=== PATIENT | male | born 1945 | race Caucasian/White ===

== ENCOUNTER 2019-09-17 12:18 | Inpatient (IN) | payer OTHER ==
--- NOTE | 2019-09-19 10:18 | R.PREADM ---
SCREENING DATE AND TIME 09/19/2019 08:37 (CDT) ANTICIPATED REHAB ADMISSION DATE 09/21/2019 REFERRING FACILITY [facility] [place] REFERRAL DATE AND TIME 09/19/2019 08:37 (CDT) REFERRAL ROOM# [id number].0222 ACUTE ADMIT DATE 09/06/2019 Previous Rehabilitation(s): No. 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 John Summers M.D. MR# [id number] [facility] [id number] NAME ALISON RON ADDRESS [address] [place] [address] [place]IP [phone] DATE OF 1945 AGE 74 SSN# [id number] GENDER male MARITAL STATUS RACE white PREF. LANGUAGE (IF NON-SOUTH KOREAN) Amharic ADMIT FROM 02 - [facility] PRE-HOSPITAL LIVING SETTING 01 - Home (private home/apt. board/care, assisted living, jail, transitional living) HOME TYPE AND DETAILS Type of home: single family house # of levels in the residence: 1 # of steps to enter the residence: 0 # of steps within the residence: 1 Patient lives at home with mother and sister and is independent with ADL's and uses cane for walking. PRE-HOSPITAL LIVING WITH Family/Relatives FAMILY SUPPORT Yes PRIMARY FAMILY CONTACT NAME Yanet Ron PRIMARY FAMILY CONTACT PHONE [phone] PRIMARY FAMILY CONTACT RELATIONSHIP Mother PHONE PRIMARY FAMILY CONTACT ON ADM.? no IS PRIMARY FAMILY CONTACT AUTH. REP.? no 1ST EMERGENCY CONTACT Yanet Ron 1ST CONTACT PHONE [phone] 1ST CONTACT RELATIONSHIP Mother PHONE 1ST CONTACT ON ADM. no IS 1ST CONTACT AUTH. REP.? no PHONE 2ND CONTACT ON ADM.? no PATIENT EMPLOYMENT STATUS Retired (for age) PATIENT EMPLOYER No Employer PAYOR INFORMATION: 1ST PAYOR NAME Marina Medicare 1ST PAYOR PHONE 1ST PAYOR AUTHORIZATION# [id number] 1ST PAYOR INJURY/ILLNESS DUE TO ACCIDENT? No ANOTHER REPUBLICAN RESPONSIBLE? No PRIMARY REHAB/ACUTE DIAGNOSIS: NSTEMI, CABG ONSET DATE 09/06/2019 REHAB IMPAIRMENT CATEGORY (STELLA): 14 Cardiac does NOT meet 60% rule PRIMARY DIAGNOSIS-RELATED SURGERIES: Emergency CAGG - performed by Dr Peace on 09/10/2019 RISK FOR COMPLICATIONS: - N/A AFIB with rapid ventricular response Post NSTEMI S/P CABG SUMMARY OF ACUTE HOSPITALIZATION: Pt. is a 74 yo Right-handed white male. On 09/06/2019 he was admitted to [facility] and underwent emergency surgery for NSTEMI, CABG (CAGG ) by Dr Peace. Pre-morbidly, Pt. was independent/mod-I in Transfers Control, Locomotion, and Self-Care; and he had g ood Balance, Safety Awareness, Social Cognition, Sphincter Control, and Communication. Currently, he has deficits of Transfers Control, Balance, Locomotion, Safety Awareness, and Self-Care . Pt. is now referred to [facility] for acute in-patient rehabilitation in order to maximize patient's functional independence in activities of daily living, strength, ROM, and mobi lity. Patient has realistic goal of being discharged at assistance level 6-Cruz to reside at Home with Fam cruzito/Relatives. PAST MEDICAL HISTORY HLD CABG DIABETES HX of IN with PCI CAD Osteoarthritis PAST SURGICAL HISTORY: CARDIAC STENTS KNEE SX MEDICATION ALLERGIES: CEPHALEXIN Penicillins ENVIRONMENTAL ALLERGIES: None Known - Substance Allergies None Known - Other Allergies None Known CODE STATUS: Full code WEIGHT/HEIGHT/BMI: WEIGHT 262 lbs HEIGHT 5' 10" BMI 37.6 DIET: - Diet Type Regular - Diet - Solid Texture Regular - Diet - Liquid Texture Regular - Tube Feed N/A SKIN DIAGRAM: Incision on Chest; extent - average; stage - NS(Not Stageable). Treatment - Per Physician's Orders. REVIEW OF SYSTEMS: - Gen Alert and awake Lying in bed No apparent distress Oriented to: person, time, and place - Vital Signs Vital signs stable, afebrile - CVS RRR VITAL SIGNS Temperature: 98.1 F SBP/DBP: 109/57 Pulse: 103 Resp: 20 Vital signs stable, afebrile MEDICATIONS/TREATMENT: Other- See attached MAR (Medication Administration Record). CURRENT SPHINCTER CONTROL: Pre-hospital bladder status: continent Pre-hospital bowel status: continent CURRENT LOCOMOTION STATUS: distance walked 210 feet DETAILED CURRENT FUNCTIONAL STATUS: - Walking score based on distance walked: 3(>=150ft) QI SCORES: - Self-Care A. Eating 04-Supervision or touching assistance B. Oral hygiene 04-Supervision or touching assistance C. Toileting hygiene 02-Substantial/maximal assistance E. Shower/bathe self 02-Substantial/maximal assistance F. Upper body dressing G. Lower body dressing 01-Dependent H. Putting on/taking off footwear - Mobility A. Roll left and right 04-Supervision or touching assistance B. Sit to lying 03-Partial/moderate assistance C. Lying to sitting on side of bed 03-Partial/moderate assistance D. Sit to stand 02-Substantial/maximal assistance E. Chair/bca-nm-hlyxj transfer 03-Partial/moderate assistance F. Toilet transfer 03-Partial/moderate assistance G. Car transfer 10-Not attempted due to environmental limitations I. Walk 10 feet 03-Partial/moderate assistance J. Walk 50 feet with two turns 03-Partial/moderate assistance K. Walk 150 feet 88-Not attempted due to medical condition or safety concerns L. Walking 10 feet on uneven surfaces 88-Not attempted due to medical condition or safety concerns M. 1 step (curb) 88-Not attempted due to medical condition or safety concerns N. 4 steps 88-Not attempted due to medical condition or safety concerns O. 12 steps 88-Not attempted due to medical condition or safety concerns P. Picking up object 88-Not attempted due to medical condition or safety concerns - Bladder and Bowel Bladder continence 0-Always continent Bowel continence 0-Always continent - Endurance Fair - Balance Poor - Safety Awareness Poor CURRENT FUNC. DEFICITS: Self-Care, Mobility, Endurance, Balance, and Safety Awareness CURRENT / PREVIOUS ASSISTIVE DEVICES: Straight Cane HISTORY OF FALLS. HAS THE PATIENT HAD TWO OR MORE FALLS IN THE PAST YEAR OR ANY FALL WITH INJURY IN T HE PAST YEAR?: No PRIOR SURGERY. DID THE PATIENT HAVE MAJOR SURGERY DURING THE 100 DAYS PRIOR TO ADMISSION?: Yes THERAPY NOTES FROM ACUTE CARE: Attached. SPECIAL NEEDS: - Safety Concerns Skin breakdown precautions needed due to skin breakdown risk PRECAUTIONS: - Sternal Precaution Hold pillow to sternum while caughing No overhead lifting No weight lifting more than 5 lbs No wheel chair propulsion - Cardiac Precaution Monitor blood pressure, heart rate, lower extremity edema, notify MD for shortness of breath or chest pain Monitor patient for excessive elevation of heart rate and blood pressure during therapy Nursing and Therapy to monitor pt before and after therapy sessions for signs of Chest pain PATIENT NEEDS ACTIVE AND ONGOING THERAPEUTIC INTERVENTION OF MULTIPLE THERAPY DISCIPLINES, INCLUDING: - Dietary and Nutrition Adequate Nutrition. Nutritional Education. Nutritional Supplements. PATIENT NEEDS CLOSE MEDICAL SUPERVISION BY A REHABILITATION PHYSICIAN FOR: Coordination of Treatment Team Post-Op Complications Wound Care PATIENT REQUIRES 24X7 REHAB NURSING FOR MEDICAL AND FUNCTIONAL MGT. OF THE FOLLOWING DEFICITS: Disease Management Medication Management Patient/Family Education Providing Safe Environment Skin Integrity PATIENT REQUIRES INTENSIVE, COORDINATED INTERDISCIPLINARY APPROACH TO REHAB: Arranging Home Equipment/Services Discharge Planning Family Intervention/Training Instructor Trainer Canine Service/Case Management PATIENT REHAB POTENTIAL: Jens VELAZQUEZ is able and expected to receive 3 hours of individualized therapy daily on at least 5 o f every 7 days Jens VELAZQUEZ's prognosis for significant practical improvement within a reasonable period of time ap pears Good Expected level of measurable improvement will be of a practical value to Jens VELAZQUEZ's functional c apacity or adaptations to impairments Has a viable Discharge Plan Medically appropriate; condition is sufficiently stable to participate in intensive rehab program DISCHARGE PLAN: - Estimated Length of Stay (days) 10. - Consensus on plan Discharge plan has been discussed with primary caregiver. Patient/Family is in agreement with the brooke n. - Patient/Family Goals Return home with assistance. RECOMMENDED CARE LEVEL: IRF RECOMMENDATION DETAILS: Recommended Admission to Comprehensive Rehabilitation Program to Increase Functional [place] SCREENER'S COMPLETENESS CONFIRMATION: - Screening Confirmation The patient data collection on this preadmission screening form is finished PHYSICIANS REVIEW AND ADMISSION DETERMINATION Admit - Based on my review of the Pre-Admission Screening results, in my medical judgment and experie nce, I concur with the findings and recommend admission to [facility], as this patient requires an IRF level of care. SIGNATURE PANEL: Clinical Liaison - [electronically] signed by Steffanie Fox RN on 09/19/2019 at 08:53 (CDT) Physician Reviewer - [electronically] signed by Dr. John Summers M.D. on 09/19/2019 at 10:18 (CDT )
--- OUTSIDE RECORDS SUMMARY | 2019-09-19 19:45 | XMS REPORT | Continuity of Care Document ---
:1945 Author Organization [facility] t Address [address] [place] [address] Care Team Providers Name Role Phone Unavailable Unavailable Unavailable Payers Payer Name Policy Type Policy Number Effective Date Expiration Date S ource Problems This patient has no known problems. Allergies, Adverse Reactions, Alerts Allergy Allergy Status Severity Reaction(s) Onset Inactive Treating Comm ents Source Name Type Date Date Clinician [facility] DA Active U 2020-0 [facility] [place] [facility] [place] [facility] DA [facility] U 2020-0 [facility] 09[facility]05 [place] 00:[facility]: [facility] 00 are [facility] cephalex DA Active U 2020-0 [facility] 09-05 [place] 00:[facility]: [facility] 00 are [facility] Pen[place]ill DA Active [place] 2020-0 [facility] ins 09-03 [place] 00:00: Fong [address] [place] [address] cephalex DA Active [place] 2020-0 [facility] 09-03 [place] 00:00: [address] Medications This patient has no known medications. Procedures This patient has no known procedures. Results Test Description Test Time Test Comments Results Result Comments Source GLUBED 2019-09-19 11:50:00 Test Item Value Reference Range Interpretation Comme nts GLUBED (test code = GLUBED) 115 MG/DL 70-105 H BASIC METABOLIC [id number] 10:38:00 Test Item Value Reference Range Interpretation Comments SODIUM (test code = 132 MMOL/L 136-143 L NA) POTASSIUM (test code 3.9 MMOL/L 3.5-5.1 N = K) CHLORIDE (test code = 94 MMOL/L 98-107 L CL) CARBON DIOXIDE (test 30 mmol/L 24-31 N code = CO2) GLUCOSE (test code = 146 mg/dL 70-104 H GLU) BLOOD UREA NITROGEN 19.6 MG/DL 7.0-21.0 N (test code = BUN) GLOMERULAR FILTRATION 45 >60 L The es timated RATE (test code = glomerular filtration GFR) rate is compute d usingpatient ra ce, age (>18), sex, and serum creatinine. If anyof the needed data elements are mi ssing the Laboratory cannot compute an aleks mation of the glomerul ar filtration rate . CREATININE (test code 1.6 mg/dL 0.8-1.5 H = CREAT) CALCIUM (test code = 9.1 mg/dL 8.8-10.2 N CA) - XR CHEST 1 [id number] 09:17:00Patient Name: ALISON LOUIE Unit No: [id number] EXAMS: CPT CODE: [id number] XR CHEST 1 V [id number] EXAM: XR Chest 1 View INDICATION: Acute resp insufficiency LOCATION CODE: A 1 COMPARISON: Chest radiograph dated 09/18/2019 TECHNIQUE: Frontal view of the chest was obtained. FINDINGS: Left basilar airspace opacities are relatively unchanged from prior with suspected left pleural effusion. Right lung is clear. There is no pneumothorax. The cardiomediastinal silhouette is unchanged. No acute osseous abnormality is identified. IMPRESSION: No significant change from prior radiograph at 0917 Reported and signed by: MELVINA SCHMITZ M.D. CC: Blayne Hernandes MD;Curtis Peace MD Technologist: Yogi Mai Time: DAP (Gy m2): Air Kerma (mGy): Trscr Dt/Tm: 09/19/2019 (916) by:[email or web address] Printed Date/Time: 09/19/2019 (920) Name: ALISON LOUIE [facility] Phys: Blayne Miranda MD [address] : 1945 Age: 74 Sex: [place] [address] Loc: P.0222 1 Exam Date: 09/19/2019 Status:ADM IN PH: FAX: PAGE 1 Signed ReportCBC W/AUTO DIFF 2019-09-19 09:15:00 Test Item Value Reference Range Interpretation Comments WHITE BLOOD CELL (test code = 7.8 x10 3/uL 4.8-10.8 N WBC) RED BLOOD CELL (test code = 2.78 x10 6/uL 4.70-6.10 L RBC) HEMOGLOBIN (test code = HGB) 8.1 g/dL 14.5-20 L HEMATOCRIT (test code = HCT) 25.2 % 42.0-52.0 L MEAN CELL VOLUME (test code = 90.6 fL 80.0-94.0 N MCV) MEAN CELL HGB (test code = MCH) 29.1 pg 27-31 N MEAN CELL HGB CONCENTRATION 32.1 G/DL 33-36.5 L (test code = MCHC) RED CELL DISTRIBUTION WIDTH 14.9 % 12.9-16.9 N (test code = RDW) PLATELET COUNT (test code = 291 150-440 N PLT) MEAN PLATELET VOLUME (test code 11.9 fL 8.9-12.4 N = MPV) NEUTROPHIL % (test code = NT%) 70.4 % 42.2-75.2 N LYMPHOCYTE % (test code = LY%) 14.9 % 20.5-51.1 L MONOCYTE % (test code = MO%) 8.0 % 1.7-9.3 N EOSINOPHIL % (test code = EO%) 5.5 % 0.0-7.0 N BASOPHIL % (test code = BA%) 0.6 % 0-2.5 N NEUTROPHIL # (test code = NT#) 5.50 x10 3/uL 1.80-7.70 N LYMPHOCYTE # (test code = LY#) 1.17 x10 3/uL 1.00-4.80 N MONOCYTE # (test code = MO#) 0.63 x10 3/uL 0.00-0.80 N EOSINOPHIL # (test code = EO#) 0.43 x10 3/uL 0.00-0.45 N BASOPHIL # (test code = BA#) 0.05 x10 3/uL 0.0-0.20 N PROTHROMBIN [id number] 07:41:00 Test Item Value Reference Range Interpretation Comments PROTHROMBIN TIME 23.4 SECONDS 10.3-12.9 H PATIENT (test code = PTP) INTERNATIONAL 2.03 INR UNIT 0.9-1.11 H The INR is us eful only NORMAL RATIO (test for monit oring code = INR) anticoagulant therapy.It may be unreliable in t he initial phase o f antigoagulation and in unstable patien ts. Indication for Anticoagulation Recommend ed INR 1. Prevention o f venous thomboembolism 2.0-3.0in high -risk patients; treat ment of venousthrombosi s and pulmonary embol ism aftera course o f heparin; preven tion of systemicembolis m in a variety of cond itions, including atria l fibrillation an d prothetic tissu e heart valves, 2. Pros thetic mechanical hear t valves; 2.5-3.5recurren t systemic emboli sm. [id number] 20:49:00 Test Item Value Reference Range Interpretation Comments GLUBED (test code = GLUBED) 155 MG/DL 70-105 H [id number] 16:59:00 Test Item Value Reference Range Interpretation Comments GLUBED (test code = GLUBED) 117 MG/DL 70-105 H [id number] 11:32:00 Test Item Value Reference Range Interpretation Comments GLUBED (test code = GLUBED) 133 MG/DL 70-105 H - XR CHEST 1 [id number] 09:59:00Patient Name: ALISON LOUIE Unit No: [id number] EXAMS: CPT CODE: [id number] XR CHEST 1 V [id number] EXAM: Chest one view. Location: A1 HISTORY: New chestpain COMPARISON: 09/18/2019 at 07 58 FINDINGS: Patchy airspace opacities are present at the lung bases, slightly worsened since earlier study. Cardiac silhouette is moderately enlarged. There is prominence of central pulmonary vessels and in terstitial markings. Left pleural effusion appears sightly worsened. Sternotomy wires and mediastinal surgical clips are present. There is no pneumothorax. Visualized skeletal structures are within normal limits. IMPRESSION: 1. Interval worsening atelectasis/consolidation of the lung bases and small left pleural effusion. 2. Stable cardiomegaly and pulmonary vascular congestion at 0959 Reported and signed by: CAROLEE DAN CC: Collins CRAWFORD; Curtis Peace MD Technologist: Darian Mai Time: DAP (Gy m2): Air Kerma (mGy): Trscr Dt/Tm: 09/18/2019 (0959) by:[email or web address] Printed Date/Time: 09/18/2019 (1002) Name: ALISON LOUIE [facility] Phys: AMANDO.Kris - Collins Boss [address] : 1945 Age: 74 Sex: [place] [address] Loc: P.0222 1 Exam Date: 09/18/2019 Status: ADM IN PH: FAX: PAGE 1 Signed ReportPROTHROMBIN [id number] 08:19:00 Test Item Value Reference Range Interpretation Comments PROTHROMBIN TIME 15.9 SECONDS 10.3-12.9 H PATIENT (test code = PTP) INTERNATIONAL 1.39 INR UNIT 0.9-1.11 H The INR is us eful only NORMAL RATIO (test for monit oring code = INR) anticoagulant therapy.It may be unreliable in t he initial phase o f antigoagulation and in unstable patien ts. Indication for Anticoagulation Recommend ed INR 1. Prevention o f venous thomboembolism 2.0-3.0in high -risk patients; treat ment of venousthrombosi s and pulmonary embol ism aftera course o f heparin; preven tion of systemicembolis m in a variety of cond itions, including atria l fibrillation an d prothetic tissu e heart valves, 2. Pros thetic mechanical hear t valves; 2.5-3.5recurren t systemic emboli sm. - XR CHEST 1 [id number] 08:03:00Patient Name: ALISON LOUIE Unit No: [id number] EXAMS: CPT CODE: [id number] XR CHEST 1 V [id number] EXAM: XR Chest 1 View INDICATION: Acute resp insufficiency LOCATION CODE: A 1 COMPARISON: Chest radiograph dated 09/17/2019 TECHNIQUE: Frontal view of the chest was obtained. FINDINGS: Small left pleural effusion with left basilar airspace opacities are unchanged from prior. There is no pneumothorax. The cardiomediastinal silhouette is unchanged. No acute osseous abnormality isidentified. IMPRESSION: No significant change from prior radiograph. at 0803 Reported and signed by: MELVINA SCHMITZ M.D. CC: Blayne Hernandes MD; Curtis Peace MD Technologist: Darian Bone Fluoro Time: DAP (Gy m2): Air Kerma (mGy): Trscr Dt/Tm: 09/18/2019 (0803) by:[email or web address] Printed Date/Time: 09/18/2019 (0807) Name: ALISON LOUIE [facility] Phys: Blayne Miranda MD [address] : [birth year] Age: 74 Sex: [place] [address] Loc: P.0222 1 Exam Date: 09/18/2019 Status: ADM IN PH: FAX: PAGE 1 Signed [id number] 07:44:00 Test Item Value Reference Range Interpretation Comments GLUBED (test code = GLUBED) 115 MG/DL 70-105 H CBC W/AUTO [id number] 07:20:00 Test Item Value Reference Range Interpretation Comments WHITE BLOOD CELL (test code = 8.5 x10 3/uL 4.8-10.8 N WBC) RED BLOOD CELL (test code = 2.84 x10 6/uL 4.70-6.10 L RBC) HEMOGLOBIN (test code = HGB) 8.2 g/dL 14.5-20 L HEMATOCRIT (test code = HCT) 25.7 % 42.0-52.0 L MEAN CELL VOLUME (test code = 90.5 fL 80.0-94.0 N MCV) MEAN CELL HGB (test code = MCH) 28.9 pg 27-31 N MEAN CELL HGB CONCENTRATION 31.9 G/DL 33-36.5 L (test code = MCHC) RED CELL DISTRIBUTION WIDTH 15.0 % 12.9-16.9 N (test code = RDW) PLATELET COUNT (test code = 274 150-440 N PLT) MEAN PLATELET VOLUME (test code 12.3 fL 8.9-12.4 N = MPV) NEUTROPHIL % (test code = NT%) 62.9 % 42.2-75.2 N LYMPHOCYTE % (test code = LY%) 20.2 % 20.5-51.1 L MONOCYTE % (test code = MO%) 10.3 % 1.7-9.3 H EOSINOPHIL % (test code = EO%) 5.1 % 0.0-7.0 N BASOPHIL % (test code = BA%) 0.7 % 0-2.5 N NEUTROPHIL # (test code = NT#) 5.33 x10 3/uL 1.80-7.70 N LYMPHOCYTE # (test code = LY#) 1.71 x10 3/uL 1.00-4.80 N MONOCYTE # (test code = MO#) 0.87 x10 3/uL 0.00-0.80 H EOSINOPHIL # (test code = EO#) 0.43 x10 3/uL 0.00-0.45 N BASOPHIL # (test code = BA#) 0.06 x10 3/uL 0.0-0.20 N BASIC METABOLIC [id number] 07:11:00 Test Item Value Reference Range Interpretation Comments SODIUM (test code = 138 MMOL/L 136-143 N NA) POTASSIUM (test code 4.0 MMOL/L 3.5-5.1 N = K) CHLORIDE (test code = 99 MMOL/L 98-107 N CL) CARBON DIOXIDE (test 30 mmol/L 24-31 N code = CO2) GLUCOSE (test code = 113 mg/dL 70-104 H GLU) BLOOD UREA NITROGEN 18.0 MG/DL 7.0-21.0 N (test code = BUN) GLOMERULAR FILTRATION 45 >60 L The es timated RATE (test code = glomerular filtration GFR) rate is compute d usingpatient ra ce, age (>18), sex, and serum creatinine. If anyof the needed data elements are mi ssing the Laboratory cannot compute an aleks mation of the glomerul ar filtration rate . CREATININE (test code 1.6 mg/dL 0.8-1.5 H = CREAT) CALCIUM (test code = 9.2 mg/dL 8.8-10.2 N CA) [id number] 19:48:00 Test Item Value Reference Range Interpretation Comments GLUBED (test code = GLUBED) 158 MG/DL 70-105 H [id number] 17:58:00 Test Item Value Reference Range Interpretation Comments GLUBED (test code = GLUBED) 135 MG/DL 70-105 H [id number] 13:58:00 Test Item Value Reference Range Interpretation Comments GLUBED (test code = GLUBED) 107 MG/DL 70-105 H BASIC METABOLIC [id number] 10:22:00 Test Item Value Reference Range Interpretation Comments SODIUM (test code = 131 MMOL/L 136-143 L NA) POTASSIUM (test code 4.5 MMOL/L 3.5-5.1 N = K) CHLORIDE (test code = 96 MMOL/L 98-107 L CL) CARBON DIOXIDE (test 29 mmol/L 24-31 N code = CO2) GLUCOSE (test code = 111 mg/dL 70-104 H GLU) BLOOD UREA NITROGEN 18.9 MG/DL 7.0-21.0 N (test code = BUN) GLOMERULAR FILTRATION 58 >60 L The es timated RATE (test code = glomerular filtration GFR) rate is compute d usingpatient ra ce, age (>18), sex, and serum creatinine. If anyof the needed data elements are mi ssing the Laboratory cannot compute an aleks mation of the glomerul ar filtration rate . CREATININE (test code 1.3 mg/dL 0.8-1.5 N = CREAT) CALCIUM (test code = 9.3 mg/dL 8.8-10.2 N CA) LIVER FUNCTION [id number] 10:22:00 Test Item Value Reference Range Interpretation Comments TOTAL PROTEIN (test code = PROT) 5.9 g/dL 6.3-8.3 L ALBUMIN (test code = ALB) 3.5 G/DL 3.5-5.0 N BILIRUBIN TOTAL (test code = BILT) 0.4 mg/dL 0.2-1.0 N BILIRUBIN DIRECT (test code = <0.2 mg/dL 0.0-0.2 N BILD) SGOT/AST (test code = AST) 17 IU/L 10-34 N SGPT/ALT (test code = ALT) 12 U/L 10-44 N ALKALINE PHOSPHATASE (test code = 62 U/L 45-120 N ALKP) - XR CHEST 1 [id number] 07:54:00Patient Name: ALISON LOUIE Unit No: [id number] EXAMS: CPT CODE: [id number] XR CHEST 1 V [id number] Chest one view AP 09/17/2019 7:54 AM CLINICAL INDICATION: Postop COMPARISON: 09/16/2019 LOCATION: W1 IMPRESSION: Cardiomediastinal contours are stable. The central pulmonary vasculature is not engorged. There is bibasilar atelectasis, with a trace left pleural effusion. No pneumothorax is evident. Sternotomy wires remain midline. at 0754 Reported and signed by: MARCELO SANTOS M.D. CC: Curtis Peace MD Technologist: Yogi Mai Time: DAP (Gy m2): Air Kerma (mGy): Trscr Dt/Tm: 09/17/2019 (0754) by:[email or web address] Printed Date/Time: 09/17/2019 (0758) Name: ALISON LOUIE [facility] Phys: Curtis uBrgess MD [address] : 1945 Age: 74 Sex: [place] [address] Loc: P.0222 1 Exam Date: 09/17/2019 Status: ADMIN PH: FAX: PAGE 1 Signed [id number] 07:42:00 Test Item Value Reference Range Interpretation Comments GLUBED (test code = GLUBED) 145 MG/DL 70-105 H BASIC METABOLIC [id number] 07:10:00 Test Item Value Reference Range Interpretation Comments SODIUM (test code = 131 MMOL/L 136-143 L NA) POTASSIUM (test code 4.5 MMOL/L 3.5-5.1 N = K) CHLORIDE (test code = 96 MMOL/L 98-107 L CL) CARBON DIOXIDE (test 29 mmol/L 24-31 N code = CO2) GLUCOSE (test code = 111 mg/dL 70-104 H GLU) BLOOD UREA NITROGEN 18.9 MG/DL 7.0-21.0 N (test code = BUN) GLOMERULAR FILTRATION 58 >60 L The es timated RATE (test code = glomerular filtration GFR) rate is compute d usingpatient ra ce, age (>18), sex, and serum creatinine. If anyof the needed data elements are mi ssing the Laboratory cannot compute an aleks mation of the glomerul ar filtration rate . CREATININE (test code 1.3 mg/dL 0.8-1.5 N = CREAT) CALCIUM (test code = 9.3 mg/dL 8.8-10.2 N CA) PROTHROMBIN [id number] 06:58:00 Test Item Value Reference Range Interpretation Comments PROTHROMBIN TIME 12.9 SECONDS 10.3-12.9 N PATIENT (test code = PTP) INTERNATIONAL 1.14 INR UNIT 0.9-1.11 H The INR is us eful only NORMAL RATIO (test for monit oring code = INR) anticoagulant therapy.It may be unreliable in t he initial phase o f antigoagulation and in unstable patien ts. Indication for Anticoagulation Recommend ed INR 1. Prevention o f venous thomboembolism 2.0-3.0in high -risk patients; treat ment of venousthrombosi s and pulmonary embol ism aftera course o f heparin; preven tion of systemicembolis m in a variety of cond itions, including atria l fibrillation an d prothetic tissu e heart valves, 2. Pros thetic mechanical hear t valves; 2.5-3.5recurren t systemic emboli sm. THROMBOPLASTIN TIME [id number] 06:58:00 Test Item Value Reference Range Interpretation Comments THROMBOPLASTIN TIME 35.5 SECONDS 26.0-35.9 VIVIENNE PARTIAL (test code = [place]. INTERPRETATIV PTT) E DATA:Therapeu tic range: Unfractionated heparin:47 - 71 seconds Argatroban:1.5 to 3 times the basel ine PTT CBC W/AUTO [id number] 06:18:00 Test Item Value Reference Range Interpretation Comments WHITE BLOOD CELL (test code = 8.6 x10 3/uL 4.8-10.8 N WBC) RED BLOOD CELL (test code = 2.83 x10 6/uL 4.70-6.10 L RBC) HEMOGLOBIN (test code = HGB) 8.2 g/dL 14.5-20 L HEMATOCRIT (test code = HCT) 25.6 % 42.0-52.0 L MEAN CELL VOLUME (test code = 90.5 fL 80.0-94.0 N MCV) MEAN CELL HGB (test code = MCH) 29.0 pg 27-31 N MEAN CELL HGB CONCENTRATION 32.0 G/DL 33-36.5 L (test code = MCHC) RED CELL DISTRIBUTION WIDTH 14.7 % 12.9-16.9 N (test code = RDW) PLATELET COUNT (test code = 236 150-440 N PLT) MEAN PLATELET VOLUME (test code 12.4 fL 8.9-12.4 N = MPV) NEUTROPHIL % (test code = NT%) 65.2 % 42.2-75.2 N LYMPHOCYTE % (test code = LY%) 15.8 % 20.5-51.1 L MONOCYTE % (test code = MO%) 11.6 % 1.7-9.3 H EOSINOPHIL % (test code = EO%) 5.8 % 0.0-7.0 N BASOPHIL % (test code = BA%) 0.6 % 0-2.5 N NEUTROPHIL # (test code = NT#) 5.63 x10 3/uL 1.80-7.70 N LYMPHOCYTE # (test code = LY#) 1.36 x10 3/uL 1.00-4.80 N MONOCYTE # (test code = MO#) 1.00 x10 3/uL 0.00-0.80 H EOSINOPHIL # (test code = EO#) 0.50 x10 3/uL 0.00-0.45 H BASOPHIL # (test code = BA#) 0.05 x10 3/uL 0.0-0.20 N [id number] 21:03:00 Test Item Value Reference Range Interpretation Comments GLUBED (test code = GLUBED) 138 MG/DL 70-105 H [id number] 17:27:00 Test Item Value Reference Range Interpretation Comments GLUBED (test code = GLUBED) 133 MG/DL 70-105 H [id number] 11:22:00 Test Item Value Reference Range Interpretation Comments GLUBED (test code = GLUBED) 157 MG/DL 70-105 H [id number] 08:13:00 Test Item Value Reference Range Interpretation Comments GLUBED (test code = GLUBED) 120 MG/DL 70-105 H - XR CHEST 1 [id number] 07:05:00Patient Name: ALISON LOUIE Unit No: [id number] EXAMS: CPT CODE: [id number] XR CHEST 1 V [id number] Chest one view AP 09/16/2019 7:04 AM CLINICAL INDICATION: CABG COMPARISON: 09/14/2019 LOCATION: W1 IMPRESSION: A right IJ CVC sheath has been removed. Sternotomy wires remain midline. Cardiomediastinal contours are stable. The central pulmonary vasculature is not engorged.The lungs are hypoinflated, with bibasilar atelectasis. No pneumothorax is evident. at 0705 Reported and signed by: MARCELO SANTOS M.D. CC: Curtis Peace MD; Kenn Antony MD Technologist: Chanel Mai Time: DAP (Gy m2): Air Kerma (mGy): Trscr Dt/Tm: 09/16/2019 (704) by:[email or web address] Printed Date/Time: 09/16/2019 (707) Name: JACYALISON [facility] Phys: - Kenn Antony MD [address] : 1945 Age: 74 Sex: [place] [address] Loc: P.0222 1 Exam Date: 09/16/2019 Status: ADM IN PH: FAX: PAGE 1 Signed ReportBASIC METABOLIC PANEL 2019-09-16 05:51:00 Test Item Value Reference Range Interpretation Comments SODIUM (test code = 138 MMOL/L 136-143 N NA) POTASSIUM (test code 4.0 MMOL/L 3.5-5.1 N = K) CHLORIDE (test code = 101 MMOL/L 98-107 N CL) CARBON DIOXIDE (test 27 mmol/L 24-31 N code = CO2) GLUCOSE (test code = 129 mg/dL 70-104 H GLU) BLOOD UREA NITROGEN 18.9 MG/DL 7.0-21.0 N (test code = BUN) GLOMERULAR FILTRATION 58 >60 L The es timated RATE (test code = glomerular filtration GFR) rate is compute d usingpatient ra ce, age (>18), sex, and serum creatinine. If anyof the needed data elements are mi ssing the Laboratory cannot compute an aleks mation of the glomerul ar filtration rate . CREATININE (test code 1.3 mg/dL 0.8-1.5 N = CREAT) CALCIUM (test code = 8.7 mg/dL 8.8-10.2 L CA) PROTHROMBIN [id number] 04:53:00 Test Item Value Reference Range Interpretation Comments PROTHROMBIN TIME 13.3 SECONDS 10.3-12.9 H PATIENT (test code = PTP) INTERNATIONAL 1.17 INR UNIT 0.9-1.11 H The INR is us eful only NORMAL RATIO (test for monit oring code = INR) anticoagulant therapy.It may be unreliable in t he initial phase o f antigoagulation and in unstable patien ts. Indication for Anticoagulation Recommend ed INR 1. Prevention o f venous thomboembolism 2.0-3.0in high -risk patients; treat ment of venousthrombosi s and pulmonary embol ism aftera course o f heparin; preven tion of systemicembolis m in a variety of cond itions, including atria l fibrillation an d prothetic tissu e heart valves, 2. Pros thetic mechanical hear t valves; 2.5-3.5recurren t systemic emboli sm. THROMBOPLASTIN TIME [id number] 04:53:00 Test Item Value Reference Range Interpretation Comments THROMBOPLASTIN TIME 48.7 SECONDS 26.0-35.9 H INTERPRE TATIVE PARTIAL (test code = DATA: erapeutic PTT) range: Unfractionated heparin:47 - 71 seconds Argatroban:1.5 to 3 times the basel ine PTT CBC W/AUTO [id number] 04:35:00 Test Item Value Reference Range Interpretation Comments WHITE BLOOD CELL (test code = 7.8 x10 3/uL 4.8-10.8 N WBC) RED BLOOD CELL (test code = 2.81 x10 6/uL 4.70-6.10 L RBC) HEMOGLOBIN (test code = HGB) 8.1 g/dL 14.5-20 L HEMATOCRIT (test code = HCT) 25.5 % 42.0-52.0 L MEAN CELL VOLUME (test code = 90.7 fL 80.0-94.0 N MCV) MEAN CELL HGB (test code = MCH) 28.8 pg 27-31 N MEAN CELL HGB CONCENTRATION 31.8 G/DL 33-36.5 L (test code = MCHC) RED CELL DISTRIBUTION WIDTH 14.6 % 12.9-16.9 N (test code = RDW) PLATELET COUNT (test code = 219 150-440 N PLT) MEAN PLATELET VOLUME (test code 12.2 fL 8.9-12.4 N = MPV) NEUTROPHIL % (test code = NT%) 63.9 % 42.2-75.2 N LYMPHOCYTE % (test code = LY%) 18.2 % 20.5-51.1 L MONOCYTE % (test code = MO%) 11.4 % 1.7-9.3 H EOSINOPHIL % (test code = EO%) 5.4 % 0.0-7.0 N BASOPHIL % (test code = BA%) 0.6 % 0-2.5 N NEUTROPHIL # (test code = NT#) 5.00 x10 3/uL 1.80-7.70 N LYMPHOCYTE # (test code = LY#) 1.42 x10 3/uL 1.00-4.80 N MONOCYTE # (test code = MO#) 0.89 x10 3/uL 0.00-0.80 H EOSINOPHIL # (test code = EO#) 0.42 x10 3/uL 0.00-0.45 N BASOPHIL # (test code = BA#) 0.05 x10 3/uL 0.0-0.20 N [id number] 20:51:00 Test Item Value Reference Range Interpretation Comments GLUBED (test code = GLUBED) 128 MG/DL 70-105 H [id number] 16:43:00 Test Item Value Reference Range Interpretation Comments GLUBED (test code = GLUBED) 129 MG/DL 70-105 H [id number] 11:18:00 Test Item Value Reference Range Interpretation Comments GLUBED (test code = GLUBED) 107 MG/DL 70-105 H [id number] 11:18:00 Test Item Value Reference Range Interpretation Comments GLUBED (test code = GLUBED) 136 MG/DL 70-105 H [id number] 10:55:00 Test Item Value Reference Range Interpretation Comments GLUBED (test code = GLUBED) 137 MG/DL 70-105 H [id number] 10:55:00 Test Item Value Reference Range Interpretation Comments GLUBED (test code = GLUBED) 131 MG/DL 70-105 H [id number] 10:54:00 Test Item Value Reference Range Interpretation Comments GLUBED (test code = GLUBED) 141 MG/DL 70-105 H [id number] 10:54:00 Test Item Value Reference Range Interpretation Comments GLUBED (test code = GLUBED) 139 MG/DL 70-105 H [id number] 07:36:00 Test Item Value Reference Range Interpretation Comments GLUBED (test code = GLUBED) 147 MG/DL 70-105 H BASIC METABOLIC [id number] 07:24:00 Test Item Value Reference Range Interpretation Comments SODIUM (test code 139 MMOL/L 136-143 N = NA) POTASSIUM (test 3.8 MMOL/L 3.5-5.1 N code = K) CHLORIDE (test 105 MMOL/L 98-107 N code = CL) CARBON DIOXIDE 27 mmol/L 24-31 N (test code = CO2) GLUCOSE (test code 123 mg/dL 70-104 H = GLU) BLOOD UREA 20.1 MG/DL 7.0-21.0 N NITROGEN (test code = BUN) GLOMERULAR >=60 max >60 The estimated FILTRATION RATE estimate glomerular (test code = GFR) filtration rate is computed usingpatient ra ce, age (>18), sex, and serum creatinin e. If anyof the neede d data elements a re missing the Laboratory guy ot compute an estimation of t he glomerular filtration rate . CREATININE (test 1.2 mg/dL 0.8-1.5 N code = CREAT) CALCIUM (test code 8.5 mg/dL 8.8-10.2 L = CA) BASIC METABOLIC [id number] 07:10:00 Test Item Value Reference Range Interpretation Comments SODIUM (test code 139 MMOL/L 136-143 N = NA) POTASSIUM (test 3.8 MMOL/L 3.5-5.1 N code = K) CHLORIDE (test 105 MMOL/L 98-107 N code = CL) CARBON DIOXIDE 27 mmol/L 24-31 N (test code = CO2) GLUCOSE (test code 123 mg/dL 70-104 H = GLU) BLOOD UREA MG/DL 7.0-21.0 NITROGEN (test code = BUN) GLOMERULAR >=60 max >60 The estimated FILTRATION RATE estimate glomerular (test code = GFR) filtration rate is computed usingpatient ra ce, age (>18), sex, and serum creatinin e. If anyof the neede d data elements a re missing the Laboratory guy ot compute an estimation of t he glomerular filtration rate . CREATININE (test 1.2 mg/dL 0.8-1.5 N code = CREAT) CALCIUM (test code 8.5 mg/dL 8.8-10.2 L = CA) THROMBOPLASTIN TIME [id number] 07:09:00 Test Item Value Reference Range Interpretation Comments THROMBOPLASTIN TIME 37.8 SECONDS 26.0-35.9 H INTERPRE TATIVE PARTIAL (test code = DATA: erapeutic PTT) range: Unfractionated heparin:47 - 71 seconds Argatroban:1.5 to 3 times the basel ine PTT CBC W/AUTO [id number] 06:15:00 Test Item Value Reference Range Interpretation Comments WHITE BLOOD CELL (test code = 7.8 x10 3/uL 4.8-10.8 N WBC) RED BLOOD CELL (test code = 2.77 x10 6/uL 4.70-6.10 L RBC) HEMOGLOBIN (test code = HGB) 8.1 g/dL 14.5-20 L HEMATOCRIT (test code = HCT) 25.2 % 42.0-52.0 L MEAN CELL VOLUME (test code = 91.0 fL 80.0-94.0 N MCV) MEAN CELL HGB (test code = MCH) 29.2 pg 27-31 N MEAN CELL HGB CONCENTRATION 32.1 G/DL 33-36.5 L (test code = MCHC) RED CELL DISTRIBUTION WIDTH 14.6 % 12.9-16.9 N (test code = RDW) PLATELET COUNT (test code = 189 150-440 N PLT) MEAN PLATELET VOLUME (test code 12.7 fL 8.9-12.4 H = MPV) NEUTROPHIL % (test code = NT%) 71.0 % 42.2-75.2 N LYMPHOCYTE % (test code = LY%) 13.0 % 20.5-51.1 L MONOCYTE % (test code = MO%) 10.6 % 1.7-9.3 H EOSINOPHIL % (test code = EO%) 4.3 % 0.0-7.0 N BASOPHIL % (test code = BA%) 0.5 % 0-2.5 N NEUTROPHIL # (test code = NT#) 5.55 x10 3/uL 1.80-7.70 N LYMPHOCYTE # (test code = LY#) 1.02 x10 3/uL 1.00-4.80 N MONOCYTE # (test code = MO#) 0.83 x10 3/uL 0.00-0.80 H EOSINOPHIL # (test code = EO#) 0.34 x10 3/uL 0.00-0.45 N BASOPHIL # (test code = BA#) 0.04 x10 3/uL 0.0-0.20 N - XR CHEST 1 [id number] 07:42:00Patient Name: ALISON LOUIE Unit No: [id number] EXAMS: CPT CODE: [id number] XR CHEST 1 V [id number] Chest one view AP 09/14/2019 7:41 AM CLINICAL INDICATION: CABG COMPARISON: 09/13/2019 LOCATION: W1 IMPRESSION: Support hardware is unchanged in position. Cardiomediastinal contours are stable. The central pulmonary vasculature is not engorged. The lungs are hypoinflated, with bibasilar atelectasis. No pneumothorax is evident. at 0742 Reported and signed by: MARCELO SANTOS M.D. CC: Curtis Peace MD Technologist: Martha Costa Fluoro Time: DAP (Gy m2): Air Kerma (mGy): Trscr Dt/Tm: 09/14/2019 (0742) by:[email or web address] Printed Date/Time: 09/14/2019 (0765) Name: ALISON LOUIE [facility] Phys: Curtis Burgess MD [address] : 1945 Age: 74 Sex: [place] [address] Acct No: [id number] Loc: P.0222 1 Exam Date: 09/14/2019 Status: ADM IN PH: FAX: PAGE 1 Signed ReportTHROMBOPLASTIN TIME [id number] 07:09:00 Test Item Value Reference Range Interpretation Comments THROMBOPLASTIN TIME 40.0 SECONDS 26.0-35.9 H INTERPRE TATIVE PARTIAL (test code = DATA:Th erapeutic PTT) range: Unfractionated heparin:47 - 71 seconds Argatroban:1.5 to 3 times the basel ine PTT BASIC METABOLIC [id number] 07:05:00 Test Item Value Reference Range Interpretation Comments SODIUM (test code 134 MMOL/L 136-143 L = NA) POTASSIUM (test 4.1 MMOL/L 3.5-5.1 N code = K) CHLORIDE (test 105 MMOL/L 98-107 N code = CL) CARBON DIOXIDE 25 mmol/L 24-31 N (test code = CO2) GLUCOSE (test code 138 mg/dL 70-104 H = GLU) BLOOD UREA 21.8 MG/DL 7.0-21.0 H NITROGEN (test code = BUN) GLOMERULAR >=60 max >60 The estimated FILTRATION RATE estimate glomerular (test code = GFR) filtration rate is computed usingpatient ra ce, age (>18), sex, and serum creatinin e. If anyof the neede d data elements a re missing the Laboratory guy ot compute an estimation of t he glomerular filtration rate . CREATININE (test 1.2 mg/dL 0.8-1.5 N code = CREAT) CALCIUM (test code 8.3 mg/dL 8.8-10.2 L = CA) [id number] 07:05:00 Test Item Value Reference Range Interpretation Comments PHOSPHOROUS (test code = PHOS) 2.2 mg/dL 2.7-4.5 L [id number] 07:05:00 Test Item Value Reference Range Interpretation Comments MAGNESIUM (test code = MAG) 2.1 mg/dL 1.4-2.6 N RECOLLECTCBC W/AUTO [id number] 05:30:00 Test Item Value Reference Range Interpretation Comments WHITE BLOOD CELL (test code = 7.8 x10 3/uL 4.8-10.8 N WBC) RED BLOOD CELL (test code = 2.57 x10 6/uL 4.70-6.10 L RBC) HEMOGLOBIN (test code = HGB) 7.4 g/dL 14.5-20 L HEMATOCRIT (test code = HCT) 23.8 % 42.0-52.0 L MEAN CELL VOLUME (test code = 92.6 fL 80.0-94.0 N MCV) MEAN CELL HGB (test code = MCH) 28.8 pg 27-31 N MEAN CELL HGB CONCENTRATION 31.1 G/DL 33-36.5 L (test code = MCHC) RED CELL DISTRIBUTION WIDTH 14.6 % 12.9-16.9 N (test code = RDW) PLATELET COUNT (test code = 131 150-440 L PLT) MEAN PLATELET VOLUME (test code 12.5 fL 8.9-12.4 H = MPV) NEUTROPHIL % (test code = NT%) 72.3 % 42.2-75.2 N LYMPHOCYTE % (test code = LY%) 12.8 % 20.5-51.1 L MONOCYTE % (test code = MO%) 9.8 % 1.7-9.3 H EOSINOPHIL % (test code = EO%) 4.1 % 0.0-7.0 N BASOPHIL % (test code = BA%) 0.5 % 0-2.5 N NEUTROPHIL # (test code = NT#) 5.67 x10 3/uL 1.80-7.70 N LYMPHOCYTE # (test code = LY#) 1.00 x10 3/uL 1.00-4.80 N MONOCYTE # (test code = MO#) 0.77 x10 3/uL 0.00-0.80 N EOSINOPHIL # (test code = EO#) 0.32 x10 3/uL 0.00-0.45 N BASOPHIL # (test code = BA#) 0.04 x10 3/uL 0.0-0.20 N [id number] 21:45:00 Test Item Value Reference Range Interpretation Comments GLUBED (test code = GLUBED) 127 MG/DL 70-105 H [id number] 16:55:00 Test Item Value Reference Range Interpretation Comments POTASSIUM (test code = K) 4.3 MMOL/L 3.5-5.1 N [id number] 16:49:00 Test Item Value Reference Range Interpretation Comments GLUBED (test code = GLUBED) 124 MG/DL 70-105 H [id number] 16:49:00 Test Item Value Reference Range Interpretation Comments GLUBED (test code = GLUBED) 188 MG/DL 70-105 H [id number] 12:26:00 Test Item Value Reference Range Interpretation Comments GLUBED (test code = GLUBED) 126 MG/DL 70-105 H - XR CHEST 1 [id number] 07:59:00Patient Name: ALISON LOUIE Unit No: [id number] EXAMS: CPT CODE: [id number] XR CHEST 1 V [id number] Chest one view AP 09/13/2019 7:59 AM CLINICAL INDICATION: CABG COMPARISON: 09/11/2019 LOCATION: W1 IMPRESSION: Remaining support hardware is unchanged in position. Cardiomediastinal contours are stable. The central pulmonary vasculature is not engorged. There is bibasilar atelectasis. No pneumothorax is evident. at 0759 Reported and signed by: MARCELO SANTOS M.D. CC: Curtis Peace MD; Quentin Castillo MD Technologist: Martha Costa Fluoro Time: DAP (Gy m2): Air Kerma (mGy): Trscr Dt/Tm: 09/13/2019 (075) by:[email or web address] Printed Date/Time: 09/13/2019 (08) Name: ALISON LOUIE [facility] Phys: Quentin Lara MD [address] : 1945 Age: 74 Sex: [place] [address] Loc: P.0222 1 Exam Date: 09/13/2019 Status: ADM IN PH: FAX: PAGE 1 Signed [id number] 07:40:00 Test Item Value Reference Range Interpretation Comments GLUBED (test code = GLUBED) 133 MG/DL 70-105 H [id number] 06:06:00 Test Item Value Reference Range Interpretation Comments GLUBED (test code = GLUBED) 156 MG/DL 70-105 H BASIC METABOLIC [id number] 05:33:00 Test Item Value Reference Range Interpretation Comments SODIUM (test code = 131 MMOL/L 136-143 L NA) POTASSIUM (test code 3.9 MMOL/L 3.5-5.1 N = K) CHLORIDE (test code = 98 MMOL/L 98-107 N CL) CARBON DIOXIDE (test 23 mmol/L 24-31 L code = CO2) GLUCOSE (test code = 143 mg/dL 70-104 H GLU) BLOOD UREA NITROGEN 25.6 MG/DL 7.0-21.0 H (test code = BUN) GLOMERULAR FILTRATION 53 >60 L The es timated RATE (test code = glomerular filtration GFR) rate is compute d usingpatient ra ce, age (>18), sex, and serum creatinine. If anyof the needed data elements are mi ssing the Laboratory cannot compute an aleks mation of the glomerul ar filtration rate . CREATININE (test code 1.4 mg/dL 0.8-1.5 N = CREAT) CALCIUM (test code = 8.2 mg/dL 8.8-10.2 L CA) [id number] 05:33:00 Test Item Value Reference Range Interpretation Comments MAGNESIUM (test code = MAG) 2.2 mg/dL 1.4-2.6 N THROMBOPLASTIN TIME [id number] 05:21:00 Test Item Value Reference Range Interpretation Comments THROMBOPLASTIN TIME 32.7 SECONDS 26.0-35.9 N INTERPRE TATIVE PARTIAL (test code = DATA: erapeutic PTT) range: Unfractionated heparin:47 - 71 seconds Argatroban:1.5 to 3 times the basel ine PTT CBC W/AUTO [id number] 05:14:00 Test Item Value Reference Range Interpretation Comments WHITE BLOOD CELL (test code = 9.4 x10 3/uL 4.8-10.8 N WBC) RED BLOOD CELL (test code = 2.73 x10 6/uL 4.70-6.10 L RBC) HEMOGLOBIN (test code = HGB) 7.9 g/dL 14.5-20 L HEMATOCRIT (test code = HCT) 25.2 % 42.0-52.0 L MEAN CELL VOLUME (test code = 92.3 fL 80.0-94.0 N MCV) MEAN CELL HGB (test code = MCH) 28.9 pg 27-31 N MEAN CELL HGB CONCENTRATION 31.3 G/DL 33-36.5 L (test code = MCHC) RED CELL DISTRIBUTION WIDTH 14.7 % 12.9-16.9 N (test code = RDW) PLATELET COUNT (test code = 132 150-440 L PLT) MEAN PLATELET VOLUME (test code 13.0 fL 8.9-12.4 H = MPV) NEUTROPHIL % (test code = NT%) 74.0 % 42.2-75.2 N LYMPHOCYTE % (test code = LY%) 14.2 % 20.5-51.1 L MONOCYTE % (test code = MO%) 8.9 % 1.7-9.3 N EOSINOPHIL % (test code = EO%) 2.1 % 0.0-7.0 N BASOPHIL % (test code = BA%) 0.4 % 0-2.5 N NEUTROPHIL # (test code = NT#) 6.93 x10 3/uL 1.80-7.70 N LYMPHOCYTE # (test code = LY#) 1.33 x10 3/uL 1.00-4.80 N MONOCYTE # (test code = MO#) 0.83 x10 3/uL 0.00-0.80 H EOSINOPHIL # (test code = EO#) 0.20 x10 3/uL 0.00-0.45 N BASOPHIL # (test code = BA#) 0.04 x10 3/uL 0.0-0.20 N [id number] 17:26:00 Test Item Value Reference Range Interpretation Comments GLUBED (test code = GLUBED) 131 MG/DL 70-105 H THROMBOPLASTIN TIME [id number] 17:08:00 Test Item Value Reference Range Interpretation Comments THROMBOPLASTIN TIME 33.9 SECONDS 26.0-35.9 N INTERPRE TATIVE PARTIAL (test code = DATA: erapeutic PTT) range: Unfractionated heparin:47 - 71 seconds Argatroban:1.5 to 3 times the basel ine PTT [id number] 12:18:00 Test Item Value Reference Range Interpretation Comments GLUBED (test code = GLUBED) 174 MG/DL 70-105 H [id number] 08:03:00 Test Item Value Reference Range Interpretation Comments GLUBED (test code = GLUBED) 137 MG/DL 70-105 H BASIC METABOLIC [id number] 05:11:00 Test Item Value Reference Range Interpretation Comments SODIUM (test code 136 MMOL/L 136-143 N = NA) POTASSIUM (test 4.2 MMOL/L 3.5-5.1 N code = K) CHLORIDE (test 106 MMOL/L 98-107 N code = CL) CARBON DIOXIDE 23 mmol/L 24-31 L (test code = CO2) GLUCOSE (test code 127 mg/dL 70-104 H = GLU) BLOOD UREA 24.9 MG/DL 7.0-21.0 H NITROGEN (test code = BUN) GLOMERULAR >=60 max >60 The estimated FILTRATION RATE estimate glomerular (test code = GFR) filtration rate is computed usingpatient ra ce, age (>18), sex, and serum creatinin e. If anyof the neede d data elements a re missing the Laboratory guy ot compute an estimation of t he glomerular filtration rate . CREATININE (test 1.2 mg/dL 0.8-1.5 N code = CREAT) CALCIUM (test code 8.2 mg/dL 8.8-10.2 L = CA) [id number] 05:11:00 Test Item Value Reference Range Interpretation Comments MAGNESIUM (test code = MAG) 2.3 mg/dL 1.4-2.6 N CBC W/AUTO [id number] 04:41:00 Test Item Value Reference Range Interpretation Comments WHITE BLOOD CELL (test code = 9.6 x10 3/uL 4.8-10.8 N WBC) RED BLOOD CELL (test code = 2.66 x10 6/uL 4.70-6.10 L RBC) HEMOGLOBIN (test code = HGB) 7.8 g/dL 14.5-20 L HEMATOCRIT (test code = HCT) 24.4 % 42.0-52.0 L MEAN CELL VOLUME (test code = 91.7 fL 80.0-94.0 N MCV) MEAN CELL HGB (test code = MCH) 29.3 pg 27-31 N MEAN CELL HGB CONCENTRATION 32.0 G/DL 33-36.5 L (test code = MCHC) RED CELL DISTRIBUTION WIDTH 14.9 % 12.9-16.9 N (test code = RDW) PLATELET COUNT (test code = 113 150-440 L PLT) MEAN PLATELET VOLUME (test code 12.3 fL 8.9-12.4 N = MPV) NEUTROPHIL % (test code = NT%) 81.8 % 42.2-75.2 H LYMPHOCYTE % (test code = LY%) 8.2 % 20.5-51.1 L MONOCYTE % (test code = MO%) 8.5 % 1.7-9.3 N EOSINOPHIL % (test code = EO%) 0.5 % 0.0-7.0 N BASOPHIL % (test code = BA%) 0.4 % 0-2.5 N NEUTROPHIL # (test code = NT#) 7.85 x10 3/uL 1.80-7.70 H LYMPHOCYTE # (test code = LY#) 0.79 x10 3/uL 1.00-4.80 L MONOCYTE # (test code = MO#) 0.82 x10 3/uL 0.00-0.80 H EOSINOPHIL # (test code = EO#) 0.05 x10 3/uL 0.00-0.45 N BASOPHIL # (test code = BA#) 0.04 x10 3/uL 0.0-0.20 N [id number] 20:14:00 Test Item Value Reference Range Interpretation Comments GLUBED (test code = GLUBED) 123 MG/DL 70-105 H - XR CHEST 1 [id number] 19:29:00Patient Name: ALISON LOUIE Unit No: [id number] EXAMS: CPT CODE: [id number] XR CHEST 1 V [id number] EXAM: XR Chest 1 View INDICATION: EVAL PERSISTENT COUCH LOCATION CODE: [id number] COMPARISON: Chest radiograph dated 09/10/2019 TECHNIQUE: Frontal view of the chest was obtained. FINDINGS: Life support lines and tubes are in unchanged position. Bilateral perihilar opacities and pulmonary vascular prominence is unchanged. There are suspected small bilateral pleural effusions. No pneumothorax is seen. The cardiomediastinal silhouette is unchanged. No acute osseous abnormality is identified. IMPRESSION: No significant change from prior radiograph. at 1929 Reported and signed by: MELVINA SCHMITZ M.D. CC: Phil Peace MD Technologist: Manuel Mai Time: DAP (Gy m2): Air Kerma (mGy): Trscr Dt/Tm: 09/11/2019 (1928) by:[email or web address] Printed Date/Time: 09/11/2019 (1931) Name: ALISON LOUIE [facility] Phys: PELCR - Pellecchia,Crescens DO [address] : 1945 Age: 74 Sex: [place], [place] [address] Loc: P.0222 1 Exam Date: 09/11/2019 Status: ADM IN PH: FAX: PAGE 1 Signed ReportARTERIAL BLOOD [id number] 18:38:00 Test Item Value Reference Range Interpretation Comments ARTERIAL BLOOD GAS PH (test 7.30 7.35-7.45 L code = PHA) ARTERIAL BLOOD GAS PCO2 (test 42.9 mmHg 35.0-45.0 N code = PCO2A) ARTERIAL BLOOD GAS PO2 (test 79.9 mmHg 80.0-95.0 L code = PO2A) BICARBONATE TOTAL HCO3 (test 20.6 mmol/L 22.0-24.0 L code = HCO3) BASE EXCESS (test code = YAHIR) -5.5 mmol/L (+/-)2.0 L ABG O2 SATURATION (test code = 94.6 % 95.0-100.0 L SATA) ABG TYPE (test code = TYPEA) O2 ADJ ABG L/M (test code = L/M) 3 L/MIN ABG DELIVERY (test code = NASAL CANNULA KIM) ABG PATIENT RESP RATE (test 20 /MIN 12-20 N code = RRPATA) ABG SITE (test code = SITEA) Art line ABG POSITION (test code = PT SF POSITION) ALLENS TEST (test code = NOT APPLICAPLE ALLENLudwin) TOTAL HGB (test code = THB) 9.5 g/dL 13.0-17.0 L METHEMOGLOBIN (test code = <0.8 % 0-1.5 N METHGB) [id number] 17:01:00 Test Item Value Reference Range Interpretation Comments GLUBED (test code = GLUBED) 151 MG/DL 70-105 H Novel Coronavirus 2019 [id number] 12:27:00 Test Item Value Reference Range Interpretation Comments Novel Coronavirus 2019 Inhouse (test Negative NOT DETECT. code = COVNONPUI) [id number] 11:50:00 Test Item Value Reference Range Interpretation Comments GLUBED (test code = GLUBED) 147 MG/DL 70-105 H - XR CHEST 1 [id number] 08:47:00Patient Name: ALISON LOUIE Unit No: [id number] EXAMS: CPT CODE: [id number] XR CHEST 1 V [id number] EXAM: Portable chest x-ray Dictation location: A1 COMPARISON: Chest x-ray performed one day prior INDICATION: Cardiac Surgery Postop DISCUSSION: The endotracheal tube a right IJ [place]Silvestre catheter have been removed. 3 chest tubes in the right IJ [place]Sil[place]re catheter sheath remaining in place. No pneumothorax is seen. Partial left retrocardiac consolidation is unchanged. No pleural effusion is seen. The cardiac silhouette is at the upper limits of normal in size given the technique. No acute bony abnormalities are seen. IMPRESSION: 1. Unchanged partial left retrocardiac consolidation, likely due to atelectasis. 2. Interval removal of the rightIJ [place]re catheter, with the sheath remaining in place. 3. Interval removal of the endotracheal tube. at 0847 Reported and signed by: Camron Chester CC: Curtis Peace MD Technologist: Martha Costa Fluoro Time: DAP (Gy m2): Air Kerma (mGy): Trscr Dt/Tm: 09/11/2019 (0847) by:[email or web address] Printed Date/Time: 09/11/2019 (0850) Name: ALISON LOUIE [facility] Phys: Curtis Burgess MD [address] : 1945 Age: 74 Sex: [place] [address] Loc: P.0222 1 Exam Date: 09/11/2019 Status: ADM IN PH: FAX: PAGE 1 Signed [id number] 08:46:00 Test Item Value Reference Range Interpretation Comments GLUBED (test code = GLUBED) 151 MG/DL 70-105 H BASIC METABOLIC [id number] 05:58:00 Test Item Value Reference Range Interpretation Comments SODIUM (test code 140 MMOL/L 136-143 N = NA) POTASSIUM (test 3.9 MMOL/L 3.5-5.1 N code = K) CHLORIDE (test 106 MMOL/L 98-107 N code = CL) CARBON DIOXIDE 23 mmol/L 24-31 L (test code = CO2) GLUCOSE (test code 171 mg/dL 70-104 H = GLU) BLOOD UREA 20.8 MG/DL 7.0-21.0 N NITROGEN (test code = BUN) GLOMERULAR >=60 max >60 The estimated FILTRATION RATE estimate glomerular (test code = GFR) filtration rate is computed usingpatient ra ce, age (>18), sex, and serum creatinin e. If anyof the neede d data elements a re missing the Laboratory guy ot compute an estimation of t he glomerular filtration rate . CREATININE (test 1.1 mg/dL 0.8-1.5 N code = CREAT) CALCIUM (test code 8.1 mg/dL 8.8-10.2 L = CA) LIVER FUNCTION [id number] 05:58:00 Test Item Value Reference Range Interpretation Comments TOTAL PROTEIN (test code = PROT) 5.4 g/dL 6.3-8.3 L ALBUMIN (test code = ALB) 3.6 G/DL 3.5-5.0 N BILIRUBIN TOTAL (test code = BILT) 0.3 mg/dL 0.2-1.0 N BILIRUBIN DIRECT (test code = <0.2 mg/dL 0.0-0.2 N BILD) SGOT/AST (test code = AST) 35 IU/L 10-34 H SGPT/ALT (test code = ALT) 16 U/L 10-44 N ALKALINE PHOSPHATASE (test code = 54 U/L 45-120 N ALKP) [id number] 05:58:00 Test Item Value Reference Range Interpretation Comments MAGNESIUM (test code = MAG) 2.3 mg/dL 1.4-2.6 N LACTIC [id number] 05:47:00 Test Item Value Reference Range Interpretation Comments LACTIC ACID (test code = LACT) 15.6 mg/dL 4.5-18.0 N [id number] 05:46:00 Test Item Value Reference Range Interpretation Comments PHOSPHOROUS (test code = PHOS) 3.4 mg/dL 2.7-4.5 N CBC W/AUTO [id number] 05:25:00 Test Item Value Reference Range Interpretation Comments WHITE BLOOD CELL (test code = 11.1 x10 3/uL 4.8-10.8 H WBC) RED BLOOD CELL (test code = 2.99 x10 6/uL 4.70-6.10 L RBC) HEMOGLOBIN (test code = HGB) 8.7 g/dL 14.5-20 L HEMATOCRIT (test code = HCT) 27.8 % 42.0-52.0 L MEAN CELL VOLUME (test code = 93.0 fL 80.0-94.0 MCV) MEAN CELL HGB (test code = MCH) 29.1 pg 27-31 N MEAN CELL HGB CONCENTRATION 31.3 G/DL 33-36.5 L (test code = MCHC) RED CELL DISTRIBUTION WIDTH 14.6 % 12.9-16.9 N (test code = RDW) PLATELET COUNT (test code = 152 150-440 N PLT) MEAN PLATELET VOLUME (test code 12.1 fL 8.9-12.4 N = MPV) NEUTROPHIL % (test code = NT%) 85.4 % 42.2-75.2 H LYMPHOCYTE % (test code = LY%) 5.2 % 20.5-51.1 L MONOCYTE % (test code = MO%) 8.6 % 1.7-9.3 N EOSINOPHIL % (test code = EO%) 0.0 % 0.0-7.0 N BASOPHIL % (test code = BA%) 0.3 % 0-2.5 N NEUTROPHIL # (test code = NT#) 9.50 x10 3/uL 1.80-7.70 H LYMPHOCYTE # (test code = LY#) 0.58 x10 3/uL 1.00-4.80 L MONOCYTE # (test code = MO#) 0.95 x10 3/uL 0.00-0.80 H EOSINOPHIL # (test code = EO#) 0.00 x10 3/uL 0.00-0.45 N BASOPHIL # (test code = BA#) 0.03 x10 3/uL 0.0-0.20 N BASIC METABOLIC [id number] 01:38:00 Test Item Value Reference Range Interpretation Comments SODIUM (test code 139 MMOL/L 136-143 N = NA) POTASSIUM (test 4.1 MMOL/L 3.5-5.1 N code = K) CHLORIDE (test 107 MMOL/L 98-107 N code = CL) CARBON DIOXIDE 22 mmol/L 24-31 L (test code = CO2) GLUCOSE (test code 153 mg/dL 70-104 H = GLU) BLOOD UREA 19.9 MG/DL 7.0-21.0 N NITROGEN (test code = BUN) GLOMERULAR >=60 max >60 The estimated FILTRATION RATE estimate glomerular (test code = GFR) filtration rate is computed usingpatient ra ce, age (>18), sex, and serum creatinin e. If anyof the neede d data elements a re missing the Laboratory guy ot compute an estimation of t he glomerular filtration rate . CREATININE (test 1.0 mg/dL 0.8-1.5 N code = CREAT) CALCIUM (test code 7.8 mg/dL 8.8-10.2 L = CA) [id number] 01:38:00 Test Item Value Reference Range Interpretation Comments PHOSPHOROUS (test code = PHOS) 3.2 mg/dL 2.7-4.5 N [id number] 01:38:00 Test Item Value Reference Range Interpretation Comments MAGNESIUM (test code = MAG) 2.4 mg/dL 1.4-2.6 N [id number] 20:45:00 Test Item Value Reference Range Interpretation Comments GLUBED (test code = GLUBED) 148 MG/DL 70-105 H CREATINE KINASE (CK)[id number] 19:08:00 Test Item Value Reference Range Interpretation Comments CREATINE KINASE (CK) (test code = CK) 58 U/L 24-204 N CK [id number] 19:08:00 Test Item Value Reference Range Interpretation Comments CK (test code = CKT) 51 U/L 41-331 Please note reference interval change CK MACRO TYPE 2 (test 0 % Not Observed code = CKMC2%) CKMM (test code = 100 % 97-100 CKMM%) CK MACRO TYPE 1 (test 0 % Not Observed code = CKMC1%) CKMB% (test code = 0 % 0-3 CKMB%) CKBB% (test code = 0 % >0 Performed At: [facility] CKBB%) [id number] [place], [place] [id number] Rivera Daly MD Ph:[phone] rformed At: DA [facility] [id number] [facility] [address] [place], [place] [id number] delaney GAMING MD Ph:[phone] ARTERIAL BLOOD [id number] 14:53:00 Test Item Value Reference Range Interpretation Comments ARTERIAL BLOOD GAS PH (test 7.33 7.35-7.45 L code = PHA) ARTERIAL BLOOD GAS PCO2 (test 38.0 mmHg 35.0-45.0 N code = PCO2A) ARTERIAL BLOOD GAS PO2 (test 81.3 mmHg 80.0-95.0 N code = PO2A) BICARBONATE TOTAL HCO3 (test 19.5 mmol/L 22.0-24.0 L code = HCO3) BASE EXCESS (test code = YAHIR) -6.0 mmol/L (+/-)2.0 L ABG O2 SATURATION (test code = 95.0 % 95.0-100.0 N SATA) ABG TYPE (test code = TYPEA) VENTILATOR ARTERIAL FIO2 (test code = 50 % FIO2A) ABG DELIVERY (test code = Vent KIM) ABG VENT MODE (test code = Cpap, psv MODEA) ABG PATIENT RESP RATE (test 20 /MIN 12-20 N code = RRPATA) ABG PEEP (test code = PEEP) 5 cmH2O ABG PRESSURE SUPPORT (test 10 cmH2O code = PSABG) ABG SITE (test code = SITEA) Art line ABG POSITION (test code = PT SUPINE POSITION) ALLENS TEST (test code = NOT APPLICAPLE ALLENS) TOTAL HGB (test code = THB) 10.4 g/dL 13.0-17.0 L METHEMOGLOBIN (test code = <0.8 % 0-1.5 N METHGB) CALCIUM [id number] 14:00:00 Test Item Value Reference Range Interpretation Comments CALCIUM IONIZED (test code = ASHLYN) 1.10 mmol/L 1.1-1.3 N COMPREHENSIVE METABOLIC [id number] 13:44:00 Test Item Value Reference Range Interpretation Comments SODIUM (test code = 138 MMOL/L 136-143 N NA) POTASSIUM (test 4.1 MMOL/L 3.5-5.1 N code = K) CHLORIDE (test code 105 MMOL/L 98-107 N = CL) CARBON DIOXIDE 21 mmol/L 24-31 L (test code = CO2) GLUCOSE (test code 177 mg/dL 70-104 H = GLU) BLOOD UREA NITROGEN 19.9 MG/DL 7.0-21.0 N (test code = BUN) GLOMERULAR >=60 max >60 The estimated FILTRATION RATE estimate glomerular (test code = GFR) filtration rate is computed usingpatient ra ce, age (>18), sex, and serum creatinin e. If anyof the ne eded data elements a re missing the Laboratory guy ot compute an estimation of t he glomerular filtration rate . CREATININE (test 1.0 mg/dL 0.8-1.5 N code = CREAT) TOTAL PROTEIN (test 5.1 g/dL 6.3-8.3 L code = PROT) ALBUMIN (test code 2.7 G/DL 3.5-5.0 L = ALB) CALCIUM (test code 7.6 mg/dL 8.8-10.2 L = CA) BILIRUBIN TOTAL 0.3 mg/dL 0.2-1.0 N (test code = BILT) SGOT/AST (test code 31 IU/L 10-34 N = AST) SGPT/ALT (test code 17 U/L 10-44 N = ALT) ALKALINE 54 U/L 45-120 N PHOSPHATASE (test code = ALKP) [id number] 13:44:00 Test Item Value Reference Range Interpretation Comments PHOSPHOROUS (test code = PHOS) 2.7 mg/dL 2.7-4.5 N [id number] 13:44:00 Test Item Value Reference Range Interpretation Comments MAGNESIUM (test code = MAG) 2.7 mg/dL 1.4-2.6 H LACTIC [id number] 13:35:00 Test Item Value Reference Range Interpretation Comments LACTIC ACID (test code = LACT) 16.1 mg/dL 4.5-18.0 N - XR CHEST 1 [id number] 13:13:00Patient Name: ALISON LOUIE Unit No: [id number] EXAMS: CPT CODE: [id number] XR CHEST 1 V [id number] EXAM: Portable chest x-ray Dictation location: A1 COMPARISON: Chest x-ray on 09/06/2019 INDICATION: Cardiac Surgery Postop DISCUSSION: The endotracheal tube tip overlies the appropriate position. The right IJ [place]re catheter overlies the right main pulmonary artery. 3 chest tubes are noted. No pneumothorax or obvious pneumomediastinum is seen. There is partial left retrocardiac consolidation, likely due to atelectasis. Prior median sternotomy is noted, presumably for CABG. No pleural effusion or acute bony abnormalities are seen. IMPRESSION: Interval median sternotomy, presumably for CABG. The endotracheal tube, right IJ [place]- Silvestre catheter, and 3chest tubes overlie the appropriate position. There is partial left retrocardiac consolidation, likely due to atelectasis. The cardiac silhouette is within normal limits. No pleural effusion or pneumothorax is seen. at 1313 Reported and signed by: Waldo Kelly M.D. CC: Curtis Peace MD Technologist: Darian Mai Time: DAP (Gy m2): Air Kerma (mGy): Trscr Dt/Tm: 09/10/2019 (1313) by:[email or web address] Printed Date/Time: 09/10/2019 (1316) Name: ALISON LOUIE [facility] Phys: Curtis Burgess MD [address] : 1945 Age: 74 Sex: [place] [address] [facility] [id number] Loc: P.0222 1 Exam Date: 09/10/2019 Status: ADM IN PH: FAX: PAGE 1 Signed ReportPROTHROMBIN [id number] 13:11:00 Test Item Value Reference Range Interpretation Comments PROTHROMBIN TIME 14.3 SECONDS 10.3-12.9 H PATIENT (test code = PTP) INTERNATIONAL 1.26 INR UNIT 0.9-1.11 H The INR is us eful only NORMAL RATIO (test for monit oring code = INR) anticoagulant therapy.It may be unreliable in t he initial phase o f antigoagulation and in unstable patien ts. Indication for Anticoagulation Recommend ed INR 1. Prevention o f venous thomboembolism 2.0-3.0in high -risk patients; treat ment of venousthrombosi s and pulmonary embol ism aftera course o f heparin; preven tion of systemicembolis m in a variety of cond itions, including atria l fibrillation an d prothetic tissu e heart valves, 2. Pros thetic mechanical hear t valves; 2.5-3.5recurren t systemic emboli sm. THROMBOPLASTIN TIME [id number] 13:11:00 Test Item Value Reference Range Interpretation Comments THROMBOPLASTIN TIME 28.1 SECONDS 26.0-35.9 N INTERPRE TATIVE PARTIAL (test code = DATA:Th erapeutic PTT) range: Unfractionated heparin:47 - 71 seconds Argatroban:1.5 to 3 times the basel ine PTT CBC W/AUTO [id number] 13:04:00 Test Item Value Reference Range Interpretation Comments WHITE BLOOD CELL (test code = 16.1 x10 3/uL 4.8-10.8 H WBC) RED BLOOD CELL (test code = 3.27 x10 6/uL 4.70-6.10 L RBC) HEMOGLOBIN (test code = HGB) 9.6 g/dL 14.5-20 L HEMATOCRIT (test code = HCT) 29.1 % 42.0-52.0 L MEAN CELL VOLUME (test code = 89.0 fL 80.0-94.0 N MCV) MEAN CELL HGB (test code = 29.4 pg 27-31 N MCH) MEAN CELL HGB CONCENTRATION 33.0 G/DL 33-36.5 N (test code = MCHC) RED CELL DISTRIBUTION WIDTH 14.1 % 12.9-16.9 N (test code = RDW) PLATELET COUNT (test code = 147 150-440 L PLT) MEAN PLATELET VOLUME (test 12.3 fL 8.9-12.4 N code = MPV) NEUTROPHIL % (test code = NT%) 86.6 % 42.2-75.2 H LYMPHOCYTE % (test code = LY%) 6.3 % 20.5-51.1 L MONOCYTE % (test code = MO%) 5.2 % 1.7-9.3 N EOSINOPHIL % (test code = EO%) 0.7 % 0.0-7.0 N BASOPHIL % (test code = BA%) 0.3 % 0-2.5 N NEUTROPHIL # (test code = NT#) 13.92 x10 3/uL 1.80-7.70 H LYMPHOCYTE # (test code = LY#) 1.02 x10 3/uL 1.00-4.80 N MONOCYTE # (test code = MO#) 0.83 x10 3/uL 0.00-0.80 H EOSINOPHIL # (test code = EO#) 0.11 x10 3/uL 0.00-0.45 N BASOPHIL # (test code = BA#) 0.05 x10 3/uL 0.0-0.20 N ARTERIAL BLOOD [id number] 12:49:00 Test Item Value Reference Range Interpretation Comments ARTERIAL BLOOD GAS PH (test code 7.37 7.35-7.45 N = PHA) ARTERIAL BLOOD GAS PCO2 (test 32.4 mmHg 35.0-45.0 L code = PCO2A) ARTERIAL BLOOD GAS PO2 (test code 107.3 mmHg 80.0-95.0 H = PO2A) BICARBONATE TOTAL HCO3 (test code 18.5 mmol/L 22.0-24.0 L = HCO3) BASE EXCESS (test code = YAHIR) -5.9 mmol/L (+/-)2.0 L ABG O2 SATURATION (test code = 96.9 % 95.0-100.0 N SATA) ARTERIAL FIO2 (test code = FIO2A) 100 % ABG DELIVERY (test code = KIM) Vent ABG VENT MODE (test code = MODEA) AC Volume ABG VENT RESP RATE (test code = 16 /MIN RRA) ABG TIDAL VOLUME (test code = 550 ML TIDAL VOLUME) ABG PEEP (test code = PEEP) 6 cmH2O ABG SITE (test code = SITEA) Art line ABG POSITION (test code = PT 5 POSITION) ALLENS TEST (test code = ALLENS) NA TOTAL HGB (test code = THB) 10.7 g/dL 13.0-17.0 L ISTAT BLOOD [id number] 11:35:00 Test Item Value Reference Range Interpretation Comments ISTAT-PH ARTERIAL (test code = 7.278 7.35-7.45 L PHAP) ISTAT-TCO2 ARTERIAL (test code = 21 MMOL/L 23-27 L TCO2AP) ISTAT-PO2 ARTERIAL (test code = 289 MMHG 80-105 H PO2AP) ISTAT-HCO3 ARTERIAL (test code = 19.3 MMOL/L 22-26 L HCO3AP) ISTAT-BASE EXCESS ARTERIAL (test -7 MMOL/L -2-3 L code = BEAP) ISTAT-SO2 ARTERIAL (test code = 100 % 95-98 H SO2AP) IONIZED CALCIUM (test code = 1.18 mmol/L 1.12-1.32 N CAIABG) HEMOGLOBIN POC (test code = HBP) 9.2 G/DL 12-16 L HEMATOCRIT POC (test code = HCTP) 27 % 36-46 L SODIUM POC (test code = NAP) 140 MMOL/L 135-146 N POTASSIUM POC (test code = KP) 3.9 MMOL/L 3.5-4.9 N GLUCOSE POC (test code = GLUP) 166 mg/dL 70-105 H COAGULATION TIME [id number] 11:35:00 Test Item Value Reference Range Interpretation Comments COAGULATION TIME ACTIVATED (test 120 SECONDS 74-137 N code = ACT) COAGULATION TIME [id number] 11:10:00 Test Item Value Reference Range Interpretation Comments COAGULATION TIME ACTIVATED (test 494 SECONDS 74-137 H code = ACT) ISTAT BLOOD [id number] 11:07:00 Test Item Value Reference Range Interpretation Comments ISTAT-PH ARTERIAL (test code = 7.364 7.35-7.45 N PHAP) ISTAT-TCO2 ARTERIAL (test code = 22 MMOL/L 23-27 L TCO2AP) ISTAT-PO2 ARTERIAL (test code = 409 MMHG 80-105 H PO2AP) ISTAT-HCO3 ARTERIAL (test code = 21.2 MMOL/L 22-26 L HCO3AP) ISTAT-BASE EXCESS ARTERIAL (test -4 MMOL/L -2-3 L code = BEAP) ISTAT-SO2 ARTERIAL (test code = 100 % 95-98 H SO2AP) IONIZED CALCIUM (test code = 1.06 mmol/L 1.12-1.32 L CAIABG) HEMOGLOBIN POC (test code = HBP) 8.8 G/DL 12-16 L HEMATOCRIT POC (test code = HCTP) 26 % 36-46 L SODIUM POC (test code = NAP) 138 MMOL/L 135-146 N POTASSIUM POC (test code = KP) 4.1 MMOL/L 3.5-4.9 N GLUCOSE POC (test code = GLUP) 178 mg/dL 70-105 H COAGULATION TIME [id number] 10:44:00 Test Item Value Reference Range Interpretation Comments COAGULATION TIME ACTIVATED (test 467 SECONDS 74-137 H code = ACT) ISTAT BLOOD [id number] 10:41:00 Test Item Value Reference Range Interpretation Comments ISTAT-PH ARTERIAL (test code = 7.377 7.35-7.45 N PHAP) ISTAT-TCO2 ARTERIAL (test code = 24 MMOL/L 23-27 N TCO2AP) ISTAT-PO2 ARTERIAL (test code = 420 MMHG 80-105 H PO2AP) ISTAT-HCO3 ARTERIAL (test code = 22.8 MMOL/L 22-26 N HCO3AP) ISTAT-BASE EXCESS ARTERIAL (test -2 MMOL/L -2-3 N code = BEAP) ISTAT-SO2 ARTERIAL (test code = 100 % 95-98 H SO2AP) IONIZED CALCIUM (test code = 1.10 mmol/L 1.12-1.32 L CAIABG) HEMOGLOBIN POC (test code = HBP) 9.5 G/DL 12-16 L HEMATOCRIT POC (test code = HCTP) 28 % 36-46 L SODIUM POC (test code = NAP) 138 MMOL/L 135-146 N POTASSIUM POC (test code = KP) 4.1 MMOL/L 3.5-4.9 N GLUCOSE POC (test code = GLUP) 186 mg/dL 70-105 H COAGULATION TIME [id number] 10:20:00 Test Item Value Reference Range Interpretation Comments COAGULATION TIME ACTIVATED (test 538 SECONDS 74-137 H code = ACT) ISTAT BLOOD [id number] 10:16:00 Test Item Value Reference Range Interpretation Comments ISTAT-PH ARTERIAL (test code = 7.381 7.35-7.45 N PHAP) ISTAT-TCO2 ARTERIAL (test code = 24 MMOL/L 23-27 N TCO2AP) ISTAT-PO2 ARTERIAL (test code = 549 MMHG 80-105 H PO2AP) ISTAT-HCO3 ARTERIAL (test code = 23.3 MMOL/L 22-26 N HCO3AP) ISTAT-BASE EXCESS ARTERIAL (test -2 MMOL/L -2-3 N code = BEAP) ISTAT-SO2 ARTERIAL (test code = 100 % 95-98 H SO2AP) IONIZED CALCIUM (test code = 1.08 mmol/L 1.12-1.32 L CAIABG) HEMOGLOBIN POC (test code = HBP) 8.8 G/DL 12-16 L HEMATOCRIT POC (test code = HCTP) 26 % 36-46 L SODIUM POC (test code = NAP) 138 MMOL/L 135-146 N POTASSIUM POC (test code = KP) 3.8 MMOL/L 3.5-4.9 N GLUCOSE POC (test code = GLUP) 158 mg/dL 70-105 H COAGULATION TIME [id number] 09:39:00 Test Item Value Reference Range Interpretation Comments COAGULATION TIME ACTIVATED (test 466 SECONDS 74-137 H code = ACT) ISTAT BLOOD [id number] 09:35:00 Test Item Value Reference Range Interpretation Comments ISTAT-PH ARTERIAL (test code = 7.394 7.35-7.45 N PHAP) ISTAT-TCO2 ARTERIAL (test code = 23 MMOL/L 23-27 N TCO2AP) ISTAT-PO2 ARTERIAL (test code = 375 MMHG 80-105 H PO2AP) ISTAT-HCO3 ARTERIAL (test code = 22.0 MMOL/L 22-26 N HCO3AP) ISTAT-BASE EXCESS ARTERIAL (test -3 MMOL/L -2-3 L code = BEAP) ISTAT-SO2 ARTERIAL (test code = 100 % 95-98 H SO2AP) IONIZED CALCIUM (test code = 1.16 mmol/L 1.12-1.32 N CAIABG) HEMOGLOBIN POC (test code = HBP) 10.9 G/DL 12-16 L HEMATOCRIT POC (test code = HCTP) 32 % 36-46 L SODIUM POC (test code = NAP) 138 MMOL/L 135-146 N POTASSIUM POC (test code = KP) 3.7 MMOL/L 3.5-4.9 N GLUCOSE POC (test code = GLUP) 143 mg/dL 70-105 H THROMBOPLASTIN TIME [id number] 04:34:00 Test Item Value Reference Range Interpretation Comments THROMBOPLASTIN TIME 30.9 SECONDS 26.0-35.9 INTERPRE TATIVE PARTIAL (test code = DATA:Th erapeutic PTT) range: Unfractionated heparin:47 - 71 seconds Argatroban:1.5 to 3 times the basel ine PTT BASIC METABOLIC [id number] 04:33:00 Test Item Value Reference Range Interpretation Comments SODIUM (test code 137 MMOL/L 136-143 N = NA) POTASSIUM (test 4.4 MMOL/L 3.5-5.1 N code = K) CHLORIDE (test 105 MMOL/L 98-107 N code = CL) CARBON DIOXIDE 23 mmol/L 24-31 L (test code = CO2) GLUCOSE (test code 100 mg/dL 70-104 N = GLU) BLOOD UREA 24.1 MG/DL 7.0-21.0 H NITROGEN (test code = BUN) GLOMERULAR >=60 max >60 The estimated FILTRATION RATE estimate glomerular (test code = GFR) filtration rate is computed usingpatient ra ce, age (>18), sex, and serum creatinin e. If anyof the neede d data elements a re missing the Laboratory guy ot compute an estimation of t he glomerular filtration rate . CREATININE (test 1.0 mg/dL 0.8-1.5 N code = CREAT) CALCIUM (test code 8.7 mg/dL 8.8-10.2 L = CA) CBC W/AUTO [id number] 04:03:00 Test Item Value Reference Range Interpretation Comments WHITE BLOOD CELL (test code = 6.1 x10 3/uL 4.8-10.8 N WBC) RED BLOOD CELL (test code = 3.70 x10 6/uL 4.70-6.10 L RBC) HEMOGLOBIN (test code = HGB) 10.8 g/dL 14.5-20 L HEMATOCRIT (test code = HCT) 33.3 % 42.0-52.0 L MEAN CELL VOLUME (test code = 90.0 fL 80.0-94.0 N MCV) MEAN CELL HGB (test code = MCH) 29.2 pg 27-31 N MEAN CELL HGB CONCENTRATION 32.4 G/DL 33-36.5 L (test code = MCHC) RED CELL DISTRIBUTION WIDTH 14.2 % 12.9-16.9 N (test code = RDW) PLATELET COUNT (test code = 187 150-440 N PLT) MEAN PLATELET VOLUME (test code 12.4 fL 8.9-12.4 N = MPV) NEUTROPHIL % (test code = NT%) 57.5 % 42.2-75.2 N LYMPHOCYTE % (test code = LY%) 25.9 % 20.5-51.1 N MONOCYTE % (test code = MO%) 9.8 % 1.7-9.3 H EOSINOPHIL % (test code = EO%) 5.5 % 0.0-7.0 N BASOPHIL % (test code = BA%) 1.0 % 0-2.5 N NEUTROPHIL # (test code = NT#) 3.52 x10 3/uL 1.80-7.70 N LYMPHOCYTE # (test code = LY#) 1.59 x10 3/uL 1.00-4.80 N MONOCYTE # (test code = MO#) 0.60 x10 3/uL 0.00-0.80 N EOSINOPHIL # (test code = EO#) 0.34 x10 3/uL 0.00-0.45 N BASOPHIL # (test code = BA#) 0.06 x10 3/uL 0.0-0.20 N [id number] 21:55:00 Test Item Value Reference Range Interpretation Comments GLUBED (test code = GLUBED) 105 MG/DL 70-105 N [id number] 17:18:00 Test Item Value Reference Range Interpretation Comments GLUBED (test code = GLUBED) 134 MG/DL 70-105 H THROMBOPLASTIN TIME [id number] 13:25:00 Test Item Value Reference Range Interpretation Comments THROMBOPLASTIN TIME 46.8 SECONDS 26.0-35.9 H INTERPRE TATIVE PARTIAL (test code = DATA: erapeutic PTT) range: Unfractionated heparin:47 - 71 seconds Argatroban:1.5 to 3 times the basel ine PTT [id number] 11:46:00 Test Item Value Reference Range Interpretation Comments GLUBED (test code = GLUBED) 99 MG/DL 70-105 N [id number] 07:50:00 Test Item Value Reference Range Interpretation Comments GLUBED (test code = GLUBED) 106 MG/DL 70-105 H BASIC METABOLIC [id number] 05:13:00 Test Item Value Reference Range Interpretation Comments SODIUM (test code 136 MMOL/L 136-143 N = NA) POTASSIUM (test 4.0 MMOL/L 3.5-5.1 N code = K) CHLORIDE (test 102 MMOL/L 98-107 N code = CL) CARBON DIOXIDE 23 mmol/L 24-31 L (test code = CO2) GLUCOSE (test code 102 mg/dL 70-104 N = GLU) BLOOD UREA 19.9 MG/DL 7.0-21.0 N NITROGEN (test code = BUN) GLOMERULAR >=60 max >60 The estimated FILTRATION RATE estimate glomerular (test code = GFR) filtration rate is computed usingpatient ra ce, age (>18), sex, and serum creatinin e. If anyof the neede d data elements a re missing the Laboratory guy ot compute an estimation of t he glomerular filtration rate . CREATININE (test 1.2 mg/dL 0.8-1.5 N code = CREAT) CALCIUM (test code 8.8 mg/dL 8.8-10.2 N = CA) [id number] 05:13:00 Test Item Value Reference Range Interpretation Comments PHOSPHOROUS (test code = PHOS) 3.2 mg/dL 2.7-4.5 N [id number] 05:13:00 Test Item Value Reference Range Interpretation Comments MAGNESIUM (test code = MAG) 2.2 mg/dL 1.4-2.6 N THROMBOPLASTIN TIME [id number] 05:09:00 Test Item Value Reference Range Interpretation Comments THROMBOPLASTIN TIME 91.9 SECONDS 26.0-35.9 H INTERPRE TATIVE PARTIAL (test code = DATA: erapeutic PTT) range: Unfractionated heparin:47 - 71 seconds Argatroban:1.5 to 3 times the basel ine PTT CBC W/AUTO [id number] 04:51:00 Test Item Value Reference Range Interpretation Comments WHITE BLOOD CELL (test code = 6.8 x10 3/uL 4.8-10.8 N WBC) RED BLOOD CELL (test code = 3.67 x10 6/uL 4.70-6.10 L RBC) HEMOGLOBIN (test code = HGB) 10.6 g/dL 14.5-20 L HEMATOCRIT (test code = HCT) 33.2 % 42.0-52.0 L MEAN CELL VOLUME (test code = 90.5 fL 80.0-94.0 N MCV) MEAN CELL HGB (test code = MCH) 28.9 pg 27-31 N MEAN CELL HGB CONCENTRATION 31.9 G/DL 33-36.5 L (test code = MCHC) RED CELL DISTRIBUTION WIDTH 14.3 % 12.9-16.9 N (test code = RDW) PLATELET COUNT (test code = 178 150-440 N PLT) MEAN PLATELET VOLUME (test code 12.2 fL 8.9-12.4 N = MPV) NEUTROPHIL % (test code = NT%) 56.7 % 42.2-75.2 N LYMPHOCYTE % (test code = LY%) 27.0 % 20.5-51.1 N MONOCYTE % (test code = MO%) 9.2 % 1.7-9.3 N EOSINOPHIL % (test code = EO%) 5.6 % 0.0-7.0 N BASOPHIL % (test code = BA%) 1.2 % 0-2.5 N NEUTROPHIL # (test code = NT#) 3.83 x10 3/uL 1.80-7.70 N LYMPHOCYTE # (test code = LY#) 1.82 x10 3/uL 1.00-4.80 N MONOCYTE # (test code = MO#) 0.62 x10 3/uL 0.00-0.80 N EOSINOPHIL # (test code = EO#) 0.38 x10 3/uL 0.00-0.45 N BASOPHIL # (test code = BA#) 0.08 x10 3/uL 0.0-0.20 N THROMBOPLASTIN TIME [id number] 20:24:00 Test Item Value Reference Range Interpretation Comments THROMBOPLASTIN TIME 113.7 SECONDS 26.0-35.9 HH Critica l Value PARTIAL (test code = reporte d toFirst PTT) Name:ELIANE diamond Name:RYAN LTS READ BACK AND VERIFIEDby P.LAB.[facility] [place], on 09/08/19, @ 2023.INTERPRETA TIVE DATA:Therapeuti c range: Unfractionated heparin:47 - 71 seconds Argatroban:1.5 to 3 times the basel ine PTT [id number] 16:40:00 Test Item Value Reference Range Interpretation Comments GLUBED (test code = GLUBED) 119 MG/DL 70-105 H THROMBOPLASTIN TIME [id number] 12:42:00 Test Item Value Reference Range Interpretation Comments THROMBOPLASTIN TIME 116.7 SECONDS 26.0-35.9 HH Critica l Value PARTIAL (test code = reporte d toFirst PTT) Name:MARKBLACKDEAN Belén tripp Name:ELANA LTS READ BACK AND VERIFIEDby P.LAB.[facility], on 09/08/19, @ 4256.INTERPRETA TIVE DATA:Therapeuti c range: Unfractionated heparin:47 - 71 seconds Argatroban:1.5 to 3 times the basel ine PTT [id number] 11:25:00 Test Item Value Reference Range Interpretation Comments GLUBED (test code = GLUBED) 98 MG/DL 70-105 N LIPOPROTEIN [id number] 08:11:00 Test Item Value Reference Range Interpretation Comments LIPOPROTEIN LDL (test 181 mg/dL 0-99 H Perfor med At: HD code = LDL) [facility] [address] [id number] Rivera Daly MD Ph:[phone] TERPRE TATIVE DATA:LDL Cholesterol: Reference Range s: AGE: MALE: FEMALE:0-19 Y 0-109 mg/dL 0 -109 mg/dL>19Y 0-99 mg/dL 0-99 m g/dL [id number] 07:44:00 Test Item Value Reference Range Interpretation Comments GLUBED (test code = GLUBED) 100 MG/DL 70-105 N BASIC METABOLIC [id number] 07:18:00 Test Item Value Reference Range Interpretation Comments SODIUM (test code 137 MMOL/L 136-143 N = NA) POTASSIUM (test 4.5 MMOL/L 3.5-5.1 N code = K) CHLORIDE (test 103 MMOL/L 98-107 N code = CL) CARBON DIOXIDE 25 mmol/L 24-31 N (test code = CO2) GLUCOSE (test code 120 mg/dL 70-104 H = GLU) BLOOD UREA 18.4 MG/DL 7.0-21.0 N NITROGEN (test code = BUN) GLOMERULAR >=60 max >60 The estimated FILTRATION RATE estimate glomerular (test code = GFR) filtration rate is computed usingpatient ra ce, age (>18), sex, and serum creatinin e. If anyof the neede d data elements a re missing the Laboratory guy ot compute an estimation of t he glomerular filtration rate . CREATININE (test 1.2 mg/dL 0.8-1.5 N code = CREAT) CALCIUM (test code 8.9 mg/dL 8.8-10.2 N = CA) [id number] 07:18:00 Test Item Value Reference Range Interpretation Comments PHOSPHOROUS (test code = PHOS) 3.1 mg/dL 2.7-4.5 N [id number] 07:18:00 Test Item Value Reference Range Interpretation Comments MAGNESIUM (test code = MAG) 2.2 mg/dL 1.4-2.6 N THROMBOPLASTIN TIME [id number] 06:54:00 Test Item Value Reference Range Interpretation Comments THROMBOPLASTIN TIME 36.5 SECONDS 26.0-35.9 H INTERPRE TATIVE PARTIAL (test code = DATA: erapeutic PTT) range: Unfractionated heparin:47 - 71 seconds Argatroban:1.5 to 3 times the basel ine PTT CBC W/AUTO [id number] 06:47:00 Test Item Value Reference Range Interpretation Comments WHITE BLOOD CELL (test code = 6.6 x10 3/uL 4.8-10.8 N WBC) RED BLOOD CELL (test code = 3.75 x10 6/uL 4.70-6.10 L RBC) HEMOGLOBIN (test code = HGB) 10.9 g/dL 14.5-20 L HEMATOCRIT (test code = HCT) 33.8 % 42.0-52.0 L MEAN CELL VOLUME (test code = 90.1 fL 80.0-94.0 N MCV) MEAN CELL HGB (test code = MCH) 29.1 pg 27-31 N MEAN CELL HGB CONCENTRATION 32.2 G/DL 33-36.5 L (test code = MCHC) RED CELL DISTRIBUTION WIDTH 14.4 % 12.9-16.9 N (test code = RDW) PLATELET COUNT (test code = 182 150-440 N PLT) MEAN PLATELET VOLUME (test code 12.6 fL 8.9-12.4 H = MPV) NEUTROPHIL % (test code = NT%) 61.1 % 42.2-75.2 N LYMPHOCYTE % (test code = LY%) 21.9 % 20.5-51.1 N MONOCYTE % (test code = MO%) 11.2 % 1.7-9.3 H EOSINOPHIL % (test code = EO%) 4.6 % 0.0-7.0 N BASOPHIL % (test code = BA%) 0.9 % 0-2.5 N NEUTROPHIL # (test code = NT#) 4.02 x10 3/uL 1.80-7.70 N LYMPHOCYTE # (test code = LY#) 1.44 x10 3/uL 1.00-4.80 N MONOCYTE # (test code = MO#) 0.74 x10 3/uL 0.00-0.80 N EOSINOPHIL # (test code = EO#) 0.30 x10 3/uL 0.00-0.45 N BASOPHIL # (test code = BA#) 0.06 x10 3/uL 0.0-0.20 N THROMBOPLASTIN TIME [id number] 00:42:00 Test Item Value Reference Range Interpretation Comments THROMBOPLASTIN TIME 47.7 SECONDS 26.0-35.9 H INTERPRE TATIVE PARTIAL (test code = DATA:Th erapeutic PTT) range: Unfractionated heparin:47 - 71 seconds Argatroban:1.5 to 3 times the basel ine PTT [id number] 18:33:00 Test Item Value Reference Range Interpretation Comments GLUBED (test code = GLUBED) 105 MG/DL 70-105 N - DUP EXTRACRANIAL [id number] 10:02:00Patient Name: ALISON LOUIE Unit No: [id number] EXAMS: CPT CODE: [id number] DUP EXTRACRANIAL SHASHI [id number] Dictation location A1 Carotid Doppler Ultrasound HISTORY: Preop bypass COMMENTS: The extracranial carotid arteries were evaluated with real time adams scale, color and spectral Doppler. COMPARISON: None. FINDINGS: The peak systolic velocities and IC/CC ratios are within normal limits bilaterally measuring 0.6 bilaterally. There are scattered atheromatous plaque involving the common carotid arteries and carotid bulbs. No occlusive or stenotic disease seen. Antegrade flow seen in both vertebral arteries. IMPRESSION: 1. Scattered atheromatous plaque. 2. No evidence for hemodynamically significant stenosis. Electronically S igned by Camron Sr on 09/07/2019 at 1002 Reported and signed by: Camron Allen CC: Curtis Peace MD Technologist: Caity Stein Probe: Trscr Dt/Tm: 09/07/2019 (1002) by:SharonPXC Printed Date/Time: 09/07/2019 (1006) Name: ALISON LOUIE [facility] Phys: Curtis Burgess MD [address] : 1945 Age: 74 Sex: [place] [address] Loc: P.0222 1 Exam Date: 09/07/2019 Status: ADM IN PH: FAX: PAGE 1 SignedReport- XR CHEST 1 V 2019-09-07 07:29:00Patient Name: ALISON LOUIE Unit No: [id number] EXAMS: CPT CODE: [id number] XR CHEST 1 V 20404 Location of dictation: B2 Portable chest one view. HISTORY: NSTEMI COMMENT: No comparison. The heart and mediastinum appear normal. No consolidation, pneumothorax or effusion. No florid cardiac decompensation. Visualized soft tissues and skeletal structures are unremarkable. IMPRESSION: No active disease in the chest. at 0729 Reported and signed by: Essence Sr M.D. CC: Collins CRAWFORD; Curtis Peace MD Technologist: Manuel Jugo Fluoro Time: DAP (Gy m2): Air Kerma (mGy): Trscr Dt/Tm: 09/07/2019 (0729)by:SharonPXC Printed Date/Time: 09/07/2019 (0732) Name: ALISON LOUIE [facility] Phys: AMANDO.Collins Holden [address] DOB: 1945 Age: 74 Sex: [place] [address] Loc: P.0222 1 Exam Date: 09/06/2019 Status: ADM IN PH: FAX: PAGE 1 Signed ReportPLT RESPONSE TO [id number] 06:40:00 Test Item Value Reference Range Interpretation Comments PLT RESPONSE TO 235 PRU PRU Results Interpretation: PLAVIX (test code Normal ind ividuals not = PLAVRES) taking P2Y12 (p re-drug) 182-335 PRU Aleja dence of P2Y12 receptor blockade <182 PRU Appropriate response to ant i-platelet therapyfor card iology patients <[address] results are in P2Y12 Re action Units (PRU) whichindi ada the amount of ADP-m ediated aggregation spe cific tothe platelet P2Y12 receptor and is used to joey ure theeffects of a nti-platelet drugs to this r eceptor, such asclopidogrel ( Plavix). The reference range for individualsNOT receiving a P2Y12 inhibitor is 182-335 PRU. PRU levels less than 182 are indicative of an anti-platelet e ffect dueto P2Y12 receptor blockade, Literature sugg ests that a PRUvalue less t márquez 208 is an appropriate res ponse toanti-platlele t therapy for cardiology manoj ents (Refernce: MJPr ice et al Circulation 2011:[id number] 137). Optimaltherapeu tic and pre-surgical TN U targets have not beenes tablished. [id number] 05:49:00 Test Item Value Reference Range Interpretation Comments TROPONIN-I (test < 0.30 ng/mL 0.00-0.30 N INTERPRETAT MARY code = TROPI) DATA:Negative or inconclusive re uslts do not exclude myocardialinfar ction. Serial tests at appropriate int ervals may benecessary. BASIC METABOLIC [id number] 05:49:00 Test Item Value Reference Range Interpretation Comments SODIUM (test code 133 MMOL/L 136-143 L = NA) POTASSIUM (test 4.1 MMOL/L 3.5-5.1 N code = K) CHLORIDE (test 101 MMOL/L 98-107 N code = CL) CARBON DIOXIDE 22 mmol/L 24-31 L (test code = CO2) GLUCOSE (test code 119 mg/dL 70-104 H = GLU) BLOOD UREA 12.3 MG/DL 7.0-21.0 N NITROGEN (test code = BUN) GLOMERULAR >=60 max >60 The estimated FILTRATION RATE estimate glomerular (test code = GFR) filtration rate is computed usingpatient ra ce, age (>18), sex, and serum creatinin e. If anyof the neede d data elements a re missing the Laboratory guy ot compute an estimation of t he glomerular filtration rate . CREATININE (test 1.0 mg/dL 0.8-1.5 N code = CREAT) CALCIUM (test code 9.0 mg/dL 8.8-10.2 N = CA) [id number] 05:49:00 Test Item Value Reference Range Interpretation Comments PHOSPHOROUS (test code = PHOS) 2.8 mg/dL 2.7-4.5 N [id number] 05:49:00 Test Item Value Reference Range Interpretation Comments MAGNESIUM (test code = MAG) 2.1 mg/dL 1.4-2.6 N PROTHROMBIN [id number] 05:16:00 Test Item Value Reference Range Interpretation Comments PROTHROMBIN TIME 12.3 SECONDS 10.3-12.9 N PATIENT (test code = PTP) INTERNATIONAL 1.09 INR UNIT 0.9-1.11 N The INR is us eful only NORMAL RATIO (test for monit oring code = INR) anticoagulant therapy.It may be unreliable in t he initial phase o f antigoagulation and in unstable patien ts. Indication for Anticoagulation Recommend ed INR 1. Prevention o f venous thomboembolism 2.0-3.0in high -risk patients; treat ment of venousthrombosi s and pulmonary embol ism aftera course o f heparin; preven tion of systemicembolis m in a variety of cond itions, including atria l fibrillation an d prothetic tissu e heart valves, 2. Pros thetic mechanical hear t valves; 2.5-3.5recurren t systemic emboli sm. THROMBOPLASTIN TIME [id number] 05:16:00 Test Item Value Reference Range Interpretation Comments THROMBOPLASTIN TIME 37.8 SECONDS 26.0-35.9 H INTERPRE TATIVE PARTIAL (test code = DATA: erapeutic PTT) range: Unfractionated heparin:47 - 71 seconds Argatroban:1.5 to 3 times the basel ine PTT CBC W/AUTO [id number] 05:11:00 Test Item Value Reference Range Interpretation Comments WHITE BLOOD CELL (test code = 7.0 x10 3/uL 4.8-10.8 N WBC) RED BLOOD CELL (test code = 3.85 x10 6/uL 4.70-6.10 L RBC) HEMOGLOBIN (test code = HGB) 11.2 g/dL 14.5-20 L HEMATOCRIT (test code = HCT) 34.4 % 42.0-52.0 L MEAN CELL VOLUME (test code = 89.4 fL 80.0-94.0 N MCV) MEAN CELL HGB (test code = MCH) 29.1 pg 27-31 N MEAN CELL HGB CONCENTRATION 32.6 G/DL 33-36.5 L (test code = MCHC) RED CELL DISTRIBUTION WIDTH 14.5 % 12.9-16.9 N (test code = RDW) PLATELET COUNT (test code = 187 150-440 N PLT) MEAN PLATELET VOLUME (test code 12.6 fL 8.9-12.4 H = MPV) NEUTROPHIL % (test code = NT%) 68.6 % 42.2-75.2 N LYMPHOCYTE % (test code = LY%) 17.1 % 20.5-51.1 L MONOCYTE % (test code = MO%) 11.0 % 1.7-9.3 H EOSINOPHIL % (test code = EO%) 2.3 % 0.0-7.0 N BASOPHIL % (test code = BA%) 0.7 % 0-2.5 N NEUTROPHIL # (test code = NT#) 4.82 x10 3/uL 1.80-7.70 N LYMPHOCYTE # (test code = LY#) 1.20 x10 3/uL 1.00-4.80 N MONOCYTE # (test code = MO#) 0.77 x10 3/uL 0.00-0.80 N EOSINOPHIL # (test code = EO#) 0.16 x10 3/uL 0.00-0.45 N BASOPHIL # (test code = BA#) 0.05 x10 3/uL 0.0-0.20 N CREATINE KINASE (CK)2019-09-06 22:45:00 Test Item Value Reference Range Interpretation Comments CREATINE KINASE (CK) (test code = CK) 58 U/L 24-204 N CK [id number] 22:45:00 Test Item Value Reference Range Interpretation Comments CK (test code = CKT) CK MACRO TYPE 2 (test code = CKMC2%) CKMM (test code = CKMM%) CK MACRO TYPE 1 (test code = CKMC1%) CKMB% (test code = CKMB%) CKBB% (test code = CKBB%) [id number] 22:45:00 Test Item Value Reference Range Interpretation Comments CKMB (test code = 2.20 ng/mL 1.35-6.73 N INTERPRETA TIVE CKMBT) DATA:Negative o r inconclusive re sults do not exclude myocardialinfar ction. Serial tests at appropriate int ervals may benecessary. PLT RESPONSE TO [id number] 22:06:00 Test Item Value Reference Range Interpretation Comments PLT RESPONSE TO PLAVIX 235 Test results are reported (test code = PLAVRES) in P2Y 12 Reaction Units (PRU) PRU refe rence range is 194-41 8 PRU. Values <194 PRU arespecific aleja dence of a P2Y12 inhibitor effect. Test results ar e reported in P2Y12 Reacti on Units (PRU) PRU refe rence range is 194-41 8 PRU. Values <194 PRU arespecific aleja dence of a P2Y12 inhibitor effect. Spec Comments: needs urgent CABG surgeryTHROMBOPLASTIN TIME [id number] 20:16:00 Test Item Value Reference Range Interpretation Comments THROMBOPLASTIN TIME 34.4 SECONDS 26.0-35.9 N INTERPRE TATIVE PARTIAL (test code = DATA:Th erapeutic PTT) range: Unfractionated heparin:47 - 71 seconds Argatroban:1.5 to 3 times the basel ine PTT CLOTTEDPROTHROMBIN [id number] 19:59:00 Test Item Value Reference Range Interpretation Comments PROTHROMBIN TIME 12.3 SECONDS 10.3-12.9 N PATIENT (test code = PTP) INTERNATIONAL 1.09 INR UNIT 0.9-1.11 N The INR is us eful only NORMAL RATIO (test for monit oring code = INR) anticoagulant therapy.It may be unreliable in t he initial phase o f antigoagulation and in unstable patien ts. Indication for Anticoagulation Recommend ed INR 1. Prevention o f venous thomboembolism 2.0-3.0in high -risk patients; treat ment of venousthrombosi s and pulmonary embol ism aftera course o f heparin; preven tion of systemicembolis m in a variety of cond itions, including atria l fibrillation an d prothetic tissu e heart valves, 2. Pros thetic mechanical hear t valves; 2.5-3.5recurren t systemic emboli sm. CLOTTEDCBC W/AUTO [id number] 19:58:00 Test Item Value Reference Range Interpretation Comments WHITE BLOOD CELL (test code = 8.1 x10 3/uL 4.8-10.8 N WBC) RED BLOOD CELL (test code = 3.78 x10 6/uL 4.70-6.10 L RBC) HEMOGLOBIN (test code = HGB) 11.0 g/dL 14.5-20 L HEMATOCRIT (test code = HCT) 33.9 % 42.0-52.0 L MEAN CELL VOLUME (test code = 89.7 fL 80.0-94.0 N MCV) MEAN CELL HGB (test code = MCH) 29.1 pg 27-31 N MEAN CELL HGB CONCENTRATION 32.4 G/DL 33-36.5 L (test code = MCHC) RED CELL DISTRIBUTION WIDTH 14.3 % 12.9-16.9 N (test code = RDW) PLATELET COUNT (test code = 193 150-440 N PLT) MEAN PLATELET VOLUME (test code 12.5 fL 8.9-12.4 H = MPV) NEUTROPHIL % (test code = NT%) 76.2 % 42.2-75.2 H LYMPHOCYTE % (test code = LY%) 11.1 % 20.5-51.1 L MONOCYTE % (test code = MO%) 9.8 % 1.7-9.3 H EOSINOPHIL % (test code = EO%) 2.0 % 0.0-7.0 N BASOPHIL % (test code = BA%) 0.5 % 0-2.5 N NEUTROPHIL # (test code = NT#) 6.18 x10 3/uL 1.80-7.70 N LYMPHOCYTE # (test code = LY#) 0.90 x10 3/uL 1.00-4.80 L MONOCYTE # (test code = MO#) 0.79 x10 3/uL 0.00-0.80 N EOSINOPHIL # (test code = EO#) 0.16 x10 3/uL 0.00-0.45 N BASOPHIL # (test code = BA#) 0.04 x10 3/uL 0.0-0.20 N CLOTTEDTHYROID STIMULATING [id number] 19:50:00 Test Item Value Reference Range Interpretation Comments THYROID STIMULATING HORMONE (test 1.23 mIU/L 0.27-4.20 N code = TSH) [id number] 19:03:00 Test Item Value Reference Range Interpretation Comments TROPONIN-I (test 0.48 ng/mL 0.00-0.30 HH Critical Va lue reported code = TROPI) toFirst Name:Jennifer ZAVALA Last Name:COLON HESHAM FRANCISCO [employer], on , @ 1901.INTERPRETA TIVE DATA:Negative o r inconclusive re uslts do not exclude myocardialinfar ction. Serial tests at appropriate int ervals may benecessary. COMPREHENSIVE METABOLIC [id number] 19:01:00 Test Item Value Reference Range Interpretation Comments SODIUM (test code = 131 MMOL/L 136-143 L NA) POTASSIUM (test 4.0 MMOL/L 3.5-5.1 N code = K) CHLORIDE (test code 97 MMOL/L 98-107 L = CL) CARBON DIOXIDE 24 mmol/L 24-31 N (test code = CO2) GLUCOSE (test code 102 mg/dL 70-104 N = GLU) BLOOD UREA NITROGEN 12.8 MG/DL 7.0-21.0 N (test code = BUN) GLOMERULAR >=60 max >60 The estimated FILTRATION RATE estimate glomerular (test code = GFR) filtration rate is computed usingpatient ra ce, age (>18), sex, and serum creatinin e. If anyof the ne eded data elements a re missing the Laboratory guy ot compute an estimation of t he glomerular filtration rate . CREATININE (test 1.0 mg/dL 0.8-1.5 N code = CREAT) TOTAL PROTEIN (test 7.1 g/dL 6.3-8.3 N code = PROT) ALBUMIN (test code 4.0 G/DL 3.5-5.0 N = ALB) CALCIUM (test code 9.1 mg/dL 8.8-10.2 N = CA) BILIRUBIN TOTAL 0.4 mg/dL 0.2-1.0 N (test code = BILT) SGOT/AST (test code 18 IU/L 10-34 N = AST) SGPT/ALT (test code 10 U/L 10-44 N = ALT) ALKALINE 75 U/L 45-120 N PHOSPHATASE (test code = ALKP) BASIC METABOLIC [id number] 06:05:00 Test Item Value Reference Range Interpretation Comments SODIUM (test code = NA) 140 mmol/L 134-147 N POTASSIUM (test code = 4.0 mmol/L 3.4-5.0 N K) CHLORIDE (test code = 109 mmol/L 100-108 H CL) CARBON DIOXIDE (test 25 mmol/L 21-32 N code = CO2) ANION GAP (test code = 6.0 GAP calc 4.0-15.0 N GAP) GLUCOSE (test code = 87 MG/DL 70-110 N GLU) BLOOD UREA NITROGEN 14 MG/DL 7-18 N (test code = BUN) GLOMERULAR FILTRATION >=60 max estimate >60 RATE (test code = GFR) estGFR CREATININE (test code = 1.1 MG/DL 0.8-1.3 N CREAT) CALCIUM (test code = CA) 8.4 MG/DL 8.5-10.1 L Coronavirus 2019 nCoV [id number] 18:51:00 Test Item Value Reference Range Interpretation Comments Coronavirus 2019 nCoV Negative NEGATIVE Per ben pederson, Bedside (test code = negativ e results should COVNONPUIBED) be treated aspresumptive a nd, if inconsistent wi th clinical signs andsymptoms or necessary for p atient management, fitz uld betested with a n alternative mol ecular assay. Negative resultsdo not p reclude SARS-CoV-2 infe ction and should not be usedas the sole basis for patient man agement decisions. Neg ative results should be considered in t he context of apat ient's recent exposure s, history, prese nce of clinicalsigns a nd symptoms consis tent with COVID-19. COMPREHENSIVE METABOLIC [id number] 11:48:00 Test Item Value Reference Range Interpretation Comments SODIUM (test code = NA) 140 mmol/L 134-147 N POTASSIUM (test code = K) 5.0 mmol/L 3.4-5.0 N CHLORIDE (test code = CL) 107 mmol/L 100-108 N CARBON DIOXIDE (test code = CO2) 29 mmol/L 21-32 N ANION GAP (test code = GAP) 4.0 GAP calc 4.0-15.0 N GLUCOSE (test code = GLU) 83 MG/DL 70-110 N BLOOD UREA NITROGEN (test code = 18 MG/DL 7-18 N BUN) GLOMERULAR FILTRATION RATE (test 58 estGFR >60 L code = GFR) CREATININE (test code = CREAT) 1.3 MG/DL 0.8-1.3 N TOTAL PROTEIN (test code = PROT) 6.6 G/DL 6.4-8.2 N ALBUMIN (test code = ALB) 3.3 G/DL 3.4-5.0 L GLOBULIN (test code = GLOB) 3.3 GM/dL ALBUMIN/GLOBULIN RATIO (test 1.0 RATIO 1.2-2.2 L code = A/G) CALCIUM (test code = CA) 8.9 MG/DL 8.5-10.1 N BILIRUBIN TOTAL (test code = 0.40 MG/DL 0.2-1.2 N BILT) SGOT/AST (test code = AST) 21 Unit/L 15-37 N SGPT/ALT (test code = ALT) 14 Unit/L 12-78 N ALKALINE PHOSPHATASE TOTAL (test 74 Unit/L 50-136 N code = ALKP) RULE OUT NV [id number] 11:48:00 Test Item Value Reference Range Interpretation Comments CREATINE KINASE 77 Unit/L 26-192 N (CK) (test code = CK) TROPONIN-I (test 1.380 NG/ML 0.000-0.045 HH Negative: < /= 0.045 code = TROPI) Positive: >/= 0.046 Correlation wit h serial results, other cardiac markers, and cl inical findings is nec essary to determine th e clinical signi ficance of this result. Quantitative re sults using different methodologies s hould not be compared to one another as nume rical results may joann yby method. CBC W/AUTO [id number] 10:29:00 Test Item Value Reference Range Interpretation Comments WHITE BLOOD CELL (test code = 6.3 K/mm3 3.5-11.0 N WBC) RED BLOOD CELL (test code = 3.79 M/mm3 4.70-6.10 L RBC) HEMOGLOBIN (test code = HGB) 11.1 G/DL 12.3-15.9 L HEMATOCRIT (test code = HCT) 35.2 % 35.8-46.7 L MEAN CELL VOLUME (test code = 92.9 Fl 86.3-98.9 N MCV) MEAN CELL HGB (test code = MCH) 29.3 pg 28.9-34.4 N MEAN CELL HGB CONCETRATION 31.5 G/DL 32.1-34.5 L (test code = MCHC) RED CELL DISTRIBUTION WIDTH 15.2 SD 11.5-14.5 H (test code = RDW) PLATELET COUNT (test code = 143 K/mm3 150-450 L PLT) MEAN PLATELET VOLUME (test code 13.70 fL 7.0-9.6 H = MPV) NEUTROPHIL % (test code = NT%) 68.0 % 40-76 N LYMPHOCYTE % (test code = LY%) 17.6 % 20.5-51.1 L MONOCYTE % (test code = MO%) 7.9 % 1.7-9.3 N EOSINOPHIL % (test code = EO%) 5.7 % 0.0-6.0 N BASOPHIL % (test code = BA%) 0.6 % 0.0-2.0 N NUCLEATED RBC % (test code = 0.0 /100WBC% 0.0-1.0 N NRBC%) NEUTROPHIL # (test code = NT#) 4.3 K/mm3 1.8-7.6 N IMMATURE GRANULOCYTE # (test 0.01 x10 3/uL 0.00-0.03 N code = IG#) LYMPHOCYTE # (test code = LY#) 1.1 K/mm3 0.6-3.0 N MONOCYTE # (test code = MO#) 0.5 K/mm3 0.2-1.5 N EOSINOPHIL # (test code = EO#) 0.4 K/mm3 0.0-0.4 N BASOPHIL # (test code = BA#) 0.0 K/mm3 0.0-0.2 N NUCLEATED RBC # (test code = 0.0 K/mm3 0.00-0.01 N NRBC#) MANUAL DIFF REQUIRED (test code NO DIFF/SCN CRITERIA = MDIFF) GLUCOSE BEDSIDE [id number] 21:16:00 Test Item Value Reference Range Interpretation Comments GLUCOSE BEDSIDE TESTING (test code 108 mg/dL 70-110 N = GLUBED) GLUCOSE BEDSIDE [id number] 11:47:00 Test Item Value Reference Range Interpretation Comments GLUCOSE BEDSIDE TESTING (test code = 74 mg/dL 70-110 N GLUBED) GLYCOSYLATED HEMOGLOBIN [id number] 10:43:00 Test Item Value Reference Range Interpretation Comments GLYCOSYLATED HEMOGLOBIN (HA1C) 5.7 % A1C 0.0-5.7 N (test code = GLYHGB) ESTIMATED AVERAGE GLUCOSE (test 117 MG/DLest code = EAG) LIPID PROFILE (CORONARY RISK)2019-09-04 10:37:00 Test Item Value Reference Range Interpretation Comments TRIGLYCERIDES (test code = TRIG) 118 MG/DL 0-150 N CHOLESTEROL (test code = CHOL) 210 MG/DL 133-200 H CHOLESTEROL/HDL RATIO (test code = 5.25 RATIO >0 CHOLHDL) HDL CHOLESTEROL (test code = HDL) 40 MG/DL 40-59 N NON-HDL CHOLESTEROL (test code = 170 mg/dL <130 H NHDL) LIPOPROTEIN LDL (test code = LDL) 153 MG/DL 0-129 H LDL/HDL (test code = LDL/HDL) 3.82 Ratio 1.48-3.22 Avg H [id number] 10:09:00 Test Item Value Reference Range Interpretation Comments TROPONIN-I (test 1.370 NG/ML 0.000-0.045 HH Negative: < /= 0.045 code = TROPI) Positive: >/= 0.046 Correlation wit h serial results, other cardiac markers, and cl inical findings is nec essary to determine the c linical significance of this result. Quantit ative results using d ifferent methodologies s hould not be compared to one another as nume rical results may joann yby method. Completed by Nursing: [id number] 07:25:00 Test Item Value Reference Range Interpretation Comments TROPONIN-I (test 1.270 NG/ML 0.000-0.045 HH Negative: < /= 0.045 code = TROPI) Positive: >/= 0.046 Correlation wit h serial results, other cardiac markers, and cl inical findings is nec essary to determine the c linical significance of this result. Quantit ative results using d ifferent methodologies s hould not be compared to one another as nume rical results may joann yby method. Completed by Nursing: NOBASIC METABOLIC [id number] 05:45:00 Test Item Value Reference Range Interpretation Comments SODIUM (test code = NA) 136 mmol/L 134-147 N POTASSIUM (test code = K) 4.6 mmol/L 3.4-5.0 N CHLORIDE (test code = CL) 103 mmol/L 100-108 N CARBON DIOXIDE (test code = CO2) 26 mmol/L 21-32 N ANION GAP (test code = GAP) 7.0 GAP calc 4.0-15.0 N GLUCOSE (test code = GLU) 83 MG/DL 70-110 N BLOOD UREA NITROGEN (test code = 23 MG/DL 7-18 H BUN) GLOMERULAR FILTRATION RATE (test 53 estGFR >60 L code = GFR) CREATININE (test code = CREAT) 1.4 MG/DL 0.8-1.3 H CALCIUM (test code = CA) 9.4 MG/DL 8.5-10.1 N Completed by Nursing: NOCREATINE KINASE (CK)2019-09-04 05:45:00 Test Item Value Reference Range Interpretation Comments CREATINE KINASE (CK) (test code = 106 Unit/L 26-192 N CK) Completed by Nursing: [id number] 05:45:00 Test Item Value Reference Range Interpretation Comments TROPONIN-I (test 1.160 NG/ML 0.000-0.045 HH Negative: < /= 0.045 code = TROPI) Positive: >/= 0.046 Correlation wit h serial results, other cardiac markers, and cl inical findings is nec essary to determine the c linical significance of this result. Quantit ative results using d ifferent methodologies s hould not be compared to one another as nume rical results may joann yby method. Completed by Nursing: NOBASIC METABOLIC [id number] 05:30:00 Test Item Value Reference Range Interpretation Comments SODIUM (test code = NA) 136 mmol/L 134-147 N POTASSIUM (test code = K) 4.6 mmol/L 3.4-5.0 N CHLORIDE (test code = CL) 103 mmol/L 100-108 N CARBON DIOXIDE (test code = CO2) 26 mmol/L 21-32 N ANION GAP (test code = GAP) 7.0 GAP calc 4.0-15.0 N GLUCOSE (test code = GLU) 83 MG/DL 70-110 N BLOOD UREA NITROGEN (test code = 23 MG/DL 7-18 H BUN) GLOMERULAR FILTRATION RATE (test 53 estGFR >60 L code = GFR) CREATININE (test code = CREAT) 1.4 MG/DL 0.8-1.3 H CALCIUM (test code = CA) 9.4 MG/DL 8.5-10.1 N Completed by Nursing: NOCREATINE KINASE (CK)2019-09-04 05:30:00 Test Item Value Reference Range Interpretation Comments CREATINE KINASE (CK) (test code = CK) Unit/L 26-192 Completed by Nursing: [id number] 05:30:00 Test Item Value Reference Range Interpretation Comments TROPONIN-I (test code = TROPI) NG/ML 0.000-0.045 Completed by Nursing: NOCBC W/O [id number] 05:13:00 Test Item Value Reference Range Interpretation Comments WHITE BLOOD CELL (test code = WBC) 6.5 K/mm3 3.5-11.0 N RED BLOOD CELL (test code = RBC) 3.71 M/mm3 4.70-6.10 L HEMOGLOBIN (test code = HGB) 10.9 G/DL 12.3-15.9 L HEMATOCRIT (test code = HCT) 34.7 % 35.8-46.7 L MEAN CELL VOLUME (test code = MCV) 93.5 Fl 86.3-98.9 N MEAN CELL HGB (test code = MCH) 29.4 pg 28.9-34.4 N MEAN CELL HGB CONCETRATION (test 31.4 G/DL 32.1-34.5 L code = MCHC) RED CELL DISTRIBUTION WIDTH (test 14.3 SD 11.5-14.5 N code = RDW) PLATELET COUNT (test code = PLT) 177 K/mm3 150-450 N MEAN PLATELET VOLUME (test code = 12.50 fL 7.0-9.6 H MPV) - XR CHEST 1 [id number] 04:52:00 Name: ALISON LOUIE [facility] : 1945 Age/S: 74 / M [address] [facility] Unit #: [id number] Loc: [place] [address] Phys: Emmanuel Levin MD Acct: [id number] Dis Date: Status: REG ER PHONE #: [phone] Exam Date: 09/04/2019444 FAX #: Reason: chest pain EXAMS: CPT: [id number] XR CHEST 1 V 50850 Fluoro Time: DAP (Gy m2): Air Kerma (mGy): EXAM: Portable chest one view. Location code:J9 HISTORY: Chest pain COMPARISON: None available. COMMENT: . The lungs and pleural spaces are clear. Lungs are normally expanded. The aorta, pulmonary vasculature and mediastinum are within normal limits. Cardiac silhouette is normal in size and contour. Visualized skeletal structures are unremarkable. IMPRESSION: No active disease in the chest. at 0452 Reported and signed by: Rivera Moise M.D. CC: Emmanuel Levin MD PAGE 1 Signed Report Name: ALISON LOUIE [facility] : 1945 Age/S: 74 / M [id number] [address] Unit #: [id number] Loc: [place] [address] Phys: Emmanuel Levin MD Acct: [id number] Dis Date: Status: REG ER PHONE #: [phone] Exam Date: 09/04/2019 0444 FAX #:Reason: chest pain EXAMS: CPT: [id number] XR CHEST 1 V 60137 Fluoro Time: DAP (Gy m2): Air Kerma (mGy): <Continued> Technologist: Tariq Black RT(R) Trnscb Date/Time: 09/04/2019 (9242) [email or web address] Orig Print D/T: S: 09/04/2019 (3120) PAGE 2 Signed Report
[2019-09-19] MEDS ORDERED: DOCUSATE NA 100 MG CAP PO PRN (21:18)
[2019-09-19] MEDS: GABAPENTIN 100 MG CAP PO SCH (21:46)
[2019-09-19] MEDS: ATORVASTATIN 40 MG TAB PO SCH (21:46)
[2019-09-19] MEDS: TRAZODONE 150 MG TAB PO SCH (21:46)
[2019-09-19] MEDS: CODEINE 30MG/APAP 300MG TAB PO PRN (21:46)
[2019-09-19] MEDS: IPRATROPIUM BROM 0.5MG/2.5ML NEB SCH (22:00)
[2019-09-19 23:07] LABS: Urine Appearance CLEAR; Urine Bilirubin NEGATIVE (NEG); Urine Blood NEGATIVE (NEG); Urine Color YELLOW; Urine Glucose NEGATIVE (NEG); Urine Protein NEGATIVE (NEG); Urine pH 5.5 (5.0-7.0)
[2019-09-20 00:32] LABS: Urine Bacteria <20 /HPF (NONE SEEN); Urine Culture Reflex Order NOT NEEDED; Urine RBC <5 /HPF (NONE SEEN)
[2019-09-20] MEDS: IPRATROPIUM BROM 0.5MG/2.5ML NEB SCH ×4 (01:30→19:45)
[2019-09-20 02:49] VITALS: BMI 37.5
[2019-09-20] MEDS ORDERED: D50W 25 GM/50 ML SYRINGE/VIAL IV PRN (02:54)
[2019-09-20] MEDS ORDERED: GLUCAGON 1 MG/VIAL IM PRN (02:54)
[2019-09-20 06:16] LABS: Absolute Lymphocytes (CBC) 1.4 K/uL (0.7-4.9); Basophils % 0.9 % (0-1.3); Hematocrit 24.4 % (39.6-49.0); Lymphocytes % 20.4 % (15.3-44.8); MPV 10.4 fL (7.6-11.3); RBC Red Blood Cell Count 2.76 M/uL (4.33-5.43)
[2019-09-20 06:19] LABS: Albumin 2.8 g/dL (3.4-5.0); Magnesium 2.2 mg/dL (1.8-2.4); Potassium 4.4 mmol/L (3.5-5.1); Prealbumin 11.4 mg/dL (20-40)
[2019-09-20 06:23] LABS: Protime INR 2.45
[2019-09-20] MEDS: INSULIN -REGULAR HUMAN 50 UNIT/0.5 ML ML SQ SCH ×4 (07:30→20:55)
[2019-09-20] MEDS: carvediloL 6.25 MG TAB PO SCH (08:00)
[2019-09-20] MEDS: CODEINE 30MG/APAP 300MG TAB PO PRN ×2 (08:05→19:38)
[2019-09-20] MEDS: GABAPENTIN 100 MG CAP PO SCH (08:07)
[2019-09-20] MEDS: CITALOPRAM 10 MG TABLET PO SCH (08:07)
[2019-09-20] MEDS: ASPIRIN 81 MG CHEWABLE TABLET PO SCH (08:07)
[2019-09-20] MEDS: FUROSEMIDE 20 MG TABLET PO SCH (08:07)
[2019-09-20] MEDS: AMIODARONE HCL 200 MG TAB PO SCH (08:07)
--- NOTE | 2019-09-20 13:39 | FAST ---
ENCOUNTER DATE AND TIME: 09/20/2019 08:00 (CDT) NAME ALISON LOUIE DATE OF : 1945 DATE OF ADMISSION: 09/19/2019 16:43 (CDT) PHONE: AGE: 74 N# [id number] GENDER: Male ENCOUNTER PHYSICIAN: Dr. John Summers M.D. ADMISSION DIAGNOSIS: - Cardiac 09 - Cardiac Disorders () NSTEMI, CABG. EATING: Not assessed/no information CODE: - ORAL HYGIENE: Not assessed/no information CODE: - TOILETING HYGIENE: TOILETING HYGIENE - STEP 1: Does the patient complete the activity by him/herself with no assistance (physical, verbal/nonverbal cueing, setup/clean-up)? No. TOILETING HYGIENE - STEP 2: Does the patient need only setup/clean-up assistance from one helper? No. TOILETING HYGIENE - STEP 3: Does the patient need only verbal/nonverbal cueing or touching/steadying/contact guard assistance fro m one helper? No. TOILETING HYGIENE - STEP 4: Does the patient need physical assistance - for example lifting or trunk support from one helper - wi th the helper providing less than half of the effort? Yes. 1. [id number] ADMISSION PERFORMANCE: Partial/moderate assistance CODE: 03 BATHING: SHOWER/BATHE SELF - STEP 1: Does the patient complete the activity by him/herself with no assistance (physical, verbal/nonverbal cueing, setup/clean-up)? No. SHOWER/BATHE SELF - STEP 2: Does the patient need only setup/clean-up assistance from one helper? No. SHOWER/BATHE SELF - STEP 3: Does the patient need only verbal/nonverbal cueing or touching/steadying/contact guard assistance fro m one helper? Yes. 1. [id number] ADMISSION PERFORMANCE: Supervision or touching assistance CODE: 04 DRESSING - UPPER BODY: DRESSING - UPPER BODY - STEP 1: Does the patient complete the activity by him/herself with no assistance (physical, verbal/nonverbal cueing, setup/clean-up)? No. DRESSING - UPPER BODY - STEP 2: Does the patient need only setup/clean-up assistance from one helper? No. DRESSING - UPPER BODY - STEP 3: Does the patient need only verbal/nonverbal cueing or touching/steadying/contact guard assistance fro m one helper? Yes. 1. [id number] ADMISSION PERFORMANCE: Supervision or touching assistance CODE: 04 DRESSING - LOWER BODY: DRESSING - LOWER BODY - STEP 1: Does the patient complete the activity by him/herself with no assistance (physical, verbal/nonverbal cueing, setup/clean-up)? No. DRESSING - LOWER BODY - STEP 2: Does the patient need only setup/clean-up assistance from one helper? No. DRESSING - LOWER BODY - STEP 3: Does the patient need only verbal/nonverbal cueing or touching/steadying/contact guard assistance fro m one helper? No. DRESSING - LOWER BODY - STEP 4: Does the patient need physical assistance - for example lifting or trunk support from one helper - wi th the helper providing less than half of the effort? No. DRESSING - LOWER BODY - STEP 5: Does the patient need physical assistance - for example lifting or trunk support from one helper - wi th the helper providing more than half of the effort? Yes. 1. [id number] ADMISSION PERFORMANCE: Substantial/maximal assistance CODE: 02 PUTTING ON/TAKING OFF FOOTWEAR: FOOTWEAR - STEP 1: Does the patient complete the activity by him/herself with no assistance (physical, verbal/nonverbal cueing, setup/clean-up)? No. FOOTWEAR - STEP 2: Does the patient need only setup/clean-up assistance from one helper? No. FOOTWEAR - STEP 3: Does the patient need only verbal/nonverbal cueing or touching/steadying/contact guard assistance fro m one helper? No. FOOTWEAR - STEP 4: Does the patient need physical assistance - for example lifting or trunk support from one helper - wi th the helper providing less than half of the effort? No. FOOTWEAR - STEP 5: Does the patient need physical assistance - for example lifting or trunk support from one helper - wi th the helper providing more than half of the effort? No. FOOTWEAR - STEP 6: Does the helper provide all of the effort? OR Is the assistance of two or more helpers required to co mplete the activity? Yes. 1. [id number] ADMISSION PERFORMANCE: Dependent CODE: 01 DOES THE PATIENT USE A WHEELCHAIR/SCOOTER? CODE: EXPR INDICATE THE TYPE OF WHEELCHAIR/SCOOTER USED: CODE: EXPR INDICATE THE TYPE OF WHEELCHAIR/SCOOTER USED: CODE: EXPR BLADDER AND BOWEL: CODE: EXPR CODE: EXPR SIGNATURE PANEL: The following modified sections: 1. [id number] Admission Performance, 1. [id number] Admission Performance, 1. EQ1792t Admission Performance, 1. [id number] Admission Performance, 1. [id number] Admission Performance, 1. LU0197p Admission Performance, 1. KY6839j Admission Performance, 1. NH3113v Admission Performance were [electronically] signed by Neeta Sanderson OT on TueSep 20 2019 13:37:58 GMT-0500 (Ce ntral Daylight Time)
[2019-09-20] MEDS: MAGNESIUM HYDROXIDE 8% 30 ML PO PRN (13:55)
[2019-09-20] MEDS: WARFARIN SODIUM 5 MG TAB PO SCH (16:43)
--- NOTE | 2019-09-20 19:12 | R.HP ---
FACILITY: [facility] ENCOUNTER DATE AND TIME: 09/20/2019 19:08 (CDT) MR#: [id number] NAME ALISON LOUIE ADDRESS: [address] [place] [address] [address] CITY: [facility] [address]IP [address] PHONE: DATE OF : 1945 AGE: 74 SSN# [id number] GENDER: Male DEXTERITY Right-handed MARITAL STATUS RACE White PRE-HOSPITAL LIVING SETTING 01 - Home (private home/apt. board/care, assisted living, long-term, transitional living) PRE-HOSPITAL LIVING WITH Family/Relatives ENCOUNTER PHYSICIAN: Dr. John Summers M.D. REFERRING DOCTOR: Dr Peace DATE OF ADMISSION: 09/19/2019 16:43 (CDT) REFERRING FACILITY [facility] HOME TYPE AND DETAILS: Type of home: single family house # of levels in the residence: 1 # of steps to enter the residence: 0 # of steps within the residence: 1 Patient lives at home with mother and sister and is independent with ADL's and uses cane for walking. ONSET DATE: 09/06/2019 PRIMARY DIAGNOSIS-RELATED SURGERIES: Emergency CAGG - performed by Dr Peace on 09/10/2019 HISTORY OF PRESENT ILLNESS (HPI): Pt. is a 74 yo Right-handed white male. On 09/06/2019 he was admitted to [facility] and underwent emergency surgery for NSTEMI, CABG (CAGG ) by Dr Peace. Pre-morbidly, Pt. was independent/mod-I in Transfers Control, Locomotion, and Self-Care; and he had g ood Balance, Safety Awareness, Social Cognition, Sphincter Control, and Communication. Currently, he has deficits of Transfers Control, Balance, Locomotion, Safety Awareness, and Self-Care . Pt. is now referred to [facility] for acute in-patient rehabilitation in order to maximize patient's functional independence in activities of daily living, strength, ROM, and mobi lity. Patient has realistic goal of being discharged at assistance level 6-Cruz to reside at Home with Fam cruzito/Relatives. MEDICATION ALLERGIES: CEPHALEXIN Penicillins ENVIRONMENTAL ALLERGIES: None Known - Substance Allergies None Known - Other Allergies None Known PAST MEDICAL HISTORY: HLD CABG DIABETES HX of PA with PCI CAD Osteoarthritis PAST SURGICAL HISTORY: CARDIAC STENTS KNEE SX FAMILY HISTORY: Family history is not contributory. SOCIAL HISTORY: - Home Living Family/Relatives REVIEW OF SYSTEMS: - Gen No Chills Fatigue No Fever - Eyes No Double Vision No itchiness - ENMT No Difficulty Swallowing - CVS Chest Discomfort No Chest Pain No Fatigue Weight Gain - Resp No Cough No Shortness of Breath - GI Continent No Abdominal Pain No Constipation No Diarrhea - Continent No Kidney Pain No Painful Urination No Urinary Urgency - MSK No Joint Pain Muscle Cramps Stiffness - Skin No Itching No Rash No Suspicious Lesions - Neuro No Coordination Difficulty No Difficulty with Concentration No Memory Loss No Seizures Weakness - Psych No Anxiety No Depression No HIV Exposure No Persistent Infections No Seasonal Allergies - Endo No Cold/Heat Intolerance No Excessive Hunger No Excessive Thirst No Excessive Urination PHYSICAL EXAM - Gen Alert and awake Lying in bed No apparent distress Oriented to: person, time, and place - Skin Surgical vein harvest site on right thigh shows good hemostasis. No abnormalities - Eyes No abnormalities - Neck No abnormalities - CVS RRR - Chest Chest incision is healing with good hemostasis. - Resp Clear to auscultation - Abd + bowel sounds - GI Soft Deferred - Ray catheter - Ext Mild postoperative edema in the right lower extremity - MSK 4+/5 weakness in both lower extremities. - Neuro No focal deficits - Psych No abnormalities VITAL SIGNS Temperature: 98.1 F SBP/DBP: 104/49/57 Pulse: 67 Resp: 16 NURSING: - Shower allowing shower PRECAUTIONS: - Sternal Precaution Hold pillow to sternum while caughing No overhead lifting No weight lifting more than 5 lbs No wheel chair propulsion - Cardiac Precaution Monitor blood pressure, heart rate, lower extremity edema, notify MD for shortness of breath or chest pain Monitor patient for excessive elevation of heart rate and blood pressure during therapy Nursing and Therapy to monitor pt before and after therapy sessions for signs of Chest pain ACTIVITIES OOB only with supervision QI SCORES: - Self-Care A. Eating 04-Supervision or touching assistance B. Oral hygiene 04-Supervision or touching assistance C. Toileting hygiene 02-Substantial/maximal assistance E. Shower/bathe self 02-Substantial/maximal assistance F. Upper body dressing G. Lower body dressing 01-Dependent H. Putting on/taking off footwear - Mobility A. Roll left and right 04-Supervision or touching assistance B. Sit to lying 03-Partial/moderate assistance C. Lying to sitting on side of bed 03-Partial/moderate assistance D. Sit to stand 02-Substantial/maximal assistance E. Chair/zfy-hc-gusfq transfer 03-Partial/moderate assistance F. Toilet transfer 03-Partial/moderate assistance G. Car transfer 10-Not attempted due to environmental limitations I. Walk 10 feet 03-Partial/moderate assistance J. Walk 50 feet with two turns 03-Partial/moderate assistance K. Walk 150 feet 88-Not attempted due to medical condition or safety concerns L. Walking 10 feet on uneven surfaces 88-Not attempted due to medical condition or safety concerns M. 1 step (curb) 88-Not attempted due to medical condition or safety concerns N. 4 steps 88-Not attempted due to medical condition or safety concerns O. 12 steps 88-Not attempted due to medical condition or safety concerns P. Picking up object 88-Not attempted due to medical condition or safety concerns - Bladder and Bowel Bladder continence 0-Always continent Bowel continence 0-Always continent - Endurance Fair - Balance Poor - Safety Awareness Poor CURRENT FUNC. DEFICITS: Self-Care, Mobility, Endurance, Balance, and Safety Awareness MEDICATIONS: - Other See attached MAR (Medication Administration Record) ASSESSMENT: Pt. is a 74 yo Right-handed white male.On 09/06/2019 he was admitted to [facility] and underwent e mergency surgery for NSTEMI, CABG (CAGG) by Dr Peace.Pre-morbidly, Pt. was independent/mod-I in Trans fers Control, Locomotion, and Self-Care; and he had good Balance, Safety Awareness, Social Cognition, Sphincter Control, and Communication.Currently, he has deficits of Transfers Control, Balance, Locom otion, Safety Awareness, and Self-Care.Pt. is now referred to [facility] for a cute in-patient rehabilitation in order to maximize patient's functional independence in activities o f daily living, strength, ROM, and mobility.- Rehab Goal Patient has realistic goal of being discharged at assistance level 6-Cruz to reside at Home with Fam cruzito/Relatives. REHAB PLAN: - Physical Therapy Gait dysfunction - to improve, our physical therapists will perform initial evaluation of pt's status upon admission and devise an individualized program for Gait Training, and Wheel Chair mobility Inability to transfer - to improve, our physical therapists will perform initial evaluation of pt's s tatus upon admission and devise an individualized program for Bed mobility Need for home safety evaluation - to improve, our physical therapists will perform initial evaluation of pt's status upon admission and devise an individualized program for Home Evaluation Need in caregiver upon discharge - to improve, our physical therapists will perform initial evaluatio n of pt's status upon admission and devise an individualized program for Caregiver Training Edema - to improve, our physical therapists will perform initial evaluation of pt's status upon admi ssion and devise an individualized program for Elevation Training, and Lymphedema Therapy New precaution - to improve, our physical therapists will perform initial evaluation of pt's status u kimmie admission and devise an individualized program for Patient precaution education Poor balance - to improve, our physical therapists will perform initial evaluation of pt's status upo n admission and devise an individualized program for Balance Training Weakness - to improve, our physical therapists will perform initial evaluation of pt's status upon ad mission and devise an individualized program for Aquatic Therapy, Neuromuscular Reeducation, and Stre ngthening Achieving independence - to improve, our physical therapists will perform initial evaluation of pt's status upon admission and devise an individualized program for Community Reintegration Activities - Occupational Therapy ADL deficits - to improve, our occupation therapists will perform initial evaluation of pt's status u kimmie admission and devise an individualized program for Bathing, Bed mobility, Community Reintegration , Cooking, Dressing, Eating, Fine Motor Skills, Grooming, Homemaking, Kitchen Mobility, Laundry, Jessica ent Education, Safety Awareness, Splinting - Positioning, Transfers(Toilet, Tub, Shower), and Wheel C hair Management Need for career orientation teacher - to improve, our occupation therapists will perform initial evaluation of pt's s tatus upon admission and devise an individualized program for Caregiver Training Weakness - to improve, our occupation therapists will perform initial evaluation of pt's status upon admission and devise an individualized program for Aquatic Therapy, Balance, Endurance, UE ROM, and U E strengthening MEDICAL PLAN: - Diet Type Start Regular - Diet - Liquid Texture Start Regular - Tube Feed Start N/A - Sternal Precaution Hold pillow to sternum while caughing No overhead lifting No weight lifting more than 5 lbs No wheel chair propulsion - Cardiac Precaution Monitor blood pressure, heart rate, lower extremity edema, notify MD for shortness of breath or ches t pain Monitor patient for excessive elevation of heart rate and blood pressure during therapy Nursing and Therapy to monitor pt before and after therapy sessions for signs of Chest pain - Other See attached MAR (Medication Administration Record) - Diet - Solid Texture Regular - Shower shower DISCHARGE PLAN: - Estimated Length of Stay (days) 10. - Consensus on plan Discharge plan has been discussed with primary caregiver. Patient/Family is in agreement with the brooke n. - Patient/Family Goals Return home with assistance. SIGNATURE PANEL: (CDT)
--- NOTE | 2019-09-20 19:15 | PAPE ---
PATIENT: [facility] MR# [id number] REFERRING DOCTOR Dr Peace EVALUATION DATE AND TIME 09/20/2019 19:13 (CDT) NAME ALISON LOUIE DATE OF 1945 AGE 74 PHONE SSN# [id number] GENDER male EVALUATING PHYSICIAN Dr. John Summers M.D. ADMISSION DIAGNOSIS: NSTEMI, CABG ONSET DATE 09/06/2019 POST-ADMISSION FUNCTIONAL/MEDICAL STATUS: - Walking Same score based on distance walked: 3(>=150ft) STATUS CHANGE EVALUATION: No change in Functional or Medical Status is identified compared with Pre-Admission screening. PATIENT NEEDS CLOSE MEDICAL SUPERVISION BY A REHABILITATION PHYSICIAN FOR: Coordination of Treatment Team Post-Op Complications Wound Care PATIENT REQUIRES 24X7 REHAB NURSING FOR MEDICAL AND FUNCTIONAL MGT. OF THE FOLLOWING DEFICITS: Disease Management Medication Management Patient/Family Education Providing Safe Environment Skin Integrity PATIENT REQUIRES INTENSIVE, COORDINATED INTERDISCIPLINARY APPROACH TO REHAB: Arranging Home Equipment/Services Discharge Planning Family Intervention/Training Medical Office Manager/Case Management LIST OF IDENTIFIED AND POTENTIAL PROBLEMS: Alteration in leisure activities Infection, Actual or Potential Mobility Impaired Pain, Alteration in Comfort Self Care Deficit Skin Integrity, Actual or Potential Urinary Tract Infection (UTI), Actual or Potential RISK FOR COMPLICATIONS - N/A AFIB with rapid ventricular response. Post NSTEMI. S/P CABG. PATIENT COULD BE AT RISK FOR COMPLICATIONS FROM ADVERSE MEDICAL CONDITIONS DUE TO HIS/HER COMORBIDITI ES AND THE RIGORS OF THE INTENSIVE REHABILLITATION PROGRAM. METHODS OR INTERVENTIONS TO AVOID COMPLIC ATIONS INCLUDE: - Bleeding Assess lab values and manage abnormalities. Nursing to teach precautions for anti-coagulation therapy . Wound to be assessed every shift. - Infection Clinical staff to assess and manage the signs and symptoms of infection including fever, redness, war mth, etc. - Urinary Tract Infection - Falls Patient will be evaluated for Fall Precautions and will be placed on Fall Precautions as indicated pe r protocol. - Skin Breakdown Nursing will assess skin daily using assessment tool and will place on Skin Breakdown Precautions as indicated per protocol. - Pain Clinical staff may employ non-medication methods such as massage, distraction, decrease stimulus, etc . as needed. Clinical staff will assess patient's pain level every shift per protocol to assess and e nsure pain management effectiveness. Medications will be given and the pain level re-assessed. PRELIMINARY PLAN OF CARE: - Physical Therapy Patient needs Physical Therapy for a daily minimum of 1.5 hours at least 5 out of 7 days, to improve: Mobility, Strengthening, Transfers, Stretching, ROM, Endurance, Ability to manage stairs, Gait, and Balance. - Speech Therapy Patient needs Speech Therapy for a daily minimum of 0.5 hours at least 5 out of 7 days, to improve: S wallowing, Cognition, Language Skills, and Compensatory Strategies. - Rehabilitation Nursing Patient requires 24x7 Rehabilitation Nursing for: Pain Issues, Identifying and preventing risk factor s, Monitoring and reporting current medical conditions, Assisting with ambulation and transfer, Olegario ting with all ADL-s, Teaching patients about disease process and medications, Family teaching, Provid ing safe environment, Bowel and Bladder Issues, Skin Integrity, and Medication Management. Patient needs Medical Office Manager and/or Case Management for: Discharge Planning, Arranging Home Equipmen t or Services, and Family Interventions. - Dietary and Nutrition Services Patient needs Dietary and Nutrition Services for: Adequate Nutrition, Nutritional Supplements, and Nu tritional Education. - Occupational Therapy Patient needs Occupational Therapy for a daily minimum of 1.5 hours at least 5 out of 7 days, to impr ove Activities of Daily Living, including: Eating, Grooming, Bathing, Dressing, Toileting, Toilet Tra nsfers, Community Reintegration, Higher functional activities, Adaptive Equipment, Splinting, Househo ld Tasks, and Other activities as determined. QI SCORES: - Self-Care A. Eating 04-Supervision or touching assistance B. Oral hygiene 04-Supervision or touching assistance C. Toileting hygiene 02-Substantial/maximal assistance E. Shower/bathe self 02-Substantial/maximal assistance F. Upper body dressing G. Lower body dressing 01-Dependent H. Putting on/taking off footwear - Mobility A. Roll left and right 04-Supervision or touching assistance B. Sit to lying 03-Partial/moderate assistance C. Lying to sitting on side of bed 03-Partial/moderate assistance D. Sit to stand 02-Substantial/maximal assistance E. Chair/aey-cy-nsprf transfer 03-Partial/moderate assistance F. Toilet transfer 03-Partial/moderate assistance G. Car transfer 10-Not attempted due to environmental limitations I. Walk 10 feet 03-Partial/moderate assistance J. Walk 50 feet with two turns 03-Partial/moderate assistance K. Walk 150 feet 88-Not attempted due to medical condition or safety concerns L. Walking 10 feet on uneven surfaces 88-Not attempted due to medical condition or safety concerns M. 1 step (curb) 88-Not attempted due to medical condition or safety concerns N. 4 steps 88-Not attempted due to medical condition or safety concerns O. 12 steps 88-Not attempted due to medical condition or safety concerns P. Picking up object 88-Not attempted due to medical condition or safety concerns - Bladder and Bowel Bladder continence 0-Always continent Bowel continence 0-Always continent - Endurance Fair - Balance Poor - Safety Awareness Poor POTENTIAL FUNCTIONAL GOALS FOR PATIENT TO ACHIEVE BY DISCHARGE: - Safety Precaution Patient will remain free from falls or injury at time of discharge. - Bed Mobility Patient will perform bed mobility at 4-Lanny level of assistance. - Transfers Patient will complete transfers from bed to chair at 4-Lanny level of assistance. - Mobility Patient will ambulate 150 ft with 4-Lanny level of assistance with RW. PATIENT REHAB POTENTIAL Jnes VELAZQUEZ is able and expected to receive 3 hours of individualized therapy daily on at least 5 o f every 7 days Jens VELAZQUEZ's prognosis for significant practical improvement within a reasonable period of time ap pears Good Expected level of measurable improvement will be of a practical value to JonineMaya LOUIELUCIANUNO's functional c apacity or adaptations to impairments Has a viable Discharge Plan Medically appropriate; condition is sufficiently stable to participate in intensive rehab program DISCHARGE PLAN: - Estimated Length of Stay (days) 10. - Consensus on plan Discharge plan has been discussed with primary caregiver. Patient/Family is in agreement with the brooke n. - Patient/Family Goals Return home with assistance. CONCLUSION ON REHABILITATION NECESSITY: I have evaluated patient's pre-admission functional status and, comparing it to the patient's post-ad mission functional status now, I conclude that the pre-admission assessment was accurate. Patient's c ondition on admission supports the medical necessity of admission to IR[facility]. It is safe to proceed with patient's therapy program. SIGNATURE PANEL: (CDT)
[2019-09-20] MEDS: TRAZODONE 150 MG TAB PO SCH (19:38)
[2019-09-20] MEDS: ATORVASTATIN 40 MG TAB PO SCH (19:38)
[2019-09-20] MEDS: GABAPENTIN 300 MG CAP PO SCH (19:40)
[2019-09-21] MEDS: IPRATROPIUM BROM 0.5MG/2.5ML NEB SCH ×4 (01:14→19:35)
[2019-09-21] MEDS: CODEINE 30MG/APAP 300MG TAB PO PRN ×3 (01:40→19:53)
[2019-09-21] MEDS: INSULIN -REGULAR HUMAN 50 UNIT/0.5 ML ML SQ SCH ×3 (07:30→19:54)
[2019-09-21] MEDS: GABAPENTIN 300 MG CAP PO SCH ×2 (08:25→19:54)
[2019-09-21] MEDS: carvediloL 6.25 MG TAB PO SCH (08:25)
[2019-09-21] MEDS: FUROSEMIDE 20 MG TABLET PO SCH (08:25)
[2019-09-21] MEDS: ASPIRIN 81 MG CHEWABLE TABLET PO SCH (08:26)
[2019-09-21] MEDS: CITALOPRAM 10 MG TABLET PO SCH (08:26)
[2019-09-21] MEDS: AMIODARONE HCL 200 MG TAB PO SCH (08:26)
[2019-09-21] MEDS: MAGNESIUM HYDROXIDE 8% 30 ML PO PRN (08:44)
--- NOTE | 2019-09-21 09:53 | P.RH.PN ---
Estimated Length of Stay: 12 Expected Discharge Date: 10/01/19 Discharge Disposition Plan: Home Family Support: Yes Snf Goal: Mobility, Transfers, Self Care Vital Signs: Last Vital Signs Temp 97.1 F 09/21/19 08:11 Pulse 71 09/21/19 08:25 Resp 14 09/21/19 08:11 BP 120/58 L 09/21/19 08:25 Pulse Ox 95 09/21/19 08:11 Laboratory: Laboratory Last Values WBC 6.9 K/uL (4.3-10.9) 09/20/19 05:50 RBC 2.76 M/uL (4.33-5.43) L 09/20/19 05:50 Hgb 8.2 g/dL (13.6-17.9) L 09/20/19 05:50 Hct 24.4 % (39.6-49.0) L 09/20/19 05:50 MCV 88.3 fL (80-100) D 09/20/19 05:50 MCH 29.7 pg (27.0-35.0) 09/20/19 05:50 MCHC 33.6 g/dL (32.0-36.0) 09/20/19 05:50 RDW 15.2 % (12.1-15.2) 09/20/19 05:50 Plt Count 262 K/uL (152-406) 09/20/19 05:50 MPV 10.4 fL (7.6-11.3) 09/20/19 05:50 Neutrophils % 62.1 % (41.7-73.7) 09/20/19 05:50 Lymphocytes % 20.4 % (15.3-44.8) 09/20/19 05:50 Monocytes % 11.5 % (3.3-12.3) 09/20/19 05:50 Eosinophils % 5.1 % (0-4.4) H 09/20/19 05:50 Basophils % 0.9 % (0-1.3) 09/20/19 05:50 Absolute Neutrophils 4.3 K/uL (1.8-8.0) 09/20/19 05:50 Absolute Lymphocytes 1.4 K/uL (0.7-4.9) 09/20/19 05:50 Absolute Monocytes 0.8 K/uL (0.1-1.3) 09/20/19 05:50 Absolute Eosinophils 0.4 K/uL (0-0.5) 09/20/19 05:50 Absolute Basophils 0.1 K/uL (0-0.5) 09/20/19 05:50 PT 28.4 SECONDS (9.5-12.5) H 09/20/19 05:50 INR 2.45 09/20/19 05:50 Sodium 139 mmol/L (136-145) 09/20/19 05:50 Potassium 4.4 mmol/L (3.5-5.1) 09/20/19 05:50 Chloride 103 mmol/L (98-107) 09/20/19 05:50 Carbon Dioxide 31 mmol/L (21-32) 09/20/19 05:50 BUN 22 mg/dL (7-18) H 09/20/19 05:50 Creatinine 1.41 mg/dL (0.55-1.3) H 09/20/19 05:50 Estimated GFR 49 mL/min (=/>90) L 09/20/19 05:50 Glucose 108 mg/dL (74-106) H 09/20/19 05:50 POC Glucose 98 mg/dL (65-120) 09/21/19 07:07 Calcium 8.7 mg/dL (8.5-10.1) 09/20/19 05:50 Magnesium 2.2 mg/dL (1.8-2.4) 09/20/19 05:50 Albumin 2.8 g/dL (3.4-5.0) L 09/20/19 05:50 Prealbumin 11.4 mg/dL (20-40) L 09/20/19 05:50 Urine Color Yellow 09/19/19 22:09 Urine Appearance Clear 09/19/19 22:09 Urine pH 5.5 (5.0-7.0) 09/19/19 22:09 Ur Specific [place] 1.020 (1.005-1.030) 09/19/19 22:09 Glucose (UA)(Auto) Negative (NEG) 09/19/19 22:09 Urine Ketones Negative (NEG) 09/19/19 22:09 Urine Blood Negative (NEG) 09/19/19 22:09 Urine Nitrite Negative (NEG) 09/19/19 22:09 Urine Bilirubin Negative (NEG) 09/19/19 22:09 Urine Urobilinogen 1.0 mg/dL (0.2-1.0) 09/19/19 22:09 Ur Leukocyte Esterase Negative (NEG) 09/19/19 22:09 Urine RBC <5 /HPF (NONE SEEN) 09/19/19 22:09 Urine WBC <5 /HPF (<5) 09/19/19 22:09 Ur Squamous Epith Cells CUSTOMS OFFICER 09/19/19 22:09 Urine Bacteria <20 /HPF (NONE SEEN) 09/19/19 22:09 Urine Culture Reflexed Not needed 09/19/19 22:09 Urine Total Protein Negative (NEG) 09/19/19 22:09 Weight: 262 lb Physician Update: His Hgb is low at 8.2. Will add hemocyte plus and ferrous sulfate. He is doing well with physical and occupational therapy. Summary: Patient's care plan and detention goals have been reviewed and revised as necessary. Please see the Rehabilitation Signature page for all necessary signatures.
[2019-09-21] MEDS ORDERED: INSULIN -REGULAR HUMAN 50 UNIT/0.5 ML ML SQ SCH (16:30)
[2019-09-21] MEDS: WARFARIN SODIUM 5 MG TAB PO SCH (16:47)
[2019-09-21] MEDS: TRAMADOL HCL 50 MG TAB PO PRN (17:31)
[2019-09-21] MEDS: TRAZODONE 150 MG TAB PO SCH (19:54)
[2019-09-21] MEDS: FERROUS SULFATE 325 MG TAB PO SCH (19:54)
[2019-09-21] MEDS: ATORVASTATIN 40 MG TAB PO SCH (19:54)
[2019-09-21] MEDS: DOCUSATE NA/SENNA CONC 1 TAB PO PRN (19:54)
[2019-09-22] MEDS: IPRATROPIUM BROM 0.5MG/2.5ML NEB SCH ×4 (00:55→20:30)
[2019-09-22] MEDS: INSULIN -REGULAR HUMAN 50 UNIT/0.5 ML ML SQ SCH ×2 (08:00→19:36)
[2019-09-22] MEDS: FUROSEMIDE 20 MG TABLET PO SCH ×2 (08:00→12:15)
[2019-09-22] MEDS: carvediloL 6.25 MG TAB PO SCH (08:00)
[2019-09-22] MEDS: ASPIRIN 81 MG CHEWABLE TABLET PO SCH (08:00)
[2019-09-22 08:07] LABS: Protime INR 3.77
[2019-09-22] MEDS: AMIODARONE HCL 200 MG TAB PO SCH (09:00)
[2019-09-22] MEDS: FE SULF/FA/VIT B COMP & C TAB PO SCH (09:00)
[2019-09-22] MEDS: CITALOPRAM 10 MG TABLET PO SCH (09:00)
[2019-09-22] MEDS: GABAPENTIN 300 MG CAP PO SCH ×2 (09:00→19:35)
[2019-09-22] MEDS: FERROUS SULFATE 325 MG TAB PO SCH ×2 (09:01→19:35)
[2019-09-22] MEDS: TRAMADOL HCL 50 MG TAB PO PRN ×3 (09:05→19:35)
[2019-09-22] MEDS: MAGNESIUM HYDROXIDE 8% 30 ML PO PRN (09:08)
--- NOTE | 2019-09-22 11:52 | RAD REPORT ---
EXAM DESCRIPTION: RAD - Chest Single View - 09/22/2019 8:41 am CLINICAL HISTORY: increase coughing Chest pain. COMPARISON: Chest Pa And Lat (2 Views) dated 07/12/2016; CHEST PA AND LAT 2 VIEW dated 11/05/2011 FINDINGS: Portable technique limits examination quality. Mild to moderate left basilar opacity is present likely representing combination of atelectasis/infil trate and pleural effusion. The heart is mildly enlarged. Sternotomy wires present.
[2019-09-22] MEDS: DOCUSATE NA 100 MG CAP PO SCH (13:25)
[2019-09-22] MEDS ORDERED: BISACODYL 10 MG RECTAL SUPP PR PRN (16:58)
[2019-09-22] MEDS: CODEINE 30MG/APAP 300MG TAB PO PRN ×2 (17:34→23:51)
[2019-09-22] MEDS: guaiFENesin 100 MG/5 ML UCUP PO PRN (19:35)
[2019-09-22] MEDS: DOCUSATE NA/SENNA CONC 1 TAB PO PRN (20:12)
[2019-09-22] MEDS: ATORVASTATIN 40 MG TAB PO SCH (20:12)
[2019-09-22] MEDS: TRAZODONE 150 MG TAB PO SCH (21:21)
[2019-09-23] MEDS: IPRATROPIUM BROM 0.5MG/2.5ML NEB SCH ×4 (01:00→19:45)
[2019-09-23 07:11] LABS: Absolute Lymphocytes (CBC) 1.6 K/uL (0.7-4.9); Basophils % 0.9 % (0-1.3); Hematocrit 23.7 % (39.6-49.0); Lymphocytes % 20.4 % (15.3-44.8); MPV 10.6 fL (7.6-11.3); RBC Red Blood Cell Count 2.69 M/uL (4.33-5.43)
[2019-09-23 07:22] LABS: Potassium 5.2 mmol/L (3.5-5.1); Protime INR 3.87
[2019-09-23] MEDS ORDERED: POLYETHYL GLY 3350 17 GM/DOSE PO PRN (07:45)
[2019-09-23] MEDS: carvediloL 6.25 MG TAB PO SCH (08:00)
[2019-09-23] MEDS: LIDOCAINE 4% PATCH TOP SCH (08:00)
[2019-09-23] MEDS: INSULIN -REGULAR HUMAN 50 UNIT/0.5 ML ML SQ SCH ×2 (08:00→20:00)
[2019-09-23] MEDS: GABAPENTIN 300 MG CAP PO SCH ×2 (08:00→20:22)
[2019-09-23] MEDS: FE SULF/FA/VIT B COMP & C TAB PO SCH (08:01)
[2019-09-23] MEDS: DOCUSATE NA 100 MG CAP PO SCH (08:01)
[2019-09-23] MEDS: FERROUS SULFATE 325 MG TAB PO SCH ×2 (08:01→20:21)
[2019-09-23] MEDS: CITALOPRAM 10 MG TABLET PO SCH (08:02)
[2019-09-23] MEDS: TRAMADOL HCL 50 MG TAB PO PRN (08:02)
[2019-09-23] MEDS: AMIODARONE HCL 200 MG TAB PO SCH (08:02)
[2019-09-23] MEDS: PROMOD 30 ML DOSE PO SCH ×2 (09:33→20:23)
[2019-09-23] MEDS: FUROSEMIDE 20 MG TABLET PO SCH (11:56)
[2019-09-23] MEDS: guaiFENesin 100 MG/5 ML UCUP PO PRN ×2 (12:18→20:21)
[2019-09-23 14:11] LABS: Hematocrit 25.5 % (39.6-49.0)
[2019-09-23] MEDS ORDERED: WARFARIN SODIUM 5 MG TAB PO SCH (17:00)
[2019-09-23] MEDS: ATORVASTATIN 40 MG TAB PO SCH (20:22)
[2019-09-23] MEDS: TRAZODONE 150 MG TAB PO SCH (20:23)
[2019-09-24] MEDS: IPRATROPIUM BROM 0.5MG/2.5ML NEB SCH ×4 (01:30→19:30)
[2019-09-24 06:11] LABS: Absolute Lymphocytes (CBC) 1.3 K/uL (0.7-4.9); Basophils % 0.7 % (0-1.3); Hematocrit 24.7 % (39.6-49.0); MPV 10.8 fL (7.6-11.3); RBC Red Blood Cell Count 2.75 M/uL (4.33-5.43)
[2019-09-24 06:12] LABS: Protime INR 2.99
[2019-09-24 06:17] LABS: Potassium 4.8 mmol/L (3.5-5.1)
[2019-09-24] MEDS: guaiFENesin 100 MG/5 ML UCUP PO PRN ×3 (07:29→19:09)
[2019-09-24] MEDS: CODEINE 30MG/APAP 300MG TAB PO PRN ×2 (07:29→17:11)
[2019-09-24] MEDS: CITALOPRAM 10 MG TABLET PO SCH (07:30)
[2019-09-24] MEDS: DOCUSATE NA 100 MG CAP PO SCH (07:30)
[2019-09-24] MEDS: GABAPENTIN 300 MG CAP PO SCH ×2 (07:30→19:10)
[2019-09-24] MEDS: AMIODARONE HCL 200 MG TAB PO SCH (07:31)
[2019-09-24] MEDS: FERROUS SULFATE 325 MG TAB PO SCH ×2 (07:31→19:10)
[2019-09-24] MEDS: carvediloL 6.25 MG TAB PO SCH (07:31)
[2019-09-24] MEDS: FUROSEMIDE 20 MG TABLET PO SCH (07:31)
[2019-09-24] MEDS: FE SULF/FA/VIT B COMP & C TAB PO SCH (07:31)
[2019-09-24] MEDS: PROMOD 30 ML DOSE PO SCH ×2 (07:32→19:11)
[2019-09-24] MEDS: INSULIN -REGULAR HUMAN 50 UNIT/0.5 ML ML SQ SCH ×2 (07:32→20:00)
[2019-09-24] MEDS: LIDOCAINE 4% PATCH TOP SCH (09:55)
[2019-09-24] MEDS: TRAMADOL HCL 50 MG TAB PO PRN ×2 (12:32→19:10)
[2019-09-24] MEDS: WARFARIN SODIUM 4 MG TAB PO SCH (15:49)
[2019-09-24] MEDS: ATORVASTATIN 40 MG TAB PO SCH (19:10)
[2019-09-24] MEDS: TRAZODONE 150 MG TAB PO SCH (19:10)
[2019-09-24] MEDS: DOCUSATE NA/SENNA CONC 1 TAB PO PRN (19:10)
[2019-09-25] MEDS: IPRATROPIUM BROM 0.5MG/2.5ML NEB SCH ×4 (01:20→19:38)
[2019-09-25 06:29] LABS: Protime INR 2.21
[2019-09-25] MEDS: INSULIN -REGULAR HUMAN 50 UNIT/0.5 ML ML SQ SCH ×2 (08:00→19:24)
[2019-09-25] MEDS: GABAPENTIN 300 MG CAP PO SCH ×2 (08:25→19:23)
[2019-09-25] MEDS: LIDOCAINE 4% PATCH TOP SCH (08:25)
[2019-09-25] MEDS: FE SULF/FA/VIT B COMP & C TAB PO SCH (08:25)
[2019-09-25] MEDS: DOCUSATE NA 100 MG CAP PO SCH (08:26)
[2019-09-25] MEDS: CITALOPRAM 10 MG TABLET PO SCH (08:26)
[2019-09-25] MEDS: AMIODARONE HCL 200 MG TAB PO SCH (08:26)
[2019-09-25] MEDS: FUROSEMIDE 20 MG TABLET PO SCH (08:27)
[2019-09-25] MEDS: TRAMADOL HCL 50 MG TAB PO PRN ×2 (08:27→12:23)
[2019-09-25] MEDS: FERROUS SULFATE 325 MG TAB PO SCH ×2 (08:27→19:23)
[2019-09-25] MEDS: guaiFENesin 100 MG/5 ML UCUP PO PRN ×2 (08:29→19:23)
[2019-09-25] MEDS: PROMOD 30 ML DOSE PO SCH ×2 (08:30→19:24)
[2019-09-25] MEDS: carvediloL 6.25 MG TAB PO SCH (12:42)
[2019-09-25] MEDS: WARFARIN SODIUM 4 MG TAB PO SCH (17:17)
[2019-09-25] MEDS: CODEINE 30MG/APAP 300MG TAB PO PRN (19:23)
[2019-09-25] MEDS: ATORVASTATIN 40 MG TAB PO SCH (19:23)
[2019-09-25] MEDS: TRAZODONE 150 MG TAB PO SCH (19:23)
[2019-09-25] MEDS: DOCUSATE NA/SENNA CONC 1 TAB PO PRN (19:24)
--- NOTE | 2019-09-26 00:40 | R.PN ---
ENCOUNTER DATE AND TIME: 09/25/2019 19:34 (CDT) NAME ALISON LOUIE DATE OF : 1945 DATE OF ADMISSION: 09/19/2019 16:43 (CDT) NSTEMI, CABGCHIEF COMPLAINT: Cardiac debility following CABG SUBJECTIVE: Pt denied any Shortness of Breath. Pt denied any depression. His chest discomfort is fairly well controlled. He is doing well with physical and occupational thera py. His labs were reviewed and are stable. VITAL SIGNS Temperature: 97.6 F SBP/DBP: 110/65 Pulse: 74 Resp: 14 MEDICATION ALLERGIES: CEPHALEXIN Penicillins ENVIRONMENTAL ALLERGIES: None Known - Substance Allergies None Known - Other Allergies None Known NURSING: - Shower allowing shower PRECAUTIONS: - Sternal Precaution Hold pillow to sternum while caughing No overhead lifting No weight lifting more than 5 lbs No wheel chair propulsion - Cardiac Precaution Monitor blood pressure, heart rate, lower extremity edema, notify MD for shortness of breath or chest pain Monitor patient for excessive elevation of heart rate and blood pressure during therapy Nursing and Therapy to monitor pt before and after therapy sessions for signs of Chest pain ACTIVITIES OOB only with supervision THERAPIES: - Dietary and Nutrition Adequate Nutrition. Nutritional Education. Nutritional Supplements. PHYSICAL EXAM - Gen Alert and awake Lying in bed No apparent distress Oriented to: person, time, and place - Skin Surgical vein harvest site on right thigh shows good hemostasis. No abnormalities - Eyes No abnormalities - Neck No abnormalities - CVS RRR - Chest Chest incision is healing with good hemostasis. - Resp Clear to auscultation - Abd + bowel sounds - GI Soft Deferred - Ray catheter - Ext Mild postoperative edema in the right lower extremity - MSK 4+/5 weakness in both lower extremities. - Neuro No focal deficits - Psych No abnormalities ASSESSMENT: Pt. is a 74 yo Right-handed white male.On 09/06/2019 he was admitted to [facility] and underwent e mergency surgery for NSTEMI, CABG (CAGG) by Dr Peace.Pre-morbidly, Pt. was independent/mod-I in Trans fers Control, Locomotion, and Self-Care; and he had good Balance, Safety Awareness, Social Cognition, Sphincter Control, and Communication.Currently, he has deficits of Transfers Control, Balance, Locom otion, Safety Awareness, and Self-Care.Pt. is now referred to [facility] for a cute in-patient rehabilitation in order to maximize patient's functional independence in activities o f daily living, strength, ROM, and mobility.- Rehab Goal Patient has realistic goal of being discharged at assistance level 6-Cruz to reside at Home with Fam cruzito/Relatives. MDM/PLAN: - Physical Therapy Gait dysfunction - to improve, our physical therapists will perform initial evaluation of pt's statu s upon admission and devise an individualized program for Gait Training, and Wheel Chair mobility Inability to transfer - to improve, our physical therapists will perform initial evaluation of pt's status upon admission and devise an individualized program for Bed mobility Need for home safety evaluation - to improve, our physical therapists will perform initial evaluatio n of pt's status upon admission and devise an individualized program for Home Evaluation Need in caregiver upon discharge - to improve, our physical therapists will perform initial evaluati on of pt's status upon admission and devise an individualized program for Caregiver Training Edema - to improve, our physical therapists will perform initial evaluation of pt's status upon admis ronnie and devise an individualized program for Elevation Training, and Lymphedema Therapy New precaution - to improve, our physical therapists will perform initial evaluation of pt's status upon admission and devise an individualized program for Patient precaution education Poor balance - to improve, our physical therapists will perform initial evaluation of pt's status up on admission and devise an individualized program for Balance Training Weakness - to improve, our physical therapists will perform initial evaluation of pt's status upon a dmission and devise an individualized program for Aquatic Therapy, Neuromuscular Reeducation, and Str engthening Achieving independence - to improve, our physical therapists will perform initial evaluation of pt's status upon admission and devise an individualized program for Community Reintegration Activities - Occupational Therapy ADL deficits - to improve, our occupation therapists will perform initial evaluation of pt's status upon admission and devise an individualized program for Bathing, Bed mobility, Community Reintegratio n, Cooking, Dressing, Eating, Fine Motor Skills, Grooming, Homemaking, Kitchen Mobility, Laundry, Pat ient Education, Safety Awareness, Splinting - Positioning, Transfers(Toilet, Tub, Shower), and Wheel Chair Management Need for summer child caregiver - to improve, our occupation therapists will perform initial evaluation of pt's status upon admission and devise an individualized program for Caregiver Training Weakness - to improve, our occupation therapists will perform initial evaluation of pt's status upon admission and devise an individualized program for Aquatic Therapy, Balance, Endurance, UE ROM, and UE strengthening - Other See attached MAR (Medication Administration Record) - Diet Type Continue Regular - Diet - Liquid Texture Continue Regular - Tube Feed Continue N/A - Sternal Precaution Hold pillow to sternum while caughing No overhead lifting No weight lifting more than 5 lbs No wheel chair propulsion - Cardiac Precaution Monitor blood pressure, heart rate, lower extremity edema, notify MD for shortness of breath or chest pain Monitor patient for excessive elevation of heart rate and blood pressure during therapy Nursing and Therapy to monitor pt before and after therapy sessions for signs of Chest pain - Diet - Solid Texture Continue Regular - Shower allowing shower FUNCTIONAL STATUS: UPDATED AT WEEKLY TEAM CONFERENCE - Walking Same score based on distance walked: 3(>=150ft) FUNCTIONAL STATUS: - Self-Care A. Eating Ind B. Grooming Cruz C. Bathing Lanny D. Dressing - Upper sup E. Dressing - Lower Lanny F. Toileting sup - Sphincter Control G. Bladder control Cruz H. Bowel control Cruz - Transfers Control I. Bed/Chair/Wheelchair Lanny J. Toilet sup K. Tub/Shower Lanny - Locomotion L. Walk/Wheelchair (B) Lanny M. Stairs maxA - Communication N. Comprehension (B) Cruz O. Expression (B) Cruz - Social Cognition P. Social Interaction Cruz Q. Problem Solving Cruz R. Memory Cruz - Endurance Fair - Balance Good - Safety Awareness Good QI SCORES: - Self-Care A. Eating 04-Supervision or touching assistance B. Oral hygiene 04-Supervision or touching assistance C. Toileting hygiene 02-Substantial/maximal assistance E. Shower/bathe self 02-Substantial/maximal assistance F. Upper body dressing G. Lower body dressing 01-Dependent H. Putting on/taking off footwear - Mobility A. Roll left and right 04-Supervision or touching assistance B. Sit to lying 03-Partial/moderate assistance C. Lying to sitting on side of bed 03-Partial/moderate assistance D. Sit to stand 02-Substantial/maximal assistance E. Chair/mpn-zm-[id number] transfer 03-Partial/moderate assistance F. Toilet transfer 03-Partial/moderate assistance G. Car transfer 10-Not attempted due to environmental limitations I. Walk 10 feet 03-Partial/moderate assistance J. Walk 50 feet with two turns 03-Partial/moderate assistance K. Walk 150 feet 88-Not attempted due to medical condition or safety concerns L. Walking 10 feet on uneven surfaces 88-Not attempted due to medical condition or safety concerns M. 1 step (curb) 88-Not attempted due to medical condition or safety concerns N. 4 steps 88-Not attempted due to medical condition or safety concerns O. 12 steps 88-Not attempted due to medical condition or safety concerns P. Picking up object 88-Not attempted due to medical condition or safety concerns - Bladder and Bowel Bladder continence 0-Always continent Bowel continence 0-Always continent - Endurance Fair - Balance Poor - Safety Awareness Poor CURRENT FUNC. DEFICITS: Self-Care, Mobility, Endurance, Balance, and Safety Awareness SIGNATURE PANEL: (CDT)
[2019-09-26] MEDS: IPRATROPIUM BROM 0.5MG/2.5ML NEB SCH ×4 (01:11→20:15)
[2019-09-26 06:21] LABS: Protime INR 1.95
[2019-09-26] MEDS: INSULIN -REGULAR HUMAN 50 UNIT/0.5 ML ML SQ SCH ×2 (07:10→19:28)
[2019-09-26] MEDS: CODEINE 30MG/APAP 300MG TAB PO PRN ×3 (07:30→19:34)
[2019-09-26] MEDS: PROMOD 30 ML DOSE PO SCH ×2 (07:30→19:29)
[2019-09-26] MEDS: DOCUSATE NA 100 MG CAP PO SCH (07:31)
[2019-09-26] MEDS: FE SULF/FA/VIT B COMP & C TAB PO SCH (07:31)
[2019-09-26] MEDS: CITALOPRAM 10 MG TABLET PO SCH (07:31)
[2019-09-26] MEDS: carvediloL 6.25 MG TAB PO SCH (07:32)
[2019-09-26] MEDS: AMIODARONE HCL 200 MG TAB PO SCH (07:32)
[2019-09-26] MEDS: FERROUS SULFATE 325 MG TAB PO SCH ×2 (07:33→19:28)
[2019-09-26] MEDS: GABAPENTIN 300 MG CAP PO SCH ×2 (07:33→19:28)
[2019-09-26] MEDS: FUROSEMIDE 20 MG TABLET PO SCH (07:33)
[2019-09-26] MEDS: guaiFENesin 100 MG/5 ML UCUP PO PRN ×3 (08:08→19:30)
[2019-09-26] MEDS: LIDOCAINE 4% PATCH TOP SCH (10:56)
[2019-09-26] MEDS: MAGNESIUM HYDROXIDE 8% 30 ML PO PRN (14:54)
--- NOTE | 2019-09-26 15:24 | FAST ---
ENCOUNTER DATE AND TIME: 09/26/2019 08:00 (CDT) NAME ALISON LOUIE DATE OF : 1945 DATE OF ADMISSION: 09/19/2019 16:43 (CDT) PHONE: AGE: 74 N# [id number] GENDER: Male ENCOUNTER PHYSICIAN: Dr. John Summers M.D. ADMISSION DIAGNOSIS: - Cardiac 09 - Cardiac Disorders () NSTEMI, CABG. EATING: Not assessed/no information CODE: - ORAL HYGIENE: ORAL HYGIENE - STEP 1: Does the patient complete the activity by him/herself with no assistance (physical, verbal/nonverbal cueing, setup/clean-up)? Yes. 1. [id number] ADMISSION PERFORMANCE: Independent CODE: 06 TOILETING HYGIENE: Not assessed/no information CODE: - BATHING: SHOWER/BATHE SELF - STEP 1: Does the patient complete the activity by him/herself with no assistance (physical, verbal/nonverbal cueing, setup/clean-up)? No. SHOWER/BATHE SELF - STEP 2: Does the patient need only setup/clean-up assistance from one helper? No. SHOWER/BATHE SELF - STEP 3: Does the patient need only verbal/nonverbal cueing or touching/steadying/contact guard assistance fro m one helper? Yes. 1. [id number] ADMISSION PERFORMANCE: Supervision or touching assistance CODE: 04 DRESSING - UPPER BODY: DRESSING - UPPER BODY - STEP 1: Does the patient complete the activity by him/herself with no assistance (physical, verbal/nonverbal cueing, setup/clean-up)? No. DRESSING - UPPER BODY - STEP 2: Does the patient need only setup/clean-up assistance from one helper? No. DRESSING - UPPER BODY - STEP 3: Does the patient need only verbal/nonverbal cueing or touching/steadying/contact guard assistance fro m one helper? Yes. 1. [id number] ADMISSION PERFORMANCE: Supervision or touching assistance CODE: 04 DRESSING - LOWER BODY: DRESSING - LOWER BODY - STEP 1: Does the patient complete the activity by him/herself with no assistance (physical, verbal/nonverbal cueing, setup/clean-up)? No. DRESSING - LOWER BODY - STEP 2: Does the patient need only setup/clean-up assistance from one helper? No. DRESSING - LOWER BODY - STEP 3: Does the patient need only verbal/nonverbal cueing or touching/steadying/contact guard assistance fro m one helper? Yes. 1. [id number] ADMISSION PERFORMANCE: Supervision or touching assistance CODE: 04 PUTTING ON/TAKING OFF FOOTWEAR: FOOTWEAR - STEP 1: Does the patient complete the activity by him/herself with no assistance (physical, verbal/nonverbal cueing, setup/clean-up)? No. FOOTWEAR - STEP 2: Does the patient need only setup/clean-up assistance from one helper? No. FOOTWEAR - STEP 3: Does the patient need only verbal/nonverbal cueing or touching/steadying/contact guard assistance fro m one helper? Yes. 1. [id number] ADMISSION PERFORMANCE: Supervision or touching assistance CODE: 04 DOES THE PATIENT USE A WHEELCHAIR/SCOOTER? CODE: EXPR INDICATE THE TYPE OF WHEELCHAIR/SCOOTER USED: CODE: EXPR INDICATE THE TYPE OF WHEELCHAIR/SCOOTER USED: CODE: EXPR BLADDER AND BOWEL: CODE: EXPR CODE: EXPR SIGNATURE PANEL: The following modified sections: 1. [id number] Admission Performance, 1. [id number] Admission Performance, 1. [id number] Admission Performance, 1. [id number] Admission Performance, 1. [id number] Admission Performance were [electronically] signed by YEYO Cole on TueSep 26 2019 15:24:12 GMT-0500 (Central Daylight Time)
[2019-09-26] MEDS: WARFARIN SODIUM 4 MG TAB PO SCH (16:34)
--- NOTE | 2019-09-26 19:31 | R.PN ---
ENCOUNTER DATE AND TIME: 09/26/2019 19:28 (CDT) NAME ALISON LOUIE DATE OF : 1945 DATE OF ADMISSION: 09/19/2019 16:43 (CDT) NSTEMI, CABGCHIEF COMPLAINT: Cardiac debility following CABG SUBJECTIVE: Pt denied any Shortness of Breath. Pt denied any depression. His chest discomfort is fairly well controlled. He is doing well with physical and occupational thera py. He ambulated 750' with standby assistance using a rolling walker. WBC 7.9, Hgb 8.2. He is on ferrous sulfate. VITAL SIGNS Temperature: 97.6 F SBP/DBP: 106/61 Pulse: 83 Resp: 14 MEDICATION ALLERGIES: CEPHALEXIN Penicillins ENVIRONMENTAL ALLERGIES: None Known - Substance Allergies None Known - Other Allergies None Known NURSING: - Shower allowing shower PRECAUTIONS: - Sternal Precaution Hold pillow to sternum while caughing No overhead lifting No weight lifting more than 5 lbs No wheel chair propulsion - Cardiac Precaution Monitor blood pressure, heart rate, lower extremity edema, notify MD for shortness of breath or chest pain Monitor patient for excessive elevation of heart rate and blood pressure during therapy Nursing and Therapy to monitor pt before and after therapy sessions for signs of Chest pain ACTIVITIES OOB only with supervision THERAPIES: - Dietary and Nutrition Adequate Nutrition. Nutritional Education. Nutritional Supplements. PHYSICAL EXAM - Gen Alert and awake Lying in bed No apparent distress Oriented to: person, time, and place - Skin Surgical vein harvest site on right thigh shows good hemostasis. No abnormalities - Eyes No abnormalities - Neck No abnormalities - CVS RRR - Chest Chest incision is healing with good hemostasis. - Resp Clear to auscultation - Abd + bowel sounds - GI Soft Deferred - Ray catheter - Ext Mild postoperative edema in the right lower extremity - MSK 4+/5 weakness in both lower extremities. - Neuro No focal deficits - Psych No abnormalities ASSESSMENT: Pt. is a 74 yo Right-handed white male.On 09/06/2019 he was admitted to [facility] and underwent e mergency surgery for NSTEMI, CABG (CAGG) by Dr Peace.Pre-morbidly, Pt. was independent/mod-I in Trans fers Control, Locomotion, and Self-Care; and he had good Balance, Safety Awareness, Social Cognition, Sphincter Control, and Communication.Currently, he has deficits of Transfers Control, Balance, Locom otion, Safety Awareness, and Self-Care.Pt. is now referred to [facility] for a cute in-patient rehabilitation in order to maximize patient's functional independence in activities o f daily living, strength, ROM, and mobility.- Rehab Goal Patient has realistic goal of being discharged at assistance level 6-Cruz to reside at Home with Fam cruzito/Relatives. MDM/PLAN: - Physical Therapy Gait dysfunction - to improve, our physical therapists will perform initial evaluation of pt's statu s upon admission and devise an individualized program for Gait Training, and Wheel Chair mobility Inability to transfer - to improve, our physical therapists will perform initial evaluation of pt's status upon admission and devise an individualized program for Bed mobility Need for home safety evaluation - to improve, our physical therapists will perform initial evaluatio n of pt's status upon admission and devise an individualized program for Home Evaluation Need in caregiver upon discharge - to improve, our physical therapists will perform initial evaluati on of pt's status upon admission and devise an individualized program for Caregiver Training Edema - to improve, our physical therapists will perform initial evaluation of pt's status upon admi ssion and devise an individualized program for Elevation Training, and Lymphedema Therapy New precaution - to improve, our physical therapists will perform initial evaluation of pt's status upon admission and devise an individualized program for Patient precaution education Poor balance - to improve, our physical therapists will perform initial evaluation of pt's status up on admission and devise an individualized program for Balance Training Weakness - to improve, our physical therapists will perform initial evaluation of pt's status upon a dmission and devise an individualized program for Aquatic Therapy, Neuromuscular Reeducation, and Str engthening Achieving independence - to improve, our physical therapists will perform initial evaluation of pt's status upon admission and devise an individualized program for Community Reintegration Activities - Occupational Therapy ADL deficits - to improve, our occupation therapists will perform initial evaluation of pt's status upon admission and devise an individualized program for Bathing, Bed mobility, Community Reintegratio n, Cooking, Dressing, Eating, Fine Motor Skills, Grooming, Homemaking, Kitchen Mobility, Laundry, Pat ient Education, Safety Awareness, Splinting - Positioning, Transfers(Toilet, Tub, Shower), and Wheel Chair Management Need for health care sanitary technician - to improve, our occupation therapists will perform initial evaluation of pt's status upon admission and devise an individualized program for Caregiver Training Weakness - to improve, our occupation therapists will perform initial evaluation of pt's status upon admission and devise an individualized program for Aquatic Therapy, Balance, Endurance, UE ROM, and UE strengthening - Other See attached MAR (Medication Administration Record) - Diet Type Continue Regular - Diet - Liquid Texture Continue Regular - Tube Feed Continue N/A - Sternal Precaution Hold pillow to sternum while caughing No overhead lifting No weight lifting more than 5 lbs No wheel chair propulsion - Cardiac Precaution Monitor blood pressure, heart rate, lower extremity edema, notify MD for shortness of breath or ches t pain Monitor patient for excessive elevation of heart rate and blood pressure during therapy Nursing and Therapy to monitor pt before and after therapy sessions for signs of Chest pain - Diet - Solid Texture Continue Regular - Shower allowing shower FUNCTIONAL STATUS: UPDATED AT WEEKLY TEAM CONFERENCE - Walking Same score based on distance walked: 3(>=150ft) FUNCTIONAL STATUS: - Self-Care A. Eating Ind B. Grooming Cruz C. Bathing Lanny D. Dressing - Upper sup E. Dressing - Lower Lanny F. Toileting sup - Sphincter Control G. Bladder control Cruz H. Bowel control Cruz - Transfers Control I. Bed/Chair/Wheelchair Lanny J. Toilet sup K. Tub/Shower Lanny - Locomotion L. Walk/Wheelchair (B) Lanny M. Stairs maxA - Communication N. Comprehension (B) Cruz O. Expression (B) Cruz - Social Cognition P. Social Interaction Cruz Q. Problem Solving Cruz R. Memory Cruz - Endurance Fair - Balance Good - Safety Awareness Good QI SCORES: - Self-Care A. Eating 04-Supervision or touching assistance B. Oral hygiene 04-Supervision or touching assistance C. Toileting hygiene 02-Substantial/maximal assistance E. Shower/bathe self 02-Substantial/maximal assistance F. Upper body dressing G. Lower body dressing 01-Dependent H. Putting on/taking off footwear - Mobility A. Roll left and right 04-Supervision or touching assistance B. Sit to lying 03-Partial/moderate assistance C. Lying to sitting on side of bed 03-Partial/moderate assistance D. Sit to stand 02-Substantial/maximal assistance E. Chair/[id number]-mp-szthe transfer 03-Partial/moderate assistance F. Toilet transfer 03-Partial/moderate assistance G. Car transfer 10-Not attempted due to environmental limitations I. Walk 10 feet 03-Partial/moderate assistance J. Walk 50 feet with two turns 03-Partial/moderate assistance K. Walk 150 feet 88-Not attempted due to medical condition or safety concerns L. Walking 10 feet on uneven surfaces 88-Not attempted due to medical condition or safety concerns M. 1 step (curb) 88-Not attempted due to medical condition or safety concerns N. 4 steps 88-Not attempted due to medical condition or safety concerns O. 12 steps 88-Not attempted due to medical condition or safety concerns P. Picking up object 88-Not attempted due to medical condition or safety concerns - Bladder and Bowel Bladder continence 0-Always continent Bowel continence 0-Always continent - Endurance Fair - Balance Poor - Safety Awareness Poor CURRENT FUNC. DEFICITS: Self-Care, Mobility, Endurance, Balance, and Safety Awareness SIGNATURE PANEL: (CDT)
[2019-09-26] MEDS: TRAZODONE 150 MG TAB PO SCH (20:20)
[2019-09-26] MEDS: ATORVASTATIN 40 MG TAB PO SCH (20:20)
[2019-09-26] MEDS: DOCUSATE NA/SENNA CONC 1 TAB PO PRN (20:20)
[2019-09-27] MEDS: IPRATROPIUM BROM 0.5MG/2.5ML NEB SCH ×4 (01:20→20:01)
[2019-09-27 06:24] LABS: Protime INR 1.91
[2019-09-27 06:27] LABS: Absolute Lymphocytes (CBC) 1.3 K/uL (0.7-4.9); Basophils % 0.8 % (0-1.3); Hematocrit 24.3 % (39.6-49.0); Lymphocytes % 19.1 % (15.3-44.8); MPV 10.6 fL (7.6-11.3); RBC Red Blood Cell Count 2.72 M/uL (4.33-5.43)
[2019-09-27 06:35] LABS: Albumin 2.8 g/dL (3.4-5.0); Potassium 4.9 mmol/L (3.5-5.1); Prealbumin 13.3 mg/dL (20-40)
[2019-09-27] MEDS: DOCUSATE NA 100 MG CAP PO SCH (08:00)
[2019-09-27] MEDS: INSULIN -REGULAR HUMAN 50 UNIT/0.5 ML ML SQ SCH ×2 (08:00→19:23)
[2019-09-27] MEDS: LIDOCAINE 4% PATCH TOP SCH ×2 (08:08→12:26)
[2019-09-27] MEDS: GABAPENTIN 300 MG CAP PO SCH ×2 (08:08→19:22)
[2019-09-27] MEDS: FUROSEMIDE 20 MG TABLET PO SCH (08:09)
[2019-09-27] MEDS: CITALOPRAM 10 MG TABLET PO SCH (08:09)
[2019-09-27] MEDS: carvediloL 6.25 MG TAB PO SCH (08:10)
[2019-09-27] MEDS: AMIODARONE HCL 200 MG TAB PO SCH (08:10)
[2019-09-27] MEDS: FE SULF/FA/VIT B COMP & C TAB PO SCH (08:11)
[2019-09-27] MEDS: TRAMADOL HCL 50 MG TAB PO PRN ×3 (08:11→15:57)
[2019-09-27] MEDS: FERROUS SULFATE 325 MG TAB PO SCH ×2 (08:11→19:22)
[2019-09-27] MEDS: PROMOD 30 ML DOSE PO SCH ×2 (08:16→19:22)
[2019-09-27] MEDS ORDERED: WARFARIN SODIUM 5 MG TAB PO ONE (17:00)
[2019-09-27] MEDS: guaiFENesin 100 MG/5 ML UCUP PO PRN (19:21)
[2019-09-27] MEDS: CODEINE 30MG/APAP 300MG TAB PO PRN (19:21)
[2019-09-27] MEDS: DOXYCYCLINE 100 MG CAP PO SCH (20:06)
[2019-09-27] MEDS: ATORVASTATIN 40 MG TAB PO SCH (20:21)
[2019-09-27] MEDS: TRAZODONE 150 MG TAB PO SCH (20:21)
--- NOTE | 2019-09-27 20:33 | RAD REPORT ---
EXAM DESCRIPTION: RAD - Chest Single View - 09/27/2019 8:26 pm CLINICAL HISTORY: repeat; chking for improvement Chest pain. COMPARISON: Chest Single View dated 09/22/2019; Chest Pa And Lat (2 Views) dated 07/12/2016; CHEST PA A ND LAT 2 VIEW dated 11/05/2011 FINDINGS: Portable technique limits examination quality. Mild worsening in bilateral pulmonary opacities seen since prior study. The heart is moderately enlar ged in size. Small pleural effusions. Sternotomy wires. IMPRESSION: Mild worsening in lung aeration since comparative study.
[2019-09-28] MEDS: IPRATROPIUM BROM 0.5MG/2.5ML NEB SCH ×4 (01:50→19:55)
[2019-09-28] MEDS: guaiFENesin 100 MG/5 ML UCUP PO PRN ×2 (02:22→19:38)
[2019-09-28 06:32] LABS: Protime INR 1.77
[2019-09-28] MEDS: INSULIN -REGULAR HUMAN 50 UNIT/0.5 ML ML SQ SCH ×2 (08:00→20:00)
[2019-09-28] MEDS: carvediloL 3.125 MG TAB PO SCH (08:00)
[2019-09-28] MEDS: LIDOCAINE 4% PATCH TOP SCH (08:41)
[2019-09-28] MEDS: FE SULF/FA/VIT B COMP & C TAB PO SCH (08:42)
[2019-09-28] MEDS: DOXYCYCLINE 100 MG CAP PO SCH ×2 (08:42→19:37)
[2019-09-28] MEDS: GABAPENTIN 300 MG CAP PO SCH ×2 (08:42→19:36)
[2019-09-28] MEDS: CITALOPRAM 10 MG TABLET PO SCH (08:42)
[2019-09-28] MEDS: FERROUS SULFATE 325 MG TAB PO SCH ×2 (08:43→19:36)
[2019-09-28] MEDS: DOCUSATE NA 100 MG CAP PO SCH (08:43)
[2019-09-28] MEDS: AMIODARONE HCL 200 MG TAB PO SCH (08:43)
[2019-09-28] MEDS: TRAMADOL HCL 50 MG TAB PO PRN (08:44)
[2019-09-28] MEDS: FUROSEMIDE 20 MG TABLET PO SCH ×2 (08:47→17:13)
[2019-09-28] MEDS: PROMOD 30 ML DOSE PO SCH ×2 (08:50→19:36)
--- NOTE | 2019-09-28 09:58 | P.RH.PN ---
Estimated Length of Stay: 11 Expected Discharge Date: 09/29/19 Discharge Disposition Plan: Home Family Support: Yes Half-Way Goal: Mobility, Transfers, Self Care Vital Signs: Last Vital Signs Temp 97.2 F 09/28/19 07:10 Pulse 71 09/28/19 08:51 Resp 14 09/28/19 08:44 BP 108/55 L 09/28/19 08:51 Pulse Ox 96 09/28/19 08:44 Laboratory: Laboratory Last Values WBC 6.6 K/uL (4.3-10.9) D 09/27/19 05:52 RBC 2.72 M/uL (4.33-5.43) L 09/27/19 05:52 Hgb 8.0 g/dL (13.6-17.9) L 09/27/19 05:52 Hct 24.3 % (39.6-49.0) L 09/27/19 05:52 MCV 89.1 fL (80-100) 09/27/19 05:52 MCH 29.4 pg (27.0-35.0) 09/27/19 05:52 MCHC 33.0 g/dL (32.0-36.0) 09/27/19 05:52 RDW 15.5 % (12.1-15.2) H 09/27/19 05:52 Plt Count 302 K/uL (152-406) 09/27/19 05:52 MPV 10.6 fL (7.6-11.3) 09/27/19 05:52 Neutrophils % 66.0 % (41.7-73.7) 09/27/19 05:52 Lymphocytes % 19.1 % (15.3-44.8) 09/27/19 05:52 Monocytes % 10.4 % (3.3-12.3) 09/27/19 05:52 Eosinophils % 3.7 % (0-4.4) 09/27/19 05:52 Basophils % 0.8 % (0-1.3) 09/27/19 05:52 Absolute Neutrophils 4.4 K/uL (1.8-8.0) 09/27/19 05:52 Absolute Lymphocytes 1.3 K/uL (0.7-4.9) 09/27/19 05:52 Absolute Monocytes 0.7 K/uL (0.1-1.3) 09/27/19 05:52 Absolute Eosinophils 0.2 K/uL (0-0.5) 09/27/19 05:52 Absolute Basophils 0.1 K/uL (0-0.5) 09/27/19 05:52 PT 20.7 SECONDS (9.5-12.5) H 09/28/19 06:09 INR 1.77 09/28/19 06:09 Sodium 142 mmol/L (136-145) 09/27/19 05:52 Potassium 4.9 mmol/L (3.5-5.1) 09/27/19 05:52 Chloride 105 mmol/L (98-107) 09/27/19 05:52 Carbon Dioxide 32 mmol/L (21-32) 09/27/19 05:52 BUN 23 mg/dL (7-18) H 09/27/19 05:52 Creatinine 1.30 mg/dL (0.55-1.3) 09/27/19 05:52 Estimated GFR 54 mL/min (=/>90) L 09/27/19 05:52 Glucose 93 mg/dL (74-106) 09/27/19 05:52 POC Glucose 81 mg/dL (65-120) 09/28/19 07:11 Calcium 8.5 mg/dL (8.5-10.1) 09/27/19 05:52 Magnesium 2.2 mg/dL (1.8-2.4) 09/20/19 05:50 Albumin 2.8 g/dL (3.4-5.0) L 09/27/19 05:52 Prealbumin 13.3 mg/dL (20-40) L 09/27/19 05:52 Urine Color Yellow 09/19/19 22:09 Urine Appearance Clear 09/19/19 22:09 Urine pH 5.5 (5.0-7.0) 09/19/19 22:09 Ur Specific [place] 1.020 (1.005-1.030) 09/19/19 22:09 Glucose (UA)(Auto) Negative (NEG) 09/19/19 22:09 Urine Ketones Negative (NEG) 09/19/19 22:09 Urine Blood Negative (NEG) 09/19/19 22:09 Urine Nitrite Negative (NEG) 07/01/20 22:09 Urine Bilirubin Negative (NEG) 09/19/19 22:09 Urine Urobilinogen 1.0 mg/dL (0.2-1.0) 09/19/19 22:09 Ur Leukocyte Esterase Negative (NEG) 09/19/19 22:09 Urine RBC <5 /HPF (NONE SEEN) 09/19/19 22:09 Urine WBC <5 /HPF (<5) 09/19/19 22:09 Ur Squamous Epith Cells CERAMIC COATER 09/19/19 22:09 Urine Bacteria <20 /HPF (NONE SEEN) 09/19/19 22:09 Urine Culture Reflexed Not needed 09/19/19 22:09 Urine Total Protein Negative (NEG) 09/19/19 22:09 Weight: 258 lb 9.6 oz Wound Present: Yes Closed Surgical Incision Present: Yes Negative Pressure Wound Therapy Present: No Physician Update: His INR is mildly lower than yesterday. He will get coumadin 6 mg just today and recheck INR in the AM. He is slated for d/c home in the AM. He did well with physical and occupational therapy. His chest x-ray show decreased aeration and more opacities. He will require a repeat chest x-ray on Tuesday. He will require daily weights. He will have [facility]. Summary: Patient's care plan and terminal system operator goals have been reviewed and revised as necessary. Please see the Rehabilitation Signature page for all necessary signatures.
[2019-09-28] MEDS: CODEINE 30MG/APAP 300MG TAB PO PRN (12:22)
[2019-09-28] MEDS ORDERED: WARFARIN SODIUM 2 MG TAB PO SCH (17:00)
[2019-09-28] MEDS ORDERED: WARFARIN SODIUM 6 MG TAB PO ONE (17:00)
[2019-09-28] MEDS ORDERED: COUMADIN PO SCH (17:00)
[2019-09-28] MEDS: DOCUSATE NA/SENNA CONC 1 TAB PO PRN (19:37)
[2019-09-28] MEDS: TRAZODONE 150 MG TAB PO SCH (20:17)
[2019-09-28] MEDS: ATORVASTATIN 40 MG TAB PO SCH (20:17)
[2019-09-29] MEDS: IPRATROPIUM BROM 0.5MG/2.5ML NEB SCH ×2 (00:55→09:18)
[2019-09-29] MEDS: LIDOCAINE 4% PATCH TOP SCH (06:47)
[2019-09-29] MEDS: CODEINE 30MG/APAP 300MG TAB PO PRN (07:09)
[2019-09-29] MEDS: AMIODARONE HCL 200 MG TAB PO SCH (07:12)
[2019-09-29] MEDS: GABAPENTIN 300 MG CAP PO SCH (07:12)
[2019-09-29] MEDS: DOXYCYCLINE 100 MG CAP PO SCH (07:12)
[2019-09-29] MEDS: FE SULF/FA/VIT B COMP & C TAB PO SCH (07:13)
[2019-09-29] MEDS: carvediloL 3.125 MG TAB PO SCH (07:13)
[2019-09-29] MEDS: FUROSEMIDE 20 MG TABLET PO SCH (07:13)
[2019-09-29] MEDS: FERROUS SULFATE 325 MG TAB PO SCH (07:13)
[2019-09-29] MEDS: DOCUSATE NA 100 MG CAP PO SCH (07:13)
[2019-09-29] MEDS: CITALOPRAM 10 MG TABLET PO SCH (07:14)
[2019-09-29] MEDS: PROMOD 30 ML DOSE PO SCH (07:14)
[2019-09-29] MEDS: INSULIN -REGULAR HUMAN 50 UNIT/0.5 ML ML SQ SCH (07:14)
[2019-09-29 07:15] VITALS: BP 145/64; TEMP 97
[2019-09-29 07:26] LABS: Protime INR 1.93
[2019-09-29 07:36] LABS: Potassium 4.4 mmol/L (3.5-5.1)
[2019-09-29] MEDS ORDERED: WARFARIN SODIUM 4 MG TAB PO SCH (17:00)
== END 2019-09-29 11:50 | disposition home health service (06) | DRG 949 ==
LOC: 5TH 09-19 18:43
PROVIDERS: ADMIT Psychiatry & Neurology Neurology with Special Qualifications in Child Neurology; ATTEND Psychiatry & Neurology Neurology with Special Qualifications in Child Neurology
DX: Z48.812 Encounter for surgical aftercare following surgery on the circulatory system (principal); I21.4 Non-ST elevation (NSTEMI) myocardial infarction; E78.5 Hyperlipidemia, unspecified; E11.9 Type 2 diabetes mellitus without complications; I25.10 Atherosclerotic heart disease of native coronary artery without angina pectoris; R53.81 Other malaise; I25.2 Old myocardial infarction; Z88.1 Allergy status to other antibiotic agents; Z95.1 Presence of aortocoronary bypass graft; Z88.0 Allergy status to penicillin; Z11.59 Encounter for screening for other viral diseases
CPT/HCPCS: 36415; 71045; 80048; 81001; 82040; 82947; 83735; 84134; 85014; 85018; 85025; 85610; 87086; 87088; 94640; 97110; 97112; 97116; 97161; 97165; 97530; U0002

== ENCOUNTER 2022-06-16 09:05 | Inpatient (IN) | payer OTHER ==
--- OUTSIDE RECORDS SUMMARY | 2022-06-16 09:18 | XMS REPORT | Continuity of Care Document ---
:1945 Author Organization [facility] t Address [address] [place] [address] [address] [place] [address] Care Team Providers Name Role Phone Mary Langston MD Primary Care Physician RAMÍREZ BUSTAMANTE Attending Clinician Unavailable Fernanda Linton DO Attending Clinician [phone] Maurizio Moran DO Attending Clinician ANDRIA_Lakesha Attending Clinician Unavailable Ck Lim Attending Clinician [phone] Curtis Peace Attending Clinician Unavailable Bony Hutchison Attending Clinician Unavailable Ramírez Bustamante MD Attending Clinician [phone] Doctor Unassigned, Cannon Ball Attending Clinician Unavailable Only, Adc Test Attending Clinician Unavailable Pob, Adc Lab Main Attending Clinician Unavailable Kiko Moran PTA Attending Clinician Unavailable Wicho Lee MD Attending Clinician WICHO LEE Attending Clinician Unavailable Dee Watkins MD Attending Clinician DEE WATKINS Attending Clinician Unavailable Gal Campa Attending Clinician Unavailable RAMÍREZ BUSTAMANTE Admitting Clinician Unavailable MAURIZIO MORAN JR Admitting Clinician Unavailable DO FERNANDA LINTON Admitting Clinician Unavailable ANDRIA_Milo_Damon Admitting Clinician Unavailable Selwyn Reagan Admitting Clinician Unavailable Ramírez Bustamante MD Admitting Clinician Porat, Curtis E Admitting Clinician Unavailable Referred, Self Admitting Clinician Unavailable Payers Payer Name Policy Type Policy Number Effective Date Expiration Date S zeb UHC MEDICARE [id number] 2019 COMPLETE CHOICE 00:00:00 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 00 Sports wrist Wrist Medicin e Arthritis Arthritis Disease Active Uni vers of knee, of knee, 5-12 ity of right right 00:00: [address] Branch Postoperat Postoperat Problem Active A zalea mary wound mary Wound 3-13 Orth ope infection- Infection- 00:00: di c deep deep 00 Sports Medicin e 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 00:00: dic knee joint Knee Joint 00 Sp orts Medicin e Localized, Localized, 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 00:00: di c itis itis 00 Sports Medicin e Knee pain Knee Pain Problem Active Aza roxana 1-16 Orthope 00:00: dic 00 Sports Medicin e Pleural Pleural Disease Active Methodi effusion effusion st on left on left Hospita l Elevated Elevated Disease Active Metho di troponin troponin st Hospita l Rhinovirus Rhinovirus Disease Active M ethodi infection infection st Hospita l Intramuscu Intramuscu Disease Active M ethodi lar lar st hematoma hematoma Hospit a l No known No known Disease Unive rs active active ity of problems problems [facility] Branch Allergies, Adverse Reactions, Alerts Allergy Allergy Status Severity Reaction(s) Onset Inactive Treating Comm ents Source Name Type Date Date Clinician Cephalex Propensi Active Rash 2021-03 Method i in ty to 05-13 adverse 00:00: Hospita reaction 00 l s to drug Penicill Propensi Active Rash 2021-03 Method i ins ty to 05-13 adverse 00:00: Hospita reaction 00 l s to drug Penicill DA Active U 2020-0 [facility] ins [facility]09 [facility] Active U 2020-0 [facility] 09-09 [facility]ardo [facility] Penicill DA Active U UNKNOWN 2020-0 [facility] ins 09-09 Leonardo 00:00: [facility] cephalex DA Active U UNKNOWN 2020-0 [facility] in 09-09 Leonardo 00:[facility]: [facility] Penicill DA Active U 2020-0 [facility] ins 09-05 [place] 00:00: Health [address] cephalex DA Active U 2020-0 [facility] in 09-05 Leonardo 00:00: Health [address] Penicill DA Active U UNKNOWN 2020-0 [facility] ins 09-05 [place]ardo 00:00: Health [address] cephalex DA Active U UNKNOWN 2020-0 [facility] in 09-05 [place]ardo 00:00: Health [address] Penicill DA Active HI 2020-0 [facility] ins 09-03 Valera 00:00: Fong 00 [facility] cephalex DA Active HI 2020-0 [facility] in 09-03 Valera 00:00: Fong 00 [facility] Penicill DA Active HI HIVES 2020-0 [facility] ins 09-03 Clear 00:00: Fong 00 [facility] cephalex DA Active HI HIVES 2020-0 [facility] in 09-03 Clear 00:00: Fong 00 [facility] Keflex Allergy Active 2020-0 Karen to 04-05 Orthope substanc 00:00: dic e 00 Sports Medicin e PENICILL Allergy Active 2020-0 Karen IN to 04-05 Orthope substanc 00:00: dic e 00 Sports Medicin e CEPHALEX DRUG Active Hives 2017-0 Univers IN INGREDI 11-15 ity of 00:00: [address] Branch PENICILL Drug Active Hives 2017-0 Univers INS Class 8-28 ity of 00:00: [place] 00 Medical Branch Cephalex Propensi Active Hives Univer s in ty to 8 ity of adverse 00:00: [place] reaction 00 Medical s Branch Penicill Propensi Active Hives Univer s ins ty to 8 ity of adverse 00:00: [place] reaction 00 [facility] s [place] Social History Social Habit Start Date Stop Date Quantity Comments Source Exposure to Not sure University of SARS-CoV-2 [facility] (event) [place] Alcohol intake 2022-03-15 2022-03-15 Current drinker of [facility] 00:00:00 00:00:00 alcohol (finding) Hospita l Tobacco use and 2022-03-13 2022-03-13 Smokeless tobacco [facility] exposure 00:00:00 00:00:00 non-user Hospital Alcohol Comment 2022-03-13 2022-03-[address] 00:00:00 00:00:00 Hospital History SDOH 2020-07-30 2020-07-30 21 [facility] o f Education 00:00:00 00:00:00 [facility] Sex Assigned At [birth year] [facility] Smoking Status Start Date Stop Date Source Never smoked tobacco [facility] Medications Ordered Filled Start Stop Current Ordering Indication Dosage Frequency Signature Comments Components Source Medication Medication Date Date Medication? Clinician (SIG) Name Name diphenhydrA 2021-03 Yes 50mg QD Take 2 Meth ledy MINE 2-[address] (BENADRYL) 20:59: (50 mg Hospi ta 25 mg 05 total) by l tablet mouth nightly as needed for sleep. cyanocobala 2021-03 Yes 100ug QD Take 1 Met hodi min 100 MCG 2-[address] tablet 20:59: (100 mcg Hospita 05 total) by l mouth daily. ascorbic 2021-03 Yes 1000mg QD Take 1 Metho di acid, 2-[address] vitamin C, 20:59: (1,000 mg Ho spita (VITAMIN C) 05 total) by l 1000 MG mouth tablet daily. cholecalcif 2021-03 Yes 400U QD Take 1 Meth ledy lex, 2-[address] vitamin D3, 20:59: (400 Units Hospita 10 mcg (400 05 total) by l unit) mouth capsule daily. zinc 2021-03 Yes 50mg QD Take 1 Methodi gluconate 05-18 tablet (50 st 50 mg 20:59: mg total) Hospita tablet 05 by mouth l daily. metoprolol 2021-03 Yes 25mg QD Take 1 Metho di succinate 05-18 tablet (25 st XL 20:59: mg total) Hospita (TOPROL-XL) 05 by mouth l 25 mg 24 hr daily. tablet furosemide 2021-03- No 40mg Q24H Take 1 Meth ledy (LASIX) 40 05-18 tablet (40 st mg tablet 20:59: 00:00 mg total) Ho spita 05 :00 by mouth l daily as needed for other. Takes as needed for feet swelling aspirin 81 2021-03- No 81mg QD Chew 1 Meth ledy mg chewable 05-18 tablet (81 s t tablet 00:00: 05:59 mg total) Hospi ta 00 :00 daily for l 30 days. clopidogreL 2021-03- No 75mg QD Take 1 Met hodi (PLAVIX) 75 05-18 tablet (75 s t mg tablet 00:00: 05:59 mg total) Ho spita 00 :00 by mouth l daily for 30 days. fluticasone 2021-03- No 100ug QD 2 sprays Methodi propionate 05-18 ([address] (FLONASE) 00:00: 05:59 total) by Ho spita 50 00 :00 Each Nare l mcg/actuati route on nasal daily for spray 30 days. losartan 2021-03 No 50mg QD Take 1 Method i (COZAAR) 50 05-18 tablet (50 s t MG tablet 00:00: 05:59 mg total) Ho spita 00 :00 by mouth l daily for 30 days. ezetimibe 2021-03- No 10mg QD Take 1 Metho di (ZETIA) 10 05-17 tablet (10 st mg tablet 00:00: 05:59 mg total) Ho spita 00 :00 by mouth l nightly for 30 days. benzonatate 2021-03- No 100mg [id number] Take 1 Methodi (TESSALON) 05-[id number] 100 MG 00:00: 05:59 3D (100 mg Hospita capsule 00 :00 total) by l mouth 3 (three) times a day as needed for cough for up to 10 days. levoFLOXaci 2021-03 No 750mg QD Take 1 Me thodi n 05-[address] (Levaquin) 00:00: 05:59 (750 mg Hos [facility] 750 MG 00 :00 total) by l tablet mouth daily for 5 days. predniSONE 2021-03 No 40mg QD Take 2 Meth ledy (DELTASONE) 05-[address] 20 mg 00:00: 05:59 (40 mg Hospita tablet 00 :00 total) by l mouth daily for 5 days. codeine-gua 2021-03 No [id number] 5mL Q4H Take 5 mL Methodi ifenesin 05-[address] (GUAIFENESI 00:00: 05:59 every 4 Ho spita N AC) 00 :00 (four) l 10-100 mg/5 hours as mL liquid needed for cough for up to 3 days .acute pain. albuterol 2021-03 No 3mL Q.25D Take 3 mL M ethodi (ACCUNEB) 05-[address] 2.5 mg /3 00:00: 00:00 nebulizati H ospita mL (0.083 00 :00 on every 6 l %) (six) nebulizer hours. solution atorvastati 2021-03 Yes 80mg QD Take 1 Meth ldey n (LIPITOR) 2-15 tablet (80 st 80 MG 00:00: mg total) Hospita tablet 00 by mouth l nightly. LORAZepam 2021-03 No 1mg QD Take 1 Metho di (ATIVAN) 1 04-19 tablet (1 st MG tablet 00:00: 00:00 mg total) Ho spita 00 :00 by mouth l nightly as needed for sleep. traZODone 2021-03 Yes 150mg QD Take 1.5 Met hodi (DESYREL) -[address] 100 MG 00:00: (150 mg Hospita tablet 00 total) by l mouth nightly. Centratex 2021-03 Yes 1{capsu QD Take 1 Met hodi 106 mg 0-27 le} capsule by st iron- 1 mg 00:00: mouth Hospit a capsule 00 daily. l ATORVASTATI Yes 40mg Take 40 mg Univers N CALCIUM 5-13 by mouth. ity o f (ATORVASTAT 21:22: [place] IN ORAL) 28 Medical Branch metoprolol Yes 100mg Take 100 Un indra succinate 5-13 mg by ity of XL 200 mg 21:22: mouth [place] 24 hr 28 daily. Medical tablet Branch ferrous Yes 325mg Take 325 Unive rs sulfate 325 5-13 mg by ity of mg (65 mg 21:22: mouth 2 [place] iron) 28 (two) Medical tablet times Branch daily. traZODone Yes 150mg Take 150 Uni vers 150 mg 5-13 mg by ity of tablet 21:22: mouth at [place] bedtime. Medical Branch furosemide Yes 40mg Take 40 mg U nivers (LASIX) 40 5-13 by mouth ity o f mg tablet 21:22: daily. [place] [facility] LORazepam 1 Yes 1mg Take 1 mg U nivers mg tablet 5-13 by mouth ity of 21:22: at bedtime [place] as needed Medical for Branch Anxiety or Agitation. traMADoL 50 Yes 50mg Take 50 mg Univers mg tablet 5-13 by mouth ity of 21:22: every 8 [place] 28 (eight) Medical hours as Branch needed. ATORVASTATI Yes 40mg Take 40 mg Univers N CALCIUM 5-13 by mouth. ity o f (ATORVASTAT 21:22: [place] IN ORAL) 28 Medical Branch metoprolol Yes 100mg Take 100 Un indra succinate 5-13 mg by ity of XL 200 mg 21:22: mouth [place] 24 hr 28 daily. Medical tablet Branch ferrous Yes 325mg Take 325 Unive rs sulfate 325 5-13 mg by ity of mg (65 mg 21:22: mouth 2 [place] iron) 28 (two) Medical tablet times Branch daily. traZODone Yes 150mg Take 150 Uni vers 150 mg 5-13 mg by ity of tablet 21:22: mouth at [place] [address] bedtime. Medical Branch furosemide Yes 40mg Take 40 mg U nivers (LASIX) 40 5-13 by mouth ity o f mg tablet 21:22: daily. [place] [address] Medical Branch LORazepam 1 Yes 1mg Take 1 mg U nivers mg tablet 5-13 by mouth ity of 21:22: at bedtime [place] [address] as needed Medical for Branch Anxiety or Agitation. traMADoL 50 Yes 50mg Take 50 mg Univers mg tablet 5-13 by mouth ity of 21:22: every 8 [place] [address] (eight) Medical hours as Branch needed. ATORVASTATI Yes 40mg Take 40 mg Univers N CALCIUM 5-13 by mouth. ity o f (ATORVASTAT 18:00: [place] IN ORAL) 42 Medical Branch metoprolol Yes 100mg Take 100 Un indra succinate 5-13 mg by ity of XL 200 mg 18:00: mouth [place] 24 hr 42 daily. Medical tablet Branch ferrous Yes 325mg Take 325 Unive rs sulfate 325 5-13 mg by ity of mg (65 mg 18:00: mouth 2 [place] iron) 42 (two) Medical tablet times Branch daily. traZODone Yes 150mg Take 150 Uni vers 150 mg 5-13 mg by ity of tablet 18:00: mouth at [place] [address] bedtime. Medical Branch furosemide Yes 40mg Take 40 mg U nivers (LASIX) 40 5-13 by mouth ity o f mg tablet 18:00: daily. [place] [address] Medical Branch LORazepam 1 Yes 1mg Take 1 mg U nivers mg tablet 5-13 by mouth ity of 18:00: at bedtime [place] [address] as needed Medical for Branch Anxiety or Agitation. traMADoL 50 Yes 50mg Take 50 mg Univers mg tablet 5-13 by mouth ity of 18:00: every 8 [place] [address] (eight) Medical hours as Branch needed. furosemide Yes 40mg 40 mg, Unive rs (LASIX) 5-13 Oral, ity of tablet 40 14:00: DAILY, [place] mg 00 First dose Medical on [place] Branch 07/31/20 at 0900, Until Discontinu ed, Routine furosemide Yes 40mg 40 mg, Unive rs (LASIX) 5-13 Oral, ity of tablet 40 14:00: DAILY, [place] mg 00 First dose Medical on Tue Branch 07/31/20 at 0900, Until Discontinu ed, Routine ferrous 0 Yes 325mg 325 mg, Univer s sulfate 5-13 Oral, BID, ity of tablet 325 01:00: First dose [place] mg 00 on Tue Medical 07/30/20 at Branch 1999, Until Discontinu ed, Routine docusate Yes 100mg 100 mg, Unive rs (COLACE) 5-13 Oral, ity of capsule 100 01:00: Q12H, [place] mg 00 First dose Medical on Tue Branch 07/30/20 at 1999, Until Discontinu ed, Routine ferrous Yes 325mg 325 mg, Univer s sulfate 5-13 Oral, BID, ity of tablet 325 01:00: First dose [place] mg 00 on Tue Medical 07/30/20 at Branch 1999, Until Discontinu ed, Routine docusate Yes 100mg 100 mg, Unive rs (COLACE) 5-13 Oral, ity of capsule 100 01:00: Q12H, [place] mg 00 First dose Medical on Tue Branch 07/30/20 at 1999, Until Discontinu ed, Routine enoxaparin 2020- No 30mg 30 mg, Univ ers (LOVENOX) 07-31-10 Subcutaneo ity of injection 01:00: 00:59 us, Q12H, [place] 30 mg 00 :00 56 doses, Medical First dose Branch on Tue07/30/20 at 1999, Last dose on Tue08/27/20 at 0800, Routine enoxaparin 2020- No 30mg 30 mg, Univ ers (LOVENOX) 07-31- Subcutaneo ity of injection 01:00: 00:59 us, Q12H, [place] 30 mg 00 :00 56 doses, Medical First dose Branch on Tue07/30/20 at 1999, Last dose on Tue08/27/20 at 0800, Routine rivaroxaban 2020-2020- No 1481 10mg Take 1 Uni vers (XARELTO) 07-31-11 tablet by ity of tablet 00:00: 04:59 mouth [place] 00 :00 daily for Medical 28 days. Branch Indication s: deep vein thrombosis prevention in knee replacemen t rivaroxaban 2020- No 1481 10mg Take 1 Uni vers (XARELTO) 07-31- tablet by ity of tablet 00:00: 04:59 mouth [place] 00 :00 daily for Medical 28 days. 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 ity of (PIOGLITAZO 19:55: 00:00 [place] NE ORAL) 03 :00 Medical Branch PIOGLITAZON 2020- No 15mg Take 15 mg Univers E HCL 5- 05-12 by mouth. ity of (PIOGLITAZO 19:55: 00:00 [place] NE ORAL) 03 :00 Medical Branch paroxetine 2020- No 20mg Take 20 mg Univers 20 mg 5- 05-12 by mouth ity of tablet 19:55: 00:00 daily. [place] 00 :00 Medical Branch tamsulosin 2020- No .4mg Take 0.4 Un indra 0.4 mg 24 5- 05-12 mg by ity of hr capsule 19:55: 00:00 mouth [place] 00 :00 daily. Medical Branch finasteride 2020- No 5mg Take 5 mg Univers 5 mg tablet 07-30-12 by mouth ity of 19:55: 00:00 daily. [place] 00 : Medical Branch meloxicam 2020- No 15mg Take 15 mg U nivers 15 mg 07-30-12 by mouth ity of tablet 19:55: 00:00 daily. [place] 00 :00 Medical Branch paroxetine 2020- No 20mg Take 20 mg Univers 20 mg 07-30-12 by mouth ity of tablet 19:55: 00:00 daily. [place] 00 :00 Medical Branch tamsulosin 2020- No .4mg Take 0.4 Un indra 0.4 mg 24 07-30-12 mg by ity of hr capsule 19:55: 00:00 mouth [place] 00 :00 daily. Medical Branch finasteride 2020- No 5mg Take 5 mg Univers 5 mg tablet 07-30-12 by mouth ity of 19:55: 00:00 daily. [place] 00 : Medical Branch meloxicam 2020- No 15mg Take 15 mg U nivers 15 mg 07-30-12 by mouth ity of tablet 19:55: 00:00 daily. 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 00 Medical injection Branch morpHINE 30 Yes Univer s mg/30 mL 5-12 ity of (fixed 16:30: [place] dose) 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 SERIALS ASSISTANT 00 Medical injection Branch naloxone Yes .4mg 0.4 mg, Univer s (NARCAN) 5-12 Slow IV ity of injection 16:21: Push, [place] 0.4 mg 04 SEE-INSTRU Medical CTIONS, Branch Starting 07/30/20 at 1121, Until Discontinu ed, Routine naloxone 2021-0 Yes .4mg 0.4 mg, Univer s (NARCAN) 5-12 Slow IV ity of injection 16:21: Push, [place] 0.4 mg 04 SEE-INSTRU Medical CTIONS, Branch Starting 07/30/20 at 1121, Until Discontinu ed, Routine diphenhydrA 2021-0 Yes 25mg 25 mg, Univ ers MINE 5-12 Oral, ity of (BENADRYL) 16:17: Q4HPRN, [place] tablet 25 19 Starting Medica l mg [facility] Branch 07/30/20 at 1117, Until Discontinu ed, Routine, Itching ondansetron 2021-0 Yes 4mg 4 mg, Slow Univers (ZOFRAN 5-12 IV Push, ity of (PF)) 16:17: Q6HPRN, [place] injection 4 19 Starting Medi kong mg Wed Branch 07/30/20 at 1117, Until Discontinu ed, Routine, Nausea and Vomiting (N/V) HYDROcodone 2020-0 Yes 1{tbl} 1 tablet, Univers -acetaminop 5-12 Oral, ity of hen (NORCO) 16:17: Q4HPRN, [place] as 10-325 mg 19 Starting Medica l tablet 1 Wed Branch tablet 07/30/20 at 1117, Until Discontinu ed, Routine, Pain (scale 7-10) HYDROcodone 1-0 Yes 1{tbl} 1 tablet, Univers -acetaminop 5-12 Oral, ity of hen (NORCO 16:17: Q6HPRN, [place] 5) 5-325 mg 19 Starting Medi kong tablet 1 Wed Branch tablet 07/30/20 at 1117, Until Discontinu ed, Routine, Pain (scale 4-6) diphenhydrA 2021-0 Yes 25mg 25 mg, Univ ers MINE 5-12 Oral, ity of (BENADRYL) 16:17: Q4HPRN, [place] tablet 25 19 Starting Medica l mg Wed Branch 07/30/20 at 1117, Until Discontinu ed, Routine, Itching ondansetron Yes 4mg 4 mg, Slow Univers (ZOFRAN 5-12 IV Push, ity of (PF)) 16:17: Q6HPRN, [place] injection 4 19 Starting Medi kong mg Tue Branch 07/30/20 at 1117, Until Discontinu ed, Routine, Nausea and Vomiting (N/V) HYDROcodone Yes 1{tbl} 1 tablet, Univers -acetaminop 5-12 Oral, ity of hen (NORCO) 16:17: Q4HPRN, [place] as 10-325 mg 19 Starting Medica l tablet 1 Tue Branch tablet 07/30/20 at 1117, Until Discontinu ed, Routine, Pain (scale 7-10) HYDROcodone Yes 1{tbl} 1 tablet, Univers -acetaminop 5-12 Oral, ity of hen (NORCO 16:17: Q6HPRN, [place] 5) 5-325 mg 19 Starting Medi kong tablet 1 Tue Branch tablet 07/30/20 at 1117, Until Discontinu ed, Routine, Pain (scale 4-6) lactated 2020- No [facility]12 mL/hr, ity of infusion 13:00: 13:03 1,000 mL, [place] as 1,000 mL 00 :00 IV Medical Infusion, [place] ONCE, 1 dose, Tue07/30/20 at 0800, Routine, DSU Pre-op gabapentin 2020- No 300mg 300 mg, Un indra (NEURONTIN) 07-30 Oral, TID, i ty of capsule 300 13:00: 17:27 First dose [place] mg 00 :34 on Tue Medical 07/30/20 at Branch 0800, Until Discontinu ed, Routine, DSU Pre-op celecoxib 2020- No 400mg 400 mg, Uni vers (CELEBREX) 07-30 Oral, BID ity of capsule 400 13:00: 17:27 MEALS, [place] as mg 00 :34 First dose Medical on Tue Branch 07/30/20 at 0800, Until Discontinu ed, Routine, DSU Pre-op lactated 2020- No 1000mL at 42 Unive rs ringers IV 07-30 mL/hr, ity of infusion 13:00: 13:03 1,000 mL, [place] as 1,000 mL 00 :00 IV Medical Infusion, [place] ONCE, 1 dose, Tue07/30/20 at 0800, Routine, DSU Pre-op gabapentin No 300mg 300 mg, Un indra (NEURONTIN) 07-30 Oral, TID, i ty of capsule 300 13:00: 17:27 First dose [place] mg 00 :34 on Tue Medical 07/30/20 at Branch 0800, Until Discontinu ed, Routine, DSU Pre-op celecoxib 2020- No 400mg 400 mg, Uni vers (CELEBREX) 07-30 Oral, BID ity of capsule 400 13:00: 17:27 MEALS, [place] as mg 00 :34 First dose Medical on Tue Branch 07/30/20 at 0800, Until Discontinu ed, Routine, DSU Pre-op sodium 2020- No PRN, Univers chloride 07-30 Starting ity of 0.9 % 12:57: 17:27 [facility] irrigation 00 :34 07/30/20 at Med ical solution 0757, Branch Until Tue07/30/20 at 1227, Intra-op sodium 2020- No PRN, Univers chloride 07-30 Starting ity of 0.9 % 12:57: 17:27 [facility] [place] irrigation 00 :34 07/30/20 at Med ical solution 0757, Branch Until Tue07/30/20 at 1227, Intra-op oxyCODONE-a 2020- No 2{tbl} 2 tablet, Univers cetaminophe 07-30 Oral, ity of n 12:49: 16:16 Q6HPRN, [place] (PERCOCET) 04 :39 Starting Medic al 5-325 mg Tue per tablet 07/30/20 at 2 tablet 0749, Until Tue07/30/20 at 1116, Routine, Pain (scale 4-6), DSU Pre-op oxyCODONE-a 2020- No 2{tbl} 2 tablet, Univers cetaminophe 5-12 05-12 Oral, ity of n 12:49: 16:16 Q6HPRN, [place] (PERCOCET) 04 :39 Starting Medic al 5-325 mg Wed Branch per tablet 07/30/20 at 2 tablet 0749, Until 07/30/20 at 1116, Routine, Pain (scale 4-6), DSU Pre-op PIOGLITAZON Yes 15mg Take 15 mg Univers E HCL 5-10 by mouth. ity of (PIOGLITAZO 20:31: [place] NE ORAL) 47 Medical Branch PIOGLITAZON 0 Yes 15mg Take 15 mg Univers E HCL 5-10 by mouth. ity of (PIOGLITAZO 20:31: [place] NE ORAL) 47 Medical Branch ATORVASTATI Yes 40mg Take 40 mg Univers N CALCIUM 5-10 by mouth. ity o f (ATORVASTAT 20:31: [place] IN ORAL) Medical Branch paroxetine Yes 20mg Take 20 mg U nivers 20 mg 5-10 by mouth ity of tablet 20:31: daily. [place] [address] Medical Branch tamsulosin 0 Yes .4mg Take 0.4 Uni vers 0.4 mg 24 5-10 mg by ity of hr capsule 20:31: mouth [place] 31 daily. Medical Branch metoprolol Yes 200mg Take 200 Un indra succinate 5-10 mg by ity of XL 200 mg 20:31: mouth [place] 24 hr 31 daily. Medical [facility] Branch finasteride Yes 5mg Take 5 mg U nivers 5 mg tablet 5-10 by mouth ity of 20:31: daily. [place] [address] Medical Branch meloxicam 0 Yes 15mg Take 15 mg Un indra 15 mg 5-10 by mouth ity of tablet 20:31: daily. [place] [address] Medical Branch ATORVASTATI 0 Yes 40mg Take 40 mg Univers N CALCIUM 5-10 by mouth. ity o f (ATORVASTAT 20:31: [place] IN ORAL) Medical Branch paroxetine Yes 20mg Take 20 mg U nivers 20 mg 5-10 by mouth ity of tablet 20:31: daily. [place] [address] Medical Branch tamsulosin 0 Yes .4mg Take 0.4 Uni vers 0.4 mg 24 5-10 mg by ity of hr capsule 20:31: mouth [place] 31 daily. Medical Branch metoprolol Yes 200mg Take 200 Un indra succinate 5-10 mg by ity of XL 200 mg 20:31: mouth [place] 24 hr 31 daily. Medical tablet Branch finasteride Yes 5mg Take 5 mg U nivers 5 mg tablet 5-10 by mouth ity of 20:31: daily. [place] Medical Branch meloxicam Yes 15mg Take 15 mg Un indra 15 mg 5-10 by mouth ity of tablet 20:31: daily. [place] Medical Branch sennosides- Yes 1{tbl} QD Take 1 Me thodi docusate 7-[address] sodium 00:00: mouth Hospita (SENOKOT-S) 00 nightly. l 8.6-50 mg per tablet [place] 10 Taylor 10 No [place] 10 A zalea mg-325 mg mg-325 mg 3-03 mg-325 mg Orthope tablet 1-2 tablet 1-2 00:00: tablet 1-2 dic PO Q 4-6 PO Q 4-6 00 PO Q 4-6 Spo rts HRS PRN HRS PRN HRS PRN Medici n POSTOP PAIN POSTOP PAIN POSTOP e PAIN Percocet 10 Percocet 10 No Percocet Karen mg-325 mg mg-325 mg 2-24 10 mg-325 Orthope tablet 1-2 tablet 1-2 00:00: mg tablet dic po q 4-6 po q 4-6 00 1-2 po q Spo rts hrs prn hrs prn 4-6 hrs Medici n pain pain prn pain e tamsulosin Yes .4mg Take 0.4 Uni vers 0.4 mg 24 4-15 mg by ity of hr capsule 14:48: mouth [place] 56 daily. [facility] Branch metoprolol Yes 200mg Take 200 Un indra succinate 4-15 mg by ity of XL 200 mg 14:48: mouth [place] 24 hr 56 daily. Medical tablet Branch finasteride Yes 5mg Take 5 mg U nivers 5 mg tablet 4-15 by mouth ity of 14:48: daily. Medical Branch meloxicam Yes 15mg Take 15 mg Un indra 15 mg 4-15 by mouth ity of tablet 14:48: daily. [place] [address] Medical Branch PIOGLITAZON 2019-0 Yes 15mg Take 15 mg Univers E HCL 4-15 by mouth. ity of (PIOGLITAZO 14:48: [place] NE ORAL) Medical Branch ATORVASTATI 2019-0 Yes 40mg Take 40 mg Univers N CALCIUM 4-15 by mouth. ity o f (ATORVASTAT 14:48: [place] IN ORAL) Medical Branch paroxetine 2019-0 Yes 20mg Take 20 mg U nivers 20 mg 4-15 by mouth ity of tablet 14:48: daily. [place] [address] [facility] Branch tamsulosin 2018-0 Yes .4mg Take 0.4 Uni vers 0.4 mg 24 4-15 mg by ity of hr capsule 14:48: mouth [place] 56 daily. [facility] Branch metoprolol 0 Yes 200mg Take 200 Un indra succinate 4-15 mg by ity of XL 200 mg 14:48: mouth [place] 24 hr 56 daily. Medical tablet Branch finasteride 2018-0 Yes 5mg Take 5 mg U nivers 5 mg tablet 4-15 by mouth ity of 14:48: daily. [place] [address] [facility] Branch meloxicam 2018-0 Yes 15mg Take 15 mg Un indra 15 mg 4-15 by mouth ity of tablet 14:48: daily. [place] [address] [facility] Branch PIOGLITAZON 2019-0 Yes 15mg Take 15 mg Univers E HCL 4-15 by mouth. ity of (PIOGLITAZO 14:48: [place] NE ORAL) Medical Branch ATORVASTATI 0 Yes 40mg Take 40 mg Univers N CALCIUM 4-15 by mouth. ity o f (ATORVASTAT 14:48: [place] IN ORAL) Medical Branch paroxetine 2018-0 Yes 20mg Take 20 mg U nivers 20 mg 4-15 by mouth ity of tablet 14:48: daily. [place] [address] [facility] Branch tamsulosin 2019-0 Yes .4mg Take 0.4 Uni vers 0.4 mg 24 4-15 mg by ity of hr capsule 14:48: mouth [place] 56 daily. Medical Branch metoprolol 2019-0 Yes 200mg Take 200 Un indra succinate 4-15 mg by ity of XL 200 mg 14:48: mouth [place] 24 hr 56 daily. Medical tablet Branch finasteride 2019-0 Yes 5mg Take 5 mg U nivers 5 mg tablet 4-15 by mouth ity of 14:48: daily. [place] [address] [facility] Branch meloxicam 2019-0 Yes 15mg Take 15 mg Un indra 15 mg 4-15 by mouth ity of tablet 14:48: daily. [place] [address] [facility] Branch PIOGLITAZON 2018-0 Yes 15mg Take 15 mg Univers E HCL 4-15 by mouth. ity of (PIOGLITAZO 14:48: [place] NE ORAL) Medical Branch ATORVASTATI 2018-0 Yes 40mg Take 40 mg Univers N CALCIUM 4-15 by mouth. ity o f (ATORVASTAT 14:48: [place] IN ORAL) Medical Branch paroxetine 2018-0 Yes 20mg Take 20 mg U nivers 20 mg 4-15 by mouth ity of tablet 14:48: daily. [place] [address] [facility] Branch tamsulosin 2018-0 Yes .4mg Take 0.4 Uni vers 0.4 mg 24 4-15 mg by ity of hr capsule 14:48: mouth [place] 56 daily. [facility] Branch metoprolol 2018-0 Yes 200mg Take 200 Un indra succinate 4-15 mg by ity of XL 200 mg 14:48: mouth [place] 24 hr 56 daily. Medical tablet Branch finasteride 2019-0 Yes 5mg Take 5 mg U nivers 5 mg tablet 4-15 by mouth ity of 14:48: daily. [place] [address] [facility] Branch meloxicam 2018-0 Yes 15mg Take 15 mg Un indra 15 mg 4-15 by mouth ity of tablet 14:48: daily. [place] [address] [facility] Branch PIOGLITAZON 2018-0 Yes 15mg Take 15 mg Univers E HCL 4-15 by mouth. ity of (PIOGLITAZO 14:48: [place] NE ORAL) Medical Branch ATORVASTATI 2019-0 Yes 40mg Take 40 mg Univers N CALCIUM 4-15 by mouth. ity o f (ATORVASTAT 14:48: [place] IN ORAL) Medical Branch paroxetine 2019-0 Yes 20mg Take 20 mg U nivers 20 mg 4-15 by mouth ity of tablet 14:48: daily. [place] [address] [facility] Branch tamsulosin 2019-0 Yes .4mg Take 0.4 Uni vers 0.4 mg 24 4-15 mg by ity of hr capsule 14:48: mouth [place] 56 daily. Medical Branch metoprolol 2019-0 Yes 200mg Take 200 Un indra succinate 4-15 mg by ity of XL 200 mg 14:48: mouth [place] 24 hr 56 daily. Medical tablet Branch finasteride 2019-0 Yes 5mg Take 5 mg U nivers 5 mg tablet 4-15 by mouth ity of 14:48: daily. [place] [address] [facility] Branch meloxicam 2019-0 Yes 15mg Take 15 mg Un indra 15 mg 4-15 by mouth ity of tablet 14:48: daily. [place] [address] [facility] Branch PIOGLITAZON 2019-0 Yes 15mg Take 15 mg Univers E HCL 4-15 by mouth. ity of (PIOGLITAZO 14:48: [place] NE ORAL) Medical Branch ATORVASTATI 2019-0 Yes 40mg Take 40 mg Univers N CALCIUM 4-15 by mouth. ity o f (ATORVASTAT 14:48: [place] IN ORAL) Medical Branch paroxetine 2019-0 Yes 20mg Take 20 mg U nivers 20 mg 4-15 by mouth ity of tablet 14:48: daily. [place] [address] [facility] Branch tamsulosin 2019-0 Yes .4mg Take 0.4 Uni vers 0.4 mg 24 4-15 mg by ity of hr capsule 14:48: mouth [place] 56 daily. Medical Branch metoprolol 2019-0 Yes 200mg Take 200 Un indra succinate 4-15 mg by ity of XL 200 mg 14:48: mouth [place] 24 hr 56 daily. Medical tablet Branch finasteride 2019-0 Yes 5mg Take 5 mg U nivers 5 mg tablet 4-15 by mouth ity of 14:48: daily. [place] [address] [facility] Branch meloxicam 2019-0 Yes 15mg Take 15 mg Un indra 15 mg 4-15 by mouth ity of tablet 14:48: daily. [place] [address] [facility] Branch PIOGLITAZON 2019-0 Yes 15mg Take 15 mg Univers E HCL 4-15 by mouth. ity of (PIOGLITAZO 14:48: [place] NE ORAL) Medical Branch ATORVASTATI 2019-0 Yes 40mg Take 40 mg Univers N CALCIUM 4-15 by mouth. ity o f (ATORVASTAT 14:48: [place] IN ORAL) Medical Branch paroxetine 2019-0 Yes 20mg Take 20 mg U nivers 20 mg 4-15 by mouth ity of tablet 14:48: daily. [place] 56 [facility] Branch proMETHazin 2017-0 Yes 25mg Take 1 Univ ers e 25 mg 8-28 tablet by ity of tablet 00:00: mouth [place] 00 every 6 Medical (six) Branch hours as needed for Nausea and Vomiting (N/V). proMETHazin 2017-0 Yes 25mg Take 1 Univ ers e 25 mg 8-28 tablet by ity of tablet 00:00: mouth [place] 00 every 6 Medical (six) Branch hours as needed for Nausea and Vomiting (N/V). proMETHazin 2017-0 Yes 25mg Take 1 Univ ers e 25 mg 8-28 tablet by ity of tablet 00:00: mouth [place] 00 every 6 Medical (six) Branch hours as needed for Nausea and Vomiting (N/V). proMETHazin 2017-0 Yes 25mg Take 1 Univ ers e 25 mg 8-28 tablet by ity of tablet 00:00: mouth [place] 00 every 6 Medical (six) Branch hours as needed for Nausea and Vomiting (N/V). proMETHazin 2017-0 Yes 25mg Take 1 Univ ers e 25 mg 8-28 tablet by ity of tablet 00:00: mouth [place] 00 every 6 Medical (six) Branch hours as needed for Nausea and Vomiting (N/V). proMETHazin 2017-0 Yes 25mg Take 1 Univ ers e 25 mg 8-28 tablet by ity of tablet 00:00: mouth [place] 00 every 6 Medical (six) Branch hours as needed for Nausea and Vomiting (N/V). proMETHazin 2017-0 Yes 25mg Take 1 Univ ers e 25 mg 8-28 tablet by ity of tablet 00:00: mouth [place] 00 every 6 Medical (six) Branch hours as needed for Nausea and Vomiting (N/V). proMETHazin 2017-0 Yes 25mg Take 1 Univ ers e 25 mg 8-28 tablet by ity of tablet 00:00: mouth [place] 00 every 6 Medical (six) Branch hours as needed for Nausea and Vomiting (N/V). proMETHazin 2017-0 2020- No 25mg Take 1 Uni vers e 25 mg 8-28 05-12 tablet by ity of tablet 00:00: 00:00 mouth [place] 00 :00 every 6 Medical (six) Branch hours as needed for Nausea and Vomiting (N/V). proMETHazin 2017-0 2020- No 25mg Take 1 Uni vers e 25 mg 8-28 05-12 tablet by ity of tablet 00:00: 00:00 mouth [place] 00 :00 every 6 Medical (six) Branch hours as needed for Nausea and Vomiting (N/V). atorvastati atorvastati No atorvastat Karen n 10 mg n 10 mg in 10 mg Ortho pe tablet RX tablet RX tablet RX dic by other MD by other MD by other Sports MD Petar wilson atorvastati atorvastati No atorvastat Karen n 80 mg n 80 mg in 80 mg Ortho pe tablet TAKE tablet TAKE tablet dic 1 TABLET BY 1 TABLET BY TAKE 1 Sports MOUTH EVERY MOUTH EVERY TABLET BY Medicin DAY DAY MOUTH e EVERY DAY Centratex Centratex No Centratex Karen 106 mg 106 mg 106 mg Orthope iron-1 mg iron-1 mg iron-1 mg dic capsule capsule capsule Sports TAKE 1 TAKE 1 TAKE 1 Medicin CAPSULE BY CAPSULE BY CAPSULE BY e MOUTH EVERY MOUTH EVERY MOUTH DAY DAY EVERY DAY citalopram citalopram No citalopram Karen 10 mg 10 mg 10 mg [facility] tablet RX tablet RX tablet RX dic by other MD by other MD by other Sports MD Petar wilson clindamycin clindamycin No clindamyci Karen HCl 150 mg HCl 150 mg n HCl 150 [facility] capsule capsule mg capsule dic TAKE 4 TAKE 4 TAKE 4 Sports CAPSULES BY CAPSULES BY CAPSULES Medicin MOUTH 1 MOUTH 1 BY MOUTH 1 e HOUR PRIOR HOUR PRIOR HOUR PRIOR TO DENTAL TO DENTAL TO DENTAL APPOINTMENT APPOINTMENT APPOINTMEN T doxycycline doxycycline No doxycyclin Karen hyclate 100 hyclate 100 e hyclate Orthope mg capsule mg capsule 100 mg d ic RX by other RX by other capsule RX Sports MD by other Medicin e doxycycline doxycycline No doxycyclin Karen hyclate 100 hyclate 100 e hyclate Orthope mg tablet mg tablet 100 mg dic TAKE 1 TAKE 1 tablet Sports TABLET BY TABLET BY TAKE 1 Med icin MOUTH TWICE MOUTH TWICE TABLET BY e DAILY DAILY MOUTH TWICE DAILY erythromyci erythromyci No erythromyc Karen n 5 mg/gram n 5 mg/gram in 5 O rthope (0.5 %) eye (0.5 %) eye mg/gram dic ointment ointment (0.5 %) Spor ts APPLY APPLY eye Medicin DIRECTED TO DIRECTED TO ointment e BOTH BOTH APPLY EYELIDS EYELIDS DIRECTED EVERY NIGHT EVERY NIGHT TO BOTH AT BEDTIME AT BEDTIME EYELIDS FOR 2 WEEKS FOR 2 WEEKS EVERY NIGHT AT BEDTIME FOR 2 WEEKS FeroSul 325 FeroSul 325 No FeroSul Karen mg (65 mg mg (65 mg 325 mg (65 Orthope iron) iron) mg iron) dic tablet TAKE tablet TAKE tablet Sports 1 TABLET BY 1 TABLET BY TAKE 1 Medicin MOUTH TWICE MOUTH TWICE TABLET BY e DAILY DAILY MOUTH TWICE DAILY furosemide furosemide No furosemide Karen 40 mg 40 mg 40 mg Orth[facility] tablet TAKE tablet TAKE tablet dic 1 TABLET BY 1 TABLET BY TAKE 1 Sports MOUTH EVERY MOUTH EVERY TABLET BY Medicin DAY DAY MOUTH e EVERY DAY gabapentin gabapentin No gabapentin Karen 300 mg 300 mg 300 mg Orth[facility] capsule RX capsule RX capsule RX dic by other MD by other MD by other Sports Medicin e hydrocodone hydrocodone No hydrocodon Karen 5 5 e 5 Orthope mg-acetamin mg-acetamin mg-acetami dic ophen 325 ophen 325 nophen 325 Sports mg tablet mg tablet mg tablet Medicin Take 1 Take 1 Take 1 e tablet tablet tablet every 6 every 6 every 6 hours by hours by hours by oral route. oral route. oral route. lorazepam 1 lorazepam 1 No lorazepam Karen mg tablet mg tablet 1 mg Ortho pe TAKE 1 TAKE 1 tablet dic TABLET BY TABLET BY TAKE 1 Spo rts MOUTH EVERY MOUTH EVERY TABLET BY Medicin DAY DAY MOUTH e NEEDED NEEDED EVERY DAY NEEDED metformin metformin No metformin Karen 500 mg 500 mg 500 mg Orth[facility] tablet RX tablet RX tablet RX dic by other MD by other MD by other Sports Medicin e metoprolol metoprolol No metoprolol Karen succinate succinate succinate Orthope ER 25 mg ER 25 mg ER 25 mg dic tablet,exte tablet,exte tablet,ext Sports nded nded ended Medicin release 24 release 24 release 24 e hr RX by hr RX by hr RX by other MD tirso chahal MD tramadol 50 tramadol 50 No tramadol Karen mg tablet mg tablet 50 mg Orth ope TAKE 1 TAKE 1 tablet dic TABLET BY TABLET BY TAKE 1 Spo rts MOUTH EVERY MOUTH EVERY TABLET BY Medicin 6 HOURS 6 HOURS MOUTH e NEEDED FOR NEEDED FOR EVERY 6 MILD TO MILD TO HOURS MODERATE MODERATE NEEDED FOR PAIN PAIN MILD TO MODERATE PAIN trazodone trazodone No trazodone Karen 100 mg 100 mg 100 mg Orthope tablet RX tablet RX tablet RX dic by other MD by other MD by other Sports MD Medicin e Xarelto 10 Xarelto 10 No Xarelto 10 Karen mg tablet mg tablet mg tablet Orthope TAKE 1 TAKE 1 TAKE 1 dic TABLET BY TABLET BY TABLET BY Sports MOUTH DAILY MOUTH DAILY MOUTH Medicin FOR 28 DAYS FOR 28 DAYS DAILY FOR e 28 DAYS Immunizations Ordered Filled Immunization Date Status Comments [facility] Immunization Name Name Pneumococcal 2022-03-13 Completed [facility] 20-valent Conjugate 00:00:00 [facility] Vaccine SARS-COV-2 COVID-19 2020-05-20 Completed Unive rsity of PFIZER VACCINE 00:00:00 [facility] SARS-COV-2 COVID-19 2020-05-20 Completed Unive rsity of PFIZER VACCINE 00:00:00 [facility] SARS-COV-2 COVID-19 2020-05-20 Completed Unive rsity of PFIZER VACCINE 00:00:00 [facility] Influenza High Dose 2019-11-25 Completed Unive rsity of Quad 00:00:00 [facility] Influenza High Dose 2019-11-25 Completed Unive rsity of [place] 00:00:00 [facility] Influenza High Dose 2019-11-25 Completed Unive rsity of [place] 00:00:00 [facility] Influenza Virus 2019-02-22 Completed Universit y of Vaccine 00:00:00 [facility] Influenza Virus 2019-02-22 Completed Universit y of Vaccine 00:00:00 [facility] Influenza Virus 2019-02-22 Completed Universit y of Vaccine 00:00:00 [facility] Influenza High Dose 2018-01-04 Completed Unive rsity of 00:00:00 [facility] Influenza High Dose 2018-01-04 Completed Unive rsity of 00:00:00 [facility] Influenza High Dose 2018-01-04 Completed Unive rsity of 00:00:00 [facility] Pneumococcal 13 2017-03-02 Completed Universit y of Conjugate, PCV13 00:00:00 [facility] dical (Prevnar 13) Branch Pneumococcal 13 2017-03-02 Completed Universit y of Conjugate, PCV13 00:00:00 [facility] dical (Prevnar 13) Branch Pneumococcal 13 2017-03-02 Completed Universit y of Conjugate, PCV13 00:00:00 [facility] (Prevnar 13) [place] Influenza Virus 2013-01-05 Completed Universit y of Vaccine 00:00:00 [facility] TDAP 2013-01-05 Completed University of 00:00:00 [facility] Influenza Virus 2013-01-05 Completed [facility] 00:[facility]00 [facility] Influenza Virus 2013-01-05 Completed [facility] University of 00:00:00 [facility] Zoster(Zostavax)( 2012-06-05 Completed Unive rsity of ingles) 00:00:00 [facility] Zoster(Zostavax)( 2012-06-05 Completed Unive rsity of ingles) 00:00:00 [facility] Zoster(Zostavax)( 2012-06-05 Completed Unive rsity of ingles) 00:00:00 [facility] H1n1 Vaccine 2009-03-10 Completed University o f 00:00:00 [facility] H1n1 Vaccine 2009-03-10 Completed University o f 00:00:00 [facility] H1n1 Vaccine 2009-03-10 Completed University o f 00:00:00 [facility] Vital Signs Vital Name Observation Time Observation Value Comments Source Systolic blood 2020-07-31 17:10:00 123 mm[Hg] Univer sity of pressure [facility] Diastolic blood 2020-07-31 17:10:00 58 mm[Hg] Unive rsity of pressure [facility] Heart rate 2020-07-31 17:10:00 71 /min [facility] Body temperature 2020-07-31 17:10:00 36.78 Una [facility] Respiratory rate 2020-07-31 17:10:00 18 /min [facility] Oxygen saturation in 2020-07-31 17:10:00 94 /min [facility] Arterial blood by [facility] Pulse oximetry [place] Body height 2020-07-30 17:26:00 175.3 cm [facility] Body weight 2020-07-29 16:45:00 101.6 kg [facility] BMI 2020-07-29 16:45:00 33.08 kg/m2 [facility] [place] [facility] Systolic blood 2020-07-31 17:10:00 123 mm[Hg] Univer sity of pressure [place] [facility] Diastolic blood 2020-07-31 17:10:00 58 mm[Hg] Unive rsity of pressure [place] [facility] Heart rate 2020-07-31 17:10:00 71 /min [facility] [place] [facility] Body temperature 2020-07-31 17:10:00 36.78 Una [facility] [place] [facility] Respiratory rate 2020-07-31 17:10:00 18 /min [facility] [place] [facility] Oxygen saturation in 2020-07-31 17:10:00 94 /min University of Arterial blood by [place] [facility] kong Pulse oximetry Branch Body height 2020-07-30 17:26:00 175.3 cm [facility] [place] [facility] Body weight 2020-07-29 16:45:00 101.6 kg [facility] [place] [facility] BMI 2020-07-29 16:45:00 33.08 kg/m2 [facility] [place] [facility] Systolic blood 2020-07-30 17:35:00 99 mm[Hg] Univer sity of pressure [place] [facility] Diastolic blood 2020-07-30 17:35:00 43 mm[Hg] Unive rsity of pressure [place] [facility] Heart rate 2020-07-30 17:35:00 67 /min [facility] [place] [facility] Body temperature 2020-07-30 17:35:00 36 Una [facility] [place] [facility] Respiratory rate 2020-07-30 17:35:00 20 /min [facility] [place] [facility] Oxygen saturation in 2020-07-30 17:35:00 95 /min University of Arterial blood by [place] IIIMOBI kong Pulse oximetry Branch Body height 2020-07-30 17:26:00 175.3 cm [facility] [place] [facility] Body weight 2020-07-29 16:45:00 101.6 kg [facility] [place] [facility] BMI 2020-07-29 16:45:00 33.08 kg/m2 [facility] [place] [facility] Systolic blood 2020-07-30 17:35:00 99 mm[Hg] Univer sity of pressure [place] [facility] Diastolic blood 2020-07-30 17:35:00 43 mm[Hg] Unive rsity of [facility] Heart rate 2020-07-30 17:35:00 67 /min [facility] Body temperature 2020-07-30 17:35:00 36 Una [facility] Res[facility] rate 2020-07-30 17:35:00 20 /min [facility] Oxygen saturation in 2020-07-30 17:35:00 95 /min University Arterial blood by [facility] Pulse oximetry [place] Body height 2020-07-30 17:26:00 175.3 cm [facility] Body weight 2020-07-29 16:45:00 101.6 kg [facility] BMI 2020-07-29 16:45:00 33.08 kg/m2 [facility] Systolic blood 2022-03-17 02:02:59 115 mm[Hg] [facility] pressure Diastolic blood 2022-03-17 02:02:59 56 mm[Hg] [facility] pressure Heart rate 2022-03-17 02:02:59 73 /min [facility] Body temperature 2022-03-17 02:02:59 36.56 Una [facility] Respiratory rate 2022-03-17 02:02:59 20 /min [facility] Oxygen saturation in 2022-03-17 02:02:59 96 /min [facility] Arterial blood by Pulse oximetry Body height 2022-03-13 11:06:00 177.8 cm [facility] Body weight 2022-03-13 11:06:00 116.121 kg [facility] BMI 2022-03-13 11:06:00 36.73 kg/m2 [facility] Procedures Procedure Date / Time Performing Clinician Source Performed POC GLUCOSE 2022-03-17 02:04[facility]SE 2022-03-16 22:27:00 Maurizio Moran H [facility]spital US ABDOMINAL LIMITED 2022-03-16 18:21:56 Maurizio Moran [facility] POC GLUCOSE 2022-03-16 17:28:00 Brown[facility] POC GLUCOSE 2022-03-16 13:35:00 [facility] POC GLUCOSE 2022-03-16 02:56:00 [facility] POC GLUCOSE 2022-03-15 22:19:00 [facility] POC GLUCOSE 2022-03-15 17:25:00 [facility] CBC WITH PLATELET AND 2022-03-15 12:35:00 Maurizio Moran [facility] DIFFERENTIAL COMPREHENSIVE METABOLIC 2022-03-15 12:35:00 Maurizio Moran [facility] PANEL MAGNESIUM LEVEL 2022-03-15 12:35:00 Maurizio Moran [facility] [place] [facility] ospital PHOSPHORUS LEVEL 2022-03-15 12:35:00 Maurizio Moran [facility] ESTIMATED GFR 2022-03-15 12:35:00 Maurizio Moran [facility] [place] [facility] ospital US CHEST 2022-03-15 05:45:59 [facility] 2022-03-15 02:11:00 Maurizio Moran [facility] [place] [facility] ospital POC GLUCOSE 2022-03-14 22:19:00 Maurizio Moran [facility] [place] [facility] ospital POC GLUCOSE 2022-03-14 17:44:00 Maurizio Moran [facility] ospital PHOSPHORUS LEVEL 2022-03-14 12:19:00 Maurizio Moran [facility] ESTIMATED GFR 2022-03-14 12:19:00 Maurizio Moran [facility] ospital CBC WITH PLATELET AND 2022-03-14 12:19:00 Maurizio Moran [facility] DIFFERENTIAL COMPREHENSIVE METABOLIC 2022-03-14 12:19:00 Maurizio Moran [facility] PANEL MAGNESIUM LEVEL 2022-03-14 12:19:00 Maurizio Moran [facility] ospital TTE COMPLETE, WO 2022-03-13 19:28:00 Maurizio Moran [facility] CONTRAST, W DOPPLER ([id number]) [facility] URINARY 2022-03-13 15:00:00 Maurizio Moran [facility] ANTIGEN STREPTOCOCCUS PNEUMONIAE 2022-03-13 15:00:00 Maurizio Moran [facility] URINARY ANTIGEN CBC WITH PLATELET AND 2022-03-13 10:50:00 Maurizio Moran [facility] DIFFERENTIAL COMPREHENSIVE METABOLIC 2022-03-13 10:50:00 Maurizio Moran [facility] PANEL LIPID PANEL 2022-03-13 10:50:00 Maurizio Moran [facility] [place] [facility] ospital MAGNESIUM LEVEL 2022-03-13 10:50:00 Maurizio Moran [facility] ospital PHOSPHORUS LEVEL 2022-03-13 10:50:00 Maurizio Moran [facility] THYROID STIMULATING 2022-03-13 10:50:00 Maurizio Moran [facility] HORMONE T4, FREE 2022-03-13 10:50:00 Maurizio Moran [facility] ospital TROPONIN T 2022-03-13 10:50:00 Maurizio Moran [facility] ospital ESTIMATED GFR 2022-03-13 10:50:00 Maurizio Moran [facility] ospital CT CHEST WO CONTRAST 2022-03-13 10:30:00 Maurizio Moran [facility] RESPIRATORY PATHOGEN 2022-03-13 02:47:00 Maurizio Moran [facility] PANEL WITH COVID-19 RT-PCR TROPONIN T 2022-03-13 02:47:00 Fernanda Linton SPUTUM CULTURE 2022-03-13 02:04:00 Maurizio Moran [facility] ospital GRAM STAIN 2022-03-13 02:04:00 Maurizio Moran [facility] ospital BLOOD CULTURE, AEROBIC & 2022-03-13 00:18:00 Maurizio Moran [facility] ANAEROBIC ECG ED PRELIMINARY 2022-03-12 21:50:56 [facility] Dee XR CHEST 2 VW 2022-03-12 21:34:00 Fernanda Lintonist Ash Vogt CBC WITH PLATELET AND 2022-03-12 21:18:00 [facility] DIFFERENTIAL Dee COMPREHENSIVE METABOLIC 2022-03-12 21:18:00 Fernanda Linton [facility] PANEL Dee TROPONIN T 2022-03-12 21:18:00 Fernanda Linton NATRIURETIC PEPTIDE 2022-03-12 21:18:00 Fernanda Linton [facility] Dee ESTIMATED GFR 2022-03-12 21:18:00 Fernanda Linton COVID-19, INFLUENZA A&B, 2022-03-12 21:14:00 Fernanda Linton [facility] AND RSV QUALITATIVE Dee RT-PCR ECG 12-LEAD 2022-03-12 20:39:17 Fernanda Linton BASIC METABOLIC PANEL 2020-07-31 09:28:00 Emma Goldsmith [facility] [place] (NA, K, CL, CO2, GLUCOSE, Medica l Branch BUN, CREATININE, CA) CBC WITH DIFF 2020-07-31 09:28:00 Ramírez Bustamante [facility] BASIC METABOLIC PANEL 2020-07-31 09:28:00 Emma Goldsmith [facility] [place] (NA, K, CL, CO2, GLUCOSE, Medica l Branch BUN, CREATININE, CA) CBC WITH DIFF 2020-07-31 09:28:00 Ramírez Bustamante [facility] TOTAL KNEE ARTHROPLASTY 2020-07-30 13:38:00 Ramírez Bustamante [facility] TOTAL KNEE ARTHROPLASTY 2020-07-30 13:38:00 [facility] 2020-07-30 13:20:00 Ramírez Bustamante [facility] ABORH CONFIRMATION 2020-07-30 13:20:00 Ramírez Bustamante [facility] HB ABO GROUPING 2020-07-30 13:01:00 Ramírez Bustamante [facility] HB ABO GROUPING 2020-07-30 13:01:00 Ramírez Bustamante [facility] POCT GLUCOSE (AUTOMATED) 2020-07-30 13:00:00 Ramírez Bustamante [facility] POCT GLUCOSE (AUTOMATED) 2020-07-30 13:00:00 Ramírez Bustamante [facility] DAY SURGERY - ADC 2020-07-30 05:01:00 Doctor Gisela [facility] XR CHEST 2 VW 2020-07-28 16:24:13 Ramírez Bustamante [facility] COVID-19 (ID NOW RAPID 2020-07-28 15:55:00 Ramírez Bustamante [facility] TESTING) [facility] CBC WITH DIFF 2020-07-28 15:54:00 Ramírez Bustamante [facility] PROTHROMBIN TIME / INR 2020-07-28 15:54:00 Ramírez Bustamante [facility] ACTIVATED PARTIAL 2020-07-28 15:54:00 Ramírez Bustamante [facility] THRMPLAS ALFREDO [facility] COMP. METABOLIC PANEL 2020-07-28 15:54:00 Ramírez Bustamante [facility] ([id number]) [facility] CONSENT/REFUSAL FOR 2020-07-28 15:22:24 Doctor Gisela, [facility] DIAGNOSIS AND TREATMENT [facility] CONSENT/REFUSAL FOR 2020-07-28 15:22:24 Doctor [place], [facility] DIAGNOSIS AND TREATMENT [facility] ASSIGNMENT OF BENEFITS 2020-07-28 15:21:50 Doctor Unassigned, [facility] ASSIGNMENT OF BENEFITS 2020-07-28 15:21:50 Doctor Unassigned, [facility] PHYSICIAN ORDERS 2020-07-28 05:01:00 Doctor Gisela, [facility] DSU PRE-OP 2020-07-28 05:01:00 Doctor Unassigned, [facility] PHYSICIAN ORDERS 2020-07-28 05:01:00 Doctor [place], [facility] DSU PRE-OP 2020-07-28 05:01:00 Doctor Devinigned, [facility] ASSIGNMENT OF BENEFITS 2020-02-19 21:18:10 [facility] [id number] 2019-09-10 00:00:00 RAUL [facility] [id number] 2019-09-10 00:00:00 RAUL [facility] [id number] 2019-09-10 00:00:00 RAUL [facility] [id number] 2019-09-10 00:00:00 RAUL [facility] [id number] 2019-09-06 00:00:00 MARILYN [facility] [id number] 2019-09-06 00:00:00 [facility] Plan of Care Planned Activity Planned Date Details Comments Source Future Scheduled 2022-05-19 Hepatitis C screening [facility] Test 13:15:18 (procedure) [code = 245123276] Future Scheduled 2022-05-19 COLONOSCOPY SCREENING [facility] Test 13:15:18 [code = COLONOSCOPY SCREENING] Future Scheduled 2022-05-19 SHINGLES VACCINES (2 Met [facility] Test 13:15:18 of 3) [code = SHINGLES VACCINES (2 of 3)] Future Scheduled 2022-05-19 COVID-19 VACCINE (4 - [facility] Test 13:15:18 Booster for Pfizer series) [code = COVID-19 VACCINE (4 - Booster for Pfizer series)] Future Scheduled 2022-05-19 INFLUENZA VACCINE Method [facility] Test 13:15:18 [code = INFLUENZA VACCINE] Encounters Start End Encounter Admission Attending Care Care Encounter Source Date/Time Date/Time Type Type Clinicians Facility Department ID 2021-01-18 [facility] [id number] [facility] 18:06:09 RAMÍREZ mullins [facility] 2022-03-12 2022-03-16 Hospital Fernanda Linton 1.2.840.1 [id number] Methodi 14:48:00 20:59:00 Encounter Maurizio Moran 78847.1.1 3.430.2.7 Hospit a .3.593650 l .8 2022-03-12 2022-03-16 [id number] Leonardo 00:00:00 00:00:00 MAURIZIO Izquierdo Method [facility] 2022-03-12 2022-03-12 Travel 1.2.840.1 1.2.827.944 [id number] Methodi 00:00:00 00:00:[address] 3.430.2.7 0.2.7.3.698 Ho spita .3.515399 084.8 l .8 2022-01-19 2022-01-19 Outpatient FOG_Allen_J AOSM AOSM [id number] Karen 00:00:00 00:00:00 Sheri [id number] [facility] 2021-08-24 2021-08-24 Outpatient FOG_Allen_J AOSM AOSM [id number] Karen 12:19:00 12:19:00 Sheri [id number] [facility] 2021-08-21 2021-08-21 Outpatient FOG_Allen_J AOSM AOSM [id number] [id number] Karen 05:18:00 05:18:00 Sheri [id number] [facility] 2021-07-07 2021-07-07 Outpatient TRAVIS Lim AOSM [id number] 9a66-[id number] 00:00:00 00:00:00 Ck Mascorro 383-11ec-b [id number] 2021-07-07 2021-07-07 Ck Mascorro AOSM [place] - Ortho [id number] Karen 00:00:00 00:00:00 Antoinette Lim MD: [id number] FOG_Surgery dic [facility] [place] [address] , Ph. [phone] 2021-06-17 2021-06-17 Ck Mascorro AOSM [place] - Ortho [id number] Karen 00:00:00 00:00:00 Antoinette Lim MD: [id number] FOG_Ofc dic [facility], [place] [address] , Ph. [phone] 2020-10-17 2020-10-17 Outpatient Curtis Simmons HCAPM RADI LA0 [id number] [facility] 07:56:00 07:56:00 34 [facility] [place] 2020-10-14 2020-10-14 Outpatient BEATRIZ Epps HCAPM RADI LA0 [id number] [facility] 07:50:00 07:50:00 r, Amir 83 [facility] [place] 2020-07-30 2020-07-31 [facility] 1.2.840.114 [id number] 07:46:00 16:05:00 Encounter Ramírez Ruff 350.1.13.10 [place] 4.2.7.2.686 S[place] [id number] [facility] 2020-07-30 2020-07-31 [facility] 1.2.840.114 [id number] [facility] 07:46:00 16:05:00 Encounter Ramírez Ruff 350.1.13.10 [place] [id number] [facility] 081 Branch 2020-07-30 2020-07-30 Surgery [facility] 1.2.840.114 [id number] 09:35:00 12:43:00 Speedy 350.1.13.10 [place] 4.2.7.2.686 Surgical [id number] [place] [address] 2020-07-30 2020-07-30 Surgery [facility] 1.2.840.114 [id number] Univers 09:35:00 12:43:00 Ramírez Ruff 350.1.13.10 [place] [id number] [facility] 020 Branch 2020-07-30 2020-07-30 Orders Doctor CARUSO 1.2.840.114 [id number] 00:00:00 00:00:00 Only Unassigned, YOON 350.1.13.10 [facility] 4.2.7.2.686 [id number] 009 2020-07-30 2020-07-30 Orders Doctor CARUSO 1.2.840.114 [id number] Univers 00:00:00 00:00:00 Only Unassigned, YOON 350.1.13.10 [place] of [place] [facility] 4.2.7.2.686 [facility] [id number] [facility] 009 Branch 2020-07-28 2020-07-28 [facility] 1.2.840.114 [id number] 10:22:23 23:59:00 Encounter Ramírez Zacarias [place] 350.1.13.10 [place] 4.2.7.2.686 [place] [id number] [id number] 2020-07-28 2020-07-28 [facility] 1.2.840.114 [id number] [facility] 10:22:23 23:59:00 Encounter Ramírez [place] 350.1.13.10 [place] 4.2.7.2.686 [facility] [id number] [facility] 807 Branch 2020-07-28 2020-07-28 Laboratory Only, [facility] 1.2.840.114 [id number] 10:23:51 10:38:51 Only Test [place] 350.1.13.10 [place] 4.2.7.2.686 [place] [id number] [facility] 2020-07-28 2020-07-28 Laboratory Only, [facility] Test [facility] 1.2.840. 114 [id number] [facility] 10:23:51 10:38:51 Only Ramírez Bustamante Rell Spe[place] 350.1. 13.10 [place] 4.2.7.2.686 [facility] [id number] [facility] 353 Branch 2020-07-28 2020-07-28 Salesperson Corsets Marilynn [facility] 1.2.840.114 [id number] 10:23:20 10:38:20 Visit Lab Main [place] 350.1.13.10 [place] 4.2.7.2.686 [facility] [id number] [address] 2020-07-28 2020-07-28 Salesperson [employer] Betty Subramanian Lab Main [facility] 1.2.8 40.114 [id number] [facility] 10:23:20 10:38:20 Visit DiannaRamírez 350.1. 13.10 [place] [id number] Ct dical nal 353 [facility] 2020-07-28 2020-07-28 Outpatient Leander BUSTAMANTE [facility] [id number] Univers 07:00:00 07:00:00 RAMÍREZ mickeyevelia [facility] 2020-07-10 2020-07-10 Ancillary Luisa Kiko Cobb [facility] 1.2.840. 114 [id number] Univers 13:05:04 14:32:01 Visit Wicho Lee Malika Ruff 350.1.13.10 ity [facility] [place] [facility] [id number] Ct dical nal 179 [facility] 2020-07-10 2020-07-10 Outpatient R LEEEAST [facility] [id number] Univers 13:00:00 13:00:00 WICHO mullins [facility] 2020-02-19 2020-02-19 Laboratory Only, Adc Test [facility] 1.2.840. 114 [id number] Univers 15:16:56 15:31:56 Only Dee Watkins 350.1.13.10 ity [facility] [place] [id number] [facility] 353 [place] 2020-02-19 2020-02-19 Outpatient Leander WATKINS [facility] [id number] Univers 15:00:00 15:00:00 DEE mullins [facility] 2020-02-19 2020-02-19 Orders Doctor CARUSO 1.2.840.114 [id number] Univers 00:00:00 00:00:00 Only Unassigned, YOON 350.1.13.10 [facility] 4.2.7.2.686 Amrit as [id number] [facility] 009 [place] 2019-09-04 2020-01-22 Inpatient HCAPM SEGUNDO [id number] [facility] 04:27:00 00:25:37 75 Gustavo carlton [facility] 2019-09-06 2019-09-26 Inpatient EM Curtis Peace [facility] ICU BP00 [id number] [facility] 17:30:00 11:35:22 49 [facility] are [facility] 2019-09-06 2019-09-06 Outpatient Curtis Peace [facility] [id number] [facility] 23:48:00 23:48:00 14 [facility] are [facility] 2019-09-06 2019-09-06 Inpatient EL Curtis Peace [facility] INTM.[id number] [facility] 17:34:00 17:47:34 50 [facility] 2019-09-04 2019-09-04 Outpatient [place] [facility]ACL LABO [id number] [facility] 08:34:00 08:34:00 Gal 55 [facility] Results Test Description Test Time Test Comments Results Result Comments Source POC glucose 2022-03-17 02:10:00 Test Item Value Reference Range Interpretation Comme nts POC glucose (test code = 24183-3) 90 mg/dL 65-99 [employer] Technical Lead Senior Developer Name: Valencia Andrade ID: [id number] [facility] [id number] 21:12:52 Test Item Value Reference Range Interpretation Comments Ventricular rate (test 68 code = 253) Atrial rate (test code 68 = 255) SC interval (test code 156 = 266) QRSD interval (test 134 code = 260) QT interval (test code 462 = 264) QTC interval (test 491 code = 265) P axis 1 (test code = 63 267) QRS axis 1 (test code -66 = 268) T wave axis (test code 60 = 270) EKG impression (test Normal sinus code = 273) rhythm-Right bundle branch block-Left anterior fascicular block-^^^ Bifascicular block ^^^-Abnormal ECG-No previous ECGs available-Electronicall y Signed By Rodolfo IRWIN, [place] ([id number]) on 03/16/2022 3:12:48 PM [facility] Complete, (w Contrast, Strain and 3D if needed)2022-03-14 16:10:13 Test Item Value Reference Interpretation Comments Range TAPSE (test code = 2.1 cm 0204195213) LA diam s (test code 3.8 cm = 3267349319) LA Volume Index 31.4 mL/m2 <=35 (test code = 4073261975) LA VOL 2C (test code 62.0 ml = 0675593821) LA Vol 4C (test code 69.0 ml = 7808302013) D E excurs (test 2.1 code = 2063267131) E f slope (test code 0.10 = 8168380931) E prime lat (test 0.12 code = 7956257782) E vernon sept (test 0.10 code = 9120005524) IVC diam (test code 1.5 cm = 7941550401) EF (test code = 61 % 52-72 5567748080) LV EF,BP (test code 68.67 % = 7114447501) IVS,d (test code = 1.19 cm 0.6-1 A 2258132431) IVS s 2D (test code 1.80 cm = 9577698274) LVPWD,d (test code = 1.48 cm 0.60-1.19 A 6397651871) LVPW s PLAX (test 1.95 cm code = 6946502952) LV,s (test code = 3.65 cm 6747493674) LVOT Diam,S (test 2.02 cm code = 7746258799) LV QUEVEDO VOL (test 143.06 ml 62-150 code = 0782377842) LV SYS VOL (test 56.16 ml 21-61 code = 9485079017) LV Vol,d A2C (test 91.80 mL code = 3959529102) LV Vol,s A2C (test 28.91 mL code = 9090780581) LV Vol,d A4C (test 88.14 ml code = 9198357480) LV Vol,s A4C (test 30.44 ml code = 9716170686) MV Peak E Tobi (test 0.90 m/s code = 1031796592) MV Peak A Tobi (test 1.11 m/s code = 0208335705) E/A ratio (test code 0.81 <=0.8 A = 0128658831) E wave decelartion 277.40 See_Comment [Automat ed time (test code = message] T he 9895056060) system which generated this result transmitted reference range : 200 msec. The reference range was not used to interpret this result as normal/abnormal . LV Systolic Volume 12.46 mL/m2 11-31 Index (test code = 9226361262) LV Diastolic Volume 39.57 mL/m2 34-74 Index (test code = 6211606960) LV,d (test code = 5.43 cm 5667819695) IVS/LVPW,2D (test 0.80 code = 6103486541) LV EF,2D (test code 69.68 % = 1954994720) LV FS Cube 2D (test 32.82 code = 4527452059) LV FS Teich 2D (test 32.82 code = 8292378169) LV SI Teich 2D (test 37.48 ml/m2 code = 8463087745) LV SV Teich 2D (test 86.90 ml code = 8500359163) LV Vol s Teich PSAX 56.16 ml (test code = 7227367698) LVOT stroke volume 0.96 cm3 (test code = 1864584056) LA Vol MOD A4C (test 69.30 ml code = 0366201415) LA area s A4C (test 22.24 cm2 code = 4302857703) LA Ao Ratio Mmode 1.54 (test code = 2143672701) LVOT area (test code 3.20 cm2 = 9818992598) LVOT Vmax (test code 1.09 m/s = 4185306502) AoV Mean PG (test 5.09 See_Comment [Automate d code = 9060783203) message] The system which generated this result transmitted reference range : 20 mmHg. The reference range was not used to interpret this result as normal/abnormal . AoV Peak PG (test 10.33 mmHg code = 6268807306) AV LVOT peak 4.75 mmHg gradient (test code = 8120578485) AoV area i VTI BSA 1.19 cm2/m2 >=0.85 [place] (test code = 1814070739) AoV Area, Vmax (test 2.18 cm2 >=1.5 code = 9009811972) LVOT VTI (CM) (test 30.00 cm code = 0450978451) AoV Vmax (test code 1.61 m/s = 0863560726) AoV Vmn (test code = 1.04 m/s 5161430206) AoV Area, VTI (test 2.75 cm2 code = 4223534599) LVOT SI (test code = 41.41 ml/m2 1806820007) AoV Cusp sep (test 2.01 code = 9152738570) Velocity Ratio 0.68 m/s (V1/V2) (test code = 4689) MR peak grad (test 69.78 mmHg code = 4739937050) MV stenosis pressure 80.45 ms <=150 1/2 time (test code = 7298880818) MV E A ratio (test 0.81 code = 4230820420) MV valve area p 1/2 2.73 cm2 method (test code = 2735430405) RVSP (test code = 20.91 See_Comment [Automate d 2117618654) message] The system which generated this result transmitted reference range : 40.00 mmHg. The reference range was not used to interpret this result as normal/abnormal . RA pressure (test 5.0 mmHg code = 5442320622) TR pk grad (test 15.91 mmHg code = 2820229391) TR Vpeak (test code 1.99 m/s = 6396887687) RVSP (TR) (test code 20.9 mmHg = 7276918811) PV AT (test code = 142.72 msec 0027586357) Ao root annulus 2.48 cm (test code = 6853875898) Ascending aorta 3.38 cm (test code = 3489004243) BSA (test code = 2.32 m2 1582010191) BSA Roth (test code 2.45 m2 = 4820960599) BSA [place]cock (test 2.44 m2 code = 3885917453) MV Decel slope (test 3.25 m/s2 code = 4078737569) LVPW pct thck PLAX 31.97 % (test code = 2249748622) LV vol s cube 2D 48.52 ml (test code = 2441033282) LV vol d cube 2D 160.00 ml (test code = 9063913877) LV SV Cube 2D (test 111.48 ml code = 9882094343) LV SI Cube 2D (test 48.09 ml/m2 code = 8868212805) IVS pct thck PLAX 51.64 % (test code = 3677424861) AoV area I VMN bsa 1.03 cm2/m2 (test code = 3656195117) LVOT mean grad (test 2.70 mmHg code = 5066525569) Aov area Vmn (test 2.38 cm2 code = 2848955004) Pt Wt (test code = 116.12 0590905692) Pt Size (test code = 177.80 7434208006) MV AE ratio (test 1.23 code = 8741480996) LVOT Vmn (test code 0.78 = 5339151765) MR Vmax (test code = 4.18 m/s 3960664729) PV Vmn (test code = 12.79 m/s 9304796917) LV Vol Index s bpmod 40.84 ml/m2 BSA [place] (test code = 1706463390) LV SI MOD BP BSA 28.05 ml/m2 [place] (test code = 9066055232) BMI (test code = 36.73 kg/m2 8715425721) LV Vol,s BP (test 29.66 nl code = 7644485896) LV Vol,d BP (test 94.68 ml code = 8673109685) LV SV,BP (test code 65.02 % = 0067327171) LV SV,A4C (test code 57.70 % = 1960192533) LV SV,A2C (test code 62.89 % = 7361267339) Adalberto [place],s A4C (test 5.82 cm code = 1391657751) Adalberto [place],s A2C (test 5.83 cm code = 2087363702) Adalberto [place],d A4C (test 7.43 cm code = 7621951174) Adalberto [place],d A2C (test 8.25 cm code = 7852905418) LV EF,A4C (test code 65.46 % = 3092649958) LV EF,A2C (test code 68.51 % = 8837025943) AoV VTI (test code = 0.35 m 3284863108) LVOT VTI (test code 0.30 m = 7726973691) PV acc T slope (test 7.2 code = 0927069359) KELLI (test code = KELLI) Left Ventricle: Left ventricle size is normal. Findings consistent with mild concentric hypertrophy. Normal systolic function with a visually estimated EF of 60 - 65%. Grade I (impaired relaxation) diastolic dysfunction. Normal left ventricular filling pressure. Mitral Valve: Mild valvular regurgitation. Tricuspid Valve: Mild valvular regurgitation. Normal hepatic vein systolic flow. Normal pulmonary artery systolic pressure. Left VentricleLeft ventricle size is normal. Findings consistent with mild concentric hypertrophy. Septal motion is consistent with post-operative status. Normal systolic function with a visually estimated EF of 60 - 65%. Grade I (impaired relaxation) diastolic dysfunction. Normal left ventricular filling pressure.Right VentricleRight ventricle size is normal. Normal systolic function.Left AtriumLeft atrium size is normal.Right AtriumRight atrium size is normal.IVC/SVCIVC diameter is less than or equal to 21 mm and decreases greater than 50% during inspiration; therefore the estimated right atrial pressure is normal (~3 mmHg).Mitral ValveValve structure is normal. Mild valvular regurgitation. No stenosis.Tricuspid ValveValve structure is normal. Mild valvular regurgitation. Normal hepatic vein systolic flow. Normal pulmonary artery systolic pressure. No stenosis.Aortic ValveValve structure appears tricuspid. No significant valvular regurgitation. No stenosis.Pulmonic ValveValve structure is normal. No significant valvular regurgitation.Perica rdiumThere is no pericardial effusion present.AortaNormal sized annulus and ascending aorta.Study DetailsStudy quality was adequate. A complete 2D, color flow Doppler and spectral Doppler echocardiogram was performed.The apical, parasternal and subcostal views were obtained. Patient exhibited sinus rhythm. Technical difficulties due to patient's body habitus and poor echo window. Lab Interpretation Abnormal (test code = 80307-1) [facility] Preliminary Interpretation - Not an [id number] 21:50:56 Test Item Value Reference Range Interpretation Comments KELLI (test code = KELLI) Fernanda Linton DO 03/13/2022 9:41 [facility] ED Preliminary Interpretation - Not an OrderPerformed by: Fernanda Linton DOAuthorized by: Fernanda Linton DO ECG reviewed by ED Physician in the absence of a keyseating machine set up operator: yes Interpretation: Interpretation: abnormal Rate: ECG rate: 68 ECG rate assessment: normal Rhythm: Rhythm: sinus rhythm Ectopy: Ectopy: none QRS: QRS axis: Normal QRS intervals: NormalConduction: Conduction: abnormal Abnormal conduction: complete RBBB and bifascicular block ST segments: ST segments: NormalT waves: T waves: normal Other findings: Other findings: prolonged qTc interval Lab Interpretation Abnormal (test code = 26041-5) [facility] [id number] 16:17:16 Test Item Value Reference Range Interpretation Comments SARS-CoV-2 (COVID-19) RNA Not detected [Presence] in Respiratory specimen by JOSE ANTONIO with probe detection (test code = 67920-7) Whether patient resides in a No congregate care setting (test code = 36093-5) Date and time of symptom onset Unknown (test code = 35616-2) Whether the patient was No hospitalized for condition of interest (test code = 80338-3) Whether the patient was admitted No to intensive care unit (ICU) for condition of interest (test code = 18951-5) Whether patient is employed in a No healthcare setting (test code = 76097-6) Whether the patient has symptoms No related to condition of interest (test code = 16221-1) status (test code = No 43365-5) [facility]- [facility] CHEST W/O [id number] 08:33:00 [facility] 1945 Sex: M Name: ALISON LOUIE [facility] : 1945 Age/S: 75 / M [address] [place] Unit #: [id number] Loc: [place] [address] Phys: Curtis Peace MD Acct: [id number] Dis Date: Status: REG CLI PHONE #: [phone] Exam Date: 10/17/2020 0740 FAX #: Reason: dislocation of other parts of thorax EXAMS: CPT: [id number] CT CHEST W/O CONTRAST 15996 EXAM: CHEST CT WITHOUT INTRAVENOUS CONTRAST CLINICAL INFORMATION: Dislocation of other parts of the thorax. Chest pain. TECHNIQUE: A volumetric CT acquisition of the chest was obtained from the thoracic inlet to the upper abdomen, without the administration of intravenous contrast. One or more of the following dose reduction techniques were used: Automated exposure control, adjustment of the mA and/or kV according to patient size, and/or utilization of iterative reconstruction technique. 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 Mediastinum and Vasculature: There is no significant reticulation or organized fluid collection surrounding the median sternotomy or within the retrosternal fat. The heart is not enlarged. There is no pericardial effusion.. 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 No intrathoracic lymph nodes meeting CT criteria for enlargement. There are calcified right hilar lymph nodes. Airways/Pleura/Lungs: The trachea is patent.. There is a small volume of left pleural fluid exhibiting simple fluid density with surrounding pleural thickening. Mild left sided volume loss is appreciated with atelectasis, including round atelectasis at the left lower lobe. There are scattered calcified granulomas within the right lung. Bones and Soft tissues: There is no acute osseous abnormality. The cortical margins of the sternum appear corticated. The overlying soft tissues are unremarkable. Abdomen: The visualized unenhanced portions of the upper abdomen PAGE 1 Signed Report (CONTINUED) Name: ALISON LOUIE [facility] : 1945 Age/S: 75 / M [address] [facility] Unit #: [id number] Loc: [place] [address] Phys: Curtis Pecae MD Acct: [id number] Dis Date: Status: REG CLI PHONE #: [phone] Exam Date: 10/17/2020 0740 FAX #: Reason: dislocation of other parts of thorax EXAMS: CPT: [id number] CT CHEST W/O CONTRAST 77532 (Continued) appear unremarkable. IMPRESSION: Findings indicative of chronic sternal dehiscence. No evidence for mediastinitis or retrosternal collection. Small left pleural collection with pleural thickening indicative of chronicity or infection, i.e. empyema, the latter is considered less likely with simple fluid density, correlate clinically. Left lung atelectasis with round atelectasis. CABG. Evidence of prior granulomatous disease. at 0833 Reported and signed by: Kiko Park M.D. CC: Curtis Peace MD; Selwyn Reagan MD Technologist:Christophe Caldera, RT(R)(CT) CTDI: DLP: Trnscb Date/Time: 10/17/2020 (0833) t.SDR.RH16 Orig Print D/T: S: 10/17/2020 (4652) PAGE 2 Signed ReportBASIC METABOLIC PANEL (NA, K, CL, CO2, GLUCOSE, BUN, CREATININE, CA)2020-07-31 11:25:14 Test Item Value Reference Range Interpretation Comments NA (test code = 139 mmol/L 135-145 9184818380) K (test code = 5.5 mmol/L 3.5-5.0 H 3035283873) CL (test code = 106 mmol/L 98-108 5607117772) CO2 TOTAL (test code = 26 mmol/L 23-31 6180740629) AGAP (test code = 2-16 2837121454) BUN (test code = 25 mg/dL 7-23 H 6359295602) GLUCOSE (test code = 144 mg/dL 70-110 H 1746212568) CREATININE (test code = 1.25 mg/dL 0.60-1.25 7537807613) CALCIUM (test code = 8.9 mg/dL 8.6-10.6 9024359009) eGFR (test code = mL/min/1.73m2 0567037111) KELLI (test code = KELLI) Association of Glomerular Filtration Rate (GFR) and Staging of Kidney Disease* + --+ --+ ------+| GFR (mL/min/1.73 m2) ?| With Kidney Damage ?| ?Without Kidney Damage+ --------+ --------+ +| ?>90 ?| ?Stage one ?| ? Normal ?+ ---+ ---+ -------+| ?60-89 ?| ?Stage two ?| ? Decreased GFR ? + --+ --+ ------+| ?30-59 ?| ?Stage three ?| ? Stage three ? + --+ --+ ------+| ?15-29 ?| ?Stage four ? | ? Stage four ?+ ---+ ---+ -------+| ?<15 (or dialysis) ? ?| ?Stage five ? | ? Stage five ?+ ---+ ---+ -------+ *Each stage assumes the associated GFR level has been in effect for at least three months. ?Stages 1 to 5, with or without kidney disease, indicate chronic kidney disease. Notes: Determination of stages one and two (with eGFR >59mL/min/1.73 m2) requires estimation of kidney damage for at least three months as defined by structural or functional abnormalities of the kidney, manifested by either:Pathological abnormalities or Markers of kidney damage (including abnormalities in the composition of the blood or urine or abnormalities in imaging tests). Lab Interpretation Abnormal (test code = 62381-7) [facility] METABOLIC PANEL (NA, K, CL, CO2, GLUCOSE, BUN, CREATININE, CA)2020-07-31 11:25:14 Test Item Value Reference Range Interpretation Comments NA (test code = 139 mmol/L 135-145 4214322893) K (test code = 5.5 mmol/L 3.5-5.0 H 1309281090) CL (test code = 106 mmol/L 98-108 7282946869) CO2 TOTAL (test code = 26 mmol/L 23-31 4007514680) AGAP (test code = 2-16 4817785041) BUN (test code = 25 mg/dL 7-23 H 6171807720) GLUCOSE (test code = 144 mg/dL 70-110 H 1502943370) CREATININE (test code = 1.25 mg/dL 0.60-1.25 8936239614) CALCIUM (test code = 8.9 mg/dL 8.6-10.6 4196450659) eGFR (test code = mL/min/1.73m2 3067483921) KELLI (test code = KELLI) Association of Glomerular Filtration Rate (GFR) and Staging of Kidney Disease* + --+ --+ ------+| GFR (mL/min/1.73 m2) ?| With Kidney Damage ?| ?Without Kidney Damage+ --------+ --------+ +| ?>90 ?| ?Stage one ?| ? Normal ?+ ---+ ---+ -------+| ?60-89 ?| ?Stage two ?| ? Decreased GFR ? + --+ --+ ------+| ?30-59 ?| ?Stage three ?| ? Stage three ? + --+ --+ ------+| ?15-29 ?| ?Stage four ? | ? Stage four ?+ ---+ ---+ -------+| ?<15 (or dialysis) ? ?| ?Stage five ? | ? Stage five ?+ ---+ ---+ -------+ *Each stage assumes the associated GFR level has been in effect for at least three months. ?Stages 1 to 5, with or without kidney disease, indicate chronic kidney disease. Notes: Determination of stages one and two (with eGFR >59mL/min/1.73 m2) requires estimation of kidney damage for at least three months as defined by structural or functional abnormalities of the kidney, manifested by either:Pathological abnormalities or Markers of kidney damage (including abnormalities in the composition of the blood or urine or abnormalities in imaging tests). Lab Interpretation Abnormal (test code = 50126-4) [facility] WITH [id number] 09:45:02 Test Item Value Reference Range Interpretation Comments WBC (test code = See_Comment [Automated 8690-2) message] The sy stem which generated this result transmitted reference range : 4.20 - 10.70 10*3/?L. The reference range was not used to interpret this result as normal/abnormal . RBC (test code = See_Comment L [Automated 949-8) message] The sy stem which generated this result transmitted reference range : 4.26 - 5.52 10*6/?L. The reference range was not used to interpret this result as normal/abnormal . HGB (test code = 10.7 g/dL 12.2-16.4 L 718-7) HCT (test code = 33.4 % 38.4-49.3 L 4544-3) MCV (test code = 96.8 fL 81.7-95.6 H 787-2) MCH (test code = 31.0 pg 26.1-32.7 785-6) MCHC (test code = 32.0 g/dL 31.2-35.0 786-4) RDW-SD (test code = 49.1 fL 38.5-51.6 04881-1) RDW-CV (test code = 13.8 % 12.1-15.4 788-0) PLT (test code = See_Comment [Automated 777-3) message] The sy stem which generated this result transmitted reference range : 150 - 328 10*3/ ?L. The reference r padmaja was not used to interpret this result as normal/abnormal . MPV (test code = 12.2 fL 9.8-13.0 68709-4) NRBC/100 WBC (test See_Comment [Automat ed code = 7679254125) message] The system which generated this result transmitted reference range : 0.0 - 10.0 /100 WBCs. The refer ence range was not u sed to interpret th is result as normal/abnormal . NRBC x10^3 (test code <0.01 See_Comment [Auto mated = 0260706767) message] The s ystem which generated this result transmitted reference range : 10*3/?L. The reference range was not used to interpret this result as normal/abnormal . GRAN MAT (NEUT) % 81.6 % (test code = 770-8) IMM GRAN % (test code 0.60 % = 9273485654) LYMPH % (test code = 8.7 % 736-9) MONO % (test code = 8.7 % 5905-5) EOS % (test code = 0.1 % 713-8) BASO % (test code = 0.3 % 706-2) GRAN MAT x10^3(ANC) 8.21 10*3/uL 1.99-6.95 H (test code = 6443727186) IMM GRAN x10^3 (test 0.06 10*3/uL 0.00-0.06 code = 7147741317) LYMPH x10^3 (test code 0.88 10*3/uL 1.09-3.23 L = 731-0) MONO x10^3 (test code 0.88 10*3/uL 0.36-1.02 = 742-7) EOS x10^3 (test code = <0.03 0.06-0.53 L 711-2) BASO x10^3 (test code 0.03 10*3/uL 0.01-0.09 = 704-7) Lab Interpretation Abnormal (test code = 15508-4) [facility] WITH [id number] 09:45:02 Test Item Value Reference Range Interpretation Comments WBC (test code = See_Comment [Automated 6690-2) message] The sy stem which generated this result transmitted reference range : 4.20 - 10.70 10*3/?L. The reference range was not used to interpret this result as normal/abnormal . RBC (test code = See_Comment L [Automated 789-8) message] The sy stem which generated this result transmitted reference range : 4.26 - 5.52 10*6/?L. The reference range was not used to interpret this result as normal/abnormal . HGB (test code = 10.7 g/dL 12.2-16.4 L 718-7) HCT (test code = 33.4 % 38.4-49.3 L 4544-3) MCV (test code = 96.8 fL 81.7-95.6 H 787-2) MCH (test code = 31.0 pg 26.1-32.7 785-6) MCHC (test code = 32.0 g/dL 31.2-35.0 786-4) RDW-SD (test code = 49.1 fL 38.5-51.6 87069-0) RDW-CV (test code = 13.8 % 12.1-15.4 788-0) PLT (test code = See_Comment [Automated 777-3) message] The sy stem which generated this result transmitted reference range : 150 - 328 10*3/ ?L. The reference r padmaja was not used to interpret this result as normal/abnormal . MPV (test code = 12.2 fL 9.8-13.0 73531-2) NRBC/100 WBC (test See_Comment [Automat ed code = 9612018051) message] The system which generated this result transmitted reference range : 0.0 - 10.0 /100 WBCs. The refer ence range was not u sed to interpret th is result as normal/abnormal . NRBC x10^3 (test code <0.01 See_Comment [Auto mated = 0954763722) message] The s ystem which generated this result transmitted reference range : 10*3/?L. The reference range was not used to interpret this result as normal/abnormal . GRAN MAT (NEUT) % 81.6 % (test code = 770-8) IMM GRAN % (test code 0.60 % = 1008136180) LYMPH % (test code = 8.7 % 736-9) MONO % (test code = 8.7 % 5905-5) EOS % (test code = 0.1 % 713-8) BASO % (test code = 0.3 % 706-2) GRAN MAT x10^3(ANC) 8.21 10*3/uL 1.99-6.95 H (test code = 5903145885) IMM GRAN x10^3 (test 0.06 10*3/uL 0.00-0.06 code = 1652387476) LYMPH x10^3 (test code 0.88 10*3/uL 1.09-3.23 L = 731-0) MONO x10^3 (test code 0.88 10*3/uL 0.36-1.02 = 742-7) EOS x10^3 (test code = <0.03 0.06-0.53 L 711-2) BASO x10^3 (test code 0.03 10*3/uL 0.01-0.09 = 704-7) Lab Interpretation Abnormal (test code = 32827-9) [facility] - ONCE [id number] 13:47:30 Test Item Value Reference Range Interpretation Comments ABO & RH (test code A Positive Performe d at [facility] = 20) Laboratory Serv [facility] Blood Bank[address] [place], [place] [phone] Free: [phone] A No. [id number] IAT (test code = Negative Performed a t [facility] 1185) Laboratory Serv [facility] Blood [facility] [address] [place] [address]Kqoo Free: [phone] A No. [id number] [facility] - ONCE [id number] 13:47:30 Test Item Value Reference Range Interpretation Comments ABO & RH (test code A Positive Performe d at [facility] = 20) Laboratory [facility] Blood [address] Free: [phone] A No. [id number] IAT (test code = Negative Performed a t [facility] 1185) Laboratory [facility] Blood [place] [address]Toll Free: [phone] A No. [id number] [facility] [id number] 13:35:35 Test Item Value Reference Range Interpretation Comments ABO & RH (test code A Positive Performe d at [facility] = 20) Laboratory [facility] Blood [address] Free: [phone] A No. [id number] [facility] [id number] 13:35:35 Test Item Value Reference Range Interpretation Comments ABO & RH (test code A Positive Performe d at [facility] = 20) Laboratory [facility] Blood [place] [address]Toll Free: [phone] A No. [id number] [facility] GLUCOSE (AUTOMATED)2020-07-30 13:06:11 Test Item Value Reference Range Interpretation Comments POCT GLU (test code = 0831373879) 111 mg/dL 70-110 H Lab Interpretation (test code = Abnormal 72907-0) [facility] GLUCOSE (AUTOMATED)2020-07-30 13:06:11 Test Item Value Reference Range Interpretation Comments POCT GLU (test code = 9805807653) 111 mg/dL 70-110 H Lab Interpretation (test code = Abnormal 91205-9) [facility]. METABOLIC PANEL (22852)2020-07-28 17:09:09 Test Item Value Reference Range Interpretation Comments NA (test code = 139 mmol/L 135-145 6397896432) K (test code = 4.9 mmol/L 3.5-5.0 3311987362) CL (test code = 103 mmol/L 98-108 9621953020) CO2 TOTAL (test code 27 mmol/L 23-31 = 2178646734) AGAP (test code = 2-16 9116235383) BUN (test code = 22 mg/dL 7-23 5317521899) GLUCOSE (test code = 87 mg/dL 70-110 5959532520) CREATININE (test code 1.15 mg/dL 0.60-1.25 = 6775212827) TOTAL BILI (test code 0.5 mg/dL 0.1-1.1 = 4210807593) CALCIUM (test code = 9.0 mg/dL 8.6-10.6 7643806913) T PROTEIN (test code 6.4 g/dL 6.3-8.2 = 5508047532) ALBUMIN (test code = 3.7 g/dL 3.5-5.0 6755499424) ALK PHOS (test code = 98 U/L 34-122 3881418776) ALTv (test code = 17 U/L 5-50 1742-6) AST(SGOT) (test code 24 U/L 13-40 = 1105827194) eGFR (test code = mL/min/1.73m2 6278554740) KELLI (test code = KELLI) Association of Glomerular Filtration Rate (GFR) and Staging of Kidney Disease* + + +- +| GFR (mL/min/1.73 m2) ?| With Kidney Damage ?| ?Without Kidney Damage+ ------+ ----+ ------+| ?>90 ?| ?Stage one ?| ? Normal ?+ -+ + -+| ?60-89 ?| ?Stage two ?| ? Decreased GFR ? + + +- +| ?30-59 ?| ?Stage three ?| ? Stage three ? + + +- +| ?15-29 ?| ?Stage four ? | ? Stage four ?+ -+ + -+| ?<15 (or dialysis) ? ?| ?Stage five ? | ? Stage five ?+ -+ + -+ *Each stage assumes the associated GFR level has been in effect for at least three months. ?Stages 1 to 5, with or without kidney disease, indicate chronic kidney disease. Notes: Determination of stages one and two (with eGFR >59mL/min/1.73 m2) requires estimation of kidney damage for at least three months as defined by structural or functional abnormalities of the kidney, manifested by either:Pathological abnormalities or Markers of kidney damage (including abnormalities in the composition of the blood or urine or abnormalities in imaging tests). [facility] (ID NOW RAPID TESTING)2020-07-28 16:33:26 Test Item Value Reference Range Interpretation Comments SARS-CoV-2 Rapid ID NOW Not Detected Not Detected (test code = 62785-0) KELLI (test code = KELLI) ID NOW COVID-19 Assay is an isothermal nucleic acid amplification test intended for the qualitative detection of nucleic acid from SARS-CoV-2 viral RNA in nasopharyngeal (BREAKDOWN WORKER) specimens. It is used under Emergency Use Authorization (EUA) by FDA. The limit of detection (LOD) of the assay is 125 Genome Equivalents/mL. A positive result is indicative of the presence of SARS-CoV-2 RNA. ?Clinical correlation with patient history and other diagnostic information is necessary to determine patient infection status. A negative (Not Detected) result does not preclude SARS-CoV-2 infection. In patients with clinical symptoms and other tests that are consistent with SARS-CoV-2 infection, negative results should be treated as presumptive negative and a new specimen should be tested with alternative PCR molecular test. Invalid: Please collect a new specimen for repeat patient testing if clinically indicated. Lab Interpretation Normal (test code = 77780-1) [facility] (ID NOW RAPID TESTING)2020-07-28 16:33:26 Test Item Value Reference Range Interpretation Comments SARS-CoV-2 Rapid ID NOW Not Detected Not Detected (test code = 44010-2) KELLI (test code = KELLI) ID NOW COVID-19 Assay is an isothermal nucleic acid amplification test intended for the qualitative detection of nucleic acid from SARS-CoV-2 viral RNA in nasopharyngeal (BREAKDOWN WORKER) specimens. It is used under Emergency Use Authorization (EUA) by FDA. The limit of detection (LOD) of the assay is 125 Genome Equivalents/mL. A positive result is indicative of the presence of SARS-CoV-2 RNA. ?Clinical correlation with patient history and other diagnostic information is necessary to determine patient infection status. A negative (Not Detected) result does not preclude SARS-CoV-2 infection. In patients with clinical symptoms and other tests that are consistent with SARS-CoV-2 infection, negative results should be treated as presumptive negative and a new specimen should be tested with alternative PCR molecular test. Invalid: Please collect a new specimen for repeat patient testing if clinically indicated. Lab Interpretation Normal (test code = 74120-4) [facility]IV[facility] PARTIAL THRMPLAS [id number] 16:30:21 Test Item Value Reference Range Interpretation Comments APTT Patient (test See_Comment [Automat ed code = 3173-2) message] The system which generated this result transmitted reference range : 23 - 38 Seconds . The reference range was not used to interpr et this result as normal/abnormal . KELLI (test code = KELLI) The [facility] patient population mean normal value for aPTT is 30 seconds. Lab Interpretation Normal (test code = 72761-2) [facility] THRM[facility]AS [id number] 16:30:21 Test Item Value Reference Range Interpretation Comments APTT Patient (test See_Comment [Automat ed code = 3173-2) message] The system which generated this result transmitted reference range : 23 - 38 Seconds . The reference range was not used to interpr et this result as normal/abnormal . KELLI (test code = KELLI) The [facility] patient population mean normal value for aPTT is 30 seconds. Lab Interpretation Normal (test code = 51882-9) [facility] RockXR CHEST 2 [id number] 16:28:14EXAM: XR CHEST 2 VW HISTORY: Other secondary osteoarthritis of right knee COMPARISON: None. FINDINGS: A large pleural effusion surrounds and compresses the partly atelectaticleft lung and blunts the costophrenic angle, obscuring the lefthemidiaphragm. The right lung is well expanded and clear. The heart andgreat vessels are normal. ? [facility], Radiant Results Inft User - 07/28/2020 11:29 AM CDTEXAM: XR CHEST 2 VWHISTORY: Other secondary osteoarthritis of right knee COMPARISON: None.FINDINGS:A large pleural effusion surrounds and compresses the partly atelectaticleft lung and blunts the costophrenic angle, obscuring the lefthemidiaphragm. The right lung is well expanded and clear. The heart andgreat vessels are normal.[facility] RockPROTHROMBIN TIME / INR 2020-07-28 16:28:02 Test Item Value Reference Range Interpretation Comments PROTIME PATIENT (test See_Comment [Auto mated message] code = 5964-2) The system ich generated this result transmitted ref erence range: 12.0 - 1 4.7 Seconds. The re ference range was not u sed to interpret this result as normal/abnor mal. INR (test code = 6301-6) Nor mal INR <1.1; Warfarin Therap eutic range 2.0 to 3. 0 or 2.5 to 3.5, dep ending upon the indica tions. Lab Interpretation (test Normal code = 81015-1) [facility] RockPROTHROMBIN TIME / [id number] 16:28:02 Test Item Value Reference Range Interpretation Comments PROTIME PATIENT (test See_Comment [Auto mated message] code = 5964-2) The system ich generated this result transmitted ref erence range: 12.0 - 1 4.7 Seconds. The re ference range was not u sed to interpret this result as normal/abnor mal. INR (test code = 6301-6) Nor mal INR <1.1; Warfarin Therap eutic range 2.0 to 3. 0 or 2.5 to 3.5, dep ending upon the indica tions. Lab Interpretation (test Normal code = 48772-8) [facility] WITH [id number] 15:59:35 Test Item Value Reference Range Interpretation Comments WBC (test code = See_Comment [Automated 8190-2) message] The sy stem which generated this result transmitted reference range : 4.20 - 10.70 10*3/?L. The reference range was not used to interpret this result as normal/abnormal . RBC (test code = See_Comment L [Automated 789-8) message] The sy stem which generated this result transmitted reference range : 4.26 - 5.52 10*6/?L. The reference range was not used to interpret this result as normal/abnormal . HGB (test code = 12.3 g/dL 12.2-16.4 718-7) HCT (test code = 38.6 % 38.4-49.3 4544-3) MCV (test code = 96.7 fL 81.7-95.6 H 787-2) MCH (test code = 30.8 pg 26.1-32.7 785-6) MCHC (test code = 31.9 g/dL 31.2-35.0 786-4) RDW-SD (test code = 49.2 fL 38.5-51.6 66002-3) RDW-CV (test code = 13.8 % 12.1-15.4 788-0) PLT (test code = See_Comment [Automated 777-3) message] The sy stem which generated this result transmitted reference range : 150 - 328 10*3/ ?L. The reference r padmaja was not used to interpret this result as normal/abnormal . MPV (test code = 11.9 fL 9.8-13.0 49116-6) NRBC/100 WBC (test See_Comment [Automat ed code = 8218929276) message] The system which generated this result transmitted reference range : 0.0 - 10.0 /100 WBCs. The refer ence range was not u sed to interpret th is result as normal/abnormal . NRBC x10^3 (test code <0.01 See_Comment [Auto mated = 3526919066) message] The s ystem which generated this result transmitted reference range : 10*3/?L. The reference range was not used to interpret this result as normal/abnormal . GRAN MAT (NEUT) % 71.4 % (test code = 770-8) IMM GRAN % (test code 0.40 % = 7255266607) LYMPH % (test code = 13.7 % 736-9) MONO % (test code = 10.2 % 5905-5) EOS % (test code = 3.3 % 713-8) BASO % (test code = 1.0 % 706-2) GRAN MAT x10^3(ANC) 5.18 10*3/uL 1.99-6.95 (test code = 9234410888) IMM GRAN x10^3 (test 0.03 10*3/uL 0.00-0.06 code = 3323394281) LYMPH x10^3 (test code 0.99 10*3/uL 1.09-3.23 L = 731-0) MONO x10^3 (test code 0.74 10*3/uL 0.36-1.02 = 742-7) EOS x10^3 (test code = 0.24 10*3/uL 0.06-0.53 711-2) BASO x10^3 (test code 0.07 10*3/uL 0.01-0.09 = 704-7) Lab Interpretation Abnormal (test code = 93944-4) [facility] WITH [id number] 15:59:35 Test Item Value Reference Range Interpretation Comments WBC (test code = See_Comment [Automated 9690-2) message] The sy stem which generated this result transmitted reference range : 4.20 - 10.70 10*3/?L. The reference range was not used to interpret this result as normal/abnormal . RBC (test code = See_Comment L [Automated 969-8) message] The sy stem which generated this result transmitted reference range : 4.26 - 5.52 10*6/?L. The reference range was not used to interpret this result as normal/abnormal . HGB (test code = 12.3 g/dL 12.2-16.4 718-7) HCT (test code = 38.6 % 38.4-49.3 4544-3) MCV (test code = 96.7 fL 81.7-95.6 H 787-2) MCH (test code = 30.8 pg 26.1-32.7 785-6) MCHC (test code = 31.9 g/dL 31.2-35.0 786-4) RDW-SD (test code = 49.2 fL 38.5-51.6 78491-3) RDW-CV (test code = 13.8 % 12.1-15.4 788-0) PLT (test code = See_Comment [Automated 777-3) message] The sy stem which generated this result transmitted reference range : 150 - 328 10*3/ ?L. The reference r padmaja was not used to interpret this result as normal/abnormal . MPV (test code = 11.9 fL 9.8-13.0 33551-9) NRBC/100 WBC (test See_Comment [Automat ed code = 7822946548) message] The system which generated this result transmitted reference range : 0.0 - 10.0 /100 WBCs. The refer ence range was not u sed to interpret th is result as normal/abnormal . NRBC x10^3 (test code <0.01 See_Comment [Auto mated = 1963373728) message] The s ystem which generated this result transmitted reference range : 10*3/?L. The reference range was not used to interpret this result as normal/abnormal . GRAN MAT (NEUT) % 71.4 % (test code = 770-8) IMM GRAN % (test code 0.40 % = 5374682989) LYMPH % (test code = 13.7 % 736-9) MONO % (test code = 10.2 % 5905-5) EOS % (test code = 3.3 % 713-8) BASO % (test code = 1.0 % 706-2) GRAN MAT x10^3(ANC) 5.18 10*3/uL 1.99-6.95 (test code = 0991762510) IMM GRAN x10^3 (test 0.03 10*3/uL 0.00-0.06 code = 4314725350) LYMPH x10^3 (test code 0.99 10*3/uL 1.09-3.23 L = 731-0) MONO x10^3 (test code 0.74 10*3/uL 0.36-1.02 = 742-7) EOS x10^3 (test code = 0.24 10*3/uL 0.06-0.53 711-2) BASO x10^3 (test code 0.07 10*3/uL 0.01-0.09 = 704-7) Lab Interpretation Abnormal (test code = 60713-0) [facility] RockGLUBED2020-07-01 11:50:00 Test Item Value Reference Range Interpretation Comments GLUBED (test code = GLUBED) 115 MG/DL 70-105 H BASIC METABOLIC [id number] 10:38:00 Test Item Value Reference Range Interpretation [...] 8.8-10.2 N CA) - XR CHEST 1 [id number] 09:17:00Patient Name: ALISON LOUIE Unit No: [id number] EXAMS: CPT CODE: [id number] XR CHEST 1 V [id number] EXAM: XR Chest 1 View INDICATION: Acute [...] Blayne Hernandes MD; Curtis Peace MD Technologist: Yogi Mai Time: DAP (Gy m2): Air Kerma (mGy): Trscr Dt/Tm: 09/19/2019 (916) by:[email or web address] Printed Date/Time: 09/19/2019 (920) Name: ALISON LOUIE [facility] Phys: Blayne Miranda MD [address] : 1945 Age: 74 Sex: [place] [address] Loc: P.0222 1 Exam Date: 09/19/2019 Status: ADM IN PH: FAX: PAGE 1 Signed ReportCBC W/AUTO [id number] 09:15:00 Test Item Value Reference Range Interpretation [...] BA#) 0.05 x10 3/uL 0.0-0.20 N PROTHROMBIN [id number] 07:41:00 Test Item Value Reference Range Interpretation Comments PROTHROMBIN TIME 23.4 SECONDS 10.3-12.9 H PATIENT (test code = PTP) INTERNATIONAL 2.03 INR UNIT 0.9-1.11 H The INR is us eful only NORMAL RATIO (test for monit oring code = INR) anticoagulant therapy.It may be unreliable in t he initial phase o f antigoagulation and in unstable patien ts. Indication for Anticoagulation Recommended INR 1. Prevention of v enous thomboembolism 2.0-3.0in high- risk patients; treat ment of venousthrombosi s and pulmonary embol ism aftera course o f heparin; preven tion of systemicembolis m in a variety of cond itions, including atria l fibrillation an d prothetic tissu e heart valves, 2. Pros thetic mechanical hear t valves; 2.5-3.5recurren t systemic emboli sm. [id number] 20:49:00 Test Item Value Reference Range Interpretation Comments GLUBED (test code = GLUBED) 155 MG/DL 70-105 H [id number] 16:59:00 Test Item Value Reference Range Interpretation Comments GLUBED (test code = GLUBED) 117 MG/DL 70-105 H [id number] 11:32:00 Test Item Value Reference Range Interpretation Comments GLUBED (test code = GLUBED) 133 MG/DL 70-105 H - XR CHEST 1 [id number] 09:59:00Patient Name: ALISON LOUIE Unit No: [id number] EXAMS: CPT CODE: [id number] XR CHEST 1 V [id number] EXAM: Chest one view. Location: A1 HISTORY: New chest pain COMPARISON: 09/18/2019 at 07 58 FINDINGS: Patchy ai rspace opacities are present at the lung bases, slightly worsened since earlier study. Cardiac silhouette is moderately enlarged. There is prominence of central pulmonary vessels and interstitial markings. Left pleural effusion appears sightly worsened. Sternotomy wires and mediastinal surgical clips are present. There is no pneumothorax. Visualized skeletal structures are within normal limits. IMPRESSION: 1. Interval worsening atelectasis/consolidation of the lung bases and small left pleural effusion. 2. Stable cardiomegaly and pulmonary vascular congestion at 0959 Reported and signed by: CAROLEE EDOUARD M.D. CC: Collins CRAWFORD; Curtis Peace MD Technologist: Darian Mai Time: DAP (Gy m2): Air Kerma (mGy): Trscr Dt/Tm: 09/18/2019(0959) by:[email or web address] Printed Date/Time: 09/18/2019 (1002) Name: ALISON LOUIE [facility] Phys: AMANDO.Kris - Collins Boss [address] : 1945 Age: 74 Sex: [place] [address] Loc: P.0222 1 Exam Date: 09/18/2019 Status: ADM IN PH: FAX: PAGE 1 Signed ReportPROTHROMBIN [id number] 08:19:00 Test Item Value Reference Range Interpretation Comments PROTHROMBIN TIME 15.9 SECONDS 10.3-12.9 H PATIENT (test code = PTP) INTERNATIONAL 1.39 INR UNIT 0.9-1.11 H The INR is us eful only NORMAL RATIO (test for monit oring code = INR) anticoagulant therapy.It may be unreliable in t he initial phase o f antigoagulation and in unstable patien ts. Indication for Anticoagulation Recommended INR 1. Prevention of v enous thomboembolism 2.0-3.0in high- risk patients; treat ment of venousthrombosi s and pulmonary embol ism aftera course o f heparin; preven tion of systemicembolis m in a variety of cond itions, including atria l fibrillation an d prothetic tissu e heart valves, 2. Pros thetic mechanical hear t valves; 2.5-3.5recurren t systemic emboli sm. - XR CHEST 1 [id number] 08:03:00Patient Name: ALISON LOUIE Unit No: [id number] EXAMS: CPT CODE: [id number] XR CHEST 1 V 57685 EXAM: XRChest 1 View INDICATION: Acute resp insufficiency LOCATION CODE: A 1 COMPARISON: Chest radiograph dated 09/17/2019 TECHNIQUE: Frontal view of the chest was obtained. FINDINGS: Small left pleural effusion with left basilar airspace opacities are unchanged from prior. There is no pneumothorax. The cardiomediastinal silhouette is unchanged. No acute osseous abnormality is identified. IMPRESSION: No significant change from prior radiograph. Electronically Signed by MELVINA SCHMITZ M.D. on09/18/2019 at 0803 Reported and signed by: MELVINA SCHMITZ M.D. CC: Blayne Hernandes MD; Curtis Peace MD Technologist: Darian Bone Fluoro Time: DAP (Gy m2): Air Kerma (mGy): Trscr Dt/Tm: 09/18/2019 (08) by:[email or web address] Printed Date/Time: 09/18/2019 (08) Name: ALISON LOUIE [facility] Phys: Blayne Miranda MD [address] : 1945 Age: 74 Sex: [place] [address] Loc: P.0222 1 Exam Date: 09/18/2019 Status: ADM IN PH: FAX: PAGE 1 Signed [id number] 07:44:00 Test Item Value Reference Range Interpretation Comments GLUBED (test code = GLUBED) 115 MG/DL 70-105 H CBC W/AUTO [id number] 07:20:00 Test Item Value Reference Range Interpretation [...] 0.06 x10 3/uL 0.0-0.20 N BASIC METABOLIC [id number] 07:11:00 Test Item Value Reference Range Interpretation [...] code = 9.2 mg/dL 8.8-10.2 N CA) [id number] 19:48:00 Test Item Value Reference Range Interpretation Comments GLUBED (test code = GLUBED) 158 MG/DL 70-105 H [id number] 17:58:00 Test Item Value Reference Range Interpretation Comments GLUBED (test code = GLUBED) 135 MG/DL 70-105 H [id number] 13:58:00 Test Item Value Reference Range Interpretation Comments GLUBED (test code = GLUBED) 107 MG/DL 70-105 H BASIC METABOLIC [id number] 10:22:00 Test Item Value Reference Range Interpretation [...] 9.3 mg/dL 8.8-10.2 N CA) LIVER FUNCTION [id number] 10:22:00 Test Item Value Reference Range Interpretation [...] 45-120 N ALKP) - XR CHEST 1 [id number] 07:54:00Patient Name: ALISON LOUIE Unit No: [id number] EXAMS: CPT CODE: [id number] XR CHEST 1 V [id number] Chest one view AP 09/17/2019 7:54 AM CLINICAL INDICATION: Postop COMPARISON: 09/16/2019 LOCATION: W1 IMPRESSION: Cardiomediastinal contours are stable. The central pulmonary vasculature is not engorged. There isbibasilar atelectasis, with a trace left pleural effusion. No pneumothorax is evident. Sternotomy wires remain midline. at 0754 Reported and signed by: MARCELO SANTOS M.D. CC: Curtis Peace MD Technologist: Yogi Mai Time:DAP (Gy m2): Air Kerma (mGy): Trscr Dt/Tm: 09/17/2019 (0754) by:[email or web address] Printed Date/Time: 09/17/2019 (0758) Name: ALISON LOUIE [facility] Phys: Curtis Burgess MD [address] : 1945 Age: 74 Sex: [place] [address] Loc: P.0222 1 Exam Date: 09/17/2019Status: ADM IN PH: FAX: PAGE 1 Signed [id number] 07:42:00 Test Item Value Reference Range Interpretation Comments GLUBED (test code = GLUBED) 145 MG/DL 70-105 H BASIC METABOLIC [id number] 07:10:00 Test Item Value Reference Range Interpretation [...] = 9.3 mg/dL 8.8-10.2 N CA) PROTHROMBIN [id number] 06:58:00 Test Item Value Reference Range Interpretation Comments PROTHROMBIN TIME 12.9 SECONDS 10.3-12.9 N PATIENT (test code = PTP) INTERNATIONAL 1.14 INR UNIT 0.9-1.11 H The INR is us eful only NORMAL RATIO (test for monit oring code = INR) anticoagulant therapy.It may be unreliable in t he initial phase o f antigoagulation and in unstable patien ts. Indication for Anticoagulation Recommended INR 1. Prevention of v enous thomboembolism 2.0-3.0in high- risk patients; treat ment of venousthrombosi s and pulmonary embol ism aftera course o f heparin; preven tion of systemicembolis m in a variety of cond itions, including atria l fibrillation an d prothetic tissu e heart valves, 2. Pros thetic mechanical hear t valves; 2.5-3.5recurren t systemic emboli sm. THROMBOPLASTIN TIME [id number] 06:58:00 Test Item Value Reference Range Interpretation Comments THROMBOPLASTIN TIME 35.5 SECONDS 26.0-35.9 VIVIENNE PARTIAL (test code = [place]. INTERPRETATIV PTT) E DATA:Therapeu tic range: Unfractionated heparin:47 - 71 seconds Argatroban:1.5 to 3 times the basel ine PTT CBC W/AUTO [id number] 06:18:00 Test Item Value Reference Range Interpretation [...] = BA#) 0.05 x10 3/uL 0.0-0.20 N [id number] 21:03:00 Test Item Value Reference Range Interpretation Comments GLUBED (test code = GLUBED) 138 MG/DL 70-105 H [id number] 17:27:00 Test Item Value Reference Range Interpretation Comments GLUBED (test code = GLUBED) 133 MG/DL 70-105 H [id number] 11:22:00 Test Item Value Reference Range Interpretation Comments GLUBED (test code = GLUBED) 157 MG/DL 70-105 H [id number] 08:13:00 Test Item Value Reference Range Interpretation Comments GLUBED (test code = GLUBED) 120 MG/DL 70-105 H - XR CHEST 1 [id number] 07:05:00Patient Name: ALISON LOUIE Unit No: [id number] EXAMS: CPT CODE: [id number] XR CHEST 1 V 02361 Chest one view AP 09/16/2019 7:04 AM CLINICAL INDICATION: CABG COMPARISON: 09/14/2019 LOCATION: W1 IMPRESSION:A right IJ CVC sheath has been removed. [...] (704) by:[email or web address] Printed Date/Time: 09/16/2019 (707) Name: ALISON LOUIE [facility] Phys: HOWARD. - Kenn Antony MD [address] : 1945 Age: 74 Sex: [place] [address] Loc: P.0222 1 Exam Date: 09/16/2019 Status: ADM IN PH: FAX: PAGE 1 Signed ReportBASIC METABOLIC [id number] 05:51:00 Test Item Value Reference Range Interpretation [...] = 8.7 mg/dL 8.8-10.2 L CA) PROTHROMBIN [id number] 04:53:00 Test Item Value Reference Range Interpretation Comments PROTHROMBIN TIME 13.3 SECONDS 10.3-12.9 H PATIENT (test code = PTP) INTERNATIONAL 1.17 INR UNIT 0.9-1.11 H The INR is us eful only NORMAL RATIO (test for monit oring code = INR) anticoagulant therapy.It may be unreliable in t he initial phase o f antigoagulation and in unstable patien ts. Indication for Anticoagulation Recommended INR 1. Prevention of v enous thomboembolism 2.0-3.0in high- risk patients; treat ment of venousthrombosi s and pulmonary embol ism aftera course o f heparin; preven tion of systemicembolis m in a variety of cond itions, including atria l fibrillation an d prothetic tissu e heart valves, 2. Pros thetic mechanical hear t valves; 2.5-3.5recurren t systemic emboli sm. THROMBOPLASTIN TIME [id number] 04:53:00 Test Item Value Reference Range Interpretation Comments THROMBOPLASTIN TIME 48.7 SECONDS 26.0-35.9 H INTERPRE TATIVE PARTIAL (test code = DATA: erapeutic PTT) range: Unfractionated heparin:47 - 71 seconds Argatroban:1.5 to 3 times the basel ine PTT CBC W/AUTO [id number] 04:35:00 Test Item Value Reference Range Interpretation [...] = BA#) 0.05 x10 3/uL 0.0-0.20 N [id number] 20:51:00 Test Item Value Reference Range Interpretation Comments GLUBED (test code = GLUBED) 128 MG/DL 70-105 H [id number] 16:43:00 Test Item Value Reference Range Interpretation Comments GLUBED (test code = GLUBED) 129 MG/DL 70-105 H [id number] 11:18:00 Test Item Value Reference Range Interpretation Comments GLUBED (test code = GLUBED) 107 MG/DL 70-105 H [id number] 11:18:00 Test Item Value Reference Range Interpretation Comments GLUBED (test code = GLUBED) 136 MG/DL 70-105 H [id number] 10:55:00 Test Item Value Reference Range Interpretation Comments GLUBED (test code = GLUBED) 137 MG/DL 70-105 H [id number] 10:55:00 Test Item Value Reference Range Interpretation Comments GLUBED (test code = GLUBED) 131 MG/DL 70-105 H [id number] 10:54:00 Test Item Value Reference Range Interpretation Comments GLUBED (test code = GLUBED) 141 MG/DL 70-105 H [id number] 10:54:00 Test Item Value Reference Range Interpretation Comments GLUBED (test code = GLUBED) 139 MG/DL 70-105 H [id number] 07:36:00 Test Item Value Reference Range Interpretation Comments GLUBED (test code = GLUBED) 147 MG/DL 70-105 H BASIC METABOLIC [id number] 07:24:00 Test Item Value Reference Range Interpretation [...] mg/dL 8.8-10.2 L = CA) BASIC METABOLIC [id number] 07:10:00 Test Item Value Reference Range Interpretation [...] mg/dL 8.8-10.2 L = CA) THROMBOPLASTIN TIME [id number] 07:09:00 Test Item Value Reference Range Interpretation Comments THROMBOPLASTIN TIME 37.8 SECONDS 26.0-35.9 H INTERPRE TATIVE PARTIAL (test code = DATA: erapeutic PTT) range: Unfractionated heparin:47 - 71 seconds Argatroban:1.5 to 3 times the basel ine PTT CBC W/AUTO [id number] 06:15:00 Test Item Value Reference Range Interpretation [...] 3/uL 0.0-0.20 N - XR CHEST 1 [id number] 07:42:00Patient Name: ALISON LOUIE Unit No: [id number] EXAMS: CPT CODE: [id number] XR CHEST 1 V 80510 Chest one view AP 09/14/2019 7:41 AM [...] Dt/Tm: 09/14/2019 (0742) by:[email or web address] Printed Date/Time: 09/14/2019 (0703) Name: ALISON LOUIE [facility] Phys: Curtis Burgess MD [address] : 1945 Age: 74 Sex: [place] [address] Loc: P.0222 1 Exam Date:09/14/2019 Status: ADM IN PH: FAX: PAGE 1 Signed Report THROMBOPLASTIN TIME [id number] 07:09:00 Test Item Value Reference Range Interpretation Comments THROMBOPLASTIN TIME 40.0 SECONDS 26.0-35.9 H INTERPRE TATIVE PARTIAL (test code = DATA:Th erapeutic PTT) range: Unfractionated heparin:47 - 71 seconds Argatroban:1.5 to 3 times the basel ine PTT BASIC METABOLIC [id number] 07:05:00 Test Item Value Reference Range Interpretation [...] code 8.3 mg/dL 8.8-10.2 L = CA) [id number] 07:05:00 Test Item Value Reference Range Interpretation Comments PHOSPHOROUS (test code = PHOS) 2.2 mg/dL 2.7-4.5 L [id number] 07:05:00 Test Item Value Reference Range Interpretation Comments MAGNESIUM (test code = MAG) 2.1 mg/dL 1.4-2.6 N RECOLLECTCBC W/AUTO [id number] 05:30:00 Test Item Value Reference Range Interpretation [...] = BA#) 0.04 x10 3/uL 0.0-0.20 N [id number] 21:45:00 Test Item Value Reference Range Interpretation Comments GLUBED (test code = GLUBED) 127 MG/DL 70-105 H [id number] 16:55:00 Test Item Value Reference Range Interpretation Comments POTASSIUM (test code = K) 4.3 MMOL/L 3.5-5.1 N [id number] 16:49:00 Test Item Value Reference Range Interpretation Comments GLUBED (test code = GLUBED) 124 MG/DL 70-105 H [id number] 16:49:00 Test Item Value Reference Range Interpretation Comments GLUBED (test code = GLUBED) 188 MG/DL 70-105 H [id number] 12:26:00 Test Item Value Reference Range Interpretation Comments GLUBED (test code = GLUBED) 126 MG/DL 70-105 H - XR CHEST 1 [id number] 07:59:00Patient Name: ALISON LOUIE Unit No: [id number] EXAMS: CPT CODE: [id number] XR CHEST 1 V 77367 Chest one view AP 09/13/2019 7:59 AM [...] Printed Date/Time: 09/13/2019 (08) Name: ALISON LOUIE [facility] Phys: Quentin Lara MD [address] : 1945 Age: 74 Sex: [place] [address] Loc: P.0222 1 Exam Date: 09/13/2019 Status: ADM IN PH: FAX: PAGE 1 Signed Report [id number] 07:40:00 Test Item Value Reference Range Interpretation Comments GLUBED (test code = GLUBED) 133 MG/DL 70-105 H [id number] 06:06:00 Test Item Value Reference Range Interpretation Comments GLUBED (test code = GLUBED) 156 MG/DL 70-105 H BASIC METABOLIC [id number] 05:33:00 Test Item Value Reference Range Interpretation [...] code = 8.2 mg/dL 8.8-10.2 L CA) [id number] 05:33:00 Test Item Value Reference Range Interpretation Comments MAGNESIUM (test code = MAG) 2.2 mg/dL 1.4-2.6 N THROMBOPLASTIN TIME [id number] 05:21:00 Test Item Value Reference Range Interpretation Comments THROMBOPLASTIN TIME 32.7 SECONDS 26.0-35.9 N INTERPRE TATIVE PARTIAL (test code = DATA: erapeutic PTT) range: Unfractionated heparin:47 - 71 seconds Argatroban:1.5 to 3 times the basel ine PTT CBC W/AUTO [id number] 05:14:00 Test Item Value Reference Range Interpretation [...] = BA#) 0.04 x10 3/uL 0.0-0.20 N [id number] 17:26:00 Test Item Value Reference Range Interpretation Comments GLUBED (test code = GLUBED) 131 MG/DL 70-105 H THROMBOPLASTIN TIME [id number] 17:08:00 Test Item Value Reference Range Interpretation Comments THROMBOPLASTIN TIME 33.9 SECONDS 26.0-35.9 N INTERPRE TATIVE PARTIAL (test code = : erapeutic PTT) range: Unfractionated heparin:47 - 71 seconds Argatroban:1.5 to 3 times the basel ine PTT [id number] 12:18:00 Test Item Value Reference Range Interpretation Comments GLUBED (test code = GLUBED) 174 MG/DL 70-105 H [id number] 08:03:00 Test Item Value Reference Range Interpretation Comments GLUBED (test code = GLUBED) 137 MG/DL 70-105 H BASIC METABOLIC [id number] 05:11:00 Test Item Value Reference Range Interpretation [...] code 8.2 mg/dL 8.8-10.2 L = CA) [id number] 05:11:00 Test Item Value Reference Range Interpretation Comments MAGNESIUM (test code = MAG) 2.3 mg/dL 1.4-2.6 N CBC W/AUTO [id number] 04:41:00 Test Item Value Reference Range Interpretation [...] = BA#) 0.04 x10 3/uL 0.0-0.20 N [id number] 20:14:00 Test Item Value Reference Range Interpretation Comments GLUBED (test code = GLUBED) 123 MG/DL 70-105 H - XR CHEST 1 [id number] 19:29:00Patient Name: ALISON LOUIE Unit No: [id number] EXAMS: CPT CODE: [id number] XR CHEST 1 V 84300 EXAM: XR Chest 1 View INDICATION: EVAL [...] signed by: MELVINA SCHMITZ M.D. CC: Phil Ford MD Technologist: Manuel Mai Time: DAP (Gy m2): Air Kerma (mGy): Trscr Dt/Tm: 09/11/2019 (1928) by:[email or web address] Printed Date/Time: 09/11/2019 (1931) Name: ALISON LOUIE [facility] Phys: PELCR - Pellecchia,Russelltej DO [address] : 1945 Age: 74 Sex: Ramy Nix [address]Axtw No: [id number] Loc: P.0222 1 Exam Date: 09/11/2019 Status: ADM IN PH: FAX: PAGE 1 Signed Report ARTERIAL BLOOD [id number] 18:38:00 Test Item Value Reference Range Interpretation [...] ALLENS) TOTAL HGB (test code = THB) 9.5 g/dL 13.0-17.0 L METHEMOGLOBIN (test code = <0.8 % 0-1.5 N METHGB) [id number] 17:01:00 Test Item Value Reference Range Interpretation Comments GLUBED (test code = GLUBED) 151 MG/DL 70-105 H Novel Coronavirus 2019 [id number] 12:27:00 Test Item Value Reference Range Interpretation Comments Novel Coronavirus 2019 Inhouse (test Negative NOT DETECT. code = COVNONPUI) [id number] 11:50:00 Test Item Value Reference Range Interpretation Comments GLUBED (test code = GLUBED) 147 MG/DL 70-105 H - XR CHEST 1 [id number] 08:47:00Patient Name: ALISON LOUIE Unit No: [id number] EXAMS: CPT CODE: [id number] XR CHEST 1 V 01234 EXAM: Portable chest x-ray Dictation location: A1 COMPARISON: Chest x-ray performed one day prior INDICATION: Cardiac Surgery Postop DISCUSSION: The endotracheal tube a right IJ [place]Sil[place] catheter have been removed. 3 chest tubes in the right IJ [place]Sil[place] catheter sheath remaining in place. No pneumothorax isseen. Partial left retrocardiac consolidation is unchanged. No pleural effusion is seen. The cardiacsilhouette is at the upper limits of normal in size given the technique. No acute bony abnormalitiesare seen. IMPRESSION: 1. Unchanged partial left retrocardiac consolidation, likely due to atelectasis. 2. Interval removal of the right IJ [place]Sil[place]re catheter, with the sheath remaining in place. 3. Interval removal of the endotracheal tube. at 0847 Reported and signed by: Waldo Kelly M.D. CC: Curtis Peace MD Technologist: Martha Costa Fluoro Time: DAP (Gy m2): Air Kerma (mGy): Trscr Dt/Tm: 09/11/2019 (0847) by:[email or web address] Printed Date/Time: 09/11/2019 (2850) Name: ALISON LOUIE [facility] Phys: Curtis Burgess MD [address] : 1945 Age: 74 Sex: [place] [address] Loc: P.0222 1 Exam Date: 09/11/2019 Status: ADM IN PH: FAX: PAGE 1 Signed [id number] 08:46:00 Test Item Value Reference Range Interpretation Comments GLUBED (test code = GLUBED) 151 MG/DL 70-105 H BASIC METABOLIC [id number] 05:58:00 Test Item Value Reference Range Interpretation [...] mg/dL 8.8-10.2 L = CA) LIVER FUNCTION [id number] 05:58:00 Test Item Value Reference Range Interpretation [...] code = 54 U/L 45-120 N ALKP) [id number] 05:58:00 Test Item Value Reference Range Interpretation Comments MAGNESIUM (test code = MAG) 2.3 mg/dL 1.4-2.6 N LACTIC [id number] 05:47:00 Test Item Value Reference Range Interpretation Comments LACTIC ACID (test code = LACT) 15.6 mg/dL 4.5-18.0 N [id number] 05:46:00 Test Item Value Reference Range Interpretation Comments PHOSPHOROUS (test code = PHOS) 3.4 mg/dL 2.7-4.5 N CBC W/AUTO [id number] 05:25:00 Test Item Value Reference Range Interpretation [...] 0.03 x10 3/uL 0.0-0.20 N BASIC METABOLIC [id number] 01:38:00 Test Item Value Reference Range Interpretation [...] code 7.8 mg/dL 8.8-10.2 L = CA) [id number] 01:38:00 Test Item Value Reference Range Interpretation Comments PHOSPHOROUS (test code = PHOS) 3.2 mg/dL 2.7-4.5 N [id number] 01:38:00 Test Item Value Reference Range Interpretation Comments MAGNESIUM (test code = MAG) 2.4 mg/dL 1.4-2.6 N [id number] 20:45:00 Test Item Value Reference Range Interpretation Comments GLUBED (test code = GLUBED) 148 MG/DL 70-105 H CREATINE KINASE (CK)2019-09-10 19:08:00 Test Item Value Reference Range Interpretation Comments CREATINE KINASE (CK) (test code = CK) 58 U/L 24-204 N CK [id number] 19:08:00 Test Item Value Reference Range Interpretation Comments CK (test code = CKT) 51 U/L 41-331 Plea se note reference interval change CK MACRO TYPE 2 (test 0 % Not Observed code = CKMC2%) CKMM (test code = 100 % 97-100 CKMM%) CK MACRO TYPE 1 (test 0 % Not Observed code = CKMC1%) CKMB% (test code = 0 % 0-3 CKMB%) CKBB% (test code = 0 % >0 Performed At: [facility] CKBB%) [address] [place], [place] [id number] Daly MD Ph:[phone] rformed At: DA [facility] [address] [facility] [address] [place], [place] [id number] h MEKHI IRWIN Ph:[phone] ARTERIAL BLOOD [id number] 14:53:00 Test Item Value Reference Range Interpretation [...] = <0.8 % 0-1.5 N METHGB) CALCIUM [id number] 14:00:00 Test Item Value Reference Range Interpretation Comments CALCIUM IONIZED (test code = ASHLYN) 1.10 mmol/L 1.1-1.3 N COMPREHENSIVE METABOLIC [id number] 13:44:00 Test Item Value Reference Range Interpretation [...] 45-120 N PHOSPHATASE (test code = ALKP) [id number] 13:44:00 Test Item Value Reference Range Interpretation Comments PHOSPHOROUS (test code = PHOS) 2.7 mg/dL 2.7-4.5 N [id number] 13:44:00 Test Item Value Reference Range Interpretation Comments MAGNESIUM (test code = MAG) 2.7 mg/dL 1.4-2.6 H LACTIC [id number] 13:35:00 Test Item Value Reference Range Interpretation Comments LACTIC ACID (test code = LACT) 16.1 mg/dL 4.5-18.0 N - XR CHEST 1 [id number] 13:13:00Patient Name: ALISON LOUIE Unit No: [id number] EXAMS: CPT CODE: [id number] XR CHEST 1 V 20107 EXAM: Portable chest x-ray Dictation location: A1 COMPARISON: Chest x-ray on 09/06/2019 INDICATION: Cardiac Surgery Postop DISCUSSION: The endotracheal tube tip overlies the appropriate position. The right IJ [place]Sil[place]re catheter overlies the right main pulmonary artery. 3 chest tubes are noted. No pneumothorax or obvious pneumomediastinum is seen. There is partial left retrocardiac consolidation, likely due to a telectasis. Prior median sternotomy is noted, presumably for CABG. No pleural effusion or acute bonyabnormalities are seen. IMPRESSION: Interval median sternotomy, presumably for CABG. The endotracheal tube, right IJ [place]Sil[place]re catheter, and 3 chest tubes overlie the appropriate position. There is partial left retrocardiac consolidation, likely due to atelectasis. The cardiac silhouette is within normal limits. No pleural effusion or pneumothorax is seen. at 1313 Reported and signed by: Waldo Kelly M.D. CC: Curtis Pecae MD Technologist: Darian Mai Time: DAP (Gy m2): Air Kerma (mGy): Trscr Dt/Tm: 09/10/2019 (1313) by:[email or web address] Printed Date/Time: 09/10/2019 (1316) Name: JACYALISON [facility] Phys: Curtis Burgess MD [address] : 1945 Age: 74 Sex: [place] [address] [id number] Loc: P.0222 1 Exam Date: 09/10/2019 Status: ADM IN PH: FAX: PAGE 1 Signed ReportPROTHROMBIN TIME 2019-09-10 13:11:00 Test Item Value Reference Range Interpretation Comments PROTHROMBIN TIME 14.3 SECONDS 10.3-12.9 H PATIENT (test code = PTP) INTERNATIONAL 1.26 INR UNIT 0.9-1.11 H The INR is us eful only NORMAL RATIO (test for monit oring code = INR) anticoagulant therapy.It may be unreliable in t he initial phase o f antigoagulation and in unstable patien ts. Indication for Anticoagulation Recommended INR 1. Prevention of v enous thomboembolism 2.0-3.0in high- risk patients; treat ment of venousthrombosi s and pulmonary embol ism aftera course o f heparin; preven tion of systemicembolis m in a variety of cond itions, including atria l fibrillation an d prothetic tissu e heart valves, 2. Pros thetic mechanical hear t valves; 2.5-3.5recurren t systemic emboli sm. THROMBOPLASTIN TIME [id number] 13:11:00 Test Item Value Reference Range Interpretation Comments THROMBOPLASTIN TIME 28.1 SECONDS 26.0-35.9 N INTERPRE TATIVE PARTIAL (test code = DATA:Th erapeutic PTT) range: Unfractionated heparin:47 - 71 seconds Argatroban:1.5 to 3 times the basel ine PTT CBC W/AUTO [id number] 13:04:00 Test Item Value Reference Range Interpretation [...] 0.05 x10 3/uL 0.0-0.20 N ARTERIAL BLOOD [id number] 12:49:00 Test Item Value Reference Range Interpretation [...] THB) 10.7 g/dL 13.0-17.0 L ISTAT BLOOD [id number] 11:35:00 Test Item Value Reference Range Interpretation [...] GLUP) 166 mg/dL 70-105 H COAGULATION TIME [id number] 11:35:00 Test Item Value Reference Range Interpretation Comments COAGULATION TIME ACTIVATED (test 120 SECONDS 74-137 N code = ACT) COAGULATION TIME [id number] 11:10:00 Test Item Value Reference Range Interpretation Comments COAGULATION TIME ACTIVATED (test 494 SECONDS 74-137 H code = ACT) ISTAT BLOOD [id number] 11:07:00 Test Item Value Reference Range Interpretation [...] GLUP) 178 mg/dL 70-105 H COAGULATION TIME [id number] 10:44:00 Test Item Value Reference Range Interpretation Comments COAGULATION TIME ACTIVATED (test 467 SECONDS 74-137 H code = ACT) ISTAT BLOOD [id number] 10:41:00 Test Item Value Reference Range Interpretation [...] GLUP) 186 mg/dL 70-105 H COAGULATION TIME [id number] 10:20:00 Test Item Value Reference Range Interpretation Comments COAGULATION TIME ACTIVATED (test 538 SECONDS 74-137 H code = ACT) ISTAT BLOOD [id number] 10:16:00 Test Item Value Reference Range Interpretation [...] GLUP) 158 mg/dL 70-105 H COAGULATION TIME [id number] 09:39:00 Test Item Value Reference Range Interpretation Comments COAGULATION TIME ACTIVATED (test 466 SECONDS 74-137 H code = ACT) ISTAT BLOOD [id number] 09:35:00 Test Item Value Reference Range Interpretation [...] GLUP) 143 mg/dL 70-105 H THROMBOPLASTIN TIME [id number] 04:34:00 Test Item Value Reference Range Interpretation Comments THROMBOPLASTIN TIME 30.9 SECONDS 26.0-35.9 INTERPRE TATIVE PARTIAL (test code = DATA: erapeutic PTT) range: Unfractionated heparin:47 - 71 seconds Argatroban:1.5 to 3 times the basel ine PTT BASIC METABOLIC [id number] 04:33:00 Test Item Value Reference Range Interpretation [...] mg/dL 8.8-10.2 L = CA) CBC W/AUTO [id number] 04:03:00 Test Item Value Reference Range Interpretation [...] = BA#) 0.06 x10 3/uL 0.0-0.20 N [id number] 21:55:00 Test Item Value Reference Range Interpretation Comments GLUBED (test code = GLUBED) 105 MG/DL 70-105 N [id number] 17:18:00 Test Item Value Reference Range Interpretation Comments GLUBED (test code = GLUBED) 134 MG/DL 70-105 H THROMBOPLASTIN TIME [id number] 13:25:00 Test Item Value Reference Range Interpretation Comments THROMBOPLASTIN TIME 46.8 SECONDS 26.0-35.9 H INTERPRE TATIVE PARTIAL (test code = DATA:Th erapeutic PTT) range: Unfractionated heparin:47 - 71 seconds Argatroban:1.5 to 3 times the basel ine PTT [id number] 11:46:00 Test Item Value Reference Range Interpretation Comments GLUBED (test code = GLUBED) 99 MG/DL 70-105 N [id number] 07:50:00 Test Item Value Reference Range Interpretation Comments GLUBED (test code = GLUBED) 106 MG/DL 70-105 H BASIC METABOLIC [id number] 05:13:00 Test Item Value Reference Range Interpretation [...] code 8.8 mg/dL 8.8-10.2 N = CA) [id number] 05:13:00 Test Item Value Reference Range Interpretation Comments PHOSPHOROUS (test code = PHOS) 3.2 mg/dL 2.7-4.5 N [id number] 05:13:00 Test Item Value Reference Range Interpretation Comments MAGNESIUM (test code = MAG) 2.2 mg/dL 1.4-2.6 N THROMBOPLASTIN TIME [id number] 05:09:00 Test Item Value Reference Range Interpretation Comments THROMBOPLASTIN TIME 91.9 SECONDS 26.0-35.9 H INTERPRE TATIVE PARTIAL (test code = DATA: erapeutic PTT) range: Unfractionated heparin:47 - 71 seconds Argatroban:1.5 to 3 times the basel ine PTT CBC W/AUTO [id number] 04:51:00 Test Item Value Reference Range Interpretation [...] 0.08 x10 3/uL 0.0-0.20 N THROMBOPLASTIN TIME [id number] 20:24:00 Test Item Value Reference Range Interpretation Comments THROMBOPLASTIN TIME 113.7 SECONDS 26.0-35.9 HH Critica l Value PARTIAL (test code = reporte d toFirst PTT) Name:ELIANE diamond Name:RYAN MYERS READ BACK AND VERIFIEDby PMayaLABMayaOKLAHOMA STATE [facility] [place], on 09/08/19, @ 2023.INTERPRETA TIVE DATA:Therapeuti c range: Unfractionated heparin:47 - 71 seconds Argatroban:1.5 to 3 times the basel ine PTT [id number] 16:40:00 Test Item Value Reference Range Interpretation Comments GLUBED (test code = GLUBED) 119 MG/DL 70-105 H THROMBOPLASTIN TIME [id number] 12:42:00 Test Item Value Reference Range Interpretation Comments THROMBOPLASTIN TIME 116.7 SECONDS 26.0-35.9 HH Critica l Value PARTIAL (test code = reporte d toFirst PTT) Name:STACEY Brantley Name:ELANA MYERS READ BACK AND VERIFIEDby JAYLON, on 09/08/19, @ 7738.INTERPRETA TIVE DATA:Therapeuti c range: Unfractionated heparin:47 - 71 seconds Argatroban:1.5 to 3 times the basel ine PTT [id number] 11:25:00 Test Item Value Reference Range Interpretation Comments GLUBED (test code = GLUBED) 98 MG/DL 70-105 N LIPOPROTEIN [id number] 08:11:00 Test Item Value Reference Range Interpretation Comments LIPOPROTEIN LDL (test 181 mg/dL 0-99 H Perfor med At: HD code = LDL) [facility] [address] [id number] Rivera Daly MD Ph:[phone] TERPRE TATIVE DATA:LDL Cholesterol: Reference Range s: AGE: MALE: FEMALE:0-19Y 0- 109 mg/dL 0-109 mg/ dL>19Y 0-99 mg/dL 0-99 mg/dL [id number] 07:44:00 Test Item Value Reference Range Interpretation Comments GLUBED (test code = GLUBED) 100 MG/DL 70-105 N BASIC METABOLIC [id number] 07:18:00 Test Item Value Reference Range Interpretation [...] code 8.9 mg/dL 8.8-10.2 N = CA) [id number] 07:18:00 Test Item Value Reference Range Interpretation Comments PHOSPHOROUS (test code = PHOS) 3.1 mg/dL 2.7-4.5 N [id number] 07:18:00 Test Item Value Reference Range Interpretation Comments MAGNESIUM (test code = MAG) 2.2 mg/dL 1.4-2.6 N THROMBOPLASTIN TIME [id number] 06:54:00 Test Item Value Reference Range Interpretation Comments THROMBOPLASTIN TIME 36.5 SECONDS 26.0-35.9 H INTERPRE TATIVE PARTIAL (test code = DATA: erapeutic PTT) range: Unfractionated heparin:47 - 71 seconds Argatroban:1.5 to 3 times the basel ine PTT CBC W/AUTO [id number] 06:47:00 Test Item Value Reference Range Interpretation [...] 0.06 x10 3/uL 0.0-0.20 N THROMBOPLASTIN TIME [id number] 00:42:00 Test Item Value Reference Range Interpretation Comments THROMBOPLASTIN TIME 47.7 SECONDS 26.0-35.9 H INTERPRE TATIVE PARTIAL (test code = DATA:Th erapeutic PTT) range: Unfractionated heparin:47 - 71 seconds Argatroban:1.5 to 3 times the basel ine PTT [id number] 18:33:00 Test Item Value Reference Range Interpretation Comments GLUBED (test code = GLUBED) 105 MG/DL 70-105 N - DUP EXTRACRANIAL [id number] 10:02:00Patient Name: ALISON LOUIE Unit No: [id number] EXAMS: CPT CODE: [id number] DUP EXTRACRANIAL SHASHI [id number] location A1 Carotid Doppler Ultrasound HISTORY: Preop [...] 2. No evidence for hemodynamically significant stenosis. at 1002 Reported and signed by: Essence Sr M.D. CC: Curtis Peace MD Technologist: Caity Stein Probe: Trscr Dt/Tm: 09/07/2019 (1002) by:SharonPXC Printed Date/Time: 09/07/2019 (1006) Name: LOUIE,[facility] Phys: Curtis Ching MD [address] : 1945 Age: 74 Sex: [place] [address] Loc: P.0222 1 Exam Date: 09/07/2019 Status: ADM IN PH: FAX: PAGE 1 Signed Report- XR CHEST 1 [id number] 07:29:00Patient Name: ALISON LOUIE Unit No: [id number] EXAMS: CPT CODE: [id number] XR CHEST 1 V 35366 Location of dictation: B2 Portable chest one [...] m2): Air Kerma (mGy): Trscr Dt/Tm: 09/07/2019 (0729) by[facility] Printed Date/Time: 09/07/2019 (0732) Name: ALISON LOUIE [facility] Phys: Collins Weber [address] : 1945 Age: 74 Sex: [place] [address] Loc: P.0222 1 Exam Date: 09/06/2019 Status: ADM IN PH: FAX: PAGE 1 Signed ReportPLT RESPONSE TO [id number] 06:40:00 Test Item Value Reference Range Interpretation Comments PLT RESPONSE TO 235 PRU PRU Results Interpretation: PLAVIX (test code Normal ind ividuals not = PLAVRES) taking P2Y12 (p re-drug) 182-335 PRU Aleja dence of P2Y12 receptor blockade <182 PRU Appropriate response to anti-platelet t herapyfor cardiology manoj ents <208 PRU Test results ar e in P2Y12 Reaction Units (PRU) whichindicate t he amount of ADP-mediated ag gregation specific tothe platelet P2Y12 receptor and is used to measure thee ffects of anti-platelet d rugs to this receptor, such asclopidogrel (Plavix). The r eference range for indiv idualsNOT receiving a P2Y 12 inhibitor is 182-335 PRU. PRU levelsless than 182 are indicative of a n anti-platelet e ffect dueto P2Y12 receptor blockade, Literature sugg ests that a PRUvalue less t márquez 208 is an appropriate res ponse toanti-platlele t therapy for cardiology manoj ents (Refernce: MJPr ice et al Circulation 2011:154:1132-1 137). Optimaltherapeu tic and pre-surgical SC U targets have not beenes tablished. [id number] 05:49:00 Test Item Value Reference Range Interpretation Comments TROPONIN-I (test < 0.30 ng/mL 0.00-0.30 N INTERPRETAT MARY code = TROPI) DATA:Negative or inconclusive re uslts do not exclude myocardialinfar ction. Serial tests at appropriate int ervals may benecessary. BASIC METABOLIC [id number] 05:49:00 Test Item Value Reference Range Interpretation [...] code 9.0 mg/dL 8.8-10.2 N = CA) [id number] 05:49:00 Test Item Value Reference Range Interpretation Comments PHOSPHOROUS (test code = PHOS) 2.8 mg/dL 2.7-4.5 N [id number] 05:49:00 Test Item Value Reference Range Interpretation Comments MAGNESIUM (test code = MAG) 2.1 mg/dL 1.4-2.6 N PROTHROMBIN [id number] 05:16:00 Test Item Value Reference Range Interpretation Comments PROTHROMBIN TIME 12.3 SECONDS 10.3-12.9 N PATIENT (test code = PTP) INTERNATIONAL 1.09 INR UNIT 0.9-1.11 N The INR is us eful only NORMAL RATIO (test for monit oring code = INR) anticoagulant therapy.It may be unreliable in t he initial phase o f antigoagulation and in unstable patien ts. Indication for Anticoagulation Recommended INR 1. Prevention of v enous thomboembolism 2.0-3.0in high- risk patients; treat ment of venousthrombosi s and pulmonary embol ism aftera course o f heparin; preven tion of systemicembolis m in a variety of cond itions, including atria l fibrillation an d prothetic tissu e heart valves, 2. Pros thetic mechanical hear t valves; 2.5-3.5recurren t systemic emboli sm. THROMBOPLASTIN TIME [id number] 05:16:00 Test Item Value Reference Range Interpretation Comments THROMBOPLASTIN TIME 37.8 SECONDS 26.0-35.9 H INTERPRE TATIVE PARTIAL (test code = DATA:Th erapeutic PTT) range: Unfractionated heparin:47 - 71 seconds Argatroban:1.5 to 3 times the basel ine PTT CBC W/AUTO [id number] 05:11:00 Test Item Value Reference Range Interpretation [...] = CK) 58 U/L 24-204 N CK [id number] 22:45:00 Test Item Value Reference Range Interpretation Comments CK (test code = CKT) CK MACRO TYPE 2 (test code = CKMC2%) CKMM (test code = CKMM%) CK MACRO TYPE 1 (test code = CKMC1%) CKMB% (test code = CKMB%) CKBB% (test code = CKBB%) [id number] 22:45:00 Test Item Value Reference Range Interpretation Comments CKMB (test code = 2.20 ng/mL 1.35-6.73 N INTERPRETA TIVE CKMBT) DATA:Negative o r inconclusive re sults do not exclude myocardialinfar ction. Serial tests at appropriate int ervals may benecessary. PLT RESPONSE TO [id number] 22:06:00 Test Item Value Reference Range Interpretation Comments PLT RESPONSE TO PLAVIX 235 Test results are reported (test code = PLAVRES) in P2Y 12 Reaction Units (PRU) PRU refer ence range is 194-418 PRU. Values <194 PRU are specific evidence of a P 2Y12 inhibitor effec t. Test results are rep orted in P2Y12 Reaction Units (PRU) PRU refer ence range is 194-418 PRU. Values <194 PRU arespe cific evidence of a P 2Y12 inhibitor effec t. Spec Comments: needs urgent CABG surgeryTHROMBOPLASTIN TIME [id number] 20:16:00 Test Item Value Reference Range Interpretation Comments THROMBOPLASTIN TIME 34.4 SECONDS 26.0-35.9 N INTERPRE TATIVE PARTIAL (test code = DATA: erapeutic PTT) range: Unfractionated heparin:47 - 71 seconds Argatroban:1.5 to 3 times the basel ine PTT CLOTTEDPROTHROMBIN [id number] 19:59:00 Test Item Value Reference Range Interpretation Comments PROTHROMBIN TIME 12.3 SECONDS 10.3-12.9 N PATIENT (test code = PTP) INTERNATIONAL 1.09 INR UNIT 0.9-1.11 N The INR is us eful only NORMAL RATIO (test for monit oring code = INR) anticoagulant therapy.It may be unreliable in t he initial phase o f antigoagulation and in unstable patien ts. Indication for Anticoagulation Recommended INR 1. Prevention of v enous thomboembolism 2.0-3.0in high- risk patients; treat ment of venousthrombosi s and pulmonary embol ism aftera course o f heparin; preven tion of systemicembolis m in a variety of cond itions, including atria l fibrillation an d prothetic tissu e heart valves, 2. Pros thetic mechanical hear t valves; 2.5-3.5recurren t systemic emboli sm. CLOTTEDCBC W/AUTO [id number] 19:58:00 Test Item Value Reference Range Interpretation [...] 0.04 x10 3/uL 0.0-0.20 N CLOTTEDTHYROID STIMULATING [id number] 19:50:00 Test Item Value Reference Range Interpretation Comments THYROID STIMULATING HORMONE (test 1.23 mIU/L 0.27-4.20 N code = TSH) [id number] 19:03:00 Test Item Value Reference Range Interpretation Comments TROPONIN-I (test 0.48 ng/mL 0.00-0.30 HH Critical Va lue reported code = TROPI) toFirst Name:Jennifer ZAVALA Last Name:COLON MADHAVTERESA FRANCISCO READ BACK AND INDRA BURNETTRS, on , @ 1902.INTERPRETA TIVE DATA:Negative o r inconclusive re uslts do not exclude myocardialinfar ction. Serial tests at appropriate int ervals may benecessary. COMPREHENSIVE METABOLIC [id number] 19:01:00 Test Item Value Reference Range Interpretation [...] PHOSPHATASE (test code = ALKP) BASIC METABOLIC [id number] 06:05:00 Test Item Value Reference Range Interpretation [...] 8.4 MG/DL 8.5-10.1 L Coronavirus 2019 nCoV [id number] 18:51:00 Test Item Value Reference Range Interpretation Comments Coronavirus 2019 nCoV Negative NEGATIVE Per ben hightowerureleander, Bedside (test code = negativ e results should COVNONPUIBED) be treated aspresumptive a nd, if inconsistent wi th clinical signs andsymptoms or necessary for p atient management, fitz uld betested with a n alternative mol ecular assay. Negative resultsdo not p reclude SARS-CoV-2 infe ction and should not be usedas the sole basis for patient man agement decisions. Nega tive results should be considered in t he context of apat ient's recent exposure s, history, presen ce of clinicalsigns a nd symptoms consis tent with COVID-19. COMPREHENSIVE METABOLIC [id number] 11:48:00 Test Item Value Reference Range Interpretation [...] 50-136 N code = ALKP) RULE OUT HI [id number] 11:48:00 Test Item Value Reference Range Interpretation Comments CREATINE KINASE 77 Unit/L 26-192 N (CK) (test code = CK) TROPONIN-I (test 1.380 NG/ML 0.000-0.045 HH Negative: < /= 0.045 code = TROPI) Positive: >/= 0.046 Correlation wit h serial results, other cardiac markers, and cl inical findings is nec essary to determine th e clinical signif icance of this result. Quantitative re sults using different methodologies s hould not be compared to one another as nume rical results may joann yby method. CBC W/AUTO [id number] 10:29:00 Test Item Value Reference Range Interpretation [...] NO DIFF/SCN CRITERIA = MDIFF) GLUCOSE BEDSIDE [id number] 21:16:00 Test Item Value Reference Range Interpretation Comments GLUCOSE BEDSIDE TESTING (test code 108 mg/dL 70-110 N = GLUBED) GLUCOSE BEDSIDE [id number] 11:47:00 Test Item Value Reference Range Interpretation Comments GLUCOSE BEDSIDE TESTING (test code = 74 mg/dL 70-110 N GLUBED) GLYCOSYLATED HEMOGLOBIN [id number] 10:43:00 Test Item Value Reference Range Interpretation [...] = LDL/HDL) 3.82 Ratio 1.48-3.22 Avg H [id number] 10:09:00 Test Item Value Reference Range Interpretation [...] may joann yby method. Completed by Nursing: [id number] 07:25:00 Test Item Value Reference Range Interpretation [...] yby method. Completed by Nursing: NOBASIC METABOLIC [id number] 05:45:00 Test Item Value Reference Range Interpretation [...] Unit/L 26-192 N CK) Completed by Nursing: [id number] 05:45:00 Test Item Value Reference Range Interpretation [...] yby method. Completed by Nursing: NOBASIC METABOLIC [id number] 05:30:00 Test Item Value Reference Range Interpretation [...] = CK) Unit/L 26-192 Completed by Nursing: [id number] 05:30:00 Test Item Value Reference Range Interpretation Comments TROPONIN-I (test code = TROPI) NG/ML 0.000-0.045 Completed by Nursing: NOCBC W/O [id number] 05:13:00 Test Item Value Reference Range Interpretation [...] 7.0-9.6 H MPV) - XR CHEST 1 [id number] 04:52:00 Name: ALISON LUOIE [facility] : 1945 Age/S: 74 / M [id number] Unit #: [id number]: [place] [address] Phys: Emmanuel Levin MD Acct: [id number] Dis Date: Status: REG ER PHONE #:[phone] Exam Date: 09/04/2019 044 FAX #: Reason: chest pain EXAMS: CPT: [id number] XR CHEST 1 V 53779 Fluoro Time: DAP (Gy m2): Air Kerma (mGy): EXAM: Portable chest one view. Location code:J9 HISTORY: Chest pain COMPARISON: None available. COMMENT: . The lungs and pleural spaces are clear. Lungs are normally expanded. The aorta, pulmonary vasculature and mediastinum are within normal limits.Cardiac silhouette is normal in size and contour. Visualized skeletal structures are unremarkable. IMPRESSION: No active disease in the chest. at 0452 Reported and signed by: Rivera Moise M.D. CC: Emmanuel Levin MD PAGE 1 Signed Report Name: ALISON LOUIE [facility] : 1945 Age/S: 74 / M [id number] Unit #: [id number] Loc: [place] [address] Phys: Emmanuel Levin MD Acct: [id number] Dis Date: Status: REG ER PHONE #: [phone] Exam Date: 09/04/2019 0443 FAX #: Reason: chest pain EXAMS: CPT: [id number] XR CHEST 1 V 10179 Fluoro Time: DAP (Gy m2): Air Kerma (mGy): (Continued) Technologist: Tariq Black RT(R) Trnscb Date/Time: 09/04/2019 (045) [email or web address] Orig Print D/T: S: 09/04/2019 (5610) PAGE 2 Signed Report"
[2022-06-16] MEDS ORDERED: ASPIRIN 81 MG CHEWABLE TABLET ONE (09:56)
[2022-06-16 10:00] LABS: Absolute Lymphocytes (CBC) 0.6 K/uL (0.7-4.9); Hematocrit 36.8 % (39.6-49.0); Lymphocytes % 8.5 % (15.3-44.8); MCV 92.4 fL (80-100); MPV 9.9 fL (7.6-11.3); RBC Red Blood Cell Count 3.98 M/uL (4.33-5.43)
[2022-06-16 10:07] LABS: Protime INR 1.15
[2022-06-16 10:24] LABS: Albumin 3.2 g/dL (3.4-5.0); Bilirubin Direct 0.1 mg/dL (0-0.2); Bilirubin Total 0.3 mg/dL (0.2-1.0); Magnesium 2.3 mg/dL (1.6-2.4); Potassium 4.4 mEq/L (3.5-5.1); Troponin High Sensitivity 10.9 pg/mL (<58.9)
[2022-06-16 10:39] LABS: SARS-COV-2 RT PCR NEGATIVE (NEGATIVE)
--- NOTE | 2022-06-16 11:24 | RAD REPORT ---
EXAM DESCRIPTION: RAD - Chest Single View - 06/16/2022 10:30 am CLINICAL HISTORY: Chest pain;Cough;Dyspnea Chest pain. COMPARISON: Chest Pa And Lat (2 Views) dated 03/11/2022; Chest Pa And Lat (2 Views) dated 11/18/2021; Chest Pa And Lat (2 Views) dated 10/02/2019; Chest Single View dated 09/27/2019 FINDINGS: Portable technique limits examination quality. Mild interstitial pulmonary edema. Small left pleural effusion or chronic pleural thickening. The hea rt is moderately enlarged. Sternotomy wires. IMPRESSION: Mild CHF.
--- NOTE | 2022-06-16 11:41 | ER ---
Nurse's Notes [facility] Name: Duran Ron Jr Age: 77 yrs Sex: Male : 1945 Arrival Date: 06/16/2022 Time: 09:09 Bed 15 Private MD: Diagnosis: Chest pain, unspecified Presentation: 06/16 09:09 Chief complaint: Patient states: pt was brought in from Dr Jones office, pt stated vg1 has been having CP x 3 weeks, had a stress test yesterday, today pain began to radiate from shoulder to shoulder then down Left arm. Stated past six months have had pneumonia twice, since then has had a hard time taking deep breaths. Stated pain in neck and up to head. Coronavirus screen: Vaccine status: Patient reports receiving the 2nd dose of the covid vaccine. Client denies travel out of the [place] in the last 14 days. Ebola Screen: Patient negative for fever greater than or equal to 101.5 degrees Fahrenheit, and additional compatible Ebola Virus Disease symptoms Patient denies exposure to infectious person. Patient denies travel to an Ebola-affected area in the 21 days before illness onset. Initial Sepsis Screen: Does the patient meet any 2 criteria? No. Patient's initial sepsis screen is negative. Does the patient have a suspected source of infection? No. Patient's initial sepsis screen is negative. Risk Assessment: Do you want to hurt yourself or someone else? Patient reports no desire to harm self or others. Onset of symptoms was June 16, 2022. 09:09 Method Of Arrival: Ambulatory vg1 09:09 Acuity: ALTHEA 2 vg1 Triage Assessment: 09:13 General: Appears uncomfortable, Behavior is calm, cooperative. Pain: Complains of pain vg1 in chest Pain radiates to left arm and SHASHI shoudlers Pain currently is 7 out of 10 on a pain scale. Neuro: Level of Consciousness is awake, alert, obeys commands, Oriented to person, place, time, situation, Reports headache occipital area. Cardiovascular: Patient's skin is warm and dry. Respiratory: Reports shortness of breath at rest on exertion cough that is Airway is patent Respiratory effort is even, unlabored. Musculoskeletal: Circulation, motion, and sensation intact. Historical: - Allergies: 09:13 Keflex; vg1 09:13 PENICILLINS; vg1 - Home Meds: 09:13 Metformin Oral [Active]; vg1 - PMHx: 09:13 Diabetes - NIDDM; Myocardial infarction; Hypertensive disorder; vg1 - PSHx: 09:13 Stented artery; Valve Replacement; vg1 - Immunization history:: Client reports receiving the 2nd dose of the Covid vaccine. - Social history:: Smoking status: Patient denies any tobacco usage or history of. Screenin:08 [facility] ED Fall Risk Assessment (Adult) History of falling in the last 3 months, db including since admission No falls in past 3 months (0 pts) Confusion or Disorientation No (0 pts) Intoxicated or Sedated No (0 pts) Impaired Gait No (0 pts) Mobility Assist Device Used No (0 pt) Altered Elimination No (0 pt) Score/Fall Risk Level 0 - 2 = Low Risk Oriented to surroundings, Maintained a safe environment. Abuse screen: Denies threats or abuse. Denies injuries from another. Nutritional screening: No deficits noted. Tuberculosis screening: No symptoms or risk factors identified. Assessment: 10:07 Reassessment: Patient appears in no apparent distress at this time. Patient and/or db family updated on plan of care and expected duration. Pain level reassessed. Patient is alert, oriented x 3, equal unlabored respirations, skin warm/dry/pink. patient complains of chest pain radiating into left arm when he originally got here. states pain has now subsided. Patient states feeling better. General: Appears in no apparent distress. comfortable, Behavior is calm, cooperative. Pain: Complains of pain in chest Pain began suddenly. Neuro: Level of Consciousness is awake, alert, obeys commands, Oriented to person, place, time, situation, Speech is normal. 13:10 Reassessment: Patient appears in no apparent distress at this time. Patient and/or db family updated on plan of care and expected duration. Pain level reassessed. Patient is alert, oriented x 3, equal unlabored respirations, skin warm/dry/pink. Pain: Denies pain. 13:48 General: Spoke with Dr Reagan and Dr Nicole to notify of second troponin 79.6. Per Dr nikia Reagan, pt to now be NPO. Per Dr Nicole, he will see pt today. 14:46 Reassessment: Patient appears in no apparent distress at this time. Patient and/or db family updated on plan of care and expected duration. Pain level reassessed. Patient is alert, oriented x 3, equal unlabored respirations, skin warm/dry/pink. Pain: Complains of pain in shoulders. 19:00 Reassessment: Patient appears in no apparent distress at this time. Patient and/or jb4 family updated on plan of care and expected duration. Pain level reassessed. Patient is alert, oriented x 3, equal unlabored respirations, skin warm/dry/pink. 20:32 Reassessment: Patient appears in no apparent distress at this time. Patient and/or jb4 family updated on plan of care and expected duration. Pain level reassessed. Patient is alert, oriented x 3, equal unlabored respirations, skin warm/dry/pink. Vital Signs: 09:09 BP 131 / 74; Pulse 90; Resp 20; Pulse Ox 96% on R/A; Weight 111.13 kg; Height 5 ft. 10 vg1 in. ; Pain 7/10; 09:16 Temp 98.4(O); vg1 10:09 BP 130 / 62; Pulse 83; Resp 16; Pulse Ox 96% on R/A; db 11:00 BP 118 / 62; Pulse 77; Resp 16; Pulse Ox 95% on R/A; db 13:00 BP 126 / 76; Pulse 86; Resp 16; Pulse Ox 97% on R/A; db 14:30 BP 132 / 73; Pulse 79; Resp 16; Pulse Ox 94% on R/A; db 19:00 BP 132 / 68; Pulse 81; Resp 16; Pulse Ox 90% on R/A; jb4 20:00 BP 120 / 62; Pulse 83; Resp 16; Pulse Ox 93% on R/A; jb4 09:09 Body Mass Index 35.15 (111.13 kg, 177.8 cm) vg1 09:09 Pain Scale: Adult vg1 ED Course: 09:09 Patient arrived in ED. rg4 09:10 [facility] England [facility] jh7 09:10 Rivera Watkins MD is Attending Physician. jh7 09:12 Triage completed. vg1 09:13 Arm band placed on. vg1 09:30 Yajaira Stark, MADHAV is Primary Nurse. db 09:44 Inserted saline lock: 20 gauge in right forearm, using aseptic technique. Blood db collected. 10:09 Patient has correct armband on for positive identification. Bed in low position. Call db light in reach. Side rails up X 1. Client placed on continuous cardiac and pulse oximetry monitoring. NIBP monitoring applied. Warm blanket given. 10:31 XRAY Chest (1 view) In Process Unspecified. EDMS 11:40 Selwyn Reagan MD is Hospitalizing Provider. jh7 13:10 Patient maintains SpO2 saturation greater than 95% on room air. db 14:45 No provider procedures requiring assistance completed. db 14:45 Patient admitted, IV remains in place. db Administered Medications: 09:56 Drug: Aspirin PO Chewable Tablet 324 mg Route: PO; db 11:50 Follow up: Response: No adverse reaction vg1 11:58 Drug: Furosemide IVP 40 mg Route: IVP; Site: right forearm; db Medication: 14:46 VIS not applicable for this client. db Outcome: 11:41 Decision to Hospitalize by Provider. 7 14:45 Admitted to ER Hold. Please see [facility] for further documentation. db 14:45 Condition: stable 14:45 Instructed on the need for admit. 21:14 Patient left the ED. jb4 Signatures: Dispatcher [employer] EDMS Serene Ram, RN Nini Gray rg4 Tariq Polanco, RN RN jb4 Ashley Collins, RN RN vg1 Ann England, PAPER PLATE MACHINE TENDER PAPER PLATE MACHINE TENDER 7 Yajaira Stark RN RN db
--- NOTE | 2022-06-16 11:41 | EDPHYS ---
Physician Documentation [facility] Name: Duran Ron Jr Age: 77 yrs Sex: Male : 1945 Arrival Date: 06/16/2022 Time: 09:09 Bed 15 Private MD: ED Physician Rivera Watkins HPI: 06/16 09:10 This 77 yrs old Male presents to ER via Ambulatory with complaints of Chest Pain. jh7 09:10 Onset: The symptoms/episode began/occurred 3 week(s) ago, and became worse this jh7 morning. Associated signs and symptoms: Pertinent positives: congestion, cough, shortness of breath, Pertinent negatives: abdominal pain, fever. 77-year-old male sent from Dr. Reagan's office for chest pain occurring for the past 3 weeks worsening today. The patient states the pain radiates to bilateral shoulders and down his left arm. Reports RI x2 1 in 2000 in 2019 where he had a triple bypass and aortic valve replacement. Also states that he has been coughing and short of breath since he had pneumonia in December. History of diabetes and takes metformin.. Historical: - Allergies: 09:13 Keflex; vg1 09:13 PENICILLINS; vg1 - Home Meds: 09:13 Metformin Oral [Active]; vg1 - PMHx: 09:13 Diabetes - NIDDM; Myocardial infarction; Hypertensive disorder; vg1 - PSHx: 09:13 Stented artery; Valve Replacement; vg1 - Immunization history:: Client reports receiving the 2nd dose of the Covid vaccine. - Social history:: Smoking status: Patient denies any tobacco usage or history of. ROS: 09:10 Constitutional: Negative for fever, chills, and weight loss, Eyes: Negative for injury, jh7 pain, redness, and discharge, ENT: Negative for injury, pain, and discharge, Neck: Negative for injury, pain, and swelling, Abdomen/GI: Negative for abdominal pain, nausea, vomiting, diarrhea, and constipation, Back: Negative for injury and pain, MS/Extremity: Negative for injury and deformity, Skin: Negative for injury, rash, and discoloration, Neuro: Negative for headache, weakness, numbness, tingling, and seizure. 09:10 Cardiovascular: Positive for chest pain, Negative for palpitations. 09:10 Respiratory: Positive for cough, shortness of breath. 09:10 All other systems are negative. Exam: 09:10 Constitutional: This is a well developed, well nourished patient who is awake, alert, jh7 and in no acute distress. Head/Face: Normocephalic, atraumatic. Eyes: Pupils equal round and reactive to light, extra-ocular motions intact. Lids and lashes normal. Conjunctiva and sclera are non-icteric and not injected. Cornea within normal limits. Periorbital areas with no swelling, redness, or edema. ENT: Nares patent. No nasal discharge, no septal abnormalities noted. Tympanic membranes are normal and external auditory canals are clear. Oropharynx with no redness, swelling, or masses, exudates, or evidence of obstruction, uvula midline. Mucous membranes moist. Neck: Trachea midline, no thyromegaly or masses palpated, and no cervical lymphadenopathy. Supple, full range of motion without nuchal rigidity, or vertebral point tenderness. No Meningismus. Abdomen/GI: Soft, non-tender, with normal bowel sounds. No distension or tympany. No guarding or rebound. No evidence of tenderness throughout. Back: No spinal tenderness. No costovertebral tenderness. Full range of motion. Skin: Warm, dry with normal turgor. Normal color with no rashes, no lesions, and no evidence of cellulitis. MS/ Extremity: Pulses equal, no cyanosis. Neurovascular intact. Full, normal range of motion. Neuro: Awake and alert, GCS 15, oriented to person, place, time, and situation. Motor strength 5/5 in all extremities. Sensory grossly intact. Normal gait. 09:10 Cardiovascular: Rate: normal, Rhythm: regular, Pulses: Pulses are 3+ in right radial artery and left radial artery. Heart sounds: murmur. 09:10 Respiratory: the patient does not display signs of respiratory distress, Respirations: normal, Breath sounds: decreased breath sounds, are heard in the left lower lobe and right lower lobe. Vital Signs: 09:09 BP 131 / 74; Pulse 90; Resp 20; Pulse Ox 96% on R/A; Weight 111.13 kg; Height 5 ft. 10 vg1 in. ; Pain 7/10; 09:16 Temp 98.4(O); vg1 10:09 BP 130 / 62; Pulse 83; Resp 16; Pulse Ox 96% on R/A; db 11:00 BP 118 / 62; Pulse 77; Resp 16; Pulse Ox 95% on R/A; db 13:00 BP 126 / 76; Pulse 86; Resp 16; Pulse Ox 97% on R/A; db 14:30 BP 132 / 73; Pulse 79; Resp 16; Pulse Ox 94% on R/A; db 19:00 BP 132 / 68; Pulse 81; Resp 16; Pulse Ox 90% on R/A; jb4 20:00 BP 120 / 62; Pulse 83; Resp 16; Pulse Ox 93% on R/A; jb4 09:09 Body Mass Index 35.15 (111.13 kg, 177.8 cm) vg1 09:09 Pain Scale: Adult vg1 MDM: 09:10 Patient medically screened. [facility] 11:35 Differential diagnosis: bronchitis, pneumonia Acute RI, CHF exacerbation. Data [facility] reviewed: vital signs, nurses notes, lab test result(s), EKG, radiologic studies, plain films. Consideration of Admission/Observation Patient was admitted/placed on observation. Management of patient was discussed with the following: Primary Care Provider: Dr. Selwyn Reagan. I considered the following discharge prescriptions or medication management in the emergency department Medications were administered in the Emergency Department. See MAR. Independent interpretation of the following test(s) in the Emergency Department EKG: See my EKG interpretation above. Care significantly affected by the following chronic conditions: Diabetes, Hypertension, Congestive Heart Failure, previous RI. Counseling: I had a detailed discussion with the patient and/or guardian regarding: the historical points, exam findings, and any diagnostic results supporting the discharge/admit diagnosis, the need for further work-up and treatment in the hospital. Response to treatment: the patient's symptoms have markedly improved after treatment. ED course: Spoke to Dr. Reagan who advised NPO after midnight, cardiology consult, Lasix 40 mg IV now, moderate sliding scale, and serial troponins. Will admit under inpatient status.. 11:35 Scoring Tools HEART Score: History: ECG: Age: Risk Factors: Troponin: Total Score = 7. [facility] 06/16 09:17 Order name: Basic Metabolic Panel; Complete Time: 10:[address] [facility] 06/16 09:17 Order name: CBC with Diff; Complete Time: 10:[address] [facility] 06/16 09:17 Order name: LFT's; Complete Time: 10:[address] [facility] 06/16 09:17 Order name: Magnesium; Complete Time: 10:[address] [facility] 06/16 09:17 Order name: NT PRO-BNP; Complete Time: 10:[address] [facility] 06/16 09:17 Order name: PT-INR; Complete Time: 10:[address] [facility] 06/16 09:17 Order name: Troponin HS; Complete Time: 10:[address] [facility] 06/16 09:17 Order name: COVID-19/FLU A+B; Complete Time: 10:[address] [facility] 06/16 12:08 Order name: Basic Metabolic Panel [facility] 06/16 12:08 Order name: Basic Metabolic Panel [facility] 06/16 12:08 Order name: CBC with Automated Diff [facility] 06/16 12:08 Order name: CBC with Automated Diff [facility] 06/16 12:08 Order name: Troponin High Sensitivity; Complete Time: 14:02 [facility] 06/16 16:20 Order name: Glucose, Ancillary Testing [facility] 06/16 21:08 Order name: Troponin High Sensitivity [facility] 06/16 09:17 Order name: XRAY Chest (1 view); Complete Time: 11:[address] [facility] 06/16 09:17 Order name: EKG; Complete Time: 09:[address] [facility] 06/16 12:08 Order name: CONS Physician Consult [facility] 06/16 12:08 Order name: EKG Electrocardiogram [facility] 06/16 12:08 Order name: EKG Electrocardiogram [facility] 06/16 12:08 Order name: EKG Electrocardiogram [facility] 06/16 12:08 Order name: EKG Electrocardiogram [facility] 06/16 12:10 Order name: NPO [facility] 06/16 09:17 Order name: Cardiac monitoring; Complete Time: 09:[address] [facility] 06/16 09:17 Order name: EKG - Nurse/Tech; Complete Time: 09:[address] [facility] 06/16 09:17 Order name: IV Saline Lock; Complete Time: 09:[address] [facility] 06/16 09:17 Order name: Labs collected and sent; Complete Time: 09:[address] [facility] 06/16 09:17 Order name: O2 Per Protocol; Complete Time: 09:[address] [facility] 06/16 09:17 Order name: O2 Sat Monitoring; Complete Time: 09:[address] [facility] EC:27 Rate is 86 beats/min. Rhythm is regular. QRS is negative in leads II, III, V3. DC jh7 interval is normal at 156 msec. QRS interval is normal at 126 msec. QT interval is normal at 404 msec. T waves are Inverted in leads III, V1. Administered Medications: 09:56 Drug: Aspirin PO Chewable Tablet 324 mg Route: PO; db 11:50 Follow up: Response: No adverse reaction 1 11:58 Drug: Furosemide IVP 40 mg Route: IVP; Site: right forearm; db Disposition: 06/17 07:04 Co-signature as Attending Physician, Rivera Watkins MD I reviewed the patient's care rn provided by the Advanced Practice Provider and agree with the diagnosis and treatment plan. Disposition Summary: 06/16/22 11:41 Hospitalization Ordered Hospitalization Status: Inpatient Admission [facility] Provider: Selwyn Reagan [facility] Condition: Stable [facility] Problem: new [facility] Symptoms: have improved [facility] Bed/Room Type: Standard [facility] Location: Telemetry/MedSurg (Inpatient)(06/16/22 20:06) Room Assignment: [facility](06/16/22 20:06) Diagnosis - Chest pain, unspecified [facility] Forms: - Medication Reconciliation Form [facility] - SBAR form [facility] Signatures: Dispatcher [employer] EDRivera Pereyra MD MD rn Garcia, Cindy RN RN Bruce Enrique RN RN jl7 Garcia, Victoria RN RN vg1 Ann England, IC DESIGN MANAGER IC DESIGN MANAGER 7 Yajaira Stark RN RN db Corrections: (The following items were deleted from the chart) 06/16 14:42 11:41 Telemetry/MedSurg (Inpatient) [place] [id number] 14:42 11:[address] [facility] jl7 20:06 14:42 [facility] ER HOLD jl7 cg 20:06 14:42 ERHOLD- jl7 cg 20:06 20:06 215 cg cg
[2022-06-16] MEDS ORDERED: FUROSEMIDE 40 MG/4 ML VIAL ONE (11:58)
[2022-06-16] MEDS ORDERED: GLUCAGON 1 MG/VIAL IM PRN (12:07)
[2022-06-16] MEDS ORDERED: D10W 250 ML BAG IV PRN (12:28)
[2022-06-16 15:09] VITALS: BMI 33.7
[2022-06-16] MEDS: INSULIN -REGULAR HUMAN 50 UNIT/0.5 ML ML SQ SCH ×2 (16:30→21:00)
--- NOTE | 2022-06-16 21:18 | CON ---
Date of Consultation: 06/16/2022 Reason For Consultation: Chest pain. History Of Present Illness: A 77-year-old male, past medical history diabetes, history of coronary a rtery disease, hypertension, status post triple-vessel bypass and aortic valve replacement, presented because of chest pain across the chest, not related to exertion, goes to the neck. He apparently wa s seen in my office. Recently, he had a stress test yesterday and we do not have results on that. A t the present time, he has no chest pain. Past Medical History: As outlined above in the HPI. Medications: Refer to reconciliation sheet for detailed list. Allergies: CEPHALEXIN AND PENICILLIN. Family History: No premature coronary artery disease or cancer. Social History: He does not smoke or drink. Does not use any drugs. Review of Systems: All systems reviewed and they were negative except what mentioned in HPI. Physical Examination: Vital Signs: Reviewed. Head and Neck: Pupils are equal, reactive to light. Intact eye movements. No JVD. No cervical lym phadenopathy. Neck is supple. Thyroid is not enlarged. Lungs: Clear to auscultation bilaterally. No rhonchi, wheezing, or crackles. No accessory muscle u se. Heart: Regular rate and rhythm. No extra sounds. Abdomen: Soft, nontender. Bowel sounds positive. No organomegaly. No masses or hernia. No rigidi ty or rebound. Extremities: No edema, clubbing, or cyanosis. Intact pulses. Skin: No rash. Neurologic: Alert, awake, oriented x3. No acute focal deficits appreciated. Investigations: Troponin; first set was negative, second set is 79. BUN is 20, creatinine 1.24, hem oglobin 11.8. Assessment And Recommendations: 1.Chest pain. No history of coronary artery disease. He had a stress test yesterday in my office. I will review the images. Meanwhile, continue monitoring. Start baby aspirin and trend 2 more sets of troponins and reassess after reviewing his stress test that was done yesterday. 2.Diastolic congestive heart failure. Appears to be euvolemic at that point. At this point, we titus l monitor clinically. 3.Hypertension. Blood pressure is controlled. Thank you for the consult. SR/MODL Voice ID: [id number] Report ID: [id number]
--- NOTE | 2022-06-17 01:33 | PN ---
Date of Progress Note: 06/16/2022 Patient is basically asymptomatic for the past few hours. He has diuresed considerable amount and se en by Cardiology, who will review the stress test, which was done 24 hours earlier and decide whether or not a catheterization will be necessary. HR/MODL Voice ID: [id number] Report ID: [id number]
[2022-06-17 05:47] LABS: Hematocrit 35.5 % (39.6-49.0); Lymphocytes % 13.3 % (15.3-44.8); MCV 91.7 fL (80-100); RBC Red Blood Cell Count 3.87 M/uL (4.33-5.43)
[2022-06-17 06:11] LABS: Potassium 4.4 mEq/L (3.5-5.1)
[2022-06-17 06:12] LABS: Troponin High Sensitivity 82.6 pg/mL (<58.9)
--- NOTE | 2022-06-17 07:12 | P.PN ---
Date of Service: 06/17/22 Subjective: no chest pain since yesterday no SOB today persistent cough pt states episode last night was worst one yet ROS: 10 point ROS as noted above, otherwise negative Physical Exam: GEN: Alert, oriented, NAD HEENT: Normal conjunctiva, sclera anicteric CV: Regular rate and rhythm, no edema Pulm: Nonlabored respirations on room air ABD: Soft, nontender, nondistended MSK: No joint tenderness Integumentary: No rashes Neuro: Normal speech, normal affect vitals reviewed Problem List: Diastolic CHF Acute renal injury Diabetes Hyperkalemia Obesity Hypertension trend troponin Monitor telemetry EKG pending Cardio consulted Will review stress test and give further recommendation NPO for possible heart cath VTE: Code: Dispo:
[2022-06-17] MEDS: INSULIN -REGULAR HUMAN 50 UNIT/0.5 ML ML SQ SCH ×3 (07:30→15:46)
[2022-06-17] MEDS ORDERED: ASPIRIN EC 81 MG TAB PO SCH (09:00)
[2022-06-17 09:37] VITALS: O2SAT 99
[2022-06-17 12:35] VITALS: BP 124/62; TEMP 98.1
--- NOTE | 2022-06-17 14:58 | P.DS ---
Admission Date: 06/16/22 Discharge Date: 06/17/22 Disposition: ROUTINE DISCHARGE Discharge Condition: GOOD Consultations: Cardiology - Dr. Nicole Brief History of Present Illness: 77yo M, PMH: diabetes, history of coronary artery disease, hypertension, status post triple-vessel bypass and aortic valve replacement, Patient presented because of chest pain across the chest, not related to exertion, goes to the neck. Recently, he had a stress test yesterday and we do not have results on that. At the present time, he has no chest pain. Hospital Course: Problem List: Diastolic CHF Acute renal injury Diabetes Hyperkalemia Obesity Hypertension Presented with chest pain. Mild elevation of troponin levels which peaked at 129 and improved. Chest x-ray with mild CHF type pattern. Dr. Nicole was consulted and reviewed cardiac stress test from ~24hrs prior to admission, which was negative. Symptoms resolved. He was deemed stable for discharge home. Follow up with Dr. Nicole in ~4 weeks. Follow up with Dr. Reagan in ~1 week. Resume home medications as previously prescribed. Physical Exam: GEN: Alert, oriented, NAD HEENT: Normal conjunctiva, sclera anicteric CV: Regular rate and rhythm, no edema Pulm: Nonlabored respirations on room air ABD: Soft, nontender, nondistended Neuro: Normal speech, normal affect Vital Signs/Physical Exam: Temp Pulse Resp BP Pulse Ox 98.1 F 78 18 124/62 95 06/17/22 12:00 06/17/22 12:00 06/17/22 12:00 06/17/22 12:00 06/17/22 12:00 Laboratory Data at Discharge: WBC 7.30 thou/uL (4.3-10.9) 06/17/22 05:09 Hgb 11.5 g/dL (13.6-17.9) L 06/17/22 05:09 Hct 35.5 % (39.6-49.0) L 06/17/22 05:09 Plt Count 245 thou/uL (152-406) 06/17/22 05:09 PT 12.6 SECONDS (9.5-12.5) H 06/16/22 09:44 INR 1.15 06/16/22 09:44 Sodium 139 mEq/L (136-145) 06/17/22 05:09 Potassium 4.4 mEq/L (3.5-5.1) 06/17/22 05:09 BUN 24 mg/dL (7-18) H 06/17/22 05:09 Creatinine 1.15 mg/dL (0.70-1.30) 06/17/22 05:09 Glucose 96 mg/dL (74-106) 06/17/22 05:09 Magnesium 2.3 mg/dL (1.6-2.4) 06/16/22 09:44 Total Bilirubin 0.3 mg/dL (0.2-1.0) 06/16/22 09:44 AST 14 U/L (15-37) L 06/16/22 09:44 ALT 18 U/L (16-61) 06/16/22 09:44 Alkaline Phosphatase 70 U/L (45-117) 06/16/22 09:44 Home Medications: Amiodarone HCl [Cordarone*] 200 mg PO BID 09/19/19 Atorvastatin Calcium [Lipitor] 40 mg PO BEDTIME 09/19/19 Citalopram [Celexa*] 20 mg PO DAILY 09/19/19 Docusate Sodium [Stool Softener] 200 mg PO DAILY PRN 09/19/19 Doxycycline Hyclate 100 mg PO Q12HP 09/19/19 Furosemide [Lasix*] 20 mg PO DAILY 09/19/19 Ipratropium Neb [Atrovent*] 0.5 mg IH Q6HP PRN 09/19/19 Trazodone [Desyrel*] 150 mg PO BEDTIME 09/19/19 Warfarin Sodium [Coumadin] 5 mg PO DAILY 09/19/19 Citalopram [Celexa*] 20 mg PO DAILY tablet 09/28/19 Codeine/APAP [Tylenol #3*] 1 tab PO Q6H PRN #45 tab 09/28/19 Codeine/APAP [Tylenol #3*] 1 tab PO Q6HP PRN #45 tab 09/28/19 Docusate/Senna [Senokot-S*] 2 tab PO BEDTIME PRN tab 09/28/19 Ferrous Sulfate [Ferrous Sulfate*] 325 mg PO BID #60 tab 09/28/19 Furosemide [Lasix*] 20 mg PO DAILY #30 tab 09/28/19 Gabapentin 600 mg PO BID #60 09/28/19 Iron/FA/Vit B-Com W/C [Hemocyte Plus*] 1 tab PO DAILY WITH BREAKFAST #30 tab 09/28/19 Lidocaine 4% Patch [Lidoderm 5% Patch*] 2 patch TOP DAILY patch 09/28/19 carvediloL [Coreg*] 3.125 mg PO DAILY #30 tab 09/28/19 traMADol HCL [Ultram*] 50 mg PO Q4H PRN #45 tab 09/28/19 Physician Discharge Instructions: Presented with chest pain. Mild elevation of troponin levels which peaked at 129 and improved. Chest x-ray with mild CHF type pattern. Dr. Nicole was consulted and reviewed cardiac stress test from ~24hrs prior to admission, which was negative. Symptoms resolved. He was deemed stable for discharge home. Follow up with Dr. Nicole in ~4 weeks. Follow up with Dr. Reagan in ~1 week. Resume home medications as previously prescribed. Followup: Selwyn Reagan MD [Primary Care Provider] - Time spent managing pt's care (in minutes): 45
--- NOTE | 2022-06-17 16:47 | EKG ---
Test Date: 2022-06-16 Test Time: 09:27:28 Manager Community Relations: SANJAY MEASUREMENT RESULTS: Intervals: Rate: 86 ME: 156 QRSD: 126 QT: 404 QTc: 483 Rogers: P: 46 ME: 156 QRS: -76 T: 22 INTERPRETIVE STATEMENTS: Sinus rhythm with occasional premature ventricular complexes and fusion complexes Right bundle branch block Left anterior fascicular block Bifascicular block Abnormal ECG Compared to ECG 11/26/2016 17:16:06 Fusion complex(es) now present Ventricular premature complex(es) now present Right bundle-branch block now present Left anterior fascicular block now present Bifascicular block now present Electronically Signed On 06-17-22 16:45:49 CDT by Denzel Nicole
--- NOTE | 2022-06-17 19:12 | PN ---
Date of Progress Note: 06/17/2022 Subjective: Seen by bedside. No further chest pain. Feels well. Review of Systems: No chest pain, shortness of breath, orthopnea, cough. No nausea, vomiting, diarrhea. All other syst ems reviewed and they were negative. Physical Examination: Vital Signs: Reviewed. Head and Neck: Pupils are equal, reactive to light. Intact eye movements. No JVD. No cervical lym phadenopathy. Neck is supple. Thyroid is not enlarged. Lungs: Clear to auscultation bilaterally. No rhonchi, wheezing, or crackles. No accessory muscle u se. Heart: Regular rate and rhythm. No extra sounds. Abdomen: Soft, nontender. Bowel sounds positive. No organomegaly. No masses or hernia. No rigidi ty or rebound. Extremities: No edema, clubbing, or cyanosis. Intact pulses. Skin: No rash. Neurologic: Alert, awake, oriented x3. No acute focal deficits appreciated. Investigations: BUN 24, creatinine 1.1, troponin is 82, and hemoglobin is 11.5. Assessment And Recommendations: 1.Chest pain. This is atypical, very mild troponin leak. Stress test 3 days ago in the office was normal. At this point, this is likely demand ischemia. No further cardiac workup is needed. The pa tient can be released. Follow up as an outpatient. 2.Coronary artery disease history, status post bypass and stress test recently is negative. The pat ient was assured if he starts having social chest pain, then we will plan for coronary angiogram. 3.Hypertension. Blood pressure is controlled. Continue current management. SR/MODL Voice ID: [id number] Report ID: [id number]
== END 2022-06-17 16:25 | disposition home or self-care (01) | DRG 311 ==
LOC: ER 09:05 → ERHOLD 13:48 → 2ND 20:33
PROVIDERS: ADMIT Family Medicine; ATTEND Hospitalist
DX: I24.8 Other forms of acute ischemic heart disease (principal); I50.30 Unspecified diastolic (congestive) heart failure; N17.9 Acute kidney failure, unspecified; R07.89 Other chest pain; I25.10 Atherosclerotic heart disease of native coronary artery without angina pectoris; I11.0 Hypertensive heart disease with heart failure; I25.2 Old myocardial infarction; E11.9 Type 2 diabetes mellitus without complications; E87.5 Hyperkalemia; E66.9 Obesity, unspecified; Z68.33 Body mass index [BMI] 33.0-33.9, adult; Z95.1 Presence of aortocoronary bypass graft; Z95.5 Presence of coronary angioplasty implant and graft; Z95.2 Presence of prosthetic heart valve; Z79.899 Other long term (current) drug therapy; Z88.0 Allergy status to penicillin; Z88.1 Allergy status to other antibiotic agents; Z20.822 Contact with and (suspected) exposure to COVID-19
CPT/HCPCS: 0240U; 36415; 71045; 80048; 80076; 82947; 83735; 83880; 84484; 85025; 85610; 93005; 96374; 99285; J1940

== ENCOUNTER 2023-05-04 09:37 | Observation (INO) | payer OTHER ==
[2023-05-04 10:34] LABS: Absolute Lymphocytes (CBC) 0.9 K/uL (0.7-4.9); Hematocrit 33.7 % (39.6-49.0); Lymphocytes % 12.9 % (15.3-44.8); MCV 91.9 fL (80-100); MPV 10.1 fL (7.6-11.3); Platelets 213 thou/uL (152-406); RBC Red Blood Cell Count 3.67 M/uL (4.33-5.43)
[2023-05-04 10:43] LABS: Protime INR 1.08
[2023-05-04 10:54] LABS: Bilirubin Direct 0.2 mg/dL (0-0.2); Bilirubin Indirect, Calculated 0.2 mg/dL (0.2-0.8); Bilirubin Total 0.4 mg/dL (0.2-1.0); Magnesium 2.1 mg/dL (1.6-2.4); Potassium 4.6 mEq/L (3.5-5.1); Protein, Total 6.8 g/dL (6.4-8.2); Troponin High Sensitivity 9.9 pg/mL (<58.9)
--- NOTE | 2023-05-04 10:55 | RAD REPORT ---
EXAM DESCRIPTION: CT - Ct Stroke Brain Wo Cont - 05/04/2023 10:26 am CLINICAL HISTORY: STROKE ALERT COMPARISON: Neck Angio dated 05/04/2023; Head angio dated 05/04/2023 TECHNIQUE: Noncontrast head CT images ad were obtained without IV contrast. Multiplanar reformats we re generated and reviewed. All CT scans are performed using dose optimization technique as appropriate and may include automated exposure control or mA/KV adjustment according to patient size. FINDINGS: No intracranial hemorrhage, mass, or edema. Midline structures are unremarkable. Normal ventricular caliber for age. Patchy periventricular hypodensities, nonspecific, may suggest chronic small vessel ischemic changes. Ramirez-white matter differentiation is preserved, without evidence of acute infarct. No abnormal extra- axial fluid collections. Mastoid air cells and visualized portions of the paranasal sinuses are clear. No acute bony findings. IMPRESSION: No evidence of an acute intracranial process. The findings were communicated to Rivera Watkins on 05/04/2023 at 10:50 hours.
--- NOTE | 2023-05-04 11:02 | RAD REPORT ---
EXAM DESCRIPTION: CT - Neck Angio - 05/04/2023 10:26 am CLINICAL HISTORY: monocular vision loss COMPARISON: Head angio dated 05/04/2023; Ct Stroke Brain Wo Cont dated 05/04/2023 TECHNIQUE: Axial CT angiography images of the head was performed with multiplanar and maximum intens ity projection reconstructions. Images performed following intravenous administration of 100mL Isovue 370. All CT scans are performed using dose optimization technique as appropriate and may include automated exposure control or mA/KV adjustment according to patient size. Quantification of carotid stenosis, if any, is performed according to NASCET criteria. FINDINGS: A left aortic arch is identified with normal three vessel configuration of the great vesse ls. Moderate atherosclerotic calcifications at the distal CCAs and carotid bulbs. No hemodynamically sign ificant flow abnormality is seen of the common carotid bilaterally. Focal moderate stenosis along the proximal left ICA, with narrowest luminal diameter measuring 2.2 mm , compared to 5.5 mm more distally, amounting to 60% stenosis by NASCET criteria. No hemodynamically significant stenosis along the right ICA, with up to moderate atherosclerotic calcific plaque formati on. Focal moderate stenosis of the left V1 segment, just distal to the origin, and focal wgaj-eb-ybnepodo stenosis of the right V2 segment proximally, axial image 99. Remainder of the vertebral arteries are patent. Volume loss and layering up to moderate effusion with possible loculation on the left. IMPRESSION: Up to moderate atherosclerotic changes, with focal moderate stenosis of the proximal lef t ICA, amounting to 60% stenosis by NASCET criteria. Right ICA is patent. Focal moderate stenosis of the proximal left V1 segment and focal eldz-ai-ytdzhbdo stenosis of the ri ght V2 segment. CAROTID STENOSIS REFERENCE USING NASCET CRITERIA: % ICA stenosis = (1 - narrowest ICA diameter/diameter of distal cervical ICA) x 100. Mild - <50% stenosis. Moderate - 50-69% stenosis. Severe - 70-94% stenosis. Near occlusion - 95-99% stenosis. Occluded - 100% stenosis.
--- NOTE | 2023-05-04 11:03 | RAD REPORT ---
EXAM DESCRIPTION: CT - Head angio - 05/04/2023 10:25 am CLINICAL HISTORY: monocular vision loss COMPARISON: Ct Stroke Brain Wo Cont dated 05/04/2023; Neck Angio dated 05/04/2023 TECHNIQUE: Axial CT angiography images of the head was performed with multiplanar and maximum intens ity projection reconstructions. Images performed following intravenous administration of 100mL Isovue 370. All CT scans are performed using dose optimization technique as appropriate and may include automated exposure control or mA/KV adjustment according to patient size. FINDINGS: No evidence of large vessel occlusion. No evidence of aneurysm or dissection flap is detec kanchan. No flow-limiting stenosis or vascular malformation identified. Antegrade flow is seen in the vertebral arteries. The vertebral arteries are codominant. The visualized dural venous sinuses are grossly patent. IMPRESSION: No evidence of large vessel occlusion or flow-limiting stenosis.
--- NOTE | 2023-05-04 12:18 | ER ---
Nurse's Notes [facility] Name: Duran Ron Jr Age: 78 yrs Sex: Male : 1945 Arrival Date: 05/04/2023 Time: 09:37 Bed 18 Private MD: Selwyn Reagan Diagnosis: Monocular vision loss, rule out CVA Presentation: 05/04 09:45 Chief complaint: Patient states: Had BAJWA and L eye vision loss at 8 PM last night. ll1 Vision has gotten half better, but not fully. No pain now. Coronavirus screen: Client denies travel out of the [place] in the last 14 days. At this time, the client does not indicate any symptoms associated with coronavirus-19. Ebola Screen: Patient denies travel to an Ebola-affected area in the 21 days before illness onset. Initial Sepsis Screen: Does the patient meet any 2 criteria? No. Patient's initial sepsis screen is negative. Does the patient have a suspected source of infection? No. Patient's initial sepsis screen is negative. Risk Assessment: Do you want to hurt yourself or someone else? Patient reports no desire to harm self or others. Onset of symptoms was May 03, 2023. 09:45 Method Of Arrival: Ambulatory ll1 09:45 Acuity: ALTHEA 2 ll1 Historical: - Allergies: 09:40 Keflex; ll1 09:40 PENICILLINS; ll1 - PMHx: 09:40 Diabetes - NIDDM; Hypertensive disorder; Myocardial infarction; ll1 - PSHx: 09:40 Stented artery; Valve replacement; ll1 - Immunization history:: Adult Immunizations up to date. - Social history:: Smoking status: Patient denies any tobacco usage or history of. - Family history:: not pertinent. Screenin:24 Boyd Swallow Protocol Brief Cognitive Screen What is your name? Normal, Where are you db right now? Normal, What year is it? Normal. Oral Mechanism Examination Facial Symmetry: Normal, Motion: Normal, Lip Closure: Normal, Oral Mechanism Result: Normal. 3 oz Water Swallow Challenge: Pt able to drink all water without stopping, coughing, choking or throat clearing: Yes Result: PASS. 11:28 [facility] [place] ED Fall Risk Assessment (Adult) History of falling in the last 3 months, db including since admission No falls in past 3 months (0 pts) Confusion or Disorientation No (0 pts) Intoxicated or Sedated No (0 pts) Impaired Gait No (0 pts) Mobility Assist Device Used No (0 pt) Altered Elimination No (0 pt) Score/Fall Risk Level 0 - 2 = Low Risk Oriented to surroundings, Maintained a safe environment. Abuse screen: Denies threats or abuse. Denies injuries from another. Nutritional screening: No deficits noted. Tuberculosis screening: No symptoms or risk factors identified. Assessment: 10:36 Reassessment: Patient appears in no apparent distress at this time. Patient and/or db family updated on plan of care and expected duration. Pain level reassessed. Patient is alert, oriented x 3, equal unlabored respirations, skin warm/dry/pink. General: Appears in no apparent distress. comfortable, Behavior is calm, cooperative. 11:28 Reassessment: Patient appears in no apparent distress at this time. Patient and/or db family updated on plan of care and expected duration. Pain level reassessed. Patient is alert, oriented x 3, equal unlabored respirations, skin warm/dry/pink. Reassessment: PT REPORTS HERE FOR VISION CHANGES. General: Appears in no apparent distress. comfortable, Behavior is calm, cooperative. Pain: Denies pain. Neuro: Level of Consciousness is awake, alert, obeys commands, Oriented to person, place, time, situation. Respiratory: Airway is patent Respiratory effort is even, unlabored, Respiratory pattern is regular, symmetrical. 12:40 Reassessment: PATIENT TO MRI. db 13:13 Reassessment: PATIENT RETURNED TO ROOM FROM MRI. db 13:17 Reassessment: PT RETURNED FROM THE RESTROOM. db 13:22 Reassessment: ATTEMPTED TO GIVE NURSE REPORT. NURSE REQUESTS CALL BACK IN 5 MIN. db 13:31 Reassessment: REPORT CALLED TO MADHAV KRAUS. db Vital Signs: 09:45 BP 153 / 77; Pulse 73; Resp 17; Temp 97.5; Pulse Ox 98% on R/A; Weight 99.79 kg; Height ll1 5 ft. 9 in. ; Pain 0/10; 10:24 BP 124 / 87; Pulse 68; Resp 18; Pulse Ox 97% on R/A; db 11:07 BP 122 / 59; Pulse 65; Resp 18; Pulse Ox 97% on R/A; db 13:10 BP 150 / 56; Pulse 69; Resp 16; Pulse Ox 98% on R/A; db 13:30 BP 134 / 59; Pulse 65; Resp 18; Pulse Ox 97% on R/A; db 09:45 Body Mass Index 32.49 (99.79 kg, 175.26 cm) ll1 09:45 Pain Scale: Adult ll1 ED Course: 09:39 Patient arrived in ED. mr 09:39 Selwyn Reagan MD is Private Physician. mr 09:40 Jelani Levine MD is Attending Physician. rt 09:40 Arm band placed on Patient placed in an exam room, on a stretcher. ll1 09:47 Triage completed. ll1 10:00 Yajaira Stark, MADHAV is Primary Nurse. db 10:27 CT Head Angio In Process Unspecified. EDMS 10:28 CT Neck Angio In Process Unspecified. EDMS 10:28 CT Stroke Brain w/o Contrast In Process Unspecified. EDMS 10:36 Inserted saline lock: 22 gauge in right antecubital area, using aseptic technique. db 10:37 Stroke CXR 1 View In Process Unspecified. EDMS 11:28 Patient has correct armband on for positive identification. Bed in low position. Call db light in reach. Side rails up X 1. Client placed on continuous cardiac and pulse oximetry monitoring. NIBP monitoring applied. 12:18 Selwyn Reagan MD is Hospitalizing Provider. rt 13:22 Provided Education on: ADMIT. db 13:22 No provider procedures requiring assistance completed. Patient admitted, IV remains in db place. Administered Medications: 12:36 Drug: Ativan IVP 1 mg IVP once Route: IVP; Site: right forearm; db 13:51 Follow up: Response: No adverse reaction db 13:17 Drug: Aspirin PO 325 mg PO once Route: PO; db 13:51 Follow up: Response: No adverse reaction db Medication: 11:28 VIS not applicable for this client. db Outcome: 12:18 Decision to Hospitalize by Provider. rt 13:22 Admitted to ER Hold. [email or web address] documentation. db 13:22 Condition: stable 13:22 Instructed on the need for admit, 13:51 Patient left the ED. db Signatures: Dispatcher [employer] EDKS Ellen Hutchison, Reg Reg Soy Garcia RN RN 1 Yajaira Stark, MADHAV RN db Jelani Levine MD MD rt
--- NOTE | 2023-05-04 12:19 | EDPHYS ---
Physician Documentation [facility] Name: Duran Ron Jr Age: 78 yrs Sex: Male : 1945 Arrival Date: 05/04/2023 Time: 09:37 Bed 18 Private MD: Selwyn Reagan ED Physician Jelani Levine HPI: 05/04 10:01 This 78 yrs old Male presents to ER via Ambulatory with complaints of Vision Problem, rt Headache. 10:01 Patient presents to the ED with vision loss to the left eye. The patient reports having rt a headache yesterday, noticed almost complete vision loss to the left eye at about 8 PM yesterday. Patient states that headache is since resolved, has no pain currently. Does report that his vision is somewhat improved, however, he feels like there is a curtain over the top of his left eyes vision. Reports that his right eye is okay. Denies other acute complaints, symptoms are moderate in severity, no other aggravating or alleviating factors.. Historical: - Allergies: 09:40 Keflex; ll1 09:40 PENICILLINS; ll1 - PMHx: 09:40 Diabetes - NIDDM; Hypertensive disorder; Myocardial infarction; ll1 - PSHx: 09:40 Stented artery; Valve replacement; ll1 - Immunization history:: Adult Immunizations up to date. - Social history:: Smoking status: Patient denies any tobacco usage or history of. - Family history:: not pertinent. ROS: 10:01 Constitutional: Negative for fever, chills, and weight loss, Cardiovascular: Negative rt for chest pain, palpitations, and edema, Respiratory: Negative for shortness of breath, cough, wheezing, and pleuritic chest pain, Abdomen/GI: Negative for abdominal pain, nausea, vomiting, diarrhea, and constipation, MS/Extremity: Negative for injury and deformity, Skin: Negative for injury, rash, and discoloration, Psych: Negative for depression, anxiety, suicide ideation, homicidal ideation, and hallucinations, 10:01 Eyes: Positive for vision loss, visual disturbance, Negative for pain, 10:01 Neuro: Positive for headache, Negative for altered mental status, Exam: 10:01 Constitutional: This is a well developed, well nourished patient who is awake, alert, rt and in no acute distress. Head/Face: Normocephalic, atraumatic. Chest/axilla: Normal chest wall appearance and motion. Nontender with no deformity. No lesions are appreciated. Cardiovascular: Regular rate and rhythm with a normal S1 and S2. No gallops, murmurs, or rubs. Normal PMI, no JVD. No pulse deficits. Respiratory: Lungs have equal breath sounds bilaterally, clear to auscultation and percussion. No rales, rhonchi or wheezes noted. No increased work of breathing, no retractions or nasal flaring. Abdomen/GI: Soft, non-tender, with normal bowel sounds. No distension or tympany. No guarding or rebound. No evidence of tenderness throughout. Skin: Warm, dry with normal turgor. Normal color with no rashes, no lesions, and no evidence of cellulitis. MS/ Extremity: Pulses equal, no cyanosis. Neurovascular intact. Full, normal range of motion. Psych: Awake, alert, with orientation to person, place and time. Behavior, mood, and affect are within normal limits. 10:01 Eyes: Pupils equally round reactive to light, extraocular muscles are intact, right eye has no visual field deficits, left eye has visual field deficits to both upper quadrants, patient is intact in the lower quadrants. 10:01 Neuro: Cranial nerves II through XII intact, strength and sensation intact upper and lower extremities, no ataxia on [id number], 10:53 ECG was reviewed by the Attending Physician. rt Vital Signs: 09:45 BP 153 / 77; Pulse 73; Resp 17; Temp 97.5; Pulse Ox 98% on R/A; Weight 99.79 kg; Height ll1 5 ft. 9 in. ; Pain 0/10; 10:24 BP 124 / 87; Pulse 68; Resp 18; Pulse Ox 97% on R/A; db 11:07 BP 122 / 59; Pulse 65; Resp 18; Pulse Ox 97% on R/A; db 13:10 BP 150 / 56; Pulse 69; Resp 16; Pulse Ox 98% on R/A; db 13:30 BP 134 / 59; Pulse 65; Resp 18; Pulse Ox 97% on R/A; db 09:45 Body Mass Index 32.49 (99.79 kg, 175.26 cm) ll1 09:45 Pain Scale: Adult ll1 MDM: 09:42 Patient medically screened. rt 12:22 Differential diagnosis: CVA, retinal detachment. Data reviewed: vital signs, nurses rt notes, lab test result(s), radiologic studies. Consideration of Admission/Observation Patient was admitted/placed on observation. Management of patient was discussed with the following: Primary Care Provider: Agrees to admit. I considered the following discharge prescriptions or medication management in the emergency department Medications were administered in the Emergency Department. See MAR. Independent interpretation of the following test(s) in the Emergency Department CT Scan: My interpretation is No intracranial hemorrhage seen on interpretation of CT scan images. Point of Care Ultrasound performed by Emergency Department Team, please see interpretation in the Ultrasound procedure note. Care significantly affected by the following chronic conditions: Diabetes, Hypertension. Counseling: I had a detailed discussion with the patient and/or guardian regarding the historical points, exam findings, and any diagnostic results supporting the discharge/admit diagnosis, lab results, radiology results, the need for further work-up and treatment in the hospital. ED course: Patient is outside of the window for tPA, no large vessel occlusion seen on CT angiogram, bedside ultrasound shows no retinal detachment, vitreous hemorrhage. 05/04 09:57 Order name: Basic Metabolic Panel; Complete Time: 10:54 rt 05/04 09:57 Order name: CBC with Diff; Complete Time: 10:54 rt 05/04 09:57 Order name: Hepatic Function; Complete Time: 10:54 rt 05/04 09:57 Order name: High Sensitivity Troponin; Complete Time: 10:54 rt 05/04 09:57 Order name: Magnesium; Complete Time: 10:54 rt 05/04 09:57 Order name: Protime (+inr); Complete Time: 10:54 rt 05/04 09:57 Order name: Ptt, Activated; Complete Time: 10:54 rt 05/04 10:41 Order name: CREATININE WHOLE BLOOD; Complete Time: 10:54 EDMS 05/04 12:23 Order name: Urinalysis w/ reflexes EDMS 05/04 12:23 Order name: CBC with Automated Diff EDMS 05/04 12:23 Order name: CBC with Automated Diff EDMS 05/04 12:23 Order name: Comprehensive Metabolic Panel EDMS 05/04 12:23 Order name: Comprehensive Metabolic Panel EDMS 05/04 12:23 Order name: Lipid Profile EDMS 05/04 12:23 Order name: Lipid Profile EDMS 05/04 09:57 Order name: CT Head Angio; Complete Time: 12:08 rt 05/04 09:57 Order name: CT Neck Angio; Complete Time: 12:08 rt 05/04 09:57 Order name: CT Stroke Brain w/o Contrast; Complete Time: 12:08 rt 05/04 09:57 Order name: Stroke CXR 1 View rt 05/04 12:17 Order name: MRI Stroke Protocol rt 05/04 13:31 Order name: MRI EDMS 05/04 09:57 Order name: EKG; Complete Time: 09:58 rt 05/04 12:22 Order name: CONS Physician Consult EDMS 05/04 09:57 Order name: Accucheck; Complete Time: 11:15 rt 05/04 09:57 Order name: Cardiac monitoring; Complete Time: 10:50 rt 05/04 09:57 Order name: EKG - Nurse/Tech; Complete Time: 10:50 rt 05/04 09:57 Order name: IV Saline Lock; Complete Time: 11:15 rt 05/04 09:57 Order name: Labs collected and sent; Complete Time: 10:51 rt 05/04 09:57 Order name: NPO; Complete Time: 10:51 rt 05/04 09:57 Order name: O2 Per Protocol; Complete Time: 10:51 rt 05/04 09:57 Order name: O2 Sat Monitoring; Complete Time: 10:51 rt 05/04 09:57 Order name: Stroke Swallow Screen; Complete Time: 11:15 rt EC:53 Rate is 72 beats/min. Rhythm is regular, Normal Sinus Rhythm with Right bundle branch rt block. Left axis deviation noted. NE interval is normal. QT interval is normal. No ST changes noted. Administered Medications: 12:36 Drug: Ativan IVP 1 mg IVP once Route: IVP; Site: right forearm; db 13:51 Follow up: Response: No adverse reaction db 13:17 Drug: Aspirin PO 325 mg PO once Route: PO; db 13:51 Follow up: Response: No adverse reaction db Disposition Summary: 05/04/23 12:18 Hospitalization Ordered Notes: Hospitalization Status: Observation rt Provider: Selwyn Reagan rt Condition: Stable rt Problem: new rt Symptoms: have improved rt Bed/Room Type: Standard rt Location: Telemetry/MedSurg (Inpatient)(05/04/23 12:39) ds4 Room Assignment: 218(05/04/23 12:39) ds4 Diagnosis - Monocular vision loss, rule out CVA rt Forms: - Medication Reconciliation Form rt - SBAR form rt - Leadership Thank You Letter rt Signatures: Dispatcher [employer] RICHARDRustam Oleary ds4 Syo Garcia, RN RN ll1 Yajaira Stark RN RN db Jelani Levine MD MD rt Corrections: (The following items were deleted from the chart) : 12:18 Telemetry/MedSurg (observation) rt ds4 12:39 12:18 rt ds4
[2023-05-04] MEDS ORDERED: ASPIRIN 81 MG CHEWABLE TABLET ONE (12:31)
[2023-05-04] MEDS ORDERED: LORazepam 2 MG/ML VIAL ONE (12:34)
[2023-05-04] MEDS ORDERED: ASPIRIN 325 MG TAB ONE (12:42)
--- NOTE | 2023-05-04 12:50 | RAD REPORT ---
[facility]AM [facility] 10:35 am CLINICAL HISTORY: cva COMPARISON: Chest Single View dated 06/16/2022; Chest Pa And Lat (2 Views) dated 03/11/2022; Chest Pa And Lat (2 Views) dated 11/18/2021; Chest Pa And Lat (2 Views) dated 10/02/2019 TECHNIQUE: Portable AP view of the chest. FINDINGS: Patchy left basilar opacities and layering small left effusion, stable. Mild central inter stitial prominence is also stable. No pneumothorax or right effusion. The cardiomediastinal contours are unchanged. IMPRESSION: Stable findings as above.
--- NOTE | 2023-05-04 13:31 | RAD REPORT ---
EXAM DESCRIPTION: MRI - Brain Wo Cont - 05/04/2023 1:22 pm CLINICAL HISTORY: monocular vision loss Headache, drowsiness COMPARISON: Head angio dated 05/04/2023; Neck Angio dated 05/04/2023; Ct Stroke Brain Wo Cont dated TECHNIQUE: Multi-sequence, multiplanar MR imaging of the brain was performed without contrast. FINDINGS: No intracranial hemorrhage, hydrocephalus or extra-axial fluid collections.Mild generalize d brain atrophy. No edema or shift of midline structures. No findings to suspect brain mass.Elevated FLAIR signal is seen in the region of both IAC cisterns. This is of unclear etiology and significance . DWI is negative for acute CVA. Midline structures are normally formed. Mastoid air cells and paranasal sinuses are clear. IMPRESSION: Negative for acute CVA. Elevated FLAIR signal is seen in the prepontine cistern bilaterally adjacent to the IAC's. It is uncl ear this represents artifact or a real finding. Recommend dedicated MRI IAC protocol with contrast fo r further evaluation
[2023-05-04 17:24] VITALS: BMI 32.5
[2023-05-04] MEDS ORDERED: GLUCAGON 1 MG/VIAL IM PRN (20:26)
[2023-05-04] MEDS ORDERED: D50W 25 GM/50 ML SYRINGE IV PRN (20:26)
[2023-05-04] MEDS ORDERED: D10W 125 ML IV PRN (20:28)
[2023-05-04] MEDS: INSULIN REGULAR (HUMAN) 100 UNIT/ML SQ SCH (21:00)
[2023-05-04] MEDS: ASPIRIN EC 81 MG TAB PO SCH (21:01)
[2023-05-04] MEDS: DOCUSATE NA 100 MG CAP PO PRN (21:01)
[2023-05-04] MEDS: TEMAZEPAM 15 MG CAP PO PRN (21:01)
[2023-05-04 22:50] VITALS: O2SAT 94
[2023-05-05 01:26] LABS: Specific Gravity > 1.030 (1.005-1.030); Urine Bilirubin NEGATIVE (Negative); Urine Blood Negative (Negative); Urine Clarity Clear (Clear); Urine Color Light-Yellow (Yellow); Urine Glucose NEGATIVE (Negative); Urine Protein NEGATIVE (Negative); Urine Urobilinogen Normal (Normal); Urine pH 5.5 (5.0-7.0)
[2023-05-05 03:43] LABS: Lymphocytes % 17.7 % (15.3-44.8); MCV 90.3 fL (80-100); MPV 10.9 fL (7.6-11.3); Platelets 197 thou/uL (152-406); RBC Red Blood Cell Count 3.44 M/uL (4.33-5.43)
[2023-05-05 03:57] LABS: Albumin 2.8 g/dL (3.4-5.0); Bilirubin Total 0.4 mg/dL (0.2-1.0); Potassium 4.7 mEq/L (3.5-5.1); Protein, Total 6.4 g/dL (6.4-8.2)
--- NOTE | 2023-05-05 11:16 | PN ---
Date of Progress Note: 05/05/2023 The patient states his eyes may be little bit better, but basically the same with some visual field d efect. Headache is gone. Vital signs are stable. Lab workup is good, awaiting neurological evaluat ion. For disposition, should be seen later today. If stable, could probably be discharged. Follow up on outpatient patient with myself, Dr. Summers, and ophthalmology. He has not had a good eye exa m for a while now. HR/MODL Voice ID: [id number] Report ID: [id number]
--- NOTE | 2023-05-05 11:16 | HP ---
Date of Admission: 05/04/2023 Entrance Complaint: Visual changes, left eye. History Of Present Illness: The patient states he did a lot more and is accustomed to doi ng. Prior to this incident, a couple hours later he was in the house watching TV and he noticed some difficulty with his left eye. Certain times there would be absent vision, other times it would impr ove depending on his head position. This persisted, associated with significant headache office and was referred to the ER. Past History: The patient has had multiple medical problems, including an IDDM with good control, co ronary artery disease with stents in good control. He has recently undergone cardiologica l workup with this yet. Family History: Noncontributory. Social History: Nonsmoker, nondrinker. Physical Examination: General: Patient is a well-built elderly male. Vital Signs: Stable vital signs. Head and Neck: Normocephalic. Pupils equal react to light and accommodation. Chest: Clear to P and A. Cardiovascular: PMI midclavicular line. Heart: Heart sounds normal. Peripheral pulses present and equal bilaterally. Abdomen: No organomegaly. Bowel sounds present. Extremities: Good tone and movement bilaterally. Reflexes physiological. Neurological: Visual field defect present in the left eye. Impression: Nerve palsy of the left eye, possible vascular incident. Plan: The patient will be admitted, treated symptomatically. His workup was negative for any acute cardiovascular accident. We will consult Neurology, has been given an aspirin, which he had been on in the past including Plavix as well, but these have been discontinued. His vital signs are stable. We will await neurological evaluation. HR/MODL Voice ID: [id number]
[2023-05-05 16:33] VITALS: BP 148/70; TEMP 97.5
== END 2023-05-05 17:21 | disposition home or self-care (01) ==
LOC: ER 09:37 → ERHOLD 12:19 → 2ND 13:04
PROVIDERS: ADMIT Family Medicine; ATTEND Family Medicine
DX: H49.02 Third [oculomotor] nerve palsy, left eye (principal); R51.9 Headache, unspecified; H53.9 Unspecified visual disturbance; Z88.0 Allergy status to penicillin; Z88.1 Allergy status to other antibiotic agents; I10 Essential (primary) hypertension; E11.9 Type 2 diabetes mellitus without complications; I25.2 Old myocardial infarction
CPT/HCPCS: 36415; 70450; 70496; 70498; 70551; 71045; 80048; 80053; 80061; 80076; 81003; 82565; 82947; 83735; 84484; 85025; 85610; 85730; G0378; Q9967